=== PATIENT | female | born 1950 | race Caucasian/White ===

== ENCOUNTER 2017-10-15 03:38 | Inpatient (IN) | payer OTHER ==
[2017-10-15] VITALS (10 sets, daily range): BP systolic 135–216; BP diastolic 65–90
[~2017-10-15] VITALS: Ht 167.6 cm; Wt 91.6 kg
[~2017-10-15 03:38] MED LIST: ACETAMINOPHEN-1 EAC1 PO; ALLOPURINOL 30300 M1 PO; AMARYL2 M1 PO; AMILORIDE HCL-1 EACH; AMILORIDE HCL-1 EACH PO; AMLODIPINE BESY10 MG PO; AMOXICILLIN 50500 M1 PO; ASPIRIN EC81 M1 PO; AUGMENTIN 500-1 EACH PO; B12INJ PO; CARVEDILOL25 MG PO; CATAPRES0.2 MG PO; CIPRO250 MG PO; CIPROFLOXACIN500 M1 PO; CLONIDINE0.1 PO; COD LIVER OIL1 EAC5 PO; COZAAR 50 MG TA50 M2 PO; CRANBERRY200 MG PO; FISH OIL 1,2001 EAC3 PO; FLOMAX PO; GLUCOPHAGE1000 MG PO; HYDRALAZINE 2525 MG PO; LISINOPRIL20 MG PO; LOVASTATIN 20 M20 MG PO; MAXZIDE-25 MG1 EACH PO; MEVACOR 20 MG T20 MG PO; MULTIVITAMINS PO; NORVASC5 MG PO; ODORLESS GARLI500 MG PO; OXYCODON-ACETA1 EAC1 PO; PRESERVISION L1 EACH PO; SYNTHROID50 MCG PO; UROCIT PO; VITAMIN B-12500 MCG PO; VITAMIN E400 UNIT PO; VITAMIN K100 MCG PO; VITAMINC500 PO; XANAX 0.25 MG0.25 MG PO; ZOFRAN ODT4 MG PO
[2017-10-15] MEDS ORDERED: CELEXA 20 MG TA20 MG PO (03:48)
[2017-10-15 04:25] LABS: ABSOLUTE BASOPHILS 0.1 thou/uL (0.0-0.2); ABSOLUTE EOSINOPHILS 0.2 thou/uL (0.0-0.7); ABSOLUTE LYMPHOCYTES 0.8 thou/uL (0.8-5.3); ABSOLUTE MONOCYTES 0.5 thou/uL (0.0-1.2); ABSOLUTE NEUTROPHILS 4.4 thou/uL (1.6-8.1); BASOPHILS 1.4 %; EOSINOPHILS 2.8 %; HEMATOCRIT 28.3 % (37.0-47.0); HEMOGLOBIN 9.4 gm/dL (12.0-15.0); LYMPHOCYTES 13.4 %; MCH 27.6 pg (26.0-34.0); MCHC 33.2 g/dL (28.0-37.0); MCV 83.2 fL (80.0-100.0); MONOCYTES 8.4 %; MPV 9.7 fl. (7.2-11.1); NUCLEATED RBCS 0 /100WBC; RDW-CV 14.5 % (10.5-14.5)
[2017-10-15 04:34] LABS: ANION GAP 8 mmol/L (7-16); BUN 20 mg/dL (7-18); CALCIUM 8.7 mg/dL (8.5-10.1); CHLORIDE 104 mmol/L (98-107); CO2 28 mmol/L (21-32); CREATININE 0.9 mg/dL (0.6-1.3); GLUCOSE 125 mg/dL (70-99); POTASSIUM 3.4 mmol/L (3.5-5.1); SODIUM 140 mmol/L (136-145)
[2017-10-15 04:36] LABS: INR 1.1; PROTIME 10.3 Seconds (9.20-11.50)
[2017-10-15 04:45] LABS: ALBUMIN 2.8 g/dL (3.4-5.0); ALKALINE PHOSPHATASE 88 U/L (46-116); LIPASE 591 U/L (73-393); NT-PRO BRAIN NAT PEPTIDE 1082 pg/mL (<300); SGOT 11 U/L (15-37); SGPT 18 U/L (30-65); TOTAL BILIRUBIN 0.8 mg/dL (<0.1-1.0); TOTAL PROTEIN 5.6 g/dL (6.4-8.2); TROPONIN-I LEVEL <0.06 ng/mL (<0.06)
[2017-10-15 04:54] LABS: PLATELET COUNT* 22 thou/uL (150-400)
--- NOTE | 2017-10-15 15:26 | EKG ---
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
--- NOTE | 2017-10-15 16:33 | 2DMMODE ---
[place] [address] 2 D/M-MODE ECHOCARDIOGRAM Name: JOSE MARTIN HOLLINS Room: [address] IN [facility]#: [id number] Admission: 10/15/17 Attend Phys: Bismark Montgomery, Discharge: Date of : 46 Date of Service: 10/15/17 1633 Report #: [id number] THIS REPORT FOR: //name// APPROVED REPORT Study performed: 10/15/2017 13:22:16 EXAM: Comprehensive 2D, Doppler, and color-flow Echocardiogram Patient Location: In-Patient Room #: 208 Status: routine BSA: 2.00 HR: 74 bpm BP: 216/80 mmHg Rhythm: NSR Other Information Study Quality: Good Indications Chest Pain 2D Dimensions LVEF(%): 53.17 (>50%) IVSd: 15.91 (7-11mm) LVOT Diam: 19.67 (18-24mm) LVDd: 43.27 mm PWd: 12.00 (7-11mm) Ascending Ao: 32.88 (22-36mm) LVDs: 31.52 (25-40mm) Aortic Root: 31.97 mm Troncoso's LVEF: 53.17 % Volumes Left Atrial Volume (Systole) LA ESV Index: 30.00 mL/m2 Aortic Valve AoV Peak Braulio.: 2.13 m/s AO Peak Gr.: 18.09 mmHg LVOT Max P.97 mmHg AO Mean Gr.: 9.65 mmHg LVOT Mean P.71 mmHg LVOT Max V: 1.50 m/s AO V2 VTI: 51.24 cm LVOT Mean V: 1.00 m/s UMAIR (VTI): 2.43 cm2 LVOT V1 VTI: 40.93 cm AI [place]: 1.82 m/s2 AI PHT: 594.49 [place] [address] 2 D/M-MODE ECHOCARDIOGRAM Name: JOSE MARTIN HOLLINS Room: [address] IN .R.#: [id number] Admission: 10/15/17 Attend Phys: Bismark Montgomery, Discharge: Date of : 46 Date of Service: 10/15/17 1633 Report #: [id number] Mitral Valve E/A Ratio: 0.84 MV Decel. Time: 240.35 ms MV E Max Braulio.: 0.99 m/s MV PHT: 69.70 ms MVA (PHT): 3.16 cm2 TDI E/Lateral E': 9.90 E/Medial E': 12.38 Medial E' Braulio.: 0.08 m/s Lateral E' Braulio.: 0.10 m/s Pulmonary Valve PV Peak Braulio.: 1.36 m/s PV Peak Gr.: 7.36 mmHg Left Ventricle The left ventricle is normal size. There is normal LV segmental wall motion. There is normal left ventricular wall thickness. Left ventricular systolic function is normal. The left ventricular ejection fraction is within the normal range. LVEF is 60-65%. Grade I - abnormal relaxation pattern. Right Ventricle The right ventricle is normal size. The right ventricular systolic function is normal. Atria The left atrium size is normal. The right atrium size is normal. Aortic Valve Mild aortic valve sclerosis. Trace aortic regurgitation. There is no aortic valvular stenosis. Mitral Valve The mitral valve is normal in structure. There is no mitral valve regurgitation noted. No evidence of mitral valve stenosis. Tricuspid Valve The tricuspid valve is normal in structure. Unable to assess PA pressure. Trace tricuspid regurgitation. Pulmonic Valve The pulmonary valve is normal in structure. There is no pulmonic [place] [address] 2 D/M-MODE ECHOCARDIOGRAM Name: JOSE MARTIN HOLLINS Room: [address] IN .R.#: [id number] Admission: 10/15/17 Attend Phys: Bismark Montgomery, Discharge: Date of : 46 Date of Service: 10/15/17 1633 Report #: [id number] Great Vessels The aortic root is normal in size. IVC is normal in size and collapses with >50% inspiration Pericardium There is no pericardial effusion. <Conclusion> LVEF is 60-65%. There is normal LV segmental wall motion. Trace aortic regurgitation. Mild aortic valve sclerosis. There is no aortic valvular stenosis. Grade I - abnormal relaxation pattern. <ELECTRONICALLY SIGNED> By: Bk Vega MD, FACC 10/15/17 1633 1633 1633 Bk Vega MD, FACC /INF
[2017-10-16] VITALS (9 sets, daily range): BP systolic 114–210; BP diastolic 56–76
[2017-10-16 12:06] LABS: ABSOLUTE LYMPHOCYTES 0.8 thou/uL (0.8-5.3); ABSOLUTE MONOCYTES 0.6 thou/uL (0.0-1.2); ABSOLUTE NEUTROPHILS 5.9 thou/uL (1.6-8.1); BASOPHILS 0.7 %; EOSINOPHILS 0.2 %; HEMATOCRIT 28.1 % (37.0-47.0); HEMOGLOBIN 9.3 gm/dL (12.0-15.0); LYMPHOCYTES 11.2 %; MCH 27.9 pg (26.0-34.0); MCHC 33.2 g/dL (28.0-37.0); MONOCYTES 7.7 %; MPV 10.2 fl. (7.2-11.1); NUCLEATED RBCS 0 /100WBC; POLYS 80.2 %; RBC 3.35 mil/uL (4.20-5.00); RDW-CV 14.8 % (10.5-14.5); WBC 7.4 thou/uL (4.0-11.0)
[2017-10-16 12:11] LABS: PLATELET COUNT* 39 thou/uL (150-400)
[2017-10-17] VITALS: BP 123/62
[2017-10-17 04:00] VITALS: BP 168/67
[2017-10-17 07:30] VITALS: BP 160/65
[2017-10-17 10:51] LABS: HEMATOCRIT 27.5 % (37.0-47.0); MCH 27.5 pg (26.0-34.0); MCHC 32.8 g/dL (28.0-37.0); MCV 83.6 fL (80.0-100.0); MPV 8.6 fl. (7.2-11.1); RBC 3.29 mil/uL (4.20-5.00); RDW-CV 14.6 % (10.5-14.5); WBC 6.8 thou/uL (4.0-11.0)
[2017-10-17 12:47] VITALS: BP 171/63
[2017-10-17 16:00] VITALS: BP 159/67
[2017-10-17 20:00] VITALS: BP 184/78
[2017-10-18] VITALS: BP 159/57
[2017-10-18 04:00] VITALS: BP 187/71
[2017-10-18 05:00] LABS: HEMATOCRIT 29.3 % (37.0-47.0); HEMOGLOBIN 9.9 gm/dL (12.0-15.0); MCH 27.5 pg (26.0-34.0); MCHC 33.7 g/dL (28.0-37.0); MCV 81.5 fL (80.0-100.0); MPV 9.3 fl. (7.2-11.1); NUCLEATED RBCS 0 /100WBC; PLATELET COUNT* 55 thou/uL (150-400); RBC 3.59 mil/uL (4.20-5.00); RDW-CV 14.7 % (10.5-14.5); WBC 6.8 thou/uL (4.0-11.0)
[2017-10-18 05:27] LABS: CALCIUM 8.8 mg/dL (8.5-10.1); MAGNESIUM 2.1 mg/dL (1.8-2.4); POTASSIUM 4.2 mmol/L (3.5-5.1)
[2017-10-18 06:04] LABS: ABSOLUTE LYMPHOCYTES 0.4 thou/uL (0.8-5.3); ABSOLUTE NEUTROPHILS 6.4 thou/uL (1.6-8.1); ANISOCYTOSIS 1+; PLATELET ESTIMATE DECREASED; POIKILOCYTOSIS 1+
[2017-10-18 08:00] VITALS: BP 174/64
[2017-10-18] MEDS ORDERED: DEXAMETHASONE 44 M1 PO (10:29)
[2017-10-18] MEDS ORDERED: CLONIDINE HCL0.3 M3 PO (10:59)
[2017-10-18 11:05] VITALS: BP 174/64
[2017-10-18 11:35] VITALS: BP 155/62
--- NOTE | 2017-10-26 17:38 | CON ---
[address] [address] CONSULTATION Name: JOSE MARTIN HOLLINS Room: [address] IN M.R.#: [id number] Admission: 10/15/17 Attend Phys: Bismark Montgomery MD Discharge: 10/18/17 Date of : 46 Report #: [id number] THIS REPORT FOR: //name// CC: Bismark Gardiner DATE OF SERVICE: 10/17/2017 PHYSICIAN REQUESTING CONSULT: Dr. Montgomery REASON FOR CONSULTATION: ITP/thrombocytopenia. HISTORY OF PRESENT ILLNESS: The patient is a 66-year-old female who was recently diagnosed in September with thrombocytopenia, most consistent with ITP. The patient had presented to [facility] back on 09/20 and her platelets were 45,000. She had normal B12, iron and folic acid levels. She underwent a bone marrow biopsy on 09/22/2017. This was described as normal cellular to mildly hypercellular bone marrow with trilineage hematopoiesis with mild erythroid hyperplasia, mild dyspoiesis and no evidence of lymphoma or acute leukemia. They thought that the dyspoiesis was mild and did not meet the morphologic criteria for myelodysplasia. They did make the note that no stainable iron was identified. The patient at that time was treated with 4 doses of dexamethasone and had great improvement in her platelet count. After that, in the office, her platelet count was up to 231,000 on about 09/30/2017. The patient has had several days of chest discomfort and was seen in the Emergency Room on 10/15, and her platelet count was 22,000. She denied any bleeding, any fevers or chills, any new arm or leg swelling. PAST MEDICAL HISTORY: Notable for history of the ITP with fairly unremarkable bone marrow. Do note that the iron was low when she did check with Dr. Romero, this has been replaced. Also, history of coronary artery disease, diabetes mellitus, hypertension, hypothyroidism, hyperlipidemia, history of kidney stones. SOCIAL HISTORY: She raises 5 children. Her is present. MEDICATIONS: When she was seen in the office had included allopurinol 300 mg, Xanax 0.25, amlodipine 5 mg, Augmentin, vitamin C, aspirin 81, Tessalon Perles, clonidine 0.1, furosemide 20, glimepiride 2, hydralazine, levothyroxine, losartan, lovastatin. Medications here in the hospital currently include Tylenol p.r.n., hydralazine 100 mg t.i.d., clonidine 0.3 b.i.d., citalopram 20 at bedtime, atorvastatin calcium 40 at bedtime, cefdinir 300 mg b.i.d., B12 1000 mcg daily by mouth, losartan 50 b.i.d. Levothyroxine, I believe, she is on 0.05 [place] [address] CONSULTATION Name: JOSE MARTIN HOLLINS Room: [address]#: [id number] Admission: 10/15/17 Attend Phys: Bismark Montgomery MD Discharge: 10/18/17 Date of : 46 Report #: [id number] believe she may also be on triamterene, but that may have been canceled. Also, glimepiride 2 mg b.i.d., allopurinol 300 mg daily, multivitamins daily. Fish oil, I believe, was held. Carvedilol 25 b.i.d. PHYSICAL EXAMINATION: GENERAL: The patient is lying in bed comfortably. VITAL SIGNS: Her height is 5 feet 6 inches, which is 167.6 cm; weight is 205 pounds 4 ounces, which is 93 kg. Blood pressure is 160/65, pulse is 65, temperature 98. HEENT: Oropharynx without injection, masses. Note that the uvula is without any ecchymosis or hemorrhage or petechiae. MOOD: She is alert and pleasant. NEUROLOGIC: Her face is symmetrical. She is moving all extremities. LYMPHATICS: No enlarged lymph nodes in the supraclavicular, cervical or axillary region. ABDOMEN: Slightly obese, no tenderness. No organomegaly. SKIN: No obvious ecchymosis or definite petechiae, though she does have some slightly mary ellen patches on her lower extremities. ASSESSMENT AND PLAN: 1. ITP with fairly sudden drop in platelet counts 2-3 weeks after completion of steroids. Note that the patient did have a dose of 30 mg that brought her platelets from 22 to 39 to now 53. We will continue 40 mg for today and a total of 4 doses including the 30 mg on Wednesday. Would also consider IVIG as an outpatient. We will notify my partner that the patient will call her tomorrow. If her platelets are lower tomorrow, could initiate IVIG here. I did talk to the patient and her about the fact that ITP is usually chronic in nature and is relapsing in nature and that she may require other interventions in the future including possibility of splenectomy or rituximab or chemotherapy. Hopefully, IVIG will help to settle down. 2. Hypertension. Defer meds to others. 3. Diabetes mellitus. Continue monitoring and meds per others. 4. History of kidney stones, allopurinol and dietary management. 5. Hypothyroid, continue thyroid replacement. 6. Lipids, continue statin agent. <ELECTRONICALLY SIGNED> By: Moises Mcnamara MD 10/26/17 1738 1109 [id number] Mcnamara MD /nt
== END 2017-10-18 12:22 | disposition home or self-care (01) | DRG 303 ==
LOC: M.ERS 03:38 → M.TBA-ER 05:16 → M.2W 05:16
PROVIDERS: Emergency Medicine; Family Medicine; Internal Medicine Hematology & Oncology; ADMIT Internal Medicine
DX: I25.110 Atherosclerotic heart disease of native coronary artery with unstable angina pectoris (principal); I50.32 Chronic diastolic (congestive) heart failure; I16.1 Hypertensive emergency; D69.3 Immune thrombocytopenic purpura; E44.1 Mild protein-calorie malnutrition; I13.0 Hypertensive heart and chronic kidney disease with heart failure and stage 1 through stage 4 chronic kidney disease, or unspecified chronic kidney disease; N39.0 Urinary tract infection, site not specified; N18.2 Chronic kidney disease, stage 2 (mild); E11.22 Type 2 diabetes mellitus with diabetic chronic kidney disease; F41.9 Anxiety disorder, unspecified; I16.0 Hypertensive urgency; E87.6 Hypokalemia; D64.9 Anemia, unspecified; D69.6 Thrombocytopenia, unspecified; Z90.49 Acquired absence of other specified parts of digestive tract; Z95.5 Presence of coronary angioplasty implant and graft; Z90.710 Acquired absence of both cervix and uterus; Z88.5 Allergy status to narcotic agent; Z79.82 Long term (current) use of aspirin; Z79.84 Long term (current) use of oral hypoglycemic drugs; Z79.899 Other long term (current) drug therapy; Z87.442 Personal history of urinary calculi; Z68.32 Body mass index [BMI] 32.0-32.9, adult

== ENCOUNTER → 2017-11-09 | Outpatient (CLI) | payer OTHER ==
[~2017-11-09] MED LIST changes: +ALDACTONE25 MG PO; +AMARYL2 MG PO; +AMOXICILLIN 50500 MG PO; +BENTYL 20 MG TA20 M1 PO; +BUMETANIDE 1 MG1 M1 PO; +CELEXA 20 MG TA20 MG PO; +CHLORTHALIDONE25 MG PO; +CLONIDINE HCL0.3 M3 PO; +DEXAMETHASONE 44 M1 PO; +FLOMAX0.4 MG PO; +KLOR-CON 1010 MEQ PO
[2017-11-09 09:22] VITALS: BP 137/69
--- NOTE | 2017-11-09 09:29 | NUR ---
PT ARRIVED VIA AMBULATORY, STEADY GAIT, SETTLED SELF INTO RECLINER, AT SIDE. HX/ASSESSMENT COMPLETED. SALINE LOCK STARTED. IVIG CURRENTLY INFUSING WITHOUT DIFFICULTY. EDUCATED PT AND SPOUSE AN SYMPTOMS OF ADVERSE REACTION, PT INSTRUCTED TO CALL FOR ANY SYMPTOMS.
[2017-11-09 11:30] VITALS: BP 137/65
--- NOTE | 2017-11-09 11:43 | NUR ---
INFUSION OF IVIG CONTINUES AND IS TOLERATED WELL. LUNCH ORDERED. NADEGE MATA FOR COMPLAINT OF BEING COLD. DENEIS CURRENT NEEDS.
[2017-11-09 15:40] VITALS: BP 170/71
--- NOTE | 2017-11-09 16:04 | NUR ---
INFUSION COMPLETED AND TOLERATED WELL. DENIES NEEDS OR QUESTIONS AT DISCHARGE.
== END ==
LOC: M.INFUS 04:46
DX: D69.3 Immune thrombocytopenic purpura (principal)

== ENCOUNTER → 2017-11-12 | Outpatient (CLI) | payer OTHER ==
[2017-11-12 08:05] VITALS: BP 149/66
[2017-11-12 10:00] VITALS: BP 152/74
--- NOTE | 2017-11-12 11:33 | NUR ---
ARRIVED AMBULATORY. MADE SELF COMFORTABLE IN RECLINER. STATED HAD GI UPSET AFTER GOING HOME AFTER INFUSION ON 11/09/17. STATED THINKS IT WAS UNRELATED TO INFUSION AND SOMETHING SHE ATE. NO SYMPTOMS FOR [address] ESPINOSA WAS MADE AWARE OF DELAY IN CARE. INFUSION STARTED AND RUNNING WELL. DENIES CURRENT NEEDS LUNCH ORDERED.
[2017-11-12 14:50] VITALS: BP 142/60
--- NOTE | 2017-11-12 14:54 | NUR ---
INFUSION COMPLETED AND TOLERATED WELL. DENIES ADVERSE REACTION. DINIES NEEDS OR QUESTIONS AT DISCHARGE.
== END ==
LOC: M.INFUS 07:57
DX: D69.3 Immune thrombocytopenic purpura (principal)

== ENCOUNTER → 2017-12-10 | Outpatient (CLI) | payer OTHER ==
[2017-12-10 15:47] LABS: CALCIUM 8.8 mg/dL (8.5-10.1); POTASSIUM 3.4 mmol/L (3.5-5.1)
== END ==
LOC: M.LAB 14:42
PROVIDERS: Internal Medicine Cardiovascular Disease
DX: R60.9 Edema, unspecified (principal)

== ENCOUNTER 2017-12-22 16:25 | Inpatient (IN) | payer OTHER ==
[~2017-12-22] VITALS: Ht 167.6 cm; Wt 91.2 kg
[~2017-12-22 16:25] MED LIST changes: -ALDACTONE25 MG PO; -AMARYL2 MG PO; -AMOXICILLIN 50500 MG PO; -BENTYL 20 MG TA20 M1 PO; -BUMETANIDE 1 MG1 M1 PO; -CHLORTHALIDONE25 MG PO; -FLOMAX0.4 MG PO; -KLOR-CON 1010 MEQ PO
[2017-12-22 16:28] VITALS: BP 220/87
[2017-12-22] MEDS ORDERED: FLOMAX0.4 MG PO (16:36)
[2017-12-22] MEDS ORDERED: CHLORTHALIDONE25 MG PO (16:36)
[2017-12-22 16:41] LABS: ABSOLUTE BASOPHILS 0.1 thou/uL (0.0-0.2); ABSOLUTE EOSINOPHILS 0.1 thou/uL (0.0-0.7); ABSOLUTE LYMPHOCYTES 1.1 thou/uL (0.8-5.3); ABSOLUTE MONOCYTES 0.3 thou/uL (0.0-1.2); ABSOLUTE NEUTROPHILS 3.6 thou/uL (1.6-8.1); BASOPHILS 1.1 %; EOSINOPHILS 2.3 %; HEMATOCRIT 30.2 % (37.0-47.0); HEMOGLOBIN 10.1 gm/dL (12.0-15.0); MCH 27.7 pg (26.0-34.0); MCHC 33.5 g/dL (28.0-37.0); MCV 82.6 fL (80.0-100.0); MPV 8.9 fl. (7.2-11.1); NUCLEATED RBCS 0 /100WBC; POLYS 69.6 %; RBC 3.66 mil/uL (4.20-5.00); RDW-CV 15.7 % (10.5-14.5); WBC 5.2 thou/uL (4.0-11.0)
[2017-12-22 16:45] LABS: PLATELET COUNT* 22 thou/uL (150-400)
[2017-12-22 16:50] LABS: ANION GAP 6 mmol/L (7-16); BUN 15 mg/dL (7-18); CALCIUM 8.4 mg/dL (8.5-10.1); CHLORIDE 101 mmol/L (98-107); CO2 31 mmol/L (21-32); GLUCOSE 127 mg/dL (70-99); POTASSIUM 3.2 mmol/L (3.5-5.1); SODIUM 138 mmol/L (136-145)
[2017-12-22 16:52] LABS: APTT 27.5 Seconds (25.0-31.3); INR 1.1; PROTIME 10.3 Seconds (9.20-11.50)
[2017-12-22 17:08] LABS: ALBUMIN 3.3 g/dL (3.4-5.0); ALKALINE PHOSPHATASE 75 U/L (46-116); CK-MB MASS 1.1 ng/mL (<0.5-3.6); LIPASE 218 U/L (73-393); MAGNESIUM 1.7 mg/dL (1.8-2.4); NT-PRO BRAIN NAT PEPTIDE 2145 pg/mL (<300); SGOT 16 U/L (15-37); SGPT 18 U/L (30-65); TOTAL BILIRUBIN 0.7 mg/dL (<0.1-1.0); TOTAL PROTEIN 6.4 g/dL (6.4-8.2); TROPONIN-I LEVEL <0.06 ng/mL (<0.06)
[2017-12-22 18:07] VITALS: BP 214/86
--- NOTE | 2017-12-22 18:37 | NUR ---
PT ADMITED TO TELEMETRY FLOOR UNDER THE CARE OF DR GRIFFITHS. PT ORIENTED TO UNIT AND SERVICES, FOOD AND DRINK OFFERED. [employer] APPLIED AND STRIP PRINTED AND PLACED IN CHART, PT IN NSR WITH RATE IN THE 80'S. PT INSTRUCTED TO CALLL FOR ASSISTANCE WHEN SHE NEEDS TO MOVE FROM PLACE TO PLACE, INCLUDING TO THE BEDSIDE COMMODE. PT DENIES ANY C/O PAIN OR DISTRESS AT THIS TIME. NURSING WILL CONTINUE TO MONITOR.
[2017-12-22 20:00] VITALS: BP 209/72
[2017-12-23] VITALS: BP 196/83
[2017-12-23 02:19] LABS: HEMATOCRIT 28.9 % (37.0-47.0); HEMOGLOBIN 9.7 gm/dL (12.0-15.0); MCH 27.9 pg (26.0-34.0); MCHC 33.7 g/dL (28.0-37.0); MPV 10.4 fl. (7.2-11.1); RBC 3.49 mil/uL (4.20-5.00); RDW-CV 15.2 % (10.5-14.5); WBC 6.7 thou/uL (4.0-11.0)
[2017-12-23 02:33] LABS: CALCIUM 8.5 mg/dL (8.5-10.1); MAGNESIUM 2.5 mg/dL (1.8-2.4); PHOSPHORUS* 3.4 mg/dL (2.5-4.9); POTASSIUM 3.2 mmol/L (3.5-5.1)
--- NOTE | 2017-12-23 02:46 | NUR ---
PATIENT RESTING WITHOUT COMPLAINTS. CONT. TO BE IN NSR ON MONITOR. CONT. TO MONITOR. BPS. HYPERTENSIVE MEDICATION GIVEN. ON 2 L O2 NC. DENIES ANY SOA. BED IN LOW POSITION, CALL LIGHT IN REACH, BED ALARM ON. NO SIGN OF DISTRESS. CONT WITH CURRENT PLAN OF CARE AT THIS TIME.
[2017-12-23 04:00] VITALS: BP 190/85
--- NOTE | 2017-12-23 06:42 | NUR ---
GAVE PRN IV HYERTENSIVE FOR SBP OF 190. CONT. TO MONITOR BPS,
--- NOTE | 2017-12-23 07:20 | NUR ---
CHANGE OF SHIFT, BEDSIDE REPORT GIVEN ASSUMED PATIENT CARE PATIENT SEEN AT BEDSIDE, LAYING IN BED NO REQUESTS
[2017-12-23 08:00] VITALS: BP 191/79
[2017-12-23 11:45] VITALS: BP 172/70
--- NOTE | 2017-12-23 14:35 | NUR ---
CM ASSESSMENT: Pt is A&o. Resides at home with her . Independent with ADLs. No DME. No hx of HH or SNF. Supportive family that is invovled in POC. Goal is to return home once medically stable. Following for dc needs.
--- NOTE | 2017-12-23 15:14 | EKG ---
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
[2017-12-23 16:11] VITALS: BP 177/68
--- NOTE | 2017-12-23 19:37 | NUR ---
PATIENT LAYING IN BED AND VISITNG WITH FRIEND AT BEDSIDE NO C/O PAIN CALL LIGHT AT REACH AND INSTRUCTION GIVEN AND FOLLOWED REF SCDS
[2017-12-23 20:00] VITALS: BP 171/71
--- NOTE | 2017-12-23 20:00 | NUR ---
RECEIVED REPORT AND ASSUMED CARE OF PT, ASSESSMENT COMPLETED. PT RESTING IN BED WATCHING TV WITHOUT COMPLAINTS. TELEMETRY ON SHOWING SR WITH 1ST AVB. WILL CONT TO MONITOR AND ASSIST NEEDED.
[2017-12-24] VITALS: BP 121/54
[2017-12-24 04:24] VITALS: BP 174/77
--- NOTE | 2017-12-24 05:19 | NUR ---
SLEPT WELL TONIGHT. GAIT STEADY TO AND FROM BR. URINE STRAINED WITHOUT STONE. DENIES DISCOMFORT. TELEMETRY SHOWING SR WITH 1ST AVB. NO CHANGES IN ASSESSMENT. HOURLY ROUNDING OBSERVED. HS GOALS REST AND SAFETY OBTAINED.
[2017-12-24 05:41] LABS: ABSOLUTE BASOPHILS 0.1 thou/uL (0.0-0.2); ABSOLUTE EOSINOPHILS 0.1 thou/uL (0.0-0.7); ABSOLUTE LYMPHOCYTES 1.6 thou/uL (0.8-5.3); ABSOLUTE MONOCYTES 0.4 thou/uL (0.0-1.2); ABSOLUTE NEUTROPHILS 3.3 thou/uL (1.6-8.1); BASOPHILS 1.2 %; HEMATOCRIT 24.4 % (37.0-47.0); HEMOGLOBIN 8.3 gm/dL (12.0-15.0); LYMPHOCYTES 29.3 %; MCH 27.6 pg (26.0-34.0); MCHC 33.8 g/dL (28.0-37.0); MCV 81.8 fL (80.0-100.0); MONOCYTES 7.9 %; MPV 9.6 fl. (7.2-11.1); NUCLEATED RBCS 0 /100WBC; POLYS 59.6 %; RBC 2.99 mil/uL (4.20-5.00); RDW-CV 15.3 % (10.5-14.5); WBC 5.6 thou/uL (4.0-11.0)
[2017-12-24 05:51] LABS: PLATELET COUNT* 39 thou/uL (150-400)
[2017-12-24 06:18] LABS: ALBUMIN 2.8 g/dL (3.4-5.0); CALCIUM 8.3 mg/dL (8.5-10.1); CREATININE 1.2 mg/dL (0.6-1.3); POTASSIUM 3.5 mmol/L (3.5-5.1); TOTAL BILIRUBIN 0.6 mg/dL (<0.1-1.0)
--- NOTE | 2017-12-24 07:15 | NUR ---
CHANGE OF SHIFT BEDSIDE REPORT GIVEN PATIENT SEEN AT BEDSIDE PATIENT SITTING UP IN BED, NO REQUESTS
[2017-12-24 08:00] VITALS: BP 172/68
--- NOTE | 2017-12-24 09:26 | NUR ---
OT SCREEN: PT IS UP AT JANICE IN ROOM, NO ASSISTANCE REQUIRED. PT DEMONSTRATES FULL ROM TO BUE, STRENGTH WFL. PT IS ABLE TO COMPLETE ALL ADLS AT INDEPENDENT LEVEL. REPORTS NO NEED FOR SKILLED OT AND DEMONSTRATES THE SAME.
[2017-12-24] MEDS ORDERED: ALDACTONE25 MG PO (11:03)
[2017-12-24] MEDS ORDERED: CARVEDILOL25 MG PO (11:03)
[2017-12-24] MEDS ORDERED: CLONIDINE HCL0.3 M3 PO (11:03)
[2017-12-24 11:24] VITALS: BP 165/69
[2017-12-24 12:44] VITALS: BP 165/69
--- NOTE | 2017-12-24 13:30 | NUR ---
PATIENT DCD TO HOME ALL DC INSTRUCTIONS GIVEN AND ACKNOWLEDGED AND SIGNED COPIES GIVEN PATIENT ASSISTED OUT VIA WC GOOD CONDITION TO HOME
[2017-12-24 14:42] VITALS: BP 165/69
--- NOTE | 2017-12-24 15:12 | NUR ---
PT SCREENED THIS AM BY PT SERVICES. PT DEMONSTRATED STABLE GAIT AND TRANSFERS W/O DME SUPPORT. PT VOICES NO CONCERNS W/ DISCHARGE TO HOME. PT INDICATES SHE HAS DME AVAILABLE IF NEEDED AT HOME. NO FURTHER ACUTE PT SERVICES WERE INDICATED.
== END 2017-12-24 13:30 | disposition home or self-care (01) | DRG 305 ==
LOC: M.ERS 16:25 → M.2W 17:30 → M.TBA-ER 17:30 → M.2W 18:33
PROVIDERS: Family Medicine; Internal Medicine Hematology & Oncology; ADMIT Internal Medicine
DX: I16.0 Hypertensive urgency (principal); D69.3 Immune thrombocytopenic purpura; I50.32 Chronic diastolic (congestive) heart failure; E44.0 Moderate protein-calorie malnutrition; I13.0 Hypertensive heart and chronic kidney disease with heart failure and stage 1 through stage 4 chronic kidney disease, or unspecified chronic kidney disease; I87.8 Other specified disorders of veins; E11.9 Type 2 diabetes mellitus without complications; I10 Essential (primary) hypertension; N20.0 Calculus of kidney; Z90.49 Acquired absence of other specified parts of digestive tract; Z90.710 Acquired absence of both cervix and uterus; Z87.442 Personal history of urinary calculi; Z95.5 Presence of coronary angioplasty implant and graft; Z79.82 Long term (current) use of aspirin; Z79.84 Long term (current) use of oral hypoglycemic drugs; Z79.899 Other long term (current) drug therapy; Z88.5 Allergy status to narcotic agent; Z88.8 Allergy status to other drugs, medicaments and biological substances; Z28.21 Immunization not carried out because of patient refusal; N18.2 Chronic kidney disease, stage 2 (mild)

== ENCOUNTER → 2018-01-04 | Outpatient (CLI) | payer OTHER ==
[~2018-01-04] MED LIST changes: +ALDACTONE25 MG PO; +AMARYL2 MG PO; +AMOXICILLIN 50500 MG PO; +BENTYL 20 MG TA20 M1 PO; +BUMETANIDE 1 MG1 M1 PO; +CHLORTHALIDONE25 MG PO; +FLOMAX0.4 MG PO; +KLOR-CON 1010 MEQ PO
== END ==
LOC: M.ULTRA 12:49
DX: N20.0 Calculus of kidney (principal)

== ENCOUNTER 2018-06-12 20:27 | Emergency (ER) | payer OTHER ==
[~2018-06-12] VITALS: Ht 167.6 cm; Wt 86.2 kg
[~2018-06-12 20:27] MED LIST changes: -AMARYL2 MG PO; -AMOXICILLIN 50500 MG PO; -BENTYL 20 MG TA20 M1 PO; -BUMETANIDE 1 MG1 M1 PO; -KLOR-CON 1010 MEQ PO
[2018-06-12] MEDS ORDERED: NORVASC5 MG PO (20:42)
[2018-06-12] MEDS ORDERED: AMOXICILLIN 50500 MG PO (20:43)
[2018-06-12] MEDS ORDERED: AMARYL2 MG PO (20:44)
[2018-06-12] MEDS ORDERED: KLOR-CON 1010 MEQ PO (20:45)
[2018-06-12 20:54] LABS: URINE BILIRUBIN NEGATIVE (Negative); URINE BLOOD TRACE (Negative); URINE CLARITY CLEAR; URINE COLOR YELLOW; URINE GLUCOSE-RANDOM NEGATIVE (Negative); URINE KETONES NEGATIVE (Negative); URINE LEUKOCYTES-REFLEX NEGATIVE (Negative); URINE NITRITE-REFLEX NEGATIVE (Negative); URINE PROTEIN 3+ (Negative); URINE UROBILINOGEN 0.2 E.U./dl (0.2-1.0)
[2018-06-12 20:59] LABS: SQUAMOUS 0-3 Few /LPF (0-3); URINE WBC-REFLEX 0-5 Rare /HPF (0-5)
[2018-06-12 21:00] LABS: BACTERIA-REFLEX None Seen /HPF (None Seen); CASTS None Seen /LPF (None Seen); CRYSTALS None Seen /LPF (None Seen); URINE RBC 3-10 Few /HPF (0-2)
[2018-06-12 21:04] LABS: ABSOLUTE BASOPHILS 0.1 thou/uL (0.0-0.2); ABSOLUTE EOSINOPHILS 0.4 thou/uL (0.0-0.7); ABSOLUTE LYMPHOCYTES 1.2 thou/uL (0.8-5.3); ABSOLUTE MONOCYTES 0.4 thou/uL (0.0-1.2); ABSOLUTE NEUTROPHILS 3.6 thou/uL (1.6-8.1); BASOPHILS 1.7 %; HEMATOCRIT 26.9 % (37.0-47.0); HEMOGLOBIN 9.2 gm/dL (12.0-15.0); LYMPHOCYTES 21.6 %; MCH 29.7 pg (26.0-34.0); MCHC 34.2 g/dL (28.0-37.0); MCV 86.8 fL (80.0-100.0); MONOCYTES 6.8 %; MPV 7.9 fl. (7.2-11.1); NUCLEATED RBCS 0 /100WBC; POLYS 62.9 %; RDW-CV 14.1 % (10.5-14.5); WBC 5.7 thou/uL (4.0-11.0)
[2018-06-12 21:07] LABS: PLATELET COUNT* 41 thou/uL (150-400)
[2018-06-12 21:13] LABS: CALCIUM 8.3 mg/dL (8.5-10.1); CREATININE 1.2 mg/dL (0.6-1.3); POTASSIUM 3.6 mmol/L (3.5-5.1)
[2018-06-12 21:17] LABS: ALBUMIN 2.9 g/dL (3.4-5.0); TOTAL BILIRUBIN 0.5 mg/dL (<0.1-1.0); TOTAL PROTEIN 5.5 g/dL (6.4-8.2)
[2018-06-12] MEDS ORDERED: BENTYL 20 MG TA20 M1 PO (22:21)
[2018-06-12 22:28] VITALS: BP 166/71
== END 2018-06-12 22:29 | disposition home or self-care (01) ==
LOC: M.ERS 20:27
PROVIDERS: Nurse Practitioner Family
DX: K59.00 Constipation, unspecified (principal); E78.00 Pure hypercholesterolemia, unspecified; I11.0 Hypertensive heart disease with heart failure; I50.9 Heart failure, unspecified; E11.9 Type 2 diabetes mellitus without complications; E03.9 Hypothyroidism, unspecified; M10.9 Gout, unspecified; Z88.5 Allergy status to narcotic agent; Z95.5 Presence of coronary angioplasty implant and graft; Z90.49 Acquired absence of other specified parts of digestive tract; Z90.710 Acquired absence of both cervix and uterus; Z87.442 Personal history of urinary calculi; Z98.890 Other specified postprocedural states

== ENCOUNTER 2018-07-03 17:25 | Inpatient (IN) | payer OTHER ==
[~2018-07-03] VITALS: Ht 167.6 cm; Wt 93.9 kg
[~2018-07-03 17:25] MED LIST changes: +AMARYL2 MG PO; +AMOXICILLIN 50500 MG PO; +BENTYL 20 MG TA20 M1 PO; +KLOR-CON 1010 MEQ PO
[2018-07-03 17:29] VITALS: BP 217/89
[2018-07-03] MEDS ORDERED: BUMETANIDE 1 MG1 M1 PO (17:37)
[2018-07-03 17:43] LABS: ABSOLUTE BASOPHILS 0.2 thou/uL (0.0-0.2); ABSOLUTE EOSINOPHILS 0.3 thou/uL (0.0-0.7); ABSOLUTE LYMPHOCYTES 1.1 thou/uL (0.8-5.3); ABSOLUTE MONOCYTES 0.5 thou/uL (0.0-1.2); ABSOLUTE NEUTROPHILS 5.1 thou/uL (1.6-8.1); BASOPHILS 2.2 %; EOSINOPHILS 4.5 %; HEMATOCRIT 30.9 % (37.0-47.0); HEMOGLOBIN 10.5 gm/dL (12.0-15.0); LYMPHOCYTES 14.9 %; MCH 29.3 pg (26.0-34.0); MCHC 33.8 g/dL (28.0-37.0); MCV 86.7 fL (80.0-100.0); MONOCYTES 6.7 %; MPV 7.5 fl. (7.2-11.1); NUCLEATED RBCS 0 /100WBC; PLATELET COUNT* 54 thou/uL (150-400); POLYS 71.7 %; RBC 3.57 mil/uL (4.20-5.00); RDW-CV 14.5 % (10.5-14.5); WBC 7.2 thou/uL (4.0-11.0)
[2018-07-03 17:55] LABS: ANION GAP 7 mmol/L (7-16); BUN 27 mg/dL (7-18); CALCIUM 8.3 mg/dL (8.5-10.1); CHLORIDE 110 mmol/L (98-107); CO2 27 mmol/L (21-32); CREATININE 1.4 mg/dL (0.6-1.3); GLUCOSE 104 mg/dL (70-99); POTASSIUM 3.3 mmol/L (3.5-5.1); SODIUM 144 mmol/L (136-145)
[2018-07-03 17:57] LABS: APTT 26.7 Seconds (25.0-31.3); PROTIME 9.8 Seconds (9.20-11.50)
[2018-07-03 18:14] LABS: ALKALINE PHOSPHATASE 86 U/L (46-116); CK-MB MASS 1.7 ng/mL (<0.5-3.6); LIPASE 205 U/L (73-393); NT-PRO BRAIN NAT PEPTIDE 4267 pg/mL (<300); SGOT 15 U/L (15-37); SGPT 15 U/L (30-65); TOTAL BILIRUBIN 0.9 mg/dL (<0.1-1.0); TOTAL PROTEIN 6.1 g/dL (6.4-8.2); TROPONIN-I LEVEL <0.06 ng/mL (<0.06)
[2018-07-03 20:16] VITALS: BP 184/71
[2018-07-03 20:30] VITALS: BP 182/69
[2018-07-03 21:00] VITALS: BP 182/69
[2018-07-03 22:07] LABS: CALCIUM 8.7 mg/dL (8.5-10.1); CREATININE 1.3 mg/dL (0.6-1.3); POTASSIUM 3.3 mmol/L (3.5-5.1)
[2018-07-03 22:30] VITALS: BP 174/77
[2018-07-04] VITALS (9 sets, daily range): BP systolic 173–211; BP diastolic 74–84
[2018-07-04 05:19] LABS: ABSOLUTE BASOPHILS 0.1 thou/uL (0.0-0.2); ABSOLUTE EOSINOPHILS 0.3 thou/uL (0.0-0.7); ABSOLUTE LYMPHOCYTES 1.1 thou/uL (0.8-5.3); ABSOLUTE MONOCYTES 0.4 thou/uL (0.0-1.2); ABSOLUTE NEUTROPHILS 3.8 thou/uL (1.6-8.1); BASOPHILS 1.7 %; EOSINOPHILS 4.5 %; HEMATOCRIT 26.3 % (37.0-47.0); HEMOGLOBIN 8.8 gm/dL (12.0-15.0); LYMPHOCYTES 19.3 %; MCH 28.9 pg (26.0-34.0); MCHC 33.4 g/dL (28.0-37.0); MCV 86.4 fL (80.0-100.0); MONOCYTES 7.9 %; MPV 8.4 fl. (7.2-11.1); NUCLEATED RBCS 0 /100WBC; POLYS 66.6 %; RBC 3.04 mil/uL (4.20-5.00); RDW-CV 14.2 % (10.5-14.5); WBC 5.6 thou/uL (4.0-11.0)
[2018-07-04 05:37] LABS: PLATELET COUNT* 49 thou/uL (150-400)
[2018-07-04 05:52] LABS: CALCIUM 7.9 mg/dL (8.5-10.1); CREATININE 1.2 mg/dL (0.6-1.3); POTASSIUM 3.8 mmol/L (3.5-5.1)
--- NOTE | 2018-07-04 06:58 | NUR ---
RECEIVED REPORT FROM [employer] REPRESENTATIVE SUSSY AT 1932. PT ARRIVED TO UNIT AT 2019. PT'S INITIAL BP WAS 182/69. HOME MEDS ADMINSTERED, SEE EMAR. BP CONTINUED TO BE ELEVATED, PRN HYDRALAZINE ADMINISTERED WITHOUT BP DECREASE. DR. PATTEN PAGED AT 0451. CRITICAL PLATELETS WITH AM LABS, DR. KELLY PAGED AND NOTIFIED AT 0540. AM BP MEDS ADMNISTERED PER DR. KELLY AND HEMATOLOGY CONSULTED. NEW ORDER RECEIVED FOR BP FROM DR. GARZA AT 0630. PT CONTINUES ON PAVING BLOCK CUTTER, TRACING SR. DENIES CHEST PAIN, HEADACHE, DIZZINESS THIS SHIFT. HOURLY ROUNDING COMPLETED. CALL LIGHT WITHIN REACH. NEGATIVE FOR SEPSIS SCREENING.
--- NOTE | 2018-07-04 09:33 | NUR ---
ASSUMED PT. CARE AND RECEIVED REPORT AT 0730. PT A/OX4, BP REMAINS HIGH AT 204/76- PT. GIVEN NORVASC BY YOUNG RN APPROX. 45 MINUTES PRIOR. ON 2L NC. DENIES CURRENT PAIN. AMBULATES TO BATHROOM, STEADY ON FEET. FULL ASSESSMENT COMPLETED, REFER TO CHARTING. PT. NPO FOR CV CONSULT. PT SPOUSE AT BEDSIDE. WILL CONTINUE WITH PLAN OF CARE.
--- NOTE | 2018-07-04 10:50 | EKG ---
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1950 Requested By: Alex Gutiérrez Order Number: [id number] MD: Alfredito Hidalgo Measurements Intervals [place] Rate: 81 P: 34 NM: 194 QRS: 1 QRSD: 107 T: 24 QT: 390 QTc: 453 Interpretive Statements Sinus rhythm nonspecific st changes Probable left atrial enlargement Compared to ECG 12/22/2017 16:29:57 No significant changes Electronically Signed On 07-04-2018 10:49:54 CDT by Alfredito Hidalgo [email or web address] <ELECTRONICALLY SIGNED> By: Alfredito Hidalgo MD, [facility] 07/04/18 1049 1731 1731 Alfredito Hidalgo MD, [facility] /EPI
--- NOTE | 2018-07-04 16:46 | NUR ---
SW met with pt to complete initial assessment, introduce self, and SW role. Pt bedside. Pt alert, oriented. Pt lives at home with and is independent with ADLs and mobility. Pt does not have any DME or hx of HH or SNF. SW discussed doctor's recommendation for an appt with an I&C Tech and SW to provide listing and assist with scheduling appt if needed; pt and pt will review the list. SW to continue to follow up to assist with safe dc planning.
--- NOTE | 2018-07-04 18:30 | NUR ---
PT. PRESSURE IMPROVED THIS SHIFT, BUT STILL REMAINS ELEVATED IN 170'S/70. PT. HAS REMAINED SYMPTOMATIC THIS SHIFT. HOURLY ROUNDING COMPLETED THROUGH OUT THE DAY FOR PT. SAFETY.
--- NOTE | 2018-07-04 23:43 | NUR ---
ASSUMED PT CARE AT 1915 REPORT RECEIVED FROM NURSE. PT IS ALERT AWAKE ORIENTED X 4 SINUS RYTHM ON THE CARDICA MONITOR. PT IS PLEASANT LYING IN BED. AMBULATES ON HER OWN TO THE RESTROOM. SHE IS ON 2 L NC O2 SATURATION IS ABOVE 95 %IV LIE IS PATENT. BP MEDICINE GIVEN ORDERED TO MAINTAIN A CONTROLLED BP. PT HAS NO COMPLAINT AT THIS TIME. WILL CONTINUE TO MONITOR.
[2018-07-05] VITALS (7 sets, daily range): BP systolic 164–202; BP diastolic 65–82
[2018-07-05 05:45] LABS: ABSOLUTE BASOPHILS 0.1 thou/uL (0.0-0.2); ABSOLUTE EOSINOPHILS 0.3 thou/uL (0.0-0.7); ABSOLUTE LYMPHOCYTES 1.2 thou/uL (0.8-5.3); ABSOLUTE MONOCYTES 0.4 thou/uL (0.0-1.2); ABSOLUTE NEUTROPHILS 2.9 thou/uL (1.6-8.1); BASOPHILS 1.9 %; HEMATOCRIT 24.3 % (37.0-47.0); LYMPHOCYTES 24.5 %; MCH 28.9 pg (26.0-34.0); MCHC 33.1 g/dL (28.0-37.0); MCV 87.4 fL (80.0-100.0); MONOCYTES 8.4 %; MPV 8.2 fl. (7.2-11.1); NUCLEATED RBCS 0 /100WBC; POLYS 59.2 %; RBC 2.78 mil/uL (4.20-5.00); RDW-CV 14.6 % (10.5-14.5); WBC 4.8 thou/uL (4.0-11.0)
[2018-07-05 05:54] LABS: CALCIUM 7.9 mg/dL (8.5-10.1); CREATININE 1.4 mg/dL (0.6-1.3); POTASSIUM 4.9 mmol/L (3.5-5.1)
[2018-07-05 06:04] LABS: PLATELET COUNT* 40 thou/uL (150-400)
[2018-07-05 06:10] LABS: % SATURATION 21 % (20-39); IRON 35 ug/dL (50-175)
--- NOTE | 2018-07-05 12:09 | NUR ---
F/U VISIT WITH PT AND SPOUSE. PT PLANS TO DISCUSS ENDOCRINE F/U WITH HER PCP. DENIES ANY DC NEEDS. HOPES TO GO HOME LATER
--- NOTE | 2018-07-06 05:31 | NUR ---
ASSUMED PT CARE. PT IS AERT AWAKE ORIENTRD X4 . BP 102/82 , BP MEDS GIVEN. PT GETS UP PN HER OWN TO GO USE THE BEDSIDE COMMODFFEBED. CALL LIGHT AT REACH. PT ON 2 L NC SATURTION MAINTAINED ABOVE 95%. WILL CONTINUE TO MONITOR
[2018-07-06 08:00] VITALS: BP 207/82
--- NOTE | 2018-07-06 10:11 | CON ---
[facility] [address] [place] [address] CONSULTATION Name: JOSE MARTIN HOLLINS Room: [address] IN M.R.#: [id number] Admission: 07/03/18 Attend Phys: Bismark Montgomery MD Discharge: Date of : 46 Report #: [id number] THIS REPORT FOR: //name// CC: Bismark Gardiner DO DATE OF SERVICE: 07/04/2018 PRIMARY CARE PHYSICIAN: Dyllan Gardiner M.D. HISTORY OF PRESENT ILLNESS: The patient is a 67-year-old white female who I was asked to see in the hospital today after she complained of swelling of her feet. The patient has an extensive past medical history. She apparently presented in 2005 with chest pain. She was seen by Dr. Vasquez. She underwent a heart catheterization here at [facility] and was found to have normal left ventricular function. The LAD had minimal plaquing. There was a 99% stenosis of the right coronary artery. She was transferred to [facility] and had a coronary artery stent placed. She has apparently done fairly well since that time. Recently, she has been followed by my partner, Dr. Vega, in the Cardiology Clinic here in [place]. She last saw Dr. Vega in May when she was taking Lasix for occasional edema. Her last hospitalization here at [facility] is in December when she is treated for hypertension and her ITP. She does have chronic anemia. She does go for walks on a regular basis. Her last cardiac workup included an echocardiogram in October of this year that showed ejection fraction 60% with aortic sclerosis. She had a nuclear stress test a year ago in April 2017 that showed ejection fraction 60% with a small lateral defect. There are no reversible defects and the test was felt to be negative for ischemia. The patient states that recently she has been more short of breath and had swelling of her feet. Yesterday, her hands were swollen. She took her blood pressure and was elevated. She called her doctor and was told to come to the Emergency Room. She does note occasional flutter in her chest, but no syncope. PAST MEDICAL HISTORY: Significant for previous cholecystectomy, hysterectomy, tonsillectomy, hypertension, diabetes, hyperlipidemia, ITP, chronic anemia. MEDICATIONS: Consist of allopurinol, amlodipine, Augmentin to prevent urinary tract infections, carvedilol, clonidine, glimepiride, hydralazine, Synthroid, losartan, lovastatin, metformin, potassium supplements. ALLERGIES: SHE HAS INTOLERANCE TO MULTIPLE MEDICATIONS INCLUDING CIPRO, LISINOPRIL, SULFA DRUGS, CODEINE. FAMILY HISTORY: [place] [address] CONSULTATION Name: GURVINDERJOSE MARTIN J Room: [facility] IN .R.#: [id number] Admission: 07/03/18 Attend Phys: Bismark Montgomery MD Discharge: Date of : 46 Report #: [id number] SOCIAL HISTORY: She is . She and her live in [place], [place]. Quit smoking years ago. No alcohol use. REVIEW OF SYSTEMS: She has had no history of stroke, asthma, peptic ulcer disease, liver disease. She has had kidney stones in the past. She has a skin cancer removed. PHYSICAL EXAMINATION: GENERAL: An elderly female, appeared in no distress. VITAL SIGNS: She had a blood pressure of 190/80, pulse is 80, she is afebrile. HEENT: She is anicteric, conjunctivae pink. Mucous members moist. NECK: Veins do not appear distended. No carotid bruits. Neck is supple. CHEST: Clear to auscultation. CARDIOVASCULAR: Regular rate and rhythm, grade 2 systolic ejection murmur. S4 gallop noted. ABDOMEN: Soft, nontender. No bruits are noted. EXTREMITIES: Had 1+ edema. Dorsalis pedis pulse 1+ bilaterally. SKIN: Warm, dry. NEUROLOGIC: Nonfocal. LABORATORY DATA: Her ECG on admission showed a sinus rhythm with nonspecific ST-segment changes. Her workup so far, sodium 145, BUN 27, creatinine 1.2. Liver function studies were normal. Troponin 0.06. TSH in September was 2.7. Previous workup including aldosterone level in September that was 6.9, previous renin activity in September was 0.291, which was normal limits. Her white blood cell count 5.6, hemoglobin 8.9, platelet count 49,000. IMPRESSION AND RECOMMENDATIONS: 1. Hypertension. I would recommend continuing current medications. I find no evidence of secondary causes at this time. Previous renal ultrasound show no renal artery stenosis. 2. Coronary artery disease. No recent angina. Would continue an aspirin a day. 3. Diabetes. 4. Hyperlipidemia. The patient is on a statin drug. 5. Idiopathic thrombocytopenic purpura. 6. Chronic anemia. 7. Edema. Suspect venous insufficiency. Recommend Lasix. <ELECTRONICALLY SIGNED> By: Alfredito Hidalgo MD, [facility] 07/06/18 1011 1014 [id number] Hidalgo MD, FACC /nt
[2018-07-06 12:00] VITALS: BP 171/68
[2018-07-06 12:14] LABS: CALCIUM 8.3 mg/dL (8.5-10.1); CREATININE 1.4 mg/dL (0.6-1.3); POTASSIUM 4.2 mmol/L (3.5-5.1)
--- NOTE | 2018-07-06 12:54 | NUR ---
ASSUMED LISA OF PATIENT THIS AM AT 0730. PATIENT IS ALERT AND ORIENTED X 4. SHE C/O A HEADACHE THIS AM. HER BP WAS ELEVATED THIS AM WITH A READING >[address] IN AND NOTIFIED. WILL CONTINUE TO MONITOR BP. NOON READING SYSTOLIC DOWN TO 170S. PATIENT MEDICATED FOR BP AND C/O HEADACHE. SHE STATED THAT DOMÍNGUEZ PAIN HAS RESOLVED. WILL CONTINUE TO MONITOR BP AND COMFORT. PATIENT HAS BEEN UO IN THE ROOM INDEPENDENTLY. NO FALLS OR INJURY.
[2018-07-06 16:00] VITALS: BP 181/68
[2018-07-06 20:00] VITALS: BP 177/79
[2018-07-06 23:54] VITALS: BP 141/65
[2018-07-07] VITALS (9 sets, daily range): BP systolic 160–208; BP diastolic 60–84
--- NOTE | 2018-07-07 05:42 | NUR ---
ASSUMED PT CARE REPORT RECEIVED FROM NURSE. PT IS ALERT AWAKE ORIENTED X4 MEDSURG STATUS. VITAL SINGS TAKEN. BP PILLS ADMINISTERED ORDERED. BP CAME DOWN TO A SYSTOLIC OF 141 AT MIDNIGHT. PT HAD A GOOD NIGHT OF SLEEP. BP MEASURED AGAIN IN THE MORNING AT 05:30. BP IS 163/66. PT RECEIVED HER MEDS. MIGHT BE DISCHARGED TODAY.
--- NOTE | 2018-07-07 15:21 | NUR ---
ASSUMED CARE OF PT AT 0735. PT RTEMAINS A&O X4 CALM AND COOPERATIVE. PT BP HAS BEEN ELEVEATED AND PROVIDER WAS ON THE FLOOR THIS MORNING ADN MADE AWARE. PT HAS HAD C/O A HEADACHE AND WAS GIVEN PO TYLENOL THAT EFFECTIVELY REDUCED HER PAIN TO A TOLERABLE LEVEL. PT HAS NO OTHER C/O PAIN OR DISTRESS. PT UP SBA IN HER ROOM AND HAS BEEN AMBULATING TO THE TOILET TO VOID. PT HAS A GOOD APPETITE AND HAS ATE GREATER THAN 75% OF MEALS THUS FAR TODAY. PT TO TRANSFER TO ORTHO/SURG UNIT TODAY CARDIOLOGY SIGNED OFF. REPORT GIVEN TO KEELY AGRCIA AT 2578.
--- NOTE | 2018-07-07 19:41 | NUR ---
PATIENT ARRIVED TO THE UNIT AT APPROX 1600. ALERT AND ORIENTED X4. AGREE WITH PREVIOUS NURSES ASSESSMENTS. VSS ON ROOM AIR. NO COMPLAINTS OF PAIN, NAUSE, OR SOA. IV DRESSING SOILED, CLEANED AND PROVIDED DRESSING CHANGE. PATIENT RESTED COMFORTABLY IN BED WITH AT BEDSIDE. HOURLY ROUNDS MAINTAINED WHILE PATIENT HAS BEEN ON THE UNIT, CALL LIGHT WITHIN REACH, NURSING WILL CONTINUE TO MONITOR.
[2018-07-08 00:56] VITALS: BP 163/74
[2018-07-08 04:03] LABS: ABSOLUTE BASOPHILS 0.1 thou/uL (0.0-0.2); ABSOLUTE EOSINOPHILS 0.3 thou/uL (0.0-0.7); ABSOLUTE LYMPHOCYTES 1.3 thou/uL (0.8-5.3); ABSOLUTE MONOCYTES 0.4 thou/uL (0.0-1.2); ABSOLUTE NEUTROPHILS 3.2 thou/uL (1.6-8.1); BASOPHILS 1.9 %; EOSINOPHILS 5.5 %; HEMATOCRIT 25.3 % (37.0-47.0); HEMOGLOBIN 8.5 gm/dL (12.0-15.0); LYMPHOCYTES 24.5 %; MCH 29.2 pg (26.0-34.0); MCHC 33.5 g/dL (28.0-37.0); MCV 87.2 fL (80.0-100.0); MONOCYTES 8.2 %; MPV 8.8 fl. (7.2-11.1); NUCLEATED RBCS 0 /100WBC; PLATELET COUNT* 50 thou/uL (150-400); POLYS 59.9 %; RDW-CV 14.3 % (10.5-14.5); WBC 5.3 thou/uL (4.0-11.0)
[2018-07-08 04:42] LABS: CALCIUM 8.4 mg/dL (8.5-10.1); CREATININE 1.4 mg/dL (0.6-1.3); POTASSIUM 4.2 mmol/L (3.5-5.1)
--- NOTE | 2018-07-08 05:52 | NUR ---
PATIENT HAS SLEPT WELL THROUGHOUT MOST OF THE NIGHT. TYLENOL GIVEN IN THE AM FOR C/O HEADACHE. VSS ON RA, ALTHOUGH BP ELEVATED. MEDICATIONS GIVEN ORDERED AND CHARTED. IV IN RIGHT AC-SL. PATIENT URINATING ADEQUATELY. PATIENT INSTRUCTED TO USE CALL LIGHT WHEN NEEDING ASSISTANCE. HOURLY ROUNDS MADE. WILL CONTINUE WITH PLAN OF CARE AND NURSING TO MONITOR.
[2018-07-08 08:50] VITALS: BP 203/79
[2018-07-08 11:36] VITALS: BP 179/73
--- NOTE | 2018-07-08 12:05 | NUR ---
ASSUMED CARE OF PT AT THIS TIME. AGREE WITH CURRENT DOCUMENTATION AND ASSESSMENT. WILL CONTINUE TO MONITOR.
[2018-07-08] MEDS ORDERED: CLONIDINE0.1 PO (14:25)
[2018-07-08 14:40] VITALS: BP 178/79
--- NOTE | 2018-07-08 16:20 | NUR ---
DISCHARGE NOTE - REVIEWED DISCHARGE INSTRUCTIONS WITH PT AND . NO QUESTIONS. IV REMOVED. 3 PRESCRIPTIONS CALLED OUT TO NINA SINGH. ALL BELONGINGS SENT WITH PT.
[2018-07-08 18:09] LABS: URINE BILIRUBIN NEGATIVE (Negative); URINE BLOOD 1+ (Negative); URINE CLARITY CLEAR; URINE COLOR YELLOW; URINE GLUCOSE-RANDOM NEGATIVE (Negative); URINE KETONES NEGATIVE (Negative); URINE LEUKOCYTES 1+ (Negative); URINE NITRITE NEGATIVE (Negative); URINE PROTEIN 3+ (Negative); URINE UROBILINOGEN 0.2 E.U./dl (0.2-1.0)
[2018-07-08 18:44] LABS: BACTERIA >30 Many /HPF (None Seen); CASTS None Seen /LPF (None Seen); CRYSTALS None Seen /LPF (None Seen); SQUAMOUS 0-3 Few /LPF (0-3); URINE RBC 3-10 Few /HPF (0-2); URINE WBC >25 Many /HPF (0-5)
== END 2018-07-08 16:20 | disposition home or self-care (01) | DRG 291 ==
LOC: M.ERS 17:25 → M.2W 18:20 → M.TBA-ER 18:20 → M.2W 20:27 → M.ORTHSURG 07-07 15:53
PROVIDERS: Family Medicine; Internal Medicine Cardiovascular Disease; Internal Medicine Hematology & Oncology; Urology; ADMIT Internal Medicine
DX: I13.0 Hypertensive heart and chronic kidney disease with heart failure and stage 1 through stage 4 chronic kidney disease, or unspecified chronic kidney disease (principal); I50.33 Acute on chronic diastolic (congestive) heart failure; N17.9 Acute kidney failure, unspecified; D69.3 Immune thrombocytopenic purpura; M10.9 Gout, unspecified; E11.22 Type 2 diabetes mellitus with diabetic chronic kidney disease; E03.9 Hypothyroidism, unspecified; E78.00 Pure hypercholesterolemia, unspecified; D50.9 Iron deficiency anemia, unspecified; N18.3 Chronic kidney disease, stage 3 (moderate); I16.0 Hypertensive urgency; E78.5 Hyperlipidemia, unspecified; Z82.49 Family history of ischemic heart disease and other diseases of the circulatory system; Z95.5 Presence of coronary angioplasty implant and graft; Z90.49 Acquired absence of other specified parts of digestive tract; Z90.710 Acquired absence of both cervix and uterus; Z87.442 Personal history of urinary calculi; Z98.49 Cataract extraction status, unspecified eye; Z88.6 Allergy status to analgesic agent; Z88.1 Allergy status to other antibiotic agents; Z88.2 Allergy status to sulfonamides; Z87.891 Personal history of nicotine dependence; Z79.899 Other long term (current) drug therapy

== ENCOUNTER → 2018-08-10 | Outpatient (CLI) | payer OTHER ==
[~2018-08-10] MED LIST changes: +BUMETANIDE 1 MG1 M1 PO
--- NOTE | 2018-08-10 17:53 | 2DMMODE ---
[place] [address] 2 D/M-MODE ECHOCARDIOGRAM Name: JOSE MARTIN HOLLINS Room: [facility]#: [id number] Admission: 08/10/18 Attend Phys: Bk Vega, Discharge: Date of : 46 Date of Service: 08/10/18 1753 Report #: [id number] THIS REPORT FOR: //name// APPROVED REPORT Study performed: 08/10/2018 12:50:21 EXAM: Comprehensive 2D, Doppler, and color-flow Echocardiogram Patient Location: Out-Patient Status: routine BSA: 1.96 HR: 72 bpm BP: 170/80 mmHg Other Information Study Quality: Good Indications Congestive Heart Failure 2D Dimensions IVSd: 11.86 (7-11mm) LVOT Diam: 20.47 (18-24mm) LVDd: 54.35 mm PWd: 11.84 (7-11mm) Ascending Ao: 37.03 (22-36mm) LVDs: 35.34 (25-40mm) Aortic Root: 29.25 mm Volumes Left Atrial Volume (Systole) LA ESV Index: 34.00 mL/m2 Aortic Valve AoV Peak Braulio.: 1.97 m/s AO Peak Gr.: 15.49 mmHg LVOT Max P.94 mmHg AO Mean Gr.: 8.68 mmHg LVOT Mean P.12 mmHg LVOT Max V: 1.22 m/s AO V2 VTI: 47.28 cm LVOT Mean V: 0.82 m/s UMAIR (VTI): 2.18 cm2 LVOT V1 VTI: 31.35 cm AI [place]: 3.45 m/s2 AI PHT: 320.26 ms Mitral Valve E/A Ratio: 0.98 MV Decel. Time: 186.47 [place] [address] 2 D/M-MODE ECHOCARDIOGRAM Name: JOSE MARTIN HOLLINS Room: [facility]#: [id number] Admission: 08/10/18 Attend Phys: Bk Vega, Discharge: Date of : 46 Date of Service: 08/10/18 1753 Report #: [id number] MV E Max Braulio.: 1.07 m/s MV PHT: 54.08 ms MVA (PHT): 4.07 cm2 TDI E/Lateral E': 13.38 E/Medial E': 17.83 Medial E' Braulio.: 0.06 m/s Lateral E' Braulio.: 0.08 m/s Pulmonary Valve PV Peak Braulio.: 1.10 m/s PV Peak Gr.: 4.84 mmHg Tricuspid Valve RAP Estimate: 5.00 mmHg TR Peak Gr.: 30.94 mmHg RVSP: 35.94 mmHg PA Pressure: 35.94 mmHg Left Ventricle The left ventricle is normal size. There is normal LV segmental wall motion. There is normal left ventricular wall thickness. Left ventricular systolic function is normal. LVEF is 55-60%. Grade I - abnormal relaxation pattern. Right Ventricle The right ventricle is normal size. The right ventricular systolic function is normal. Atria The left atrium size is normal. The right atrium size is normal. Aortic Valve Aortic valve is mildly calcified. Moderate aortic regurgitation. There is no aortic valvular stenosis. Mitral Valve The mitral valve is normal in structure. Mild mitral regurgitation. No evidence of mitral valve stenosis. Tricuspid Valve The tricuspid valve is normal in structure. Mild tricuspid regurgitation. Pulmonic Valve The pulmonary valve is normal in structure. [place] [address] 2 D/M-MODE ECHOCARDIOGRAM Name: JOSE MARTIN HOLLINS Room: [facility]#: [id number] Admission: 08/10/18 Attend Phys: Bk Vega, Discharge: Date of : 46 Date of Service: 08/10/18 1753 Report #: [id number] Great Vessels The aortic root is normal in size. IVC is normal in size and collapses >50% with inspiration. Pericardium There is no pericardial effusion. <Conclusion> The left ventricle is normal size. There is normal left ventricular wall thickness. Left ventricular systolic function is normal. LVEF is 55-60%. Grade I - abnormal relaxation pattern. Moderate aortic regurgitation. Mild mitral regurgitation. Mild tricuspid regurgitation. IVC is normal in size and collapses >50% with inspiration. <ELECTRONICALLY SIGNED> By: Morro Oconnell MD, FACC 08/10/181752 52 52 Morro Oconnell MD, FACC /INF
== END ==
LOC: M.RAD 08:56 → M.CRD 13:00
DX: Z12.31 Encounter for screening mammogram for malignant neoplasm of breast (principal); I50.9 Heart failure, unspecified; I08.3 Combined rheumatic disorders of mitral, aortic and tricuspid valves

== ENCOUNTER → 2018-10-26 | Outpatient (CLI) | payer OTHER ==
[2018-10-26 10:09] LABS: ALBUMIN 2.6 g/dL (3.4-5.0); CALCIUM 8.4 mg/dL (8.5-10.1); CREATININE 1.4 mg/dL (0.6-1.3); POTASSIUM 3.8 mmol/L (3.5-5.1); TOTAL BILIRUBIN 0.4 mg/dL (<0.1-1.0); TOTAL PROTEIN 5.4 g/dL (6.4-8.2)
[2018-10-26 11:49] LABS: % SATURATION 21 % (20-39); IRON 39 ug/dL (50-175)
[2018-10-26 19:08] LABS: URINE CREATININE 36.3 mg/dL (Not Estab.); URINE CREATININE (GM/24H) 871 mg/24 hr (800-1800)
[2018-10-26 19:08] LABS: COMPLEMENT-C4 19 mg/dL (14-44)
[2018-10-26 23:07] LABS: HEPATITIS B SURFACE AG Negative (Negative)
[2018-10-28 09:08] LABS: GLOMERULR BASEM MEMBRN AB 3 units (0-20)
[2018-10-28 13:08] LABS: URINE PROTEIN 5971 mg/24 hr (30-150); URINE PROTEIN (MG/DL) 248.8 mg/dL (Not Estab.)
[2018-10-28 14:10] LABS: ANA INTERPRETATION Negative (Negative)
[2018-10-28 16:08] LABS: GLOBULIN TOTAL 2.1 g/dL (2.2-3.9); M-SPIKE Not Observed g/dL (Not Observed)
[2018-10-28 18:11] LABS: CREATININE CLEARANCE 45 mL/min (88-128)
== END ==
LOC: M.LAB 09:33
PROVIDERS: Internal Medicine Nephrology
DX: I13.0 Hypertensive heart and chronic kidney disease with heart failure and stage 1 through stage 4 chronic kidney disease, or unspecified chronic kidney disease (principal); E11.22 Type 2 diabetes mellitus with diabetic chronic kidney disease; N18.3 Chronic kidney disease, stage 3 (moderate); D50.9 Iron deficiency anemia, unspecified; E78.00 Pure hypercholesterolemia, unspecified; E03.9 Hypothyroidism, unspecified; M10.9 Gout, unspecified; Z90.49 Acquired absence of other specified parts of digestive tract; Z90.710 Acquired absence of both cervix and uterus

== ENCOUNTER 2019-01-08 05:46 | Inpatient (IN) | payer OTHER ==
[2019-01-07 20:00] VITALS: BP 157/75
[2019-01-08] VITALS (18 sets, daily range): BP systolic 126–208; BP diastolic 62–101
[~2019-01-08] VITALS: Ht 152.4 cm; Wt 87.1 kg
[~2019-01-08 05:46] MED LIST changes: +COZAAR 50 MG TA50 M1 PO
[2019-01-08] MEDS ORDERED: LASIX 40 MG TAB40 M2 (06:03)
[2019-01-08 06:08] LABS: ABSOLUTE BASOPHILS 0.1 thou/uL (0.0-0.2); ABSOLUTE EOSINOPHILS 0.2 thou/uL (0.0-0.7); ABSOLUTE LYMPHOCYTES 1.3 thou/uL (0.8-5.3); ABSOLUTE MONOCYTES 0.4 thou/uL (0.0-1.2); BASOPHILS 1.3 %; EOSINOPHILS 2.9 %; HEMATOCRIT 28.1 % (37.0-47.0); HEMOGLOBIN 9.3 gm/dL (12.0-15.0); LYMPHOCYTES 18.4 %; MCH 27.8 pg (26.0-34.0); MCHC 33.2 g/dL (28.0-37.0); MCV 83.5 fL (80.0-100.0); MONOCYTES 6.2 %; MPV 8.5 fl. (7.2-11.1); NUCLEATED RBCS 0 /100WBC; PLATELET COUNT* 72 thou/uL (150-400); POLYS 71.2 %; RBC 3.37 mil/uL (4.20-5.00); RDW-CV 15.5 % (10.5-14.5)
[2019-01-08] MEDS ORDERED: CRANBERRY400 M1 (06:09)
[2019-01-08 06:35] LABS: PROTIME 10.4 Seconds (9.20-11.50)
[2019-01-08 06:40] LABS: CALCIUM 8.9 mg/dL (8.5-10.1); CREATININE 1.6 mg/dL (0.6-1.3); POTASSIUM 3.5 mmol/L (3.5-5.1); TROPONIN-I LEVEL 0.16 ng/mL (<0.06)
[2019-01-08 06:42] LABS: ALBUMIN 2.8 g/dL (3.4-5.0); TOTAL BILIRUBIN 0.7 mg/dL (<0.1-1.0); TOTAL PROTEIN 5.8 g/dL (6.4-8.2)
--- NOTE | 2019-01-08 06:55 | NUR ---
THIS NURSE RECEIVED REPORT FROM JOSE OWUSU. THIS NURSE TO ASSUME PT CARE AT THIS TIME.
--- NOTE | 2019-01-08 07:20 | NUR ---
NURSE IN PT ROOM TO ADMINISTER HEPARIN BOLUS. PT INFORMED NURSE THAT SHE WAS RECENTLY TAKEN OFF ALL HER BLOOD THINNERS PER PCP BECAUSE PLATELETS HAVE BEEN LOW. DR. SALAS NOTIFIED. DR. SALAS ALSO AWARE THAT PTT HAD NOT BEEN ORDERED ON PT. DR. SALAS TO ORDER PTT, BUT STATED HE STILL WANTED PT TO HAVE HEPARIN BOLUS AND HEPARIN DRIP. PT BACK IN PT ROOM AND DISCUSSED CONVERSATION THIS NURSE HAD WITH DR. SALAS. PT STATED UNDERSTANDING AND AGREEABLE TO ADMINISTRATION OF HEPARIN.
--- NOTE | 2019-01-08 07:42 | NUR ---
NURSE IN ROOM TO START HEPARIN DRIP. UNABLE TO ADMINISTER DUE TO PTT NOT BEING BACK. DR. SALAS MADE AWARE. SERVICE STATION CONSOLE OPERATOR CALLED AT THIS TIME BY THIS NURSE. SERVICE STATION CONSOLE OPERATOR, LORE, STATED THE RESULTS JUST COMPLETED AND PTT WAS 28.1.
--- NOTE | 2019-01-08 08:05 | NUR ---
THIS NURSE GAVE SHIFT REPORT TO JOSE OLEARY WHO IS TO BE THE PT INPATIENT NURSE. PT BELONINGS PACKED. HEPARIN DRIP TO BE STARTED INPATIENT DUE TO COMPLICATIONS WITH ADMINISTRATION OF MED IN ER. JOSE OLEARY AWARE. WHEN NURSE WENT INTO PT ROOM TO NOTIFY PT OF ADMISSION, PT REPORTED PAIN UNDER LEFT BREAST. RATING PAIN 5/10. NURSE NOTIFIED JOSE OLEARY. PT TO BE BROUGHT UP TO ROOM 201 VIA STRETCHER BY THIS NURSE.
--- NOTE | 2019-01-08 10:17 | NUR ---
PT ADMITTED ON TELE FLOOR AT 0850 AM REPORT RECEIVED FROM NURSE. 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 ON 2 L NC AND O2 SATURATION IS 97%. PT COMPLAINS OF PAIN LEVEL 5 IN CHEST, NITRO WAS GIVEN IN THE ER WELL MORPHINE. PT MADE COMFORTABLE IN BED. HEPARIN DRIP STARTED AFTER DR MAGDALENO GAVE OK TO START IT PT PLATELET LEVEL WAS LOW. HEPARIN INFUSING AT 980 UNITS PER HOUR. BLOOD SUGAR TAKEN 136. PT IS NPO FOR CARDIAC CATH SCHEDULED THIS MORNING. CONSENT SIGNED. POTASSIUM REPLACEMENT GIVEN. VS TAKEN. BP 196/87. BP MEDICINE GIVEN SEE EMAR. PT IN ROOM WITH AT THIS TIME. ADMISSION HX AND ASSESSEMENT PERFORMED. PT ABLE TO GET UP WITH STAND BY TO THE RESTROOM. IV NORMAL SALINE STARTED AT 125 PER HOUR ORDERED. WILL CONTINUE TO MONITOR PT
--- NOTE | 2019-01-08 10:57 | NUR ---
PT LEFT THE TELE FLOOR TO CARDIAC CATH AT 1040 ACCOMPANIED BY CARDIAC NURSES.
[2019-01-08 11:38] LABS: BE -3.4 mmol/L (-2 to +3); PCO2 45.8 mmHg (35.0-45.0); pH 7.314 (7.340-7.450)
[2019-01-08 11:41] LABS: PO2 263.1 mmHg (75.0-100.0)
--- NOTE | 2019-01-08 14:01 | NUR ---
PT BACK FROM CARDIAC CATHETERIZATION. ON BIPAP 100% FIO2 SATURATION IS 1000%. PT DENIES PAIN BUT IS TIRED. VS MONITORED PER POST CATH PROTOCOLRIGH RADIAL PULSE PRESENT. R HAND IS INTACT. RADSTAT MONITORED 2 CC OUT Q 15 MINUTES. EKG PERFORMED AT BEDSIDE. SBP 160S. BP PILLS GIVEN ORDERED. SNACK OFFERED. PT TOLORATES FOOD OFF BIPAP WITH O2 3 L NC. SR ON EKG.WILL CONTINUE TO MONITOR PT.
--- NOTE | 2019-01-08 15:15 | EKG ---
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 Taker: AP : 1950 Requested By: Priya Lantigua Order Number: [id number] MD: Alfredito Hidalgo Measurements Intervals [place] Rate: 74 P: 43 VA: 187 QRS: 21 QRSD: 107 T: 72 QT: 448 QTc: 497 Interpretive Statements Sinus rhythm Probable LVH with secondary repol abnrm Borderline prolonged QT interval Electronically Signed On 01-08-2019 15:15:24 CDT by Alfredito Hidalgo [email or web address] <ELECTRONICALLY SIGNED> By: Alfredito Hidalgo MD, [facility] 01/08/19 1515 0651 0651 Alfredito Hidalgo MD, FACC /EPI
--- NOTE | 2019-01-08 15:15 | EKG ---
[place] [address] ELECTROCARDIOGRAM REPORT Name: JOSE MARTIN HOLLINS Room: [address] ADM IN M.R.#: [id number] Admission: 01/08/19 Attend Phys: Marky Yoon MD Discharge: Date of : 46 Report #: [id number] THIS REPORT FOR: //name// [facility] ED Test Date: 2019-01-08 Test Time: 05:52:07 Pat Name: JOSE MARTIN HOLLINS Department: Room: [facility] Gender: F Closed Circuit Screen Watcher: AP : 1950 Requested By: Priya Lantigua Order Number: [id number] MD: Alfredito Hidalgo Measurements Intervals [place] Rate: 88 P: 91 IN: 169 QRS: 34 QRSD: 96 T: 103 QT: 343 QTc: 415 Interpretive Statements Sinus rhythm Probable LVH with secondary repol abnrm Compared to ECG 07/03/2018 17:31:54 LVH no longer present Electronically Signed On 01-08-2019 15:14:51 CDT by Alfredito Hidalgo [email or web address] <ELECTRONICALLY SIGNED> By: Alfredito Hidalgo MD, [facility] 01/08/19 1514 0552 0552 Alfredito Hidalgo MD, [facility] /EPI
--- NOTE | 2019-01-08 18:51 | NUR ---
radstat removed at 1800. r hand is intact. normal skin color. moves freely. no pain. pt denies n/v, pain at this time. will continnue monitoring
[2019-01-09] VITALS (7 sets, daily range): BP systolic 123–149; BP diastolic 58–72
[2019-01-09 05:56] LABS: ANION GAP 9 mmol/L (7-16); BUN 30 mg/dL (7-18); CALCIUM 8.2 mg/dL (8.5-10.1); CHLORIDE 107 mmol/L (98-107); CHOLESTEROL 95 mg/dL (<200); CO2 25 mmol/L (21-32); CREATININE 1.7 mg/dL (0.6-1.3); GLUCOSE 93 mg/dL (70-99); HDL CHOLESTEROL 49 mg/dL (>40); LDL CHOLESTEROL 27 mg/dL (<100); POTASSIUM 4.1 mmol/L (3.5-5.1); SERUM ASSESSMENT Clear; SODIUM 141 mmol/L (136-145); TC:HDL 1.9 Ratio (Not establshd); TRIGLYCERIDE 98 mg/dL (<150); VLDL 20 mg/dL (<40)
[2019-01-09 05:58] LABS: TROPONIN-I LEVEL 3.69 ng/mL (<0.06)
--- NOTE | 2019-01-09 06:45 | NUR ---
ASSUMED PT CARE AT 1930. NURSING ASSESSMENT COMPLETED AT START OF SHIFT. PT VOICED NO CONCERNS THIS SHIFT. DENIES CHEST PAIN. SINUS RHYTHM WITH OCCASIONAL PACS ON COLLABORATIVE PHYSICIAN. Q2H REPOSITIONING COMPLETED, HOURLY ROUNDING COMPLETED. CALL LIGHT WITHIN REACH.
--- NOTE | 2019-01-09 11:40 | NUR ---
ASSUMED PT CARE REPORT RECEIVED FROM NURSE PT IS AOX4 SR 1ST AV BLOCK ON CORRECTIONS COUNSELOR. PT DENIES ANY PAIN, N/V. ON O2 2 L NC. SATURATION IS 96%. PT ATE BREAKFAST INDEPENDENTLY. WANTS TO KEEEP PT FOR ONE MORE DAY FOR HEM/OC CONSULT. PLT 42 THIS AM. NO BLEEDING NOTICED. CARDICA CATH SITE IN INTACT, NO SWELLIING, BLEEDING NOTICED. CALL LIGHT AT REACH. WILL CONTINUE TO MONITOR PT
--- NOTE | 2019-01-09 14:46 | CARD ---
[address] [address] CARDIAC CATH REPORT Name: JOSE MARTIN HOLLINS Room: [address] IN ..#: [id number] Admission: 01/08/19 Attend Phys: Marky Yoon MD Discharge: Date of : 46 Report #: [id number] THIS REPORT FOR: //name// APPROVED REPORT Study performed: 01/08/2019 10:19:43 Patient Details Patient Status: In-Patient Room #: The patient is a 68 year-old female Event Personnel Alfredito Hidalgo Metallurgical Specialist, Dinah Cabrera RN RN, Andrea Ortega Schmalzbach, Brittany RN Monitor Procedures Performed HILARY Place w/wo Plasty Single LAD [id number] Indication Unstable angina Risk Factors Hypertension, Diabetes Previous Procedures/Diagnoses Previous PCI Admission/Lab Medications/Medications given during procedure Glycoprotein IllbIlla Inhibitors, Heparin Unfract. Procedure Narrative The patient was brought urgently to the Cardiac Catheterization Laboratory and was prepped and draped in a sterile manner. The right wrist was infiltrated with 1% Lidocaine subcutaneous anesthesia. A Slender Glidesheath sheath was inserted into the right radial artery. Coronary angiography was performed using coronary diagnostic catheters. The right coronary system was accessed and visualized with a JR4 6fr catheter. The left coronary system was accessed and visualized with a JL 4 6fr catheter. Left ventricular/Aortic Valve gradient assessed via catheter pullback. Closure device was deployed with a Fr vascband. There was no hematoma. Patient complained of SOB on arrival to environmental laboratory technician. Symptoms improved with oxygen applied with BiPaP. [address] [address] CARDIAC CATH REPORT Name: JOSE MARTIN HOLLINS Room: [address] IN [facility]#: [id number] Admission: 01/08/19 Attend Phys: Marky Yoon MD Discharge: Date of : 46 Report #: [id number] Fluoro Time: 6.0 minutes Dose: DAP 80848 cGycm2 1680 mGy Contrast Type and Amount: Visipaque 190 ml Coronary Angiography The patient's coronary anatomy is right dominant. Diagnostic Cath Left Main 30% distal stenosis LAD 90% stenosis just after 1st diagonal, and 80% stenosis noted after second diagonal Diagonal 1 40% proximal stenosis noted Circumflex 0% stenosis Right Coronary proximal stent with 0% stenosis. 30% mid stenosis noted Left Ventriculography Left Ventriculography was not performed. Hemodynamics The aortic pressure is 164/83 mmHg with a mean of 119 mmHg. The left ventricular pressure is 169/20 mmHg with a mean of mmHg. The left ventricular end diastolic pressure is 30 mmHg. There was no gradient across the aortic valve upon pullback. Pullback from the left ventricle to the aorta revealed no gradient across the aortic valve. PCI Technique Lesion Anticoagulation was achieved with Heparin. bolus of IV aggrastat given Percutaneous coronary intervention was performed on the proximal left anterior descending artery segment. The lesion stenosis prior to intervention was 90% with SHAYNA 3 flow. A 6F XB LAD 3.5 Guide Catheter was used to engage the lm ostium. A IG: BMW 190cm Interventional Guidewire was used to cross the lesion. BALLOON DILATION A Balloon catheter Trek RX 2.5 X 12 was inserted and inflated up to 20.00atm for 12seconds. Repeat angiography revealed the following post-dilatation results: 50% stenosis. STENT DEPLOYMENT A drug-eluting stent Ori RX Stent 3.5X15mm was inserted and inflated up to 14.00atm for 11seconds. Repeat angiography revealed the following post-stent deployment results: 0% stenosis. Additional Inflation: 13.00atm for 12seconds. Additional Inflation: 16.00atm [place] [address] CARDIAC CATH REPORT Name: JOSE MARTIN HOLLINS Room: [address]#: [id number] Admission: 01/08/19 Attend Phys: Marky Yoon MD Discharge: Date of : 46 Report #: [id number] 15seconds. Final angiography reveals 0 % stenosis with SHAYNA 3 flow. PCI Technique Lesion 2 Percutaneous Coronary Intervention was performed on the mid left anterior descending artery segment. Percutaneous coronary intervention was performed on the mid left anterior descending artery segment. The lesion stenosis prior to intervention was 80% with SHAYNA 3 flow. A 6F XB LAD 3.5 Guide Catheter was used to engage the lm ostium. A IG: BMW 190cm Interventional Guidewire was used to cross the lesion. Balloon Dilation A Balloon catheter Trek RX 2.5 X 12 was inserted and inflated up to 12.00atm for 8seconds. Repeat angiography revealed the following post-dilatation results: 50% stenosis. Stent Deployment A drug-eluting stent [place] RX Stent 2.77O81st was inserted and inflated up to 8.00atm for 13seconds. Repeat angiography revealed the following post-stent deployment results: 0% stenosis. Final angiography reveals 0 % stenosis with SHAYNA 3 flow. Conclusion 1. no restenosis of stent in proximal rca 2. 90% proximal and 80% mid stenosis noted in lad 3. successful placement of drug eluting stents in the proximal and mid lad Recommendations Cardiac Rehabilitation Referral Aggressive Medical Therapy Medications Administered Clopidogrel <ELECTRONICALLY SIGNED> By: Alfredito Hidalgo MD, [facility] 01/09/19 1446 1446 1446Davipreethi Hidalgo MD, FAC /INF
--- NOTE | 2019-01-09 14:59 | NUR ---
Pt is A&O. Resides at home with her . Independent. No DME. No hx of HH or SNF. Goal is home at wa. Following.
[2019-01-09 23:40] LABS: % SATURATION 13 % (20-39); IRON 22 ug/dL (50-175)
[2019-01-10] VITALS: BP 141/68
[2019-01-10 04:00] VITALS: BP 144/66
[2019-01-10 05:32] LABS: ABSOLUTE BASOPHILS 0.1 thou/uL (0.0-0.2); ABSOLUTE EOSINOPHILS 0.3 thou/uL (0.0-0.7); ABSOLUTE LYMPHOCYTES 1.1 thou/uL (0.8-5.3); ABSOLUTE MONOCYTES 0.5 thou/uL (0.0-1.2); ABSOLUTE NEUTROPHILS 4.8 thou/uL (1.6-8.1); EOSINOPHILS 4.6 %; HEMATOCRIT 24.2 % (37.0-47.0); HEMOGLOBIN 8.1 gm/dL (12.0-15.0); LYMPHOCYTES 16.7 %; MCH 27.8 pg (26.0-34.0); MCHC 33.6 g/dL (28.0-37.0); MCV 82.7 fL (80.0-100.0); MONOCYTES 7.8 %; MPV 9.3 fl. (7.2-11.1); NUCLEATED RBCS 0 /100WBC; PLATELET COUNT* 50 thou/uL (150-400); POLYS 69.9 %; RBC 2.93 mil/uL (4.20-5.00); RDW-CV 15.8 % (10.5-14.5); WBC 6.9 thou/uL (4.0-11.0)
[2019-01-10 05:37] LABS: CALCIUM 8.4 mg/dL (8.5-10.1); CREATININE 2.5 mg/dL (0.6-1.3); POTASSIUM 4.6 mmol/L (3.5-5.1)
--- NOTE | 2019-01-10 06:12 | NUR ---
ASSUMED PT CARE AT 1930. NURSING ASSESSMENT COMPLETED. PT SR WITH OCCASIONAL PACS ON QUALITY ASSURANCE LAB TECHNICIAN. HOURLY ROUNDING COMPLETED. PT REPOSITIONED SELF THROUGHOUT SHIFT. UP STAND BY ASSIST. HOURLY ROUNDING COMLETED. PT DENIES PAIN THIS SHIFT. C/O ITCHING ON UPPER AND LOWER BACK, NO REDNESS/NO HIVES OBSERVED. APPLIED LOTION TO BACK, PT STATED NO RELIEF FROM ITCHING. REQUESTED MEDICATION FOR ITCHING. DR. ARCOS NOTIFIED, AWAITING CALL BACK AT THIS TIME.
[2019-01-10 07:30] VITALS: BP 140/59
--- NOTE | 2019-01-10 10:00 | EKG ---
[place] [address] ELECTROCARDIOGRAM REPORT Name: JOSE MARTIN HOLLINS Room: [address] ADM IN M.R.#: [id number] Admission: 01/08/19 Attend Phys: Marky Yoon MD Discharge: Date of : 46 Report #: [id number] THIS REPORT FOR: //name// [facility] Test Date: 2019-01-08 Test Time: 13:05:24 Pat Name: JOSE MARTIN HOLLINS Department: Room: [address] Gender: F [employer] House Cook: RINKU : 1950 Requested By: Alfredito Hidalgo Order Number: [id number] Reading MD: Bk Vega Measurements Intervals [place] Rate: 77 P: 125 AR: 186 QRS: 165 QRSD: 102 T: 124 QT: 425 QTc: 482 Interpretive Statements Sinus rhythm Probable left atrial enlargement Probable lateral infarct, age indeterminate Abnrm T, consider ischemia, anterolateral lds Compared to ECG 01/08/2019 06:51:10 Myocardial infarct finding now present Possible ischemia now present Electronically Signed On 01-10-2019 10:00:18 CDT by Bk Vega [email or web address] <ELECTRONICALLY SIGNED> By: Bk Vega MD, FACC 01/10/19 1000 1305 1305 Bk Vega MD, FAC /EPI
--- NOTE | 2019-01-10 10:03 | EKG ---
[place] [address] ELECTROCARDIOGRAM REPORT Name: JOSE MARTIN HOLLINS Room: [address] ADM IN M.R.#: [id number] Admission: 01/08/19 Attend Phys: Marky Yoon MD Discharge: Date of : 46 Report #: [id number] THIS REPORT FOR: //name// [facility] Test Date: 2019-01-09 Test Time: 08:15:07 Pat Name: JOSE MARTIN HOLLINS Department: Room: [address] Gender: F [employer]: [facility] : 1950 Requested By: Alfredito Hidalgo Order Number: [id number] Reading MD: Bk Vega Measurements Intervals [place] Rate: 76 P: 38 [place]: 143 QRS: 12 QRSD: 104 T: 139 QT: 447 QTc: 503 Interpretive Statements Sinus rhythm Nonspecific T abnrm, anterolateral leads Prolonged QT interval Compared to ECG 01/08/2019 06:51:10 No significant changes Electronically Signed On 01-10-2019 10:03:20 CDT by Bk Vega [email or web address] <ELECTRONICALLY SIGNED> By: Bk Vega MD, [facility] 01/10/19 1003 4 4 Bk Vega MD, [facility] /EPI
[2019-01-10 11:45] VITALS: BP 131/60
--- NOTE | 2019-01-10 16:17 | CON ---
[address] [address] CONSULTATION Name: JOSE MARTIN HOLLINS Room: [address] IN M.R.#: [id number] Admission: 01/08/19 Attend Phys: Marky Yoon MD Discharge: Date of : 46 Report #: [id number] THIS REPORT FOR: //name// CC: Marky Gardiner DO DATE OF SERVICE: 01/08/2019 TYPE OF REPORT: Cardiology consultation. HISTORY OF PRESENT ILLNESS: The patient is a 68-year-old white female who I was asked to see in the hospital today after she complained of chest pain. The patient has an extensive past medical history. She initially presented back in 2005 for chest pain. She is found to have evidence of coronary artery disease and had a bare metal stent placed in her right coronary artery by Dr. Mcgarry at [facility]. Last year, she has been followed by my partner, Dr. Vega. She has a history of chronic anemia and has been seen by Dr. Romero in the Hematology Clinic in the past. She apparently had an EGD and colonoscopy showed no bleeding. She is felt to have iron-deficiency anemia and has received IV infusions with iron in the past. Her last hospitalization was last July when she was admitted with shortness of breath and found to have diastolic heart failure. Her last cardiac workup here at [facility], she actually had a nuclear stress test in April of 2017 here at [facility] [place], read by Dr. Lerner using Lexiscan that showed no reversible defects, felt to be low probability for ischemia with an ejection fraction of 60%. She actually had an echocardiogram done here at the [facility] last July that showed an ejection fraction of 60% with moderate aortic insufficiency and mild mitral regurgitation. She is not very active at this time. She states last night she did not feel very well and had a hard time falling asleep. At 4:00 in the morning, she felt a pressure in her chest, went into her left arm and she felt short of breath. Her finally brought her to the Emergency Room. Her blood pressure noted to be elevated. She is admitted for further evaluation and treatment. She notes exertional dyspnea and occasional palpitation. There is no recent syncope, fever or bleeding. PAST MEDICAL HISTORY: She has had previous cholecystectomy, appendectomy, hysterectomy, knee surgery, hypertension, diabetes and hyperlipidemia. She has a history of gout. She has chronic edema. MEDICATIONS: Include carvedilol, amlodipine, losartan, lovastatin, allopurinol, glimepiride, metformin, Synthroid, clonidine, hydralazine, Lasix and potassium. ALLERGIES: She has intolerance to CODEINE. FAMILY HISTORY: [place] [address] CONSULTATION Name: KARLEY HOLLINSLawrence Castillo Room: [address] IN ..#: [id number] Admission: 01/08/19 Attend Phys: Marky Yoon MD Discharge: Date of : 46 Report #: [id number] SOCIAL HISTORY: She is and lives in [place] with her . REVIEW OF SYSTEMS: She has had no history of stroke, asthma, peptic ulcer disease. She has had kidney stone. She wears glasses. She has had skin cancer removed in the past. No history of psychiatric illness. No chronic skin condition. PHYSICAL EXAMINATION: GENERAL: Revealed an elderly female, lying in bed. She appeared in no acute distress. VITAL SIGNS: She had a blood pressure of 190/90, pulse 70 and she is afebrile. HEENT: She is anicteric. Conjunctivae pink. Mucous membranes moist. NECK: Veins do not appear distended. No carotid bruits. Neck supple. CHEST: Clear to auscultation. CARDIAC: Regular rate and rhythm without murmur. ABDOMEN: Soft. EXTREMITIES: Had no edema. Dorsalis pedis pulse 2+ in the right, cannot be palpable left. SKIN: Cool and dry. NEUROLOGICAL: Nonfocal. RADIOLOGICAL DATA: Her ECG showed a sinus rhythm. There is a ST-segment depression in V4, V5 and V6. There appeared to be ST-segment elevation in V1 and V2 that appeared minimally changed from June. Her workup so far sodium 144, potassium 3.4, BUN 27, creatinine 1.6 and it had been 1.4 in 2007 and glucose 155. Liver function studies were normal. Albumin is only 2.8. Troponin 0.16. BNP 24,126. LDL in 2014 is 52. In October of this year, her percent saturation of iron was 21% with a ferritin level of 89. Her white blood cell count 7.0; hemoglobin 9.3, it was noted to be 9.3 in October; MCV 83 and platelet count 72,000. It was noted to be 27,000 in 2017. RADIOLOGICAL DATA: Her chest x-ray last night showed cardiomegaly, tortuous aorta and mild vascular congestion. IMPRESSION AND RECOMMENDATIONS: 1. Unstable angina. Previous stent. Recommend repeat cardiac catheterization. 2. Hypertension. The patient has been on beta ely, calcium ely, angiotensin receptor ely and diuretics. 3. Hyperlipidemia. The patient is on a statin drug. 4. Diabetes. The patient is on oral medications. 5. Chronic idiopathic thrombocytopenia. No history of bleeding. [facility] [address] [place] [address] CONSULTATION Name: JOSE MARTIN HOLLINS Room: [address] IN .R.#: [id number] Admission: 01/08/19 Attend Phys: Marky Yoon MD Discharge: Date of : 46 Report #: [id number] 6. Iron-deficiency anemia. The patient followed by Hematology. 7. Previous removal of her skin cancer. <ELECTRONICALLY SIGNED> By: Alfredito Hidalgo MD, FACC 01/10/19 1617 [id number] [id number] Hidalgo MD, FACC /nt
[2019-01-10 17:27] VITALS: BP 93/57
--- NOTE | 2019-01-10 18:45 | NUR ---
patinet resting in bed. iron infusion competed. renal consult called and orders for additional testing completed. vital signs stable although blood pressure was slightly lower after clinidine. aox4. up ad long. hourly rounding completed for patiet safety.
[2019-01-10 19:12] LABS: URINE BILIRUBIN NEGATIVE (Negative); URINE BLOOD NEGATIVE (Negative); URINE CLARITY CLEAR; URINE COLOR YELLOW; URINE GLUCOSE-RANDOM 1+ (Negative); URINE KETONES NEGATIVE (Negative); URINE LEUKOCYTES-REFLEX NEGATIVE (Negative); URINE NITRITE-REFLEX NEGATIVE (Negative); URINE PROTEIN 2+ (Negative); URINE UROBILINOGEN 0.2 E.U./dl (0.2-1.0)
[2019-01-10 19:23] LABS: CRYSTALS None Seen /LPF (None Seen); MUCUS None Seen strn/LPF (None Seen); SQUAMOUS 4-10 Moderate /LPF (0-3)
[2019-01-10 19:24] LABS: BACTERIA-REFLEX 1-9 Few /HPF (None Seen); HYALINE CASTS 0-3 Few /LPF (None Seen); URINE WBC-REFLEX 0-5 Rare /HPF (0-5)
[2019-01-10 19:25] LABS: URINE RBC None Seen /HPF (0-2)
[2019-01-10 20:00] VITALS: BP 164/76
--- NOTE | 2019-01-10 22:46 | NUR ---
ASSUMED PT CARE @ 1930. NO PAIN OR DISCOMFORT NOTED OR OBSERVED. PT DENIES ANY SOA. AMBULATED STEADY TO BATHROOM WITH STANDBY ASSIST. POST RESIDUAL VOID 0ML. CHECKED BY 2 RNS. PT DENIED FEELING ANY URINARY RETENTION. PT C/O DRY SKIN/ITCHING ON BACK. APPLIED LOTION. PT REPORTED RELIEF. PT CURRENTLY RESTING IN BED. CALL LIGHT IN REACH. HOURLY ROUNDING FOR SAFETY,
[2019-01-11] VITALS: BP 142/66
[2019-01-11 04:00] VITALS: BP 159/73
[2019-01-11 05:29] LABS: HEMOGLOBIN 8.2 gm/dL (12.0-15.0)
[2019-01-11 05:56] LABS: ALBUMIN 2.4 g/dL (3.4-5.0); CALCIUM 8.5 mg/dL (8.5-10.1); CREATININE 2.9 mg/dL (0.6-1.3); MAGNESIUM 2.1 mg/dL (1.8-2.4); PHOSPHORUS* 4.9 mg/dL (2.5-4.9); POTASSIUM 5.4 mmol/L (3.5-5.1)
[2019-01-11 08:00] VITALS: BP 147/66
[2019-01-11 11:32] VITALS: BP 143/75
--- NOTE | 2019-01-11 13:28 | 2DMMODE ---
[place] [address] 2 D/M-MODE ECHOCARDIOGRAM Name: JOSE MARTIN HOLLINS Room: [facility]Note 3[facility] IN [facility]#: [id number] Admission: 01/08/19 Attend Phys: Marky Yoon, Discharge: Date of : 46 Date of Service: 01/11/19 1327 Report #: [id number] THIS REPORT FOR: //name// APPROVED REPORT Study performed: 01/11/2019 09:36:00 EXAM: Comprehensive 2D, Doppler, and color-flow Echocardiogram Patient Location: In-Patient Room #: 201 Status: routine BSA: 1.93 HR: 79 bpm BP: 147/66 mmHg Rhythm: NSR Other Information Study Quality: Good Indications Dyspnea CAD Chest Pain 2D Dimensions IVSd: 13.20 (7-11mm) LVOT Diam: 19.34 (18-24mm) LVDd: 55.44 mm PWd: 10.83 (7-11mm) Ascending Ao: 30.11 (22-36mm) LVDs: 37.76 (25-40mm) Aortic Root: 30.89 mm Volumes Left Atrial Volume (Systole) LA ESV Index: 49.40 mL/m2 Aortic Valve AoV Peak Braulio.: 2.03 m/s AO Peak Gr.: 16.53 mmHg LVOT Max P.87 mmHg AO Mean Gr.: 9.22 mmHg LVOT Mean P.96 mmHg LVOT Max V: 1.31 m/s AO V2 VTI: 43.55 cm LVOT Mean V: 0.77 m/s UMAIR (VTI): 2.05 cm2 LVOT V1 VTI: 30.[address] [facility]: 3.10 m/s2 AI PHT: 340.70 [place] [address] 2 D/M-MODE ECHOCARDIOGRAM Name: JOSE MARTIN HOLLINS Room: [address] IN .R.#: [id number] Admission: 01/08/19 Attend Phys: Marky Yoon, Discharge: Date of : 46 Date of Service: 01/11/19 1327 Report #: [id number] Mitral Valve E/A Ratio: 0.79 MV Decel. Time: 198.91 ms MV E Max Braulio.: 0.94 m/s MV PHT: 57.68 ms MVA (PHT): 3.81 cm2 TDI E/Lateral E': 11.75 E/Medial E': 15.67 Medial E' Braulio.: 0.06 m/s Lateral E' Braulio.: 0.08 m/s Pulmonary Valve PV Peak Braulio.: 1.38 m/s PV Peak Gr.: 7.63 mmHg Tricuspid Valve RAP Estimate: 5.00 mmHg TR Peak Gr.: 26.65 mmHg RVSP: 31.00 mmHg PA Pressure: 31.00 mmHg Left Ventricle The left ventricle is normal size. Regional wall motion abnormalities are noted with distal septal and anteroapical hypokinesis. Mild concentric left ventricular hypertrophy. Left ventricular systolic function is mild to moderately decreased. LVEF is 40-45%. Grade I - abnormal relaxation pattern. Right Ventricle The right ventricle is normal size. The right ventricular systolic function is normal. Atria Left atrium is mildly dilated. The right atrium size is normal. Aortic Valve Mild aortic valve sclerosis. Mild aortic regurgitation. Mild aortic stenosis. Mitral Valve The mitral valve is normal in structure. Mild mitral regurgitation. No evidence of mitral valve stenosis. Tricuspid Valve The tricuspid valve is normal in structure. Trace tricuspid regurgitation. [place] [address] 2 D/M-MODE ECHOCARDIOGRAM Name: JOSE MARTIN HOLLINS Room: [address] IN [facility]#: [id number] Admission: 01/08/19 Attend Phys: Marky Yoon, Discharge: Date of : 46 Date of Service: 01/11/19 1327 Report #: [id number] Pulmonic Valve The pulmonary valve is normal in structure. There is no pulmonic valvular regurgitation. Great Vessels The aortic root is normal in size. IVC is normal in size and collapses >50% with inspiration. Pericardium There is no pericardial effusion. <Conclusion> The left ventricle is normal size. Mild concentric left ventricular hypertrophy. Left ventricular systolic function is mild to moderately decreased. LVEF is 40-45%. Grade I - abnormal relaxation pattern. The right ventricle is normal size. Left atrium is mildly dilated. Mild aortic valve sclerosis. Mild aortic regurgitation. Mild aortic stenosis. The mitral valve is normal in structure. Mild mitral regurgitation. The tricuspid valve is normal in structure. IVC is normal in size and collapses >50% with inspiration. There is no pericardial effusion. Regional wall motion abnormalities are noted with distal septal and anteroapical hypokinesis. <ELECTRONICALLY SIGNED> By: Hadley Patiño MD, FACC 01/11/19 132 26 26 Hadley Patiño MD, FACC /INF
--- NOTE | 2019-01-11 15:19 | NUR ---
ASSUMED PT CARE 0730, LYING IN BED, AOX4, SBA. O2 SAT AT 90'S RA. TRACING SR, PAC ON CLERICAL SECRETARY. PT IS FOR ACCU CHECK, CARB CONTROL DIET. PT FOR I&O, URINE RESIDUAL MONITOR. LAST BM 01/07/19, PT HAS BILATERAL PEDAL EDEMA. IV ACCES L FOREARM INTACT. PLATELETS MONITOR, RESULT COMMUNICATED TO DOCTOR JD PT FOR ECHO. VSS, AM ASSESSMENT CHARTED. MEDS GIVEN PER MAR. CALL LIGHT WITHIN REACH. HOURLY ROUNDING OBSERVED. WILL CONTINUE TO MONITOR.
[2019-01-11 15:29] VITALS: BP 132/61
--- NOTE | 2019-01-11 18:11 | NUR ---
PT AOX4, SBA, PT DENIES ANY PAIN. TRACING SR, PAC ON TELE. POST RESIDUAL VOID DONE. PT HAD ECHO. PT IV FLUID STOP, SITE HAD INFILTRATION. LAST BM 01/07/19, LAXATIVE GIVEN PER DEC. EDEMA ON LOWER EXTREMITY NOTED. VS, I&O MONITORED, FOR ACCU CHECK, ON SLIDING SCALE. REPOSITION SELF, HOURLY ROUNDING OBSERVED, CALL LIGHT WITHIN REACH, WILL CONTINUE TO MONITOR.
--- NOTE | 2019-01-11 18:59 | NUR ---
I HAVE REVIEWED AND AGREE WITH THE ASSESMENT AND NOTES OF ARMANDO GARCIA ON 01/11/19
[2019-01-11 19:30] VITALS: BP 141/75
[2019-01-12] VITALS: BP 141/64
--- NOTE | 2019-01-12 02:13 | NUR ---
RECIEVED REPORT AND ASSUMED CARE AT 1900. 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 VITAL SIGNS STABLE. PT IS UP WITH STANDBY. PT DENIES ANY PAIN AT THIS TIME. ASSESSMENT COMPLETED, DISCUSSED PLAN OF CARE AND PT UNDERSTANDS. BED LOCKED, ALARM ON AND CALL LIGHT WITHIN REACH. FALL PRECAUTIONS IN PLACE. HOURLY ROUNDING DONE AND ALL NEEDS MET. NURSING WILL CONTINUE TO MONITOR.
[2019-01-12 04:00] VITALS: BP 147/71
[2019-01-12 05:11] LABS: HEMATOCRIT 24.3 % (37.0-47.0); HEMOGLOBIN 8.1 gm/dL (12.0-15.0); MCH 27.5 pg (26.0-34.0); MCHC 33.1 g/dL (28.0-37.0); MCV 83.1 fL (80.0-100.0); MPV 8.6 fl. (7.2-11.1); NUCLEATED RBCS 0 /100WBC; PLATELET COUNT* 87 thou/uL (150-400); RBC 2.93 mil/uL (4.20-5.00); WBC 11.5 thou/uL (4.0-11.0)
[2019-01-12 05:21] LABS: CALCIUM 8.4 mg/dL (8.5-10.1); POTASSIUM 5.9 mmol/L (3.5-5.1)
[2019-01-12 06:33] LABS: ABSOLUTE LYMPHOCYTES 0.5 thou/uL (0.8-5.3); ABSOLUTE MONOCYTES 0.2 thou/uL (0.0-1.2); ABSOLUTE NEUTROPHILS 10.8 thou/uL (1.6-8.1)
[2019-01-12 06:34] LABS: HYPOCHROMASIA 1+
[2019-01-12 06:36] LABS: MICROCYTES 2+; PLATELET ESTIMATE DECREASED
[2019-01-12 08:00] VITALS: BP 141/71
--- NOTE | 2019-01-12 10:14 | CON ---
[address] [address] CONSULTATION Name: JOSE MARTIN HOLLINS Room: [address] IN M.R.#: [id number] Admission: 01/08/19 Attend Phys: Marky Yoon MD Discharge: Date of : 46 Report #: [id number] THIS REPORT FOR: //name// CC: Marky Gardiner DATE OF SERVICE: 01/10/2019 CONSULTING PHYSICIAN: Who requested consult is Dr. Yoon. HISTORY OF PRESENT ILLNESS: A 68-year-old female with history of stage 3 chronic kidney disease, seen by Dr. Paulino recently as an outpatient, who has underlying history of coronary artery disease and was admitted with unstable angina, underwent cardiac catheterization and stenting by Dr. Hidalgo. Serum creatinine on admission was 1.6. As an outpatient, it was 1.4. It is up to 2.5 today. She has no complaints. She is otherwise feeling well and appears to be comfortable. REVIEW OF SYSTEMS: Constitutional, psych, heme, eyes, ENT, respiratory, cardiac, GI, , endocrine, all negative except as documented above. PAST MEDICAL HISTORY: Chronic kidney disease stage 3, hypertension, diabetes, cholecystectomy, appendectomy, hysterectomy, history of kidney stones. Follows with Urology as an outpatient, history of gout, hypothyroidism. History of ITP, followed by Dr. Romero. FAMILY HISTORY: Not pertinent in this 68-year-old female. MEDICATIONS: Reviewed. SOCIAL HISTORY: No tobacco. PHYSICAL EXAMINATION: VITAL SIGNS: Blood pressure is 140/59, pulse 89, temperature 36.7, respirations 16. GENERAL: No acute distress. EYES: Open. EARS: Externally normal. CARDIOVASCULAR: Regular rate. LUNGS: No crackles. ABDOMEN: Soft. MUSCULOSKELETAL: Nontender. EXTREMITIES: She has pedal edema bilaterally. PSYCHIATRIC: Awake, alert. DERMATOLOGIC: No livedo reticularis in the lower extremities. No discoloration [place] [address] CONSULTATION Name: JOSE MARTIN HOLLINS Room: [address] IN [facility].#: [id number] Admission: 01/08/19 Attend Phys: Marky Yoon MD Discharge: Date of : 46 Report #: [id number] LABORATORY DATA: White cell count 6.9, hemoglobin 8.1, platelets 50. Sodium 142, potassium 4.6, chloride 107, bicarbonate 27, BUN 39, creatinine 2.5, glucose 97, calcium 8.4, magnesium 1.9. Iron saturation 13. ASSESSMENT AND PLAN: 1. Acute kidney injury with an admission creatinine of 1.6, creatinine of 1.4 on 10/26/2018, but a creatinine, which has risen to 2.5 on 01/10/2019 in the setting of cardiac catheterization with stenting. 2. Chronic kidney disease stage 3 secondary to diabetes, hypertension, followed by Dr. Paulino as an outpatient. 3. Hypertension. 4. History of kidney stones. 5. Diabetes type 2. 6. Coronary artery disease. 7. Non-ST elevation myocardial infarction, status post stenting. 8. Anemia, followed by Dr. Romero, with iron saturation of 13. 9. History of ITP, followed by Dr. Romero. PLAN: 1. Discontinue losartan. 2. Discontinue potassium chloride with rising creatinine and normal potassium. 3. We will order IV iron. 4. Check UA with micro. 5. Check kidney ultrasound. 6. Check bladder scan. 7. Strict I's and O's. 8. Case discussed with Dr. Montgomery. We will follow closely. Thank you for requesting my opinion in the care and management of this patient. <ELECTRONICALLY SIGNED> By: Pascual Castro MD 01/12/19 1014 1147 [id number] Castro MD /nt
[2019-01-12 12:09] VITALS: BP 150/65
--- NOTE | 2019-01-12 12:28 | NUR ---
ASSUMED PT CARE 0730, SBA, AOX4, O2 AT 90'S RA. TRACING SR ON DIRECTOR MEDICAL ECONOMICS. PT DENIES ANY PAIN. PT LAST BM 01/07/19, ROUND AND SOFT, CONSTIPATED, LAXATIVE, SUPPOSITORY GIVEN ORDERED. PT BILATERAL PEDAL EDEMA NOTED. PT I&O MONITORED. POST RESIDUAL VOID DONE. FOR UA. DISCONTINUE FLUID, IV ACCES INTACT SALINE LOCK. VSS AM ASSESSMENT CHARTED. MEDS GIVEN PER MAR. CALL LIGHT WITHIN REACH. HOURLY ROUNDING OBSERVED. WILL COTINUE TO MONITOR.
[2019-01-12 16:00] LABS: URINE BILIRUBIN NEGATIVE (Negative); URINE BLOOD NEGATIVE (Negative); URINE CLARITY CLEAR; URINE COLOR YELLOW; URINE GLUCOSE-RANDOM 1+ (Negative); URINE KETONES NEGATIVE (Negative); URINE LEUKOCYTES-REFLEX NEGATIVE (Negative); URINE NITRITE-REFLEX NEGATIVE (Negative); URINE PROTEIN 3+ (Negative); URINE SPECIFIC GRAVITY 1.025 (1.005-1.030); URINE UROBILINOGEN 0.2 E.U./dl (0.2-1.0)
[2019-01-12 16:21] LABS: HYALINE CASTS 4-10 Moderate /LPF (None Seen); MUCUS None Seen strn/LPF (None Seen); SQUAMOUS 0-3 Few /LPF (0-3)
[2019-01-12 16:22] LABS: BACTERIA-REFLEX 1-9 Few /HPF (None Seen); CRYSTALS None Seen /LPF (None Seen); URINE RBC None Seen /HPF (0-2); URINE WBC-REFLEX 0-5 Rare /HPF (0-5)
[2019-01-12 17:11] LABS: POTASSIUM 5.7 mmol/L (3.5-5.1)
[2019-01-12 17:12] LABS: TROPONIN-I LEVEL 0.82 ng/mL (<0.06)
[2019-01-12 17:19] VITALS: BP 162/80
--- NOTE | 2019-01-12 18:18 | NUR ---
PT AOX4, SBA, O2 AT 90'S RA. SR ON TELE, PT IS I&O MONITOR. PT LAST BM 01/07/31, CONSTIPATED. LAXATIVES GIVEN PER MAR. LOWER EXTREMITY HAS BILATERAL EDEMA. UA COLLECTED. IV ACCESS L ANTECUBITAL INTACT. FOR ACCU CHECK, VS STABLE, ASSESMENT CHARTED. FALL PRECAUTION. HOURLY ROUNDING, CALL LIGHT AND BELONGINGS WITHIN REACH. WILL CONTINUE TO MONITOR.
[2019-01-12 20:00] VITALS: BP 163/79
--- NOTE | 2019-01-12 20:00 | NUR ---
RECEIVED REPORT AND ASSUMED CARE OF PT, ASSESSMENT COMPLETED. PT HAS 2+ GENERALIZED EDEMA. TELEMETRY ON SHOWING SR. NO COMPLAINTS VOICED. WILL CONT TO MONITOR AND ASSIST NEEDED.
--- NOTE | 2019-01-12 20:13 | NUR ---
I HAVE REVIEWED AND AGREE WITH THE ASSESMENT, CHARTING AND NOTES OF ARMANDO GARCIA ON 01/12/19
[2019-01-13] VITALS: BP 147/60
[2019-01-13 04:00] VITALS: BP 161/75
[2019-01-13 05:11] LABS: HEMATOCRIT 23.7 % (37.0-47.0); MCHC 33.8 g/dL (28.0-37.0); MCV 82.7 fL (80.0-100.0); MPV 9.4 fl. (7.2-11.1); RBC 2.86 mil/uL (4.20-5.00); RDW-CV 15.9 % (10.5-14.5); WBC 10.1 thou/uL (4.0-11.0)
[2019-01-13 05:44] LABS: ALBUMIN 2.6 g/dL (3.4-5.0); CALCIUM 8.4 mg/dL (8.5-10.1); CREATININE 3.1 mg/dL (0.6-1.3); MAGNESIUM 2.1 mg/dL (1.8-2.4); PHOSPHORUS* 5.7 mg/dL (2.5-4.9); POTASSIUM 5.5 mmol/L (3.5-5.1)
--- NOTE | 2019-01-13 06:21 | NUR ---
SLEPT WELL TONIGHT. GAIT STEADY TO AND FROM BR. NO CHANGE IN ASSESSMENT. TELEMETRY CONT TO SHOW SR. HS GOALS OF REST AND SAFETY ACHIEVED. HOURLY ROUNDING OBSERVED.
[2019-01-13 08:08] VITALS: BP 147/64
--- NOTE | 2019-01-13 09:30 | NUR ---
REC'D REPORT FROM NOC RN, ASSUMED CARE OF PATIENT APPROX 0730. OX4, ABLE TO COMMUNICATE NEED TO STAFF. MOOD IS FLAT. ASSESSMENT COMPLETE, VS OBTAINED. PAIN LEVEL 0/10 PER PATIENT REPORT. WALL STEAMER IN PLACE, SR. O2 SATS >92% ON RA. UP WITH STANDBY ASSIST TO BATHROOM FOR MEASURED URINE OUTPUT. CALL LIGHT WITHIN REACH. HOURLY ROUNDING FOR SAFETY AND PT NEEDS.
[2019-01-13 12:06] VITALS: BP 164/73
[2019-01-13 15:50] VITALS: BP 157/78
--- NOTE | 2019-01-13 16:00 | NUR ---
REC'D ORDER FROM DR. ZARATE FOR ENEMA. RENAL PREFERS TAP WATER ENEMA D/T RENAL STATUS. TAP WATER ENEMA GIVEN TO PATIENT. PATIENT PASSING FLATULENCE AFTER ENEMA. MEDIUM, BROWN UNFORMED BM VIA BSC.
[2019-01-13 20:00] VITALS: BP 165/75
[2019-01-14] VITALS (7 sets, daily range): BP systolic 145–187; BP diastolic 60–89
--- NOTE | 2019-01-14 04:36 | NUR ---
ASSUMED CARE OF PT AFTER REPORT AT 1930. PT A&OX4. VSS. PHYSICAL ASSESSMENT COMPLETED AND CHARTED. PT ON RA WITH 96% O2 SAT. PT TRACING SR ON TELE. PT UPSTANDBY TO RESTROOM. PT DENIES ANY PAIN OR DISCOMFORT. PT RESTED WELL ON BED. CALL LIGHT WITHIN REACH.
[2019-01-14 04:46] LABS: HEMATOCRIT 24.5 % (37.0-47.0); HEMOGLOBIN 8.1 gm/dL (12.0-15.0); MCH 27.5 pg (26.0-34.0); MCHC 33.1 g/dL (28.0-37.0); MCV 83.1 fL (80.0-100.0); MPV 8.3 fl. (7.2-11.1); RBC 2.95 mil/uL (4.20-5.00); RDW-CV 15.5 % (10.5-14.5); WBC 11.7 thou/uL (4.0-11.0)
[2019-01-14 04:56] LABS: CALCIUM 7.7 mg/dL (8.5-10.1); CREATININE 2.8 mg/dL (0.6-1.3)
[2019-01-14 05:04] LABS: POTASSIUM 3.2 mmol/L (3.5-5.1)
--- NOTE | 2019-01-14 18:34 | NUR ---
I ASSUMED CARE OF THE PATIENT AT 0700. SHE IS ALERT AND ORIENTED X4 AND IS UP WITH STAND BY ASSIST. BED IS IN THE LOW LOCKED POSITION AND CALL LIGHT IS IN REACH. HOURLY ROUNDING WAS COMPLETED AND PATIENT NEEDS WERE MET. PAIN IS DENIED. THERE IS FAMILY AT THE BEDSIDE. ACHS WAS CHARTED ON EMAR. WILL CONTINUE TO MONITOR. SHE IS PROGRESSING TOWARD GOALS.
[2019-01-15 03:49] VITALS: BP 161/72
[2019-01-15 04:59] LABS: HEMATOCRIT 27.3 % (37.0-47.0); HEMOGLOBIN 9.1 gm/dL (12.0-15.0); MCH 27.5 pg (26.0-34.0); MCHC 33.4 g/dL (28.0-37.0); MCV 82.4 fL (80.0-100.0); MPV 8.1 fl. (7.2-11.1); RBC 3.31 mil/uL (4.20-5.00); RDW-CV 15.7 % (10.5-14.5); WBC 9.6 thou/uL (4.0-11.0)
[2019-01-15 05:34] LABS: CREATININE 2.1 mg/dL (0.6-1.3)
[2019-01-15 05:36] LABS: POTASSIUM 2.7 mmol/L (3.5-5.1)
--- NOTE | 2019-01-15 05:48 | NUR ---
ASSUMED CARE OF PT AFTER REPORT AT 1930. PT A&OX4.VSS. PHYSICAL ASSESSMENT COMPLETED AND CHARTED. PT ON RA WITH 95% O2 SAT. PT TRACING SR ON TELE. PT UP STANDBY TO RESTROOM. PT DENIES ANY PAIN OR DISCOMFORT. PT HAS A CRITICAL POTASSIUM 2.7- DR ZARATE INFORMED WITH NEW ORDER. PT RESTED WELL ON BED. CALL LIGHT WITHIN REACH.
[2019-01-15 07:50] VITALS: BP 147/66
[2019-01-15 12:00] VITALS: BP 126/68
--- NOTE | 2019-01-15 14:42 | NUR ---
PT A/O. TELE TRACKING NSR AND ALL VSS ON ROOM AIR. DENIES CP, SOA. POTASSIUM CRITICALLY LOW TODAY- REPLACED PER DR. ORELLANA. EDUCATED ON SAFETY AND PLAN OF CARE.PLEASE SEE ASSESSMENT FOR ADDITIONAL INFORMATION. WILL CONTINUE TO MONITOR
[2019-01-15 16:00] VITALS: BP 151/71
[2019-01-15 20:00] VITALS: BP 183/78
[2019-01-16] VITALS: BP 146/60
--- NOTE | 2019-01-16 03:27 | NUR ---
PT ALERT ORIENTED. UP WITH STD BY ASSIST. TELEMETRY SHOWS SR. GENERALIZED EDEMA. ON RA. DENIES PAIN. PROBABLE DC TODAY.
[2019-01-16 07:06] LABS: HEMATOCRIT 25.4 % (37.0-47.0); HEMOGLOBIN 8.5 gm/dL (12.0-15.0); MCH 27.9 pg (26.0-34.0); MCHC 33.4 g/dL (28.0-37.0); MCV 83.5 fL (80.0-100.0); MPV 7.5 fl. (7.2-11.1); RBC 3.04 mil/uL (4.20-5.00); RDW-CV 15.8 % (10.5-14.5); WBC 9.1 thou/uL (4.0-11.0)
[2019-01-16 07:28] LABS: ALBUMIN 2.1 g/dL (3.4-5.0); CALCIUM 7.6 mg/dL (8.5-10.1); CREATININE 1.8 mg/dL (0.6-1.3); MAGNESIUM 1.8 mg/dL (1.8-2.4); POTASSIUM 3.2 mmol/L (3.5-5.1)
[2019-01-16 07:29] LABS: CALCIUM 7.7 mg/dL (8.5-10.1); CREATININE 1.8 mg/dL (0.6-1.3); POTASSIUM 3.2 mmol/L (3.5-5.1)
[2019-01-16 07:54] VITALS: BP 158/67
[2019-01-16] MEDS ORDERED: ASPIR 8181 MG PO (11:55)
[2019-01-16] MEDS ORDERED: PLAVIX 75 MG TA75 M1 PO (11:55)
[2019-01-16 11:57] VITALS: BP 147/68
[2019-01-16 12:10] VITALS: BP 146/64
--- NOTE | 2019-01-16 12:28 | NUR ---
PT A/O. TELE TRACKING NSR AND ALL VSS ON ROOM AIR. DENIES CP, SOA. POTASSIUM SLIGHTLY LOW THIS AM, RENAL PT AND MD AWARE. ADEQUATE URINE PUTPUT. EDUCATED ON SAFETY AND PLAN OF CARE. PT AND VERBALIZE UNDERSTANDING OF ALL DC INSTRUCTIONS. DC HOME WITH AND ALL BELONGINGS IN STABLE CONDITION AT APPROX 1230.
== END 2019-01-16 12:30 | disposition home or self-care (01) | DRG 246 ==
LOC: M.ERS 05:46 → M.2W 06:27 → M.TBA-ER 06:27 → M.2W 08:16
PROVIDERS: Emergency Medicine; Family Medicine; Internal Medicine; Internal Medicine Cardiovascular Disease; Internal Medicine Hematology & Oncology; Internal Medicine Nephrology
PROC: B2151ZZ Fluoroscopy of Left Heart using Low Osmolar Contrast (ICD-10-PCS; principal; 2019-01-08)
PROC: 4A023N7 Measurement of Cardiac Sampling and Pressure, Left Heart, Percutaneous Approach (ICD-10-PCS; principal; 2019-01-08)
PROC: B2111ZZ Fluoroscopy of Multiple Coronary Arteries using Low Osmolar Contrast (ICD-10-PCS; principal; 2019-01-08)
PROC: 027035Z Dilation of Coronary Artery, One Artery with Two Drug-eluting Intraluminal Devices, Percutaneous Approach (ICD-10-PCS; principal; 2019-01-08)
DX: I21.4 Non-ST elevation (NSTEMI) myocardial infarction (principal); N17.0 Acute kidney failure with tubular necrosis; I50.33 Acute on chronic diastolic (congestive) heart failure; E43 Unspecified severe protein-calorie malnutrition; I16.1 Hypertensive emergency; D69.3 Immune thrombocytopenic purpura; I13.0 Hypertensive heart and chronic kidney disease with heart failure and stage 1 through stage 4 chronic kidney disease, or unspecified chronic kidney disease; K59.00 Constipation, unspecified; E87.5 Hyperkalemia; E66.01 Morbid (severe) obesity due to excess calories; R80.9 Proteinuria, unspecified; E87.6 Hypokalemia; I25.110 Atherosclerotic heart disease of native coronary artery with unstable angina pectoris; E11.22 Type 2 diabetes mellitus with diabetic chronic kidney disease; E11.65 Type 2 diabetes mellitus with hyperglycemia; N18.3 Chronic kidney disease, stage 3 (moderate); M10.9 Gout, unspecified; E78.5 Hyperlipidemia, unspecified; D50.9 Iron deficiency anemia, unspecified; E03.9 Hypothyroidism, unspecified; E78.00 Pure hypercholesterolemia, unspecified; Z79.82 Long term (current) use of aspirin; Z90.49 Acquired absence of other specified parts of digestive tract; Z90.710 Acquired absence of both cervix and uterus; Z98.41 Cataract extraction status, right eye; Z98.42 Cataract extraction status, left eye; Z87.442 Personal history of urinary calculi; Z88.5 Allergy status to narcotic agent; Z88.8 Allergy status to other drugs, medicaments and biological substances; Z82.49 Family history of ischemic heart disease and other diseases of the circulatory system; Z85.828 Personal history of other malignant neoplasm of skin; Z68.37 Body mass index [BMI] 37.0-37.9, adult

== ENCOUNTER → 2019-01-30 | Outpatient (CLI) | payer OTHER ==
[~2019-01-30] MED LIST changes: +ASPIR 8181 MG PO; +AUGMENTIN 500-1 EACH; +CRANBERRY400 M1; +IMDUR 30 MG TAB30 M1; +LASIX 40 MG TAB40 M2; +PLAVIX 75 MG TA75 M1 PO
[2019-01-30 09:24] VITALS: BP 183/83; BP 191/79; BP 198/81
--- NOTE | 2019-01-30 12:04 | NUR ---
ARRIVED AMBULATORY. MADE SELF COMFORTABLE IN RECLINER. REVIEWED RISK AND BENEFITS OF TRANSFUION. TRANSFUION COMPLETED AND TOLERATED WELL. DENIES QUESTIONS OR NEEDS AT DISCHARGE.
== END ==
LOC: M.INFUS 07:48
DX: D69.3 Immune thrombocytopenic purpura (principal); D50.9 Iron deficiency anemia, unspecified; N18.9 Chronic kidney disease, unspecified

== ENCOUNTER → 2019-02-06 | Outpatient (CLI) | payer OTHER ==
[2019-02-06] VITALS (21 sets, daily range): BP systolic 147–192; BP diastolic 58–87
[~2019-02-06] VITALS: Ht 167.6 cm; Wt 88.5 kg
[2019-02-06 08:31] LABS: HEMATOCRIT 27.8 % (37.0-47.0); HEMOGLOBIN 9.1 gm/dL (12.0-15.0); MCH 27.9 pg (26.0-34.0); MCHC 32.9 g/dL (28.0-37.0); MCV 84.8 fL (80.0-100.0); MPV 7.9 fl. (7.2-11.1); NUCLEATED RBCS 0 /100WBC; PLATELET COUNT* 60 thou/uL (150-400); RBC 3.28 mil/uL (4.20-5.00); RDW-CV 15.7 % (10.5-14.5)
[2019-02-06 08:42] LABS: APTT 25.5 Seconds (25.0-31.3); PROTIME 10.5 Seconds (9.20-11.50)
[2019-02-06 08:44] LABS: ALBUMIN 2.6 g/dL (3.4-5.0); CALCIUM 8.5 mg/dL (8.5-10.1); CREATININE 1.6 mg/dL (0.6-1.3); POTASSIUM 4.1 mmol/L (3.5-5.1); TOTAL BILIRUBIN 0.6 mg/dL (<0.1-1.0); TOTAL PROTEIN 5.4 g/dL (6.4-8.2)
[2019-02-06 08:57] LABS: ABSOLUTE EOSINOPHILS 0.3 thou/uL (0.0-0.7); ABSOLUTE MONOCYTES 0.2 thou/uL (0.0-1.2); ABSOLUTE NEUTROPHILS 2.6 thou/uL (1.6-8.1); ATYPICAL LYMPHS 3 %; PLATELET ESTIMATE DECREASED
--- NOTE | 2019-02-09 15:06 | PATH ---
[address] [address] PATHOLOGY RPT PROCEDURE Name: GURVINDERJOSE MARTIN Jonathan Room: [facility].Gene.#: [id number] Admission: 02/06/19 Date of : 46 Discharge: Report #: [id number] Path Case #: [id number] L[facility] Accession Number: [id number] . 01 Material submitted: . PART A: bone - BONE MARROW BIOPSY PART B: bone - BONE MARROW CLOT PART C: bone - BONE MARROW ASPIRATE SLIDES PART D: bone - PERIPHERAL BLOOD SMEARS PART E: bone - BONE MARROW FLOW . 01 Clinical history: . Anemia, thrombocytopenia 68-year-old woman with anemia and thrombocytopenia. . 02 Diagnosis: Bone marrow aspirate, biopsy, cell clot and peripheral blood: - Peripheral blood with moderate normocytic anemia and moderate thrombocytopenia. - Normocellular to mildly hypercellular bone marrow with trilineage hematopoiesis, mild erythroid hyperplasia, mild dyspoiesis and no evidence of lymphoma or acute leukemia. (See comment) (DELILAH:wilber; 02/09/2019) . Please see included [facility] report [id number]. AZJ/02/09/2019 . 02 Comment: Overall, the bone marrow is normocellular to mildly hypercellular for the patient's age with trilineage hematopoiesis, mild erythroid hyperplasia (M:E ratio of 1.5), mild dyspoiesis and no evidence of lymphoma or acute leukemia. While the dyspoiesis could possibly represent a low-grade myelodysplastic syndrome, it does not meet the morphologic criteria for myelodysplasia. There is 2/4+ iron positivity on iron staining. A mild eosinophilia is noted. Correlation with clinical history, additional laboratory data and cytogenetics is recommended. (SHELLIW:wilber; 02/09/2019) . 02 Electronically signed: . Silvia Solorio MD, Pathologist NPI- [id number] . 01 Gross description: . A. The specimen is received in formalin, labeled "kimberley Gibson". Received is a single needle core of light bradford bone measuring 0.8 cm in length by 0.3 cm in diameter. The specimen is submitted entirely in cassette A1, following [place] [address] PATHOLOGY RPT PROCEDURE Name: JOSE MARTIN HOLLINS Room: [facility].#: [id number] Admission: 02/06/19 Date of : 46 Discharge: Report #: [id number] Path Case #: [id number] B. The specimen is received in formalin, labeled "taco Gibson". Received is blood coagulum measuring 3.2 x 2.2 x 2.2 cm in aggregate dimensions. The specimen is filtered and entirely submitted in cassette B1 through B6. (CAA; 02/06/2019) QAC/QAC . 02 Microscopic: . CBC Data (02/06/19): WBC 4000 /uL, RBC 3.28, hemoglobin 9.1 g/dL, hematocrit 27.8%, MCV 84.8 fL, MCH 27.9 pg, MCHC 32.9 g/dL, RDW 15.7%, and platelet count 60,000 /uL. White blood cell differential: Segs 64%, lymphs 21%, monos 4%, eos 8%. . Peripheral Blood Smear: Cytomorphological examination of the Garcia's stained peripheral blood smear confirms the provided data. Red blood cells show moderate normocytic anemia with no significant anisopoikilocytosis. White blood cells are predominantly segmented neutrophils and are without significant dyspoiesis or significant left shift. Lymphocytes are predominantly small, round, and mature appearing with condensed chromatin and scant cytoplasm with admixed large granular lymphocytes. On scanning, no markedly atypical lymphoid cells are seen. Monocytes are mature. Platelets are moderately decreased in number and mainly normal in morphology with rare larger platelets noted. . Aspirate Smears: Cytomorphological examination of the Garcia's stained aspirate smears show rare spicules present. The overall cellularity is approximately 40%. The myeloid to erythroid ratio is 1.5:1. Full myeloid maturation is identified and is without significant dyspoiesis. There is a mild left shift in maturation. Erythroid maturation is mildly dyserythropoietic with irregular nuclear contours, left shift in maturation and basophilic stippling. In a 500 cell differential, there are 1% blasts (no Susan rods are seen), 54% more differentiated myeloids, 35% erythroid precursors, 9% lymphocytes and 1% plasma cells. Megakaryocytes are proportional in number and both normal and abnormal in morphology with variable sizes and nuclear abnormalities. No lymphoid aggregates or markedly atypical lymphoid cells are seen. Plasma cells are without atypia. Iron stain of the aspirate smear shows 0/4+ iron positivity. It is predominantly blood and peripheral blood elements with no intact spicules present. No ringed sideroblasts are identified. . Core Biopsy and Cell Clot: The decalcified bone marrow core biopsy is adequate. The bone marrow is normocellular to mildly hypercellular with an overall cellularity of approximately 40%. The myeloid to erythroid ratio is 1-2:1. Myeloid maturation is without significant dyspoiesis. A mild eosinophilia is noted. Erythroid maturation is mildly dyserythropoietic. Megakaryocytes are normal in number and both normal [place] [address] PATHOLOGY RPT PROCEDURE Name: JOSE MARTIN HOLLINS Room: [facility].#: [id number] Admission: 02/06/19 Date of : 46 Discharge: Report #: [id number] Path Case #: [id number] lymphoid aggregates or markedly atypical lymphoid cells are seen. Bony trabeculae and blood vessels are unremarkable. The cell clot has spicules present that are similar in cellularity and differential morphology as previously described. . Properly controlled special stains are performed. . Block A1 Reticulin - No significant reticulin fibrosis. Iron - 2/4+ iron positivity. . Iron (block B1, B2, B3, B4, B5, B6) - 2/4+ iron positivity with spicules present. . Flow Cytometry: Flow cytometric immunophenotypic analysis was performed at [facility]. The diagnosis is "no evidence for an increased blast population, analysis reveals a myeloid left shift, no evidence for a B-cell or T-cell lymphoproliferative disorder." There are 1.3% myeloblasts. There are 6% lymphocytes which include 0.4% polyclonal B-cells. T-cells have a CD4/CD8 ratio of 1.5 and no aberrant T-cell antigen expression. Please see separate flow cytometry report from [facility] ([id number]). . Cytogenetics Analysis: Cytogenetic chromosomal analysis is pending at [facility] ([id number]). (CLW:wilber; 02/09/2019) . . Special studies report received from [facility], [address] [place] [address], [address], [place], [address], on case [id number], labeled with their number [id number], dated 02/07/2019. . Flow Cytometry: Hematologic Neoplasia Assessment . Clinical History Anemia and thrombocytopenia . Indication for Study Evaluation for hematolymphoid neoplasia . Specimen Bone Marrow Aspirate . Viability 91% (7AAD exclusion) [place] [address] PATHOLOGY RPT PROCEDURE Name: JOSE MARTIN HOLLINS Room: [facility]#: [id number] Admission: 02/06/19 Date of : 46 Discharge: Report #: [id number] Path Case #: [id number] Bone Marrow Aspirate: - No evidence for an increased blast population. - Analysis reveals a myeloid left shift. - No evidence for a B-cell or T-cell lymphoproliferative disorder. . Comments Myeloproliferative and myelodysplastic disorders cannot be categorically excluded by flow cytometric analysis. Correlation with results of morphologic studies and cytogenetic analysis is recommended for a complete evaluation. . Populations Analyzed Myeloid Blasts: 1.3% No significant immunophenotypic abnormalities Lymphocytes: 6% B-cells: 0.4%, polytypic/polyclonal sIg light chain pattern T-cells: no significant abnormalities of the markers tested CD4+ T-cells: 3.2% (including 0.1% CD57+ cells) CD8+ T-cells: 2.1% (including 0.3% CD57+ cells) CD4:CD8: 1.5 NK cells: 0.1% Neutrophilic Cells: 80% Analysis reveals a myeloid left shift, as shown by downregulation of CD10, CD11c, and CD16. Monocytic Cells: 5% No significant abnormalities of the markers tested Eosinophils: 4% No relative increase Basophils: 0.3% No relative increase Plasma Cells: 0.2% Few detected; no overt abnormalities of the surface markers tested (plasma cells are typically underrepresented by flow cytometry; cytoplasmic light chains were not assessed) Hematogones: 0.1% Normal B-cell precursors CD45 Negative 3% No significant reactivity with the markers Events/Debris: tested (may represent unlysed red blood cells, erythroid precursors, platelets, debris, etc.) (erythroid precursors may be underrepresented due to sample lysis/processing) . Morphologic Evaluation A slide was reviewed for quality technician purposes only. . Specimen Description Total Cell Yield: 22.11 X 10 and 6 . Reagent(s) Used CD2, CD3, CD4, CD5, CD7, CD8, CD10, CD11b, CD13, CD14, CD16, CD19, CD20, CD33, CD34, CD38, CD45, CD56, CD57, CD64, CD117, HLA-DR, kappa, [place] [address] PATHOLOGY RPT PROCEDURE Name: JOSE MARTIN HOLLINS Room: [facility] ES Burns#: [id number] Admission: 02/06/19 Date of : 46 Discharge: Report #: [id number] Path Case #: [id number] at [facility], [employer]. Ludwig Irwin MD Hematopathologist . Intended Use Flow cytometry is optimally used to immunophenotypically characterize abnormal populations when they are detected. Negative flow cytometry results do not exclude lymphoma or neoplasia. Possible false negative flow cytometry results may occur in, but are not limited to, the following: neoplastic cells in Hodgkin lymphoma are not typically adequately represented by routine clinical flow cytometry; neoplastic cells may be lost or inadequately represented due to degeneration, sample processing, sampling artifact, or patchy involvement; plasma cells are typically underrepresented by flow cytometry; immature cells/blasts may be underrepresented due to hemodilution; myeloproliferative disorders and low grade myelodysplasia may not have immunophenotypic abnormalities or increased blasts. Correlation with all available clinical, laboratory, and morphologic data is always necessary to assess for the possibility of false negative flow cytometry results and to establish a diagnosis. Each marker in this analysis was used to assess for potential antigenic abnormalities or to evaluate detected abnormalities. . Disclaimer(s) This test was performed at [employer]. at [address] [place] [address], [id number] - Street Sweeper Operator: Reji Bustillos MD. [employer] is a business unit of [employer] a wholly-owned subsidiary of [employer]. . Any image or images that accompany this report are personal financial representative images only and should not be used to render a diagnosis. . This test was developed and its performance characteristics determined by [employer]. It has not been cleared or approved by the Food and Drug Administration (FDA). The FDA has determined that such clearance or approval is not necessary. . For inquiries, the physician may contact Lab: [phone] . A complete copy of the report is on file. . Professional services performed by [facility]. at [address], [place] [address]. Technical services performed by [employer]. at [address], [place] [address]. . (AMJ 02/07/2019) [place] [address] PATHOLOGY RPT PROCEDURE Name: JOSE MARTIN HOLLINS Room: [facility].#: [id number] Admission: 02/06/19 Date of : 46 Discharge: Report #: [id number] Path Case #: [id number] . . 02 Pathologist provided ICD-10: D64.9, D69.6, D70.4, D75.89 . 02 CPT . 944702, 134012, 666319, 490797, 073240, 069017, 279785, 086506, 597055, 926435, 251994, 093631, 813902, 288498 Specimen Comment: A courtesy copy of this report has been sent to Specimen Comment: [phone], , . Specimen Comment: Report sent to ,DR SIM / DR ESPINOSA Performed at: 01 [facility] [address] [id number] MD Killian Alba MD Phone: [phone] Performed at: 02 [facility] [id number] [id number] MD Dawit Shaver MD Phone: [phone]
== END | disposition home or self-care (01) ==
LOC: M.INT 07:58
PROVIDERS: Radiology Diagnostic Radiology
DX: D69.6 Thrombocytopenia, unspecified (principal); D64.9 Anemia, unspecified; D70.4 Cyclic neutropenia; D75.89 Other specified diseases of blood and blood-forming organs; I11.0 Hypertensive heart disease with heart failure; I50.9 Heart failure, unspecified; E11.9 Type 2 diabetes mellitus without complications; M10.9 Gout, unspecified; E03.9 Hypothyroidism, unspecified; E78.00 Pure hypercholesterolemia, unspecified; Z90.49 Acquired absence of other specified parts of digestive tract; Z90.710 Acquired absence of both cervix and uterus; Z87.442 Personal history of urinary calculi; Z82.49 Family history of ischemic heart disease and other diseases of the circulatory system; Z98.890 Other specified postprocedural states; Z83.3 Family history of diabetes mellitus; Z88.8 Allergy status to other drugs, medicaments and biological substances; Z79.82 Long term (current) use of aspirin; Z79.899 Other long term (current) drug therapy

== ENCOUNTER 2019-02-24 15:37 | Inpatient (IN) | payer OTHER ==
[~2019-02-24] VITALS: Ht 167.6 cm; Wt 89.9 kg
[2019-02-24 15:38] VITALS: BP 205/85
[2019-02-24 15:57] LABS: HEMATOCRIT 30.6 % (37.0-47.0); HEMOGLOBIN 10.1 gm/dL (12.0-15.0); MCH 27.5 pg (26.0-34.0); MCHC 33.1 g/dL (28.0-37.0); MPV 8.3 fl. (7.2-11.1); RBC 3.69 mil/uL (4.20-5.00); RDW-CV 15.1 % (10.5-14.5); WBC 5.9 thou/uL (4.0-11.0)
[2019-02-24 16:06] LABS: ANION GAP 10 mmol/L (7-16); BUN 34 mg/dL (7-18); CHLORIDE 109 mmol/L (98-107); CO2 26 mmol/L (21-32); CREATININE 1.6 mg/dL (0.6-1.3); GLUCOSE 160 mg/dL (70-99); POTASSIUM 3.6 mmol/L (3.5-5.1); SODIUM 145 mmol/L (136-145)
[2019-02-24 16:17] LABS: ALBUMIN 3.1 g/dL (3.4-5.0); ALKALINE PHOSPHATASE 133 U/L (46-116); NT-PRO BRAIN NAT PEPTIDE 26940 pg/mL (<300); SGOT 18 U/L (15-37); SGPT 38 U/L (30-65); TOTAL BILIRUBIN 0.8 mg/dL (<0.1-1.0); TOTAL PROTEIN 6.3 g/dL (6.4-8.2); TROPONIN-I LEVEL <0.06 ng/mL (<0.06)
[2019-02-24 19:48] VITALS: BP 196/80
[2019-02-24 21:15] VITALS: BP 208/91
[2019-02-24 22:10] VITALS: BP 157/59
[2019-02-25] VITALS: BP 170/69
[2019-02-25 04:00] VITALS: BP 177/69
--- NOTE | 2019-02-25 06:30 | NUR ---
RECEIVED REPORT FROM QUITLINE COUNSELOR ZOIE AT 1932. PT ARRIVED TO UNIT AT 1999. CARIDAC MONITOR IN PLACE, TRACING SINUS RHYTHM WITH OCCASIONAL PACS. PT DENIES PAIN THIS SHIFT. HOURLY ROUNDING COMPLETED. CALL LIGHT WITHIN REACH.
[2019-02-25 08:00] VITALS: BP 157/66
--- NOTE | 2019-02-25 10:31 | EKG ---
[place] [address] ELECTROCARDIOGRAM REPORT Name: JOSE MARTIN HOLLINS Room: [address] ADM IN M.R.#: [id number] Admission: 02/24/19 Attend Phys: Patricia Suarez Discharge: Date of : 46 Report #: [id number] THIS REPORT FOR: //name// [facility] ED Test Date: 2019-02-24 Test Time: 16:10:47 Pat Name: JOSE MARTIN HOLLINS Department: Room: [facility] Gender: F Dental Practice Manager: Jonathan KAUR : 1950 Requested By: Cj Thompson Order Number: [id number] MD: Hadley Patiño Measurements Intervals [place] Rate: 64 P: 38 SD: 200 QRS: 7 QRSD: 108 T: 130 QT: 444 QTc: 458 Interpretive Statements Sinus rhythm Abnrm T, consider ischemia, anterolateral lds Baseline wander in lead(s) V2 Compared to ECG 01/09/2019 08:15:07 Possible ischemia persists Prolonged QT interval no longer present Electronically Signed On 02-25-2019 10:31:29 CDT by Hadley Patiño [email or web address] <ELECTRONICALLY SIGNED> By: Hadley Patiño MD, [facility] 02/25/19 1031 1610 1610 Hadley Patiño MD, [facility] /EPI
[2019-02-25 12:02] VITALS: BP 162/68
--- NOTE | 2019-02-25 13:21 | NUR ---
PT ALERT AND ORIENTED. TELE TRACKING SR AND ALL VSS ON ROOM AIR. DENIES CP, SOA. 2+ LE EDEMA-PT STATES IS IMPROVING FROM YESTERDAY. EDUCATED ON SAFETY AND PLAN OF CARE. PLEASE SEE ASSESSMENT FOR ADDITIONAL INFORMATION. WILL CONT TO MONITOR
[2019-02-25 16:22] VITALS: BP 175/68
[2019-02-26] VITALS: BP 167/64
[2019-02-26 04:00] VITALS: BP 165/77
[2019-02-26 05:23] LABS: CALCIUM 8.4 mg/dL (8.5-10.1); CREATININE 1.6 mg/dL (0.6-1.3); MAGNESIUM 2.1 mg/dL (1.8-2.4); POTASSIUM 3.3 mmol/L (3.5-5.1)
--- NOTE | 2019-02-26 07:27 | NUR ---
ASSUMED PT CARE AT 1930. NURSING ASSESSMENT COMPLETED AT START OF SHIFT. SR ON MANAGER BABY. VOICED NO CONCERNS THIS SHFIT. HOURLY ROUNDING COMPLETED. NEGATIVE FOR SEPSIS SCREENING. CALL LIGHT WITHIN REACH.
[2019-02-26 08:00] VITALS: BP 155/63
[2019-02-26 12:33] VITALS: BP 171/69
[2019-02-26 15:41] VITALS: BP 154/63
--- NOTE | 2019-02-26 17:09 | NUR ---
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 VS TAKEN. BP MEDCATION GIVEN. ACCUCHECH . INSULIN GIVEN ORDERED. PT FAMILY IN ROOM PT IS UP AD JANICE. CALL LIGHT AT REACH. WILL CONTINUE TO MONITOR
[2019-02-26 19:50] VITALS: BP 176/77
[2019-02-27] VITALS: BP 147/64
[2019-02-27 04:00] VITALS: BP 179/81
--- NOTE | 2019-02-27 04:14 | NUR ---
RECIEVED REPORT AND ASSUMED CARE AT 1900. BLOOD TESTER FOWL IN PLACE. SYSTOLIC BP ELEVATED, OTHER THAN THAT VITAL SIGNS STABLE. PT IS UP ADLIB. PT DENIES ANY PAIN AT THIS TIME. ASSESSMENT COMPLETED DISCUSSED PLAN OF CARE, PT UNDERSTANDS. BED LOCKED AND CALL LIGHT WITHIN REACH. FALL PRECAUTIONS IN PLACE. HOURLY ROUNDING DONE AND ALL NEEDS MET. NURSING WILL CONTINUE TO MONITOR.
[2019-02-27 05:35] LABS: CALCIUM 8.5 mg/dL (8.5-10.1); CREATININE 1.7 mg/dL (0.6-1.3); MAGNESIUM 2.2 mg/dL (1.8-2.4); POTASSIUM 3.9 mmol/L (3.5-5.1)
[2019-02-27 08:00] VITALS: BP 172/68
[2019-02-27 11:30] VITALS: BP 163/67
--- NOTE | 2019-02-27 11:57 | NUR ---
Pt is A&O. Resides at home with her . Independent "when I can be," completes most IADLs. No DME. No hx of HH or SNF. Supportive kids. Goal is home at ar. No needs.
[2019-02-27 15:37] VITALS: BP 150/69
[2019-02-27 20:00] VITALS: BP 179/75
[2019-02-28] VITALS (7 sets, daily range): BP systolic 141–181; BP diastolic 52–78
--- NOTE | 2019-02-28 05:47 | NUR ---
PATIENT PARTIALLY PROGRESSING TOWARDS GOALS: BLOOD PRESSURE IMPROVED WITH HS MEDICATIONS, HOWEVER, IT IS ELEVATED AGAIN THIS AM. MORNING MEDICATIONS ADMINISTERED PER DEC. BLOOD PRESSURE TO BE RECHECKED TO CHECK FOR IMPROVEMENT. PATIENT C/O SLIGHT HEADACHE AND SUSPECT IT IS FROM ELEVATED BP, DENIES NEED FOR ANY PAIN MEDICATION. VSS ON ROOM AIR. UP INDEPENDENTLY WITH NO COMPLICATIONS. COLLECTED HAT PLACED IN TOILET FOR ACCURATE OUTPUT. PATIENT AWARE AND COMPLIANT OF LEAVING URINE IN HAT. CALL LIGHT WITHIN REACH
--- NOTE | 2019-02-28 07:30 | NUR ---
ASSUMED CARE OF PT ASSESSED AND DOCUMENTED. PT IS ON CARDIAC MONITER TRACING SR HR 65. PT IS A&O WITH NO C/O PAIN. VSS WNL. PT IS AFEBRILE. SHE IS ON ROOM AIR. BED IS IN LOW POSTION CALL LIGHT IS IN REACH. WM.
--- NOTE | 2019-02-28 14:53 | NUR ---
RE: heart failure medication education I provided patient with a heart failure medication education handout and disscussed possible side effects. All patients questions were answered. Pharmacy available for any future questions. Thank you.
--- NOTE | 2019-02-28 17:25 | NUR ---
PT HAS RESTED IN HER ROOM THIS SHIFT WATCHING TV AND SLEEPING. PT HAS HAD NO C/O PAIN OR DISCOMFORT. EDUCATION GIVEN ON DEMAND. HOURLY ROUNDING CONT.
[2019-03-01] VITALS: BP 140/63
[2019-03-01 04:00] VITALS: BP 159/81
[2019-03-01 05:52] LABS: CALCIUM 8.4 mg/dL (8.5-10.1); CREATININE 1.7 mg/dL (0.6-1.3); POTASSIUM 3.8 mmol/L (3.5-5.1)
--- NOTE | 2019-03-01 07:35 | NUR ---
PATIENT PROGRESSING TOWARDS GOALS AND DISCHARGE: BLOOD PRESSURE SLIGHTLY IMPROVED WITH MEDICATIONS PER MAR. DENIES PAIN AND DISCOMFORT. PATIENT HAS GOOD URINE OUTPUT AND IS COMPLIANT WITH STRICT I&O. CALL LIGHT WITHIN REACH. ANTICIPATING DISCHARGE HOME TODAY
[2019-03-01 08:00] VITALS: BP 152/65
--- NOTE | 2019-03-01 10:27 | NUR ---
PT ALERT AND ORIENTED. TELE TRACKING SR WITH FREQUENT PAC'S AND ALL VSS ON ROOM AIR. DENIES CP, SOA. PT STATES SHE IS LOOKING FORWARD TO DC TODAY. EDUCATED ON SAFETY AND PLAN OF CARE. PLEASE SEE ASSESSMENT FOR ADDITIONAL INFORMATION. ALIYAH CONT TO MONITOR
[2019-03-01 11:48] VITALS: BP 149/67
[2019-03-01 11:54] LABS: ABSOLUTE BASOPHILS 0.1 thou/uL (0.0-0.2); ABSOLUTE EOSINOPHILS 0.2 thou/uL (0.0-0.7); ABSOLUTE LYMPHOCYTES 1.1 thou/uL (0.8-5.3); ABSOLUTE MONOCYTES 0.4 thou/uL (0.0-1.2); ABSOLUTE NEUTROPHILS 2.6 thou/uL (1.6-8.1); BASOPHILS 2.6 %; EOSINOPHILS 4.5 %; HEMATOCRIT 25.1 % (37.0-47.0); HEMOGLOBIN 8.4 gm/dL (12.0-15.0); LYMPHOCYTES 25.6 %; MCH 27.3 pg (26.0-34.0); MCHC 33.3 g/dL (28.0-37.0); MONOCYTES 8.9 %; MPV 9.3 fl. (7.2-11.1); NUCLEATED RBCS 0 /100WBC; PLATELET COUNT* 61 thou/uL (150-400); POLYS 58.4 %; RBC 3.06 mil/uL (4.20-5.00); RDW-CV 15.1 % (10.5-14.5); WBC 4.5 thou/uL (4.0-11.0)
[2019-03-01] MEDS ORDERED: SPIRONOLACTONE25 MG PO (12:40)
[2019-03-01] MEDS ORDERED: BUMETANIDE 1 MG1 M1 PO (12:40)
[2019-03-01] MEDS ORDERED: IMDUR 60 MG TAB60 M1 PO (12:40)
[2019-03-01] MEDS ORDERED: CARDURA4 MG PO (12:40)
== END 2019-03-01 13:40 | disposition home or self-care (01) | DRG 291 ==
LOC: M.ERS 15:37 → M.2W 17:28 → M.TBA-ER 17:28 → M.2W 20:05
PROVIDERS: Emergency Medicine Emergency Medical Services; Internal Medicine; Registered Nurse; ADMIT Internal Medicine
DX: I13.0 Hypertensive heart and chronic kidney disease with heart failure and stage 1 through stage 4 chronic kidney disease, or unspecified chronic kidney disease (principal); I50.43 Acute on chronic combined systolic (congestive) and diastolic (congestive) heart failure; I16.1 Hypertensive emergency; N17.9 Acute kidney failure, unspecified; N18.3 Chronic kidney disease, stage 3 (moderate); M10.9 Gout, unspecified; E03.9 Hypothyroidism, unspecified; E11.22 Type 2 diabetes mellitus with diabetic chronic kidney disease; E78.00 Pure hypercholesterolemia, unspecified; I16.0 Hypertensive urgency; E78.5 Hyperlipidemia, unspecified; I25.10 Atherosclerotic heart disease of native coronary artery without angina pectoris; Z79.899 Other long term (current) drug therapy; Z95.5 Presence of coronary angioplasty implant and graft; Z88.8 Allergy status to other drugs, medicaments and biological substances; Z90.89 Acquired absence of other organs; Z90.49 Acquired absence of other specified parts of digestive tract; Z90.710 Acquired absence of both cervix and uterus; Z87.442 Personal history of urinary calculi; Z98.49 Cataract extraction status, unspecified eye

== ENCOUNTER 2019-07-11 04:53 | Inpatient (IN) | payer OTHER ==
[~2019-07-11] VITALS: Ht 167.6 cm; Wt 86.2 kg
[2019-07-11] VITALS (7 sets, daily range): BP systolic 123–175; BP diastolic 52–68
--- NOTE | ~2019-07-11 | PROC ---
[address] [address] PROCEDURE REPORT Name: JOSE MARTIN HOLLINS Room: [address] IN M.R.#: [id number] Admission: 07/11/19 Attend Phys: Celia Silver Discharge: 07/15/19 Date of : 46 Report #: [id number] THIS REPORT FOR: //name// For GI report, please see the Provation report in [employer] 7 content. By: 1545Medical Records Staff HOLLY /ZAK
--- NOTE | ~2019-07-11 | PROC ---
[address] [address] PROCEDURE REPORT Name: JOSE MARTIN HOLLINS Room: [address] IN M.R.#: [id number] Admission: 07/11/19 Attend Phys: Celia Silver Discharge: 07/15/19 Date of : 46 Report #: [id number] THIS REPORT FOR: //name// For GI report, please see the Provation report in [employer] content. By: 1545Medical Records Staff HOLLY /ZAK
[~2019-07-11 04:53] MED LIST changes: +CARDURA4 MG PO; -CRANBERRY400 M1; +CRANBERRY400 M1 PO; +IMDUR 60 MG TAB60 M1 PO; +ODORLESS GARL1250 MG PO; -ODORLESS GARLI500 MG PO; +SPIRONOLACTONE25 MG PO
[2019-07-11] MEDS ORDERED: LOVASTATIN 20 M20 MG PO (05:05)
[2019-07-11] MEDS ORDERED: HYDRALAZINE 2525 MG PO (05:06)
[2019-07-11 05:25] LABS: ABSOLUTE BASOPHILS 0.1 thou/uL (0.0-0.2); ABSOLUTE EOSINOPHILS 0.2 thou/uL (0.0-0.7); ABSOLUTE LYMPHOCYTES 0.8 thou/uL (0.8-5.3); ABSOLUTE MONOCYTES 0.5 thou/uL (0.0-1.2); ABSOLUTE NEUTROPHILS 3.5 thou/uL (1.6-8.1); EOSINOPHILS 4.1 %; HEMOGLOBIN 9.2 gm/dL (12.0-15.0); LYMPHOCYTES 15.9 %; MCH 27.4 pg (26.0-34.0); MCV 82.9 fL (80.0-100.0); MONOCYTES 8.9 %; MPV 7.4 fl. (7.2-11.1); NUCLEATED RBCS 0 /100WBC; PLATELET COUNT* 97 thou/uL (150-400); POLYS 70.1 %; RBC 3.37 mil/uL (4.20-5.00); RDW-CV 15.5 % (10.5-14.5)
[2019-07-11 05:33] LABS: CALCIUM 8.5 mg/dL (8.5-10.1); CREATININE 2.3 mg/dL (0.6-1.3); POTASSIUM 4.4 mmol/L (3.5-5.1)
[2019-07-11 05:37] LABS: ALBUMIN 3.2 g/dL (3.4-5.0); TOTAL BILIRUBIN 0.6 mg/dL (<0.1-1.0); TOTAL PROTEIN 6.4 g/dL (6.4-8.2)
[2019-07-11 05:42] LABS: URINE BILIRUBIN NEGATIVE (Negative); URINE BLOOD NEGATIVE (Negative); URINE CLARITY CLEAR; URINE COLOR YELLOW; URINE GLUCOSE-RANDOM NEGATIVE (Negative); URINE KETONES NEGATIVE (Negative); URINE LEUKOCYTES-REFLEX NEGATIVE (Negative); URINE NITRITE-REFLEX NEGATIVE (Negative); URINE PROTEIN 2+ (Negative); URINE UROBILINOGEN 0.2 E.U./dl (0.2-1.0)
[2019-07-11 05:50] LABS: SQUAMOUS 0-3 Few /LPF (0-3); URINE WBC-REFLEX 0-5 Rare /HPF (0-5)
[2019-07-11 05:51] LABS: BACTERIA-REFLEX 1-9 Few /HPF (None Seen); CASTS None Seen /LPF (None Seen); CRYSTALS None Seen /LPF (None Seen); MUCUS 0-3 Light strn/LPF (None Seen); URINE RBC 0-2 Rare /HPF (0-2)
[2019-07-12] VITALS (7 sets, daily range): BP systolic 140–182; BP diastolic 52–65
[2019-07-12 05:15] LABS: HEMOGLOBIN 8.2 gm/dL (12.0-15.0); MCH 27.2 pg (26.0-34.0); MCHC 32.6 g/dL (28.0-37.0); MCV 83.5 fL (80.0-100.0); MPV 7.8 fl. (7.2-11.1); RBC 2.99 mil/uL (4.20-5.00); RDW-CV 15.1 % (10.5-14.5); WBC 3.5 thou/uL (4.0-11.0)
[2019-07-12 05:49] LABS: ALBUMIN 2.6 g/dL (3.4-5.0); CALCIUM 8.3 mg/dL (8.5-10.1); CREATININE 2.3 mg/dL (0.6-1.3); MAGNESIUM 2.3 mg/dL (1.8-2.4); POTASSIUM 4.9 mmol/L (3.5-5.1); TOTAL BILIRUBIN 0.4 mg/dL (<0.1-1.0); TOTAL PROTEIN 5.2 g/dL (6.4-8.2)
[2019-07-13 03:39] VITALS: BP 158/64
[2019-07-13 04:29] LABS: HEMATOCRIT 25.6 % (37.0-47.0); HEMOGLOBIN 8.3 gm/dL (12.0-15.0)
[2019-07-13 04:51] LABS: ALBUMIN 2.8 g/dL (3.4-5.0); CALCIUM 8.2 mg/dL (8.5-10.1); CREATININE 2.5 mg/dL (0.6-1.3); PHOSPHORUS* 4.8 mg/dL (2.5-4.9); POTASSIUM 5.5 mmol/L (3.5-5.1)
[2019-07-13 08:10] VITALS: BP 142/55
[2019-07-13 14:22] VITALS: BP 163/59
[2019-07-13 17:23] VITALS: BP 177/65
[2019-07-13 20:00] VITALS: BP 183/59
[2019-07-13 23:50] VITALS: BP 172/60
[2019-07-14 04:09] VITALS: BP 160/49
[2019-07-14 05:21] LABS: HEMATOCRIT 26.9 % (37.0-47.0); HEMOGLOBIN 8.9 gm/dL (12.0-15.0); MCH 27.4 pg (26.0-34.0); MCHC 32.9 g/dL (28.0-37.0); MCV 83.3 fL (80.0-100.0); MPV 8.3 fl. (7.2-11.1); RBC 3.23 mil/uL (4.20-5.00); RDW-CV 14.9 % (10.5-14.5); WBC 4.8 thou/uL (4.0-11.0)
[2019-07-14 05:36] LABS: CALCIUM 8.5 mg/dL (8.5-10.1); CREATININE 2.6 mg/dL (0.6-1.3); MAGNESIUM 2.4 mg/dL (1.8-2.4); POTASSIUM 5.1 mmol/L (3.5-5.1)
[2019-07-14 07:40] VITALS: BP 163/59
[2019-07-14 10:56] VITALS: BP 163/59
[2019-07-14 12:55] VITALS: BP 155/51
--- NOTE | 2019-07-14 14:19 | EKG ---
[place] [address] ELECTROCARDIOGRAM REPORT Name: JOSE MARTIN HOLLINS Room: [address] ADM IN M.R.#: [id number] Admission: 07/11/19 Attend Phys: Celia Silver Discharge: Date of : 46 Report #: [id number] THIS REPORT FOR: //name// [facility] Test Date: 2019-07-14 Test Time: 11:32:02 Pat Name: JOSE MARTIN HOLLINS Department: Room: [address] Gender: F Bander Hand: RT : 1950 Requested By: Isidoro Gutiérrez Order Number: [id number] Grant MD: Alfredito Hidalgo Measurements Intervals [place] Rate: 65 P: 24 [place]: 198 QRS: 1 QRSD: 105 T: 73 QT: 428 QTc: 445 Interpretive Statements Sinus rhythm Atrial premature complex Minimal ST elevation, anterior leads Compared to ECG 02/24/2019 16:10:47 Atrial premature complex(es) now present ST (T wave) deviation no longer present Possible ischemia no longer present Electronically Signed On 07-14-2019 14:18:50 CDT by Alfredito Hidalgo [email or web address] <ELECTRONICALLY SIGNED> By: Alfredito Hidalgo MD, FACC 07/14/19 1418 1132 1132 Alfredito Hidalgo MD, [facility] /EPI
[2019-07-14 15:30] VITALS: BP 140/64
[2019-07-14 20:04] VITALS: BP 174/54
[2019-07-15] VITALS (7 sets, daily range): BP systolic 163–169; BP diastolic 59–63
[2019-07-15 05:07] LABS: CALCIUM 8.2 mg/dL (8.5-10.1); CREATININE 2.3 mg/dL (0.6-1.3); POTASSIUM 4.4 mmol/L (3.5-5.1)
[2019-07-15] MEDS ORDERED: COREG25 M1 PO (11:48)
[2019-07-15] MEDS ORDERED: IMDUR 30 MG TAB30 M1 PO (14:30)
[2019-07-15] MEDS ORDERED: CARDURA4 MG PO (14:30)
[2019-07-15] MEDS ORDERED: ARTHRITIS PAIN57 GM TOP (14:34)
--- NOTE | 2019-07-17 10:19 | CON ---
[address] [address] CONSULTATION Name: JOSE MARTIN HOLLINS Room: [address] IN M.R.#: [id number] Admission: 07/11/19 Attend Phys: Celia Silver Discharge: 07/15/19 Date of : 46 Report #: [id number] THIS REPORT FOR: //name// CC: Dyllan Rouse DATE OF SERVICE: 07/12/2019 NEPHROLOGY CONSULTATION CONSULTING PHYSICIAN: Dr. Rouse. REASON FOR CONSULTATION: Chronic kidney disease. HISTORY OF PRESENT ILLNESS: A 68-year-old female who was admitted with abdominal pain. She had diarrhea as an outpatient, but tells me for the past 24-48 hours, she has had no diarrhea. She last saw Dr. Paulino in early June and has stable chronic kidney disease. She also sees Dr. Romero as an outpatient for iron injections for her iron deficient anemia. She presently does not have any complaints. Overall, is doing well and appears to be comfortable. REVIEW OF SYSTEMS: Constitutional, psych, heme, eyes, ENT, respiratory, cardiac, GI, , endocrine, all negative except as documented above. PAST MEDICAL HISTORY: Chronic kidney disease stage 4, diabetes, coronary artery disease with history of stent, history of hypertension, cholecystectomy, appendectomy, history of kidney stones, history of hypothyroidism, dyslipidemia, history of thrombocytopenia and iron deficient anemia followed by Dr. Romero. SOCIAL HISTORY: No tobacco. FAMILY HISTORY: Not pertinent in this 68-year-old female. CURRENT MEDICATIONS: Reviewed. PHYSICAL EXAMINATION: VITAL SIGNS: Blood pressure 140/55, pulse 62, respirations 15, temperature 36.8. GENERAL: No acute distress. EYES: Open. EARS: Externally normal. NECK: Supple. CARDIOVASCULAR: Regular rate. LUNGS: No crackles. ABDOMEN: Soft, [place] [address] CONSULTATION Name: JOSE MARTIN HOLLINS Jonathan Room: [address]#: [id number] Admission: 07/11/19 Attend Phys: Celia Silver Discharge: 07/15/19 Date of : 46 Report #: [id number] MUSCULOSKELETAL: Nontender. PSYCHIATRIC: Awake, alert. LABORATORY DATA: White cell count 3.5, hemoglobin 8.2, platelets 73. Sodium 142, potassium 4.9, chloride 111, bicarbonate 24, BUN 39, creatinine 2.3, glucose 64, most recent one is 105, calcium 8.3, albumin 2.6. Ferritin was 44. Iron saturation was 11. ASSESSMENT: 1. Chronic kidney disease stage 4, secondary to diabetes, followed by Dr. Paulino as an outpatient. Baseline creatinine appears to be around 2.2, it was 2.2 on 06/26/2019 office visit. Kidney ultrasound did not show any acute findings. UA is noted. 2. Proteinuria with an outpatient urine protein and creatinine ratio of 3100. 3. Hypertension. 4. Diabetes type 2. 5. Iron deficient anemia and thrombocytopenia, followed by Dr. Romero as an outpatient. 6. Bilateral nonobstructing renal calculi suggested on kidney ultrasound. 7. History of grade 1 diastolic dysfunction with mild aortic stenosis and an ejection fraction of 40-45% on 02/2019 echo. PLAN: Renal function overall stable. She did receive some IV hydration; given her recent diarrhea, this is reasonable. She appears to be euvolemic at present time. Diuretics are currently on hold. Creatinine is essentially at baseline. We will order intravenous iron to help manage the iron deficient anemia and follow labs in the a.m. Thank you for requesting my opinion in the care and management of this patient. <ELECTRONICALLY SIGNED> By: Pascual Castro MD 07/17/19 1019 1451 1616Abicelia Castro MD /nt
--- NOTE | 2019-07-18 18:06 | PATH ---
[address] [address] PATHOLOGY RPT PROCEDURE Name: JOSE MARTIN ORTIZ Room: [address] IN M.R.#: [id number] Admission: 07/11/19 Date of : 46 Discharge: 07/15/19 Report #: [id number] Path Case #: [id number] [facility] Accession Number: [id number] . 01 Material submitted: . PART A: duodenum - DUODENAL BIOPSY - CELIAC PART B: stomach - GASTRIC BIOPSY . 01 Clinical history: . None provided . 02 Diagnosis: A. Duodenal biopsy: - Minimal nonspecific active duodenitis with black pigment laden macrophages noted in lamina propria, negative for granulomas, significant intraepithelial lymphocytosis/villous atrophy and dysplasia/adenomatous change. See comment. . B. Gastric biopsy: - Severe chronic active gastritis, negative for Helicobacter pylori organisms, granulomas and dysplasia. See comment. . (HUMBERTO:wilber; 07/18/2019) MBR 07/18/2019 1336 Local . 02 Comment: The black pigment laden macrophages seen in the duodenal biopsy (A) is histologically identical to that seen with gastrointestinal procedure tattooing. There is no significant intraepithelial lymphocytosis or villous flattenting and therefor celiac disease is unlikely. The inflammatory pattern seen in the gastric biopsy (B) is typical of that seen with H. pylori infection, however, a properly controlled H. pylori immunohistochemical stain is negative and it raises the possibility of partially treated H. pylori infection. (HUMBERTO:wilber; 07/18/2019) . Special stain on B: H. pylori immuno . 02 Electronically signed: . Eldon Tamez MD, Pathologist NPI- [id number] . 01 Gross description: . A. The specimen is received in formalin, labeled "Jose Martin Ortiz, duodenal biopsy celiac" and consists of 3 fragments of soft bradford tissue measuring between 0.2 x 0.2 cm and 0.4 x 0.2 cm which are entirely submitted in A1. . B. The specimen is received in formalin, labeled "Jose Martin Ortiz, [place] [address] PATHOLOGY RPT PROCEDURE Name: JOSE MARTIN ORTIZ Room: [address] IN M.R.#: [id number] Admission: 07/11/19 Date of : 46 Discharge: 07/15/19 Report #: [id number] Path Case #: [id number] biopsy H. pylori" and consists of 3 fragments of pink-bradford tissue measuring between 0.3 x 0.2 cm and 0.5 x 0.3 cm which are entirely submitted in B1. (SDY; 07/17/2019) SYU/SYU 07/17/2019 1204 Local . 02 Pathologist provided ICD-10: K29.80, K29.50 . 02 CPT . 774457, 243130, L77450 Specimen Comment: A courtesy copy of this report has been sent to Specimen Comment: [phone], , . Specimen Comment: Report sent to ,DR CLIFFORD / DR SIM Performed at: 01 [facility] [address] [place] [address] [address], [place] [id number] MD Killian Alba MD Phone: [phone] Performed at: [address] [facility] [address] [place], [place] [id number] MD Eldon Tamez MD Phone: [phone]
--- NOTE | 2019-07-28 14:47 | CON ---
[address] [address] CONSULTATION Name: JOSE MARTIN HOLLINS Room: [address] IN M.R.#: [id number] Admission: 07/11/19 Attend Phys: Celia Silver Discharge: 07/15/19 Date of : 46 Report #: [id number] THIS REPORT FOR: //name// CC: Dyllan Gardiner DO Júnior Rouse DICTATED BY: Mishel Shields [facility] DATE OF SERVICE: 07/13/2019 Please note at the time of this dictation, the patient was seen and physically examined by myself. REASON FOR CONSULTATION: Right upper quadrant pain, persistent and diarrhea. HISTORY OF PRESENT ILLNESS: This is a 68-year-old female who presented to the Emergency Room with having ongoing right upper quadrant pain that has persisted along with multiple loose stools but she denies any bright red blood or any black tarry stools. She states prior to this, her bowels were more formed. She denies any nausea or vomiting. She does have some right upper quadrant pain; however, the patient has had previous cholecystectomy, appendectomy and a hysterectomy at that time. She denies any acid reflux issues. However, she states she thought she had a colon here a couple of years ago. There is nothing here in the computer in regards to that. ALLERGIES: CODEINE AND HYDROCODONE. MEDICATIONS: From home, Imdur, Cardura, spironolactone, and Coreg. PAST MEDICAL HISTORY: Hypertension, congestive heart failure, diabetes, history of cardiac stent. History of kidney stones, gout, hypothyroidism, hypercholesterolemia. PAST SURGICAL HISTORY: Cholecystectomy, appendectomy, hysterectomy, tonsillectomy. She has had knee surgery, vein surgery in both legs, cataract removal. FAMILY HISTORY: Mother had a partial colectomy secondary to high-grade dysplasia polyp and what the patient has told me, otherwise negative. SOCIAL HISTORY: She is . Denies any alcohol, tobacco or illegal drug use. REVIEW OF SYSTEMS: Twelve-point review of systems is essentially negative except what [place] [address] CONSULTATION Name: JOSE MARTIN HOLLINS Jonathan Room: [address] IN [facility]#: [id number] Admission: 07/11/19 Attend Phys: Celia Silver Discharge: 07/15/19 Date of : 46 Report #: [id number] PHYSICAL EXAMINATION: VITAL SIGNS: Temperature 37.9, pulse 65, respirations 16, blood pressure 142/55. HEART: Regular rate and rhythm. LUNGS: Clear. ABDOMEN: Soft, positive bowel sounds in all 4 quadrants with some right upper quadrant tenderness noted to palpation. LABORATORY DATA: Hemoglobin on admission was 9.2, it is now 8.3, white count 3.5, platelets on admission were 97, she is 73. GFR is 19. LFTs are completely normal. BUN is 40 and creatinine is 2.3. CT showed a trace amount of free fluid in the right pelvis, small amount of low density fluid seen in the same location similar to previous, mild splenomegaly, otherwise no significant or acute abnormalities are noted. IMPRESSION: 1. Right upper quadrant pain. 2. Diarrhea. 3. Anemia. 4. Thrombocytopenia. 5. Chronic kidney disease. 6. Family history, mother colon resection, likely related to a high-grade dysplasia polyp. PLAN: 1. EGD tomorrow. 2. The patient will likely need a colonoscopy if we are unable to determine where she had it done previously. 3. Further recommendations to be made once the procedure has been performed. Thank you for allowing us to participate in this patient's care. Please do not hesitate to call with any questions in regard to this consult. <ELECTRONICALLY SIGNED> By: Mik Montez MD 07/28/19 1447 1236 [id number] Montez MD /nt
== END 2019-07-15 15:30 | disposition home or self-care (01) | DRG 391 ==
LOC: M.ERS 04:53 → M.TBA-ER 07:06 → M.3W 07:06 → M.TBA-ER 07:18 → M.3W 08:02
PROVIDERS: Emergency Medicine; Internal Medicine; Internal Medicine Nephrology; ADMIT Internal Medicine
PROC: 0DB68ZX Excision of Stomach, Via Natural or Artificial Opening Endoscopic, Diagnostic (ICD-10-PCS; principal; 2019-07-14)
PROC: 0DB98ZX Excision of Duodenum, Via Natural or Artificial Opening Endoscopic, Diagnostic (ICD-10-PCS; principal; 2019-07-14)
PROC: 0DJD8ZZ Inspection of Lower Intestinal Tract, Via Natural or Artificial Opening Endoscopic (ICD-10-PCS; 2019-07-15)
DX: A08.4 Viral intestinal infection, unspecified (principal); N17.0 Acute kidney failure with tubular necrosis; I13.0 Hypertensive heart and chronic kidney disease with heart failure and stage 1 through stage 4 chronic kidney disease, or unspecified chronic kidney disease; I50.40 Unspecified combined systolic (congestive) and diastolic (congestive) heart failure; N18.4 Chronic kidney disease, stage 4 (severe); D61.818 Other pancytopenia; E11.649 Type 2 diabetes mellitus with hypoglycemia without coma; K59.00 Constipation, unspecified; K75.9 Inflammatory liver disease, unspecified; E11.22 Type 2 diabetes mellitus with diabetic chronic kidney disease; I25.10 Atherosclerotic heart disease of native coronary artery without angina pectoris; D50.9 Iron deficiency anemia, unspecified; I35.0 Nonrheumatic aortic (valve) stenosis; E87.5 Hyperkalemia; R16.1 Splenomegaly, not elsewhere classified; M10.9 Gout, unspecified; E03.9 Hypothyroidism, unspecified; E78.00 Pure hypercholesterolemia, unspecified; Z87.442 Personal history of urinary calculi; Z95.5 Presence of coronary angioplasty implant and graft; Z90.49 Acquired absence of other specified parts of digestive tract; Z90.710 Acquired absence of both cervix and uterus; Z79.899 Other long term (current) drug therapy; Z88.5 Allergy status to narcotic agent; Z88.8 Allergy status to other drugs, medicaments and biological substances; Z83.71 Family history of colonic polyps

== ENCOUNTER 2019-07-17 11:04 | Emergency (ER) | payer OTHER ==
[~2019-07-17] VITALS: Ht 167.6 cm; Wt 92.5 kg
[~2019-07-17 11:04] MED LIST changes: +ARTHRITIS PAIN57 GM TOP; +COREG25 M1 PO; +IMDUR 30 MG TAB30 M1 PO
[2019-07-17 12:45] LABS: ABSOLUTE BASOPHILS 0.1 thou/uL (0.0-0.2); ABSOLUTE EOSINOPHILS 0.1 thou/uL (0.0-0.7); ABSOLUTE LYMPHOCYTES 0.6 thou/uL (0.8-5.3); ABSOLUTE MONOCYTES 0.3 thou/uL (0.0-1.2); BASOPHILS 1.2 %; EOSINOPHILS 3.5 %; HEMATOCRIT 26.5 % (37.0-47.0); HEMOGLOBIN 9.1 gm/dL (12.0-15.0); MCH 28.1 pg (26.0-34.0); MCHC 34.2 g/dL (28.0-37.0); MONOCYTES 6.9 %; MPV 8.3 fl. (7.2-11.1); NUCLEATED RBCS 0 /100WBC; PLATELET COUNT* 87 thou/uL (150-400); POLYS 73.4 %; RBC 3.23 mil/uL (4.20-5.00); RDW-CV 14.5 % (10.5-14.5); WBC 4.2 thou/uL (4.0-11.0)
[2019-07-17 12:49] LABS: ANION GAP 7 mmol/L (7-16); BUN 40 mg/dL (7-18); CALCIUM 8.3 mg/dL (8.5-10.1); CHLORIDE 110 mmol/L (98-107); CO2 24 mmol/L (21-32); CREATININE 2.1 mg/dL (0.6-1.3); GLUCOSE 140 mg/dL (70-99); POTASSIUM 4.2 mmol/L (3.5-5.1); SODIUM 141 mmol/L (136-145)
[2019-07-17 12:55] LABS: URINE BILIRUBIN NEGATIVE (Negative); URINE BLOOD NEGATIVE (Negative); URINE CLARITY CLEAR; URINE COLOR YELLOW; URINE GLUCOSE-RANDOM NEGATIVE (Negative); URINE KETONES NEGATIVE (Negative); URINE LEUKOCYTES-REFLEX NEGATIVE (Negative); URINE NITRITE-REFLEX NEGATIVE (Negative); URINE PROTEIN 2+ (Negative); URINE UROBILINOGEN 0.2 E.U./dl (0.2-1.0)
[2019-07-17 12:58] LABS: MAGNESIUM 2.5 mg/dL (1.8-2.4)
[2019-07-17 13:05] LABS: SQUAMOUS 0-3 Few /LPF (0-3)
[2019-07-17 13:05] LABS: ALBUMIN 2.9 g/dL (3.4-5.0); ALKALINE PHOSPHATASE 92 U/L (46-116); NT-PRO BRAIN NAT PEPTIDE 5126 pg/mL (<300); SGOT 10 U/L (15-37); SGPT 18 U/L (30-65); TOTAL BILIRUBIN 0.5 mg/dL (<0.1-1.0); TOTAL PROTEIN 5.9 g/dL (6.4-8.2); TROPONIN-I LEVEL <0.06 ng/mL (<0.06)
[2019-07-17 13:06] LABS: BACTERIA-REFLEX 1-9 Few /HPF (None Seen); CRYSTALS None Seen /LPF (None Seen); HYALINE CASTS 0-3 Few /LPF (None Seen); MUCUS 0-3 Light strn/LPF (None Seen); URINE RBC 3-10 Few /HPF (0-2); URINE WBC-REFLEX 0-5 Rare /HPF (0-5)
[2019-07-17] MEDS ORDERED: NEURONTIN 300M300 M2 PO ×2 (15:09→15:17)
[2019-07-17] MEDS ORDERED: FAMCYCLOVIR 50500 M1 PO (15:09)
[2019-07-17] MEDS ORDERED: NEURONTIN 300300 M1 PO ×2 (15:20→15:21)
[2019-07-17 15:30] VITALS: BP 171/71
--- NOTE | 2019-07-17 16:28 | EKG ---
[place] [address] ELECTROCARDIOGRAM REPORT Name: JOSE MARTIN HOLLINS Room: [facility]#: [id number] Admission: 07/17/19 Attend Phys: Discharge: 07/17/19 Date of : 46 Report #: [id number] THIS REPORT FOR: //name// [facility] ED Test Date: 2019-07-17 Test Time: 12:54:04 Pat Name: JOSE MARTIN HOLLINS Department: Room: Gender: F Enterprise Application Architect: LIDIA : 1950 Requested By: Kayleigh Cadet Order Number: [id number] MD: Hadley Patiño Measurements Intervals [place] Rate: 64 P: 37 [place]: 189 QRS: 0 QRSD: 101 T: 66 QT: 442 QTc: 456 Interpretive Statements Sinus rhythm Minimal ST depression, lateral leads Compared to ECG 07/14/2019 11:32:02 Atrial premature complex(es) no longer present ST (T wave) deviation still present Electronically Signed On 07-17-2019 16:27:53 CDT by Hadley Patiño [email or web address] <ELECTRONICALLY SIGNED> By: Hadley Patiño MD, [facility] 07/17/19 1627 1254 1254 aHdley Patiño MD, [facility] /EPI
== END 2019-07-17 15:31 | disposition home or self-care (01) ==
LOC: M.ERS 11:04
PROVIDERS: Personal Emergency Response Attendant
DX: R07.81 Pleurodynia (principal); R10.11 Right upper quadrant pain; I11.0 Hypertensive heart disease with heart failure; I50.9 Heart failure, unspecified; E11.9 Type 2 diabetes mellitus without complications; E03.9 Hypothyroidism, unspecified; E78.00 Pure hypercholesterolemia, unspecified; Z90.49 Acquired absence of other specified parts of digestive tract; Z90.710 Acquired absence of both cervix and uterus; Z87.442 Personal history of urinary calculi; Z88.5 Allergy status to narcotic agent; Z98.890 Other specified postprocedural states

== ENCOUNTER → 2019-08-17 | Outpatient (CLI) | payer OTHER ==
[~2019-08-17] MED LIST changes: +FAMCYCLOVIR 50500 M1 PO; +NEURONTIN 300300 M1 PO; +NEURONTIN 300M300 M2 PO
== END ==
LOC: M.RAD 09:20
DX: Z12.31 Encounter for screening mammogram for malignant neoplasm of breast (principal)

== ENCOUNTER 2019-11-03 19:57 | Inpatient (IN) | payer OTHER ==
[~2019-11-03] VITALS: Ht 167.6 cm; Wt 90.7 kg
--- NOTE | ~2019-11-03 | CON ---
[address] [address] CONSULTATION Name: JOSE MARTIN HOLLINS Room: [address] IN .R.#: [id number] Admission: 11/03/19 Attend Phys: Celia Silver Discharge: Date of : 46 Report #: [id number] THIS REPORT FOR: //name// CC: Dyllan Rouse DATE OF SERVICE: 11/07/2019 NEPHROLOGY CONSULTATION CONSULTING PHYSICIAN: Dr. Rouse. REASON FOR NEPHROLOGY CONSULTATION: Acute kidney injury on chronic kidney disease stage 4. REASON FOR ADMISSION: Shortness of breath with hypoxia. HISTORY OF PRESENT ILLNESS: This is a 68-year-old female with past medical history of chronic kidney disease stage 4, baseline creatinine 2.1-2.3, follows with Dr. Paulino, she has diabetic nephropathy, history of coronary artery disease, status post coronary artery stent placement, most recent one in 12/2018, congestive heart failure diastolic, hypertension and multiple hospitalizations because of acute kidney injury and has had kidney stones in the past as well, came in because she was having weakness in her legs. She was recently started on gabapentin for neuropathic pain because she recently had an episode of shingles. She was feeling weak at home. Denies having any syncope. She also reported some shortness of breath. Initial chest x-ray showed some pulmonary vascular congestion. She was diuresed with IV bumetanide. She was also given Lasix IV. At home, she takes losartan, spironolactone, hydrochlorothiazide, potassium, bumetanide and these were all continued, except for spironolactone. Her creatinine was 2.5 on admission and has mostly stayed around 2.5 to 2.6 during her hospital course here. She is reporting no problems urinating. She is not having any trouble breathing right now. Her blood pressure tends to run high, but this morning has been better controlled. Her gabapentin dose has been decreased. ALLERGIES: CODEINE AND HYDROCODONE. REVIEW OF SYSTEMS: As mentioned in history of present illness, otherwise a 10-point review of systems are negative. The patient also reports having off and on diarrhea at home. HOME MEDICATIONS: Include isosorbide mononitrate. She is on levothyroxine, hydralazine, amlodipine, glimepiride, clopidogrel, Augmentin, lovastatin, losartan, spironolactone and hydrochlorothiazide, bumetanide, doxazosin, potassium chloride, [place] [address] CONSULTATION Name: JOSE MARTIN HOLLINS Room: [address] IN [facility]#: [id number] Admission: 11/03/19 Attend Phys: Celia Silver Discharge: Date of : 46 Report #: [id number] PAST MEDICAL AND SURGICAL HISTORY: Includes hypertension, diabetes type 2, diabetic kidney disease, chronic kidney disease stage 4, baseline creatinine 2.1-2.3; coronary artery disease, status post 2 stents in 2005 and December 2018; cholecystectomy; appendectomy; tonsillectomy; hysterectomy; left knee surgery; kidney stone; vein surgery of bilateral legs; cataract removal; gout; hypothyroidism; high cholesterol; thrombocytopenia; shingles. FAMILY HISTORY: No history of any kidney disease in the family except for her grandmother having kidney disease that she does not know the etiology of. SOCIAL HISTORY: She does not smoke currently. No recreational drugs and no alcohol use. Lives at home. PHYSICAL EXAMINATION: VITAL SIGNS: Blood pressure is 153/83, temperature is afebrile, pulse rate is 88, respiratory rate is around 16, pulse ox on no oxygen is 95%. GENERAL: She is awake and alert and oriented x 3. HEAD AND EYES: Atraumatic, normocephalic. EARS, NOSE, AND THROAT: Normal ears and nose. Mucous membranes are moist. NECK: No JVD. CHEST: Bilaterally diminished breath sounds, but no crackles heard posteriorly. No wheezing heard. CARDIOVASCULAR: S1, S2 normal, no murmurs noted. ABDOMEN: Soft, nondistended, nontender except for right upper quadrant where there is mild tenderness. No guarding. LOWER EXTREMITIES: There is no lower extremity edema. NEUROLOGICAL FUNCTION: Gross neurological function is intact. PSYCHIATRIC: Mood and affect seems to be normal. LABORATORY DATA: WBC 2.5, hemoglobin is 8.6. Sodium is 145, BUN is 50, CO2 of 30, creatinine 2.5, potassium 3.7. Other labs were reviewed. IMAGING: Extremity arterial study and chest x-ray were reviewed. ASSESSMENT: 1. Acute kidney injury on chronic kidney disease stage 4 in the setting of mild intravascular volume depletion. She is on multiple medications, which can be associated with acute kidney injury. She is on losartan, hydrochlorothiazide as well as bumetanide and she was also diuresed with additional Lasix and bumetanide here. To me she does not look volume overloaded today. She is actually looking a little bit dry. Urine reviewed; 3+ protein, trace blood, 11-20 rbc's by high power field, she has history of proteinuria, which is because of diabetes and in 10/2018, 24-hour urine protein was 6 grams so this is not something which is new for her and she is being followed as outpatient by Dr. Paulino for this and she is on losartan. [address] [address] CONSULTATION Name: GURVINDERJOSE MARTIN J Room: [address] ADM IN M.R.#: [id number] Admission: 11/03/19 Attend Phys: Celia Silver Discharge: Date of : 46 Report #: [id number] Renal ultrasound has been ordered, not done yet. 2. She has history of chronic congestive heart failure, ejection fraction is not bad at 60-65% with grade 1 diastolic dysfunction. She is currently actually looking dry. 3. Hypertension. Blood pressure has been fluctuating. 4. Lower extremity weakness recently started on high dose gabapentin, it seems like. 5. Pneumonia, possible gram negative. She is being treated by primary team for that. She received some IV fluid initially. 6. Diabetes type 2, primary team has been managing that. PLAN: 1. To me, she is actually looking a little dry, I have stopped her hydrochlorothiazide and I have decreased the bumetanide to once a day. In addition, I have decreased her gabapentin also to 600 mg once a day, going to her renal function. 2. Okay to continue losartan and bumetanide once a day for now, Losartan should be held if blood pressure goes systolically less than 110 or if she has nausea, vomiting or diarrhea and dehydrated. 3. She should be following up closely with Dr. Paulino as outpatient. 4. Creatinine seems to be worse from baseline, but stable. Check labs in the morning. 5. Check a bladder scan to rule out urinary retention. Thank you for this consultation. We will continue to follow with you. Discussed with the patient and the patient's nurse. By: 1020 [id number] Carreno MD /nt
[2019-11-03 19:58] VITALS: BP 191/65
[2019-11-03 20:55] LABS: ABSOLUTE BASOPHILS 0.1 thou/uL (0.0-0.2); ABSOLUTE EOSINOPHILS 0.1 thou/uL (0.0-0.7); ABSOLUTE LYMPHOCYTES 0.4 thou/uL (0.8-5.3); ABSOLUTE MONOCYTES 0.4 thou/uL (0.0-1.2); ABSOLUTE NEUTROPHILS 4.1 thou/uL (1.6-8.1); BASOPHILS 1.3 %; EOSINOPHILS 1.2 %; HEMATOCRIT 25.5 % (37.0-47.0); HEMOGLOBIN 8.4 gm/dL (12.0-15.0); LYMPHOCYTES 8.3 %; MCH 26.9 pg (26.0-34.0); MCHC 32.9 g/dL (28.0-37.0); MCV 81.9 fL (80.0-100.0); MONOCYTES 7.8 %; MPV 8.4 fl. (7.2-11.1); NUCLEATED RBCS 0 /100WBC; PLATELET COUNT* 66 thou/uL (150-400); POLYS 81.4 %; RBC 3.11 mil/uL (4.20-5.00); RDW-CV 16.2 % (10.5-14.5); WBC 5.1 thou/uL (4.0-11.0)
[2019-11-03 21:04] LABS: CALCIUM 7.8 mg/dL (8.5-10.1); CREATININE 2.5 mg/dL (0.6-1.3); POTASSIUM 4.1 mmol/L (3.5-5.1)
[2019-11-03 21:09] LABS: TOTAL BILIRUBIN 0.7 mg/dL (<0.1-1.0); TOTAL PROTEIN 5.8 g/dL (6.4-8.2)
[2019-11-03 22:20] VITALS: BP 164/68
[2019-11-03] MEDS ORDERED: LOVASTAT40 PO (23:59)
[2019-11-04] MEDS ORDERED: AUGMENTIN 500-1 EACH PO (00:02)
[2019-11-04] MEDS ORDERED: COZAAR 50 MG TA50 M1 PO (00:05)
[2019-11-04] MEDS ORDERED: SPIRONOLACT/HCT1 TA1 PO (00:07)
[2019-11-04] MEDS ORDERED: BUMETANIDE 1 MG1 M1 PO (00:10)
[2019-11-04] MEDS ORDERED: DOXAZOSIN MESYLA4 MG PO (00:13)
[2019-11-04] MEDS ORDERED: KLOR-CON 10 ER10 MEQ PO (00:16)
[2019-11-04 02:41] LABS: URINE BILIRUBIN NEGATIVE (Negative); URINE BLOOD TRACE (Negative); URINE CLARITY CLEAR; URINE COLOR YELLOW; URINE GLUCOSE-RANDOM TRACE (Negative); URINE KETONES NEGATIVE (Negative); URINE LEUKOCYTES NEGATIVE (Negative); URINE NITRITE NEGATIVE (Negative); URINE PROTEIN 3+ (Negative); URINE SPECIFIC GRAVITY 1.025 (1.005-1.030); URINE UROBILINOGEN 0.2 E.U./dl (0.2-1.0)
[2019-11-04 03:05] LABS: INFLUENZA A ANTIGEN Negative (Negative); INFLUENZA B ANTIGEN Negative (Negative)
[2019-11-04 03:08] LABS: CASTS None Seen /LPF (None Seen); CRYSTALS None Seen /LPF (None Seen); MUCUS 4-6 Moderate strn/LPF (None Seen); SQUAMOUS 0-3 Few /LPF (0-3); URINE WBC 6-15 Few /HPF (0-5)
[2019-11-04 04:00] VITALS: BP 168/62
[2019-11-04 08:00] VITALS: BP 196/72
[2019-11-04 12:21] VITALS: BP 177/69
[2019-11-04 16:34] VITALS: BP 167/65
[2019-11-04 19:40] VITALS: BP 192/54
[2019-11-04 23:53] VITALS: BP 173/67
[2019-11-05 04:10] VITALS: BP 178/69
[2019-11-05 05:23] LABS: ABSOLUTE LYMPHOCYTES 0.6 thou/uL (0.8-5.3); ABSOLUTE MONOCYTES 0.7 thou/uL (0.0-1.2); ABSOLUTE NEUTROPHILS 2.6 thou/uL (1.6-8.1); BASOPHILS 1.1 %; EOSINOPHILS 0.5 %; HEMATOCRIT 24.4 % (37.0-47.0); MCH 26.7 pg (26.0-34.0); MCHC 32.9 g/dL (28.0-37.0); MCV 81.2 fL (80.0-100.0); MONOCYTES 17.5 %; MPV 8.4 fl. (7.2-11.1); NUCLEATED RBCS 0 /100WBC; PLATELET COUNT* 87 thou/uL (150-400); POLYS 65.9 %; RDW-CV 16.5 % (10.5-14.5); WBC 3.9 thou/uL (4.0-11.0)
[2019-11-05 05:55] LABS: ALBUMIN 2.7 g/dL (3.4-5.0); CALCIUM 7.7 mg/dL (8.5-10.1); CREATININE 2.4 mg/dL (0.6-1.3); POTASSIUM 3.7 mmol/L (3.5-5.1); TOTAL BILIRUBIN 0.5 mg/dL (<0.1-1.0); TOTAL PROTEIN 5.3 g/dL (6.4-8.2)
[2019-11-05 08:00] VITALS: BP 178/67
[2019-11-05 11:06] VITALS: BP 173/67
[2019-11-05 16:35] VITALS: BP 107/65
--- NOTE | 2019-11-05 16:40 | EKG ---
[place] [address] ELECTROCARDIOGRAM REPORT Name: JOSE MARTIN HOLLINS Room: [address] ADM IN .R.#: [id number] Admission: 11/03/19 Attend Phys: Celia Silver Discharge: Date of : 46 Report #: [id number] THIS REPORT FOR: //name// [facility] ED Test Date: 2019-11-03 Test Time: 20:06:48 Pat Name: JOSE MARTIN HOLLINS Department: Room: [facility] Gender: F Quarry Supervisor Dimension Stone: : 1950 Requested By: J Luis Smith Order Number: [id number] MD: Morro Oconnell Measurements Intervals [place] Rate: 79 P: 9 OR: 229 QRS: -3 QRSD: 101 T: 83 QT: 389 QTc: 447 Interpretive Statements Sinus rhythm Borderline prolonged OR interval Minimal ST depression, lateral leads Compared to ECG 07/17/2019 12:54:04 Atrial abnormality now present ST (T wave) deviation still present Electronically Signed On 11-05-2019 16:40:02 HVAC INSTALLER by Morro Oconnell [email or web address] <ELECTRONICALLY SIGNED> By: Morro Oconnell MD, FACC 11/05/19 1640 05 05 Morro Oconnell MD, FACC /EPI
[2019-11-05 19:40] VITALS: BP 191/72
[2019-11-06] VITALS: BP 159/58
[2019-11-06 04:00] VITALS: BP 179/66
[2019-11-06 06:06] LABS: HEMATOCRIT 25.4 % (37.0-47.0); HEMOGLOBIN 8.4 gm/dL (12.0-15.0); MCH 26.8 pg (26.0-34.0); MCHC 33.1 g/dL (28.0-37.0); MCV 80.9 fL (80.0-100.0); MPV 7.5 fl. (7.2-11.1); RBC 3.14 mil/uL (4.20-5.00); RDW-CV 16.3 % (10.5-14.5); WBC 2.4 thou/uL (4.0-11.0)
[2019-11-06 06:35] LABS: CALCIUM 7.7 mg/dL (8.5-10.1); CREATININE 2.6 mg/dL (0.6-1.3); POTASSIUM 3.6 mmol/L (3.5-5.1)
[2019-11-06 09:25] VITALS: BP 168/68
[2019-11-06 12:00] VITALS: BP 153/62
--- NOTE | 2019-11-06 16:39 | 2DMMODE ---
[place] [address] 2 D/M-MODE ECHOCARDIOGRAM Name: JOSE MARTIN HOLLINS Room: [address] IN .R.#: [id number] Admission: 11/03/19 Attend Phys: Júnior Rouse Discharge: Date of : 46 Date of Service: 11/06/19 1638 Report #: [id number] THIS REPORT FOR: //name// ADDENDUM APPROVED REPORT Study performed: 11/06/2019 12:45:39 EXAM: Comprehensive 2D, Doppler, and color-flow Echocardiogram BSA: 2.00 HR: 71 bpm BP: 168/68 mmHg Other Information Study Quality: Good Indications Congestive Heart Failure Dyspnea 2D Dimensions IVSd: 18.89 (7-11mm) LVOT Diam: 20.14 (18-24mm) LVDd: 46.34 mm PWd: 13.26 (7-11mm) Ascending Ao: 30.87 (22-36mm) LVDs: 35.31 (25-40mm) Aortic Root: 26.12 mm Volumes Left Atrial Volume (Systole) LA ESV Index: 45.10 mL/m2 Aortic Valve AoV Peak Braulio.: 2.10 m/s AO Peak Gr.: 17.57 mmHg LVOT Max P.66 mmHg AO Mean Gr.: 9.60 mmHg LVOT Mean P.98 mmHg LVOT Max V: 1.38 m/s AO V2 VTI: 47.13 cm LVOT Mean V: 0.92 m/s UMAIR (VTI): 2.24 cm2 LVOT V1 VTI: 33.19 cm AI [place]: 1.73 m/s2 AI PHT: 650.44 ms Mitral Valve E/A Ratio: 1.07 MV Decel. Time: 244.49 ms MV E Max Braulio.: 0.97 m/[place] [address] 2 D/M-MODE ECHOCARDIOGRAM Name: JOSE MARTIN HOLLINS Room: [address] IN .R.#: [id number] Admission: 11/03/19 Attend Phys: Júnior Rouse Discharge: Date of : 46 Date of Service: 11/06/19 1638 Report #: [id number] MV PHT: 70.90 ms MVA (PHT): 3.10 cm2 TDI E/Lateral E': 12.13 E/Medial E': 5.11 Medial E' Braulio.: 0.19 m/s Lateral E' Braulio.: 0.08 m/s Pulmonary Valve PV Peak Braulio.: 1.33 m/s PV Peak Gr.: 7.03 mmHg Tricuspid Valve RAP Estimate: 5.00 mmHg TR Peak Gr.: 23.66 mmHg RVSP: 28.66 mmHg PA Pressure: 28.66 mmHg Left Ventricle The left ventricle is normal size. There is normal LV segmental wall motion. Mild concentric left ventricular hypertrophy. Left ventricular systolic function is normal. LVEF is 60-65%. Grade I - abnormal relaxation pattern. Right Ventricle Right ventricle is dilated. The right ventricular systolic function is normal. Atria Left atrium is moderately dilated. Lipomatous hypertrophy of the interatrial septum is noted. The right atrium size is normal. Aortic Valve The Aortic valve is sclerotic. Trace aortic regurgitation. There is no aortic valvular stenosis. Mitral Valve The mitral valve is normal in structure. Mild mitral regurgitation. No evidence of mitral valve stenosis. Tricuspid Valve The tricuspid valve is normal in structure. Trace tricuspid regurgitation. Pulmonic Valve The pulmonary valve is normal in structure. Trace [place] [address] 2 D/M-MODE ECHOCARDIOGRAM Name: JOSE MARTIN HOLLINS Room: [address]#: [id number] Admission: 11/03/19 Attend Phys: Júnior Rouse Discharge: Date of : 46 Date of Service: 11/06/19 1638 Report #: [id number] Great Vessels The aortic root is normal in size. IVC is dilated and collapses >50% with inspiration. Pericardium Trace pericardial effusion. No echo indications of pericardial tamponade. <Conclusion> The left ventricle is normal size. Mild concentric left ventricular hypertrophy. Left ventricular systolic function is normal. LVEF is 60-65%. Grade I - abnormal relaxation pattern. Right ventricle is dilated. The Aortic valve is sclerotic. Trace aortic regurgitation. There is no aortic valvular stenosis. Mild mitral regurgitation. Trace tricuspid regurgitation. Trace pulmonic regurgitation. IVC is dilated and collapses >50% with inspiration. Trace pericardial effusion. No echo indications of pericardial tamponade. <ELECTRONICALLY SIGNED> By: Morro Oconnell MD, FACC 11/06/19 1638 1638 163 Morro Oconnell MD, FACC /INF
[2019-11-06 19:30] VITALS: BP 209/78
[2019-11-07] VITALS (8 sets, daily range): BP systolic 113–188; BP diastolic 59–83
[2019-11-07 05:30] LABS: HEMATOCRIT 25.9 % (37.0-47.0); HEMOGLOBIN 8.6 gm/dL (12.0-15.0); MCH 26.6 pg (26.0-34.0); MCHC 33.2 g/dL (28.0-37.0); MCV 80.3 fL (80.0-100.0); MPV 7.9 fl. (7.2-11.1); RBC 3.22 mil/uL (4.20-5.00); RDW-CV 16.1 % (10.5-14.5); WBC 2.5 thou/uL (4.0-11.0)
[2019-11-07 06:01] LABS: ALBUMIN 2.5 g/dL (3.4-5.0); CALCIUM 7.2 mg/dL (8.5-10.1); CREATININE 2.5 mg/dL (0.6-1.3); MAGNESIUM 1.8 mg/dL (1.8-2.4); POTASSIUM 3.7 mmol/L (3.5-5.1); TOTAL BILIRUBIN 0.5 mg/dL (<0.1-1.0); TOTAL PROTEIN 5.4 g/dL (6.4-8.2)
[2019-11-08 04:12] VITALS: BP 152/55
[2019-11-08 06:39] LABS: HEMATOCRIT 25.3 % (37.0-47.0); HEMOGLOBIN 8.5 gm/dL (12.0-15.0); MCH 26.9 pg (26.0-34.0); MCHC 33.5 g/dL (28.0-37.0); MCV 80.3 fL (80.0-100.0); MPV 8.1 fl. (7.2-11.1); RBC 3.15 mil/uL (4.20-5.00); RDW-CV 16.1 % (10.5-14.5); WBC 2.5 thou/uL (4.0-11.0)
[2019-11-08 06:48] LABS: CALCIUM 7.1 mg/dL (8.5-10.1); CREATININE 2.5 mg/dL (0.6-1.3); POTASSIUM 3.4 mmol/L (3.5-5.1)
[2019-11-08 07:35] LABS: ALBUMIN 2.6 g/dL (3.4-5.0); CALCIUM 7.4 mg/dL (8.5-10.1); CREATININE 2.4 mg/dL (0.6-1.3); PHOSPHORUS* 4.1 mg/dL (2.5-4.9); POTASSIUM 3.4 mmol/L (3.5-5.1)
[2019-11-08 08:00] VITALS: BP 154/60
[2019-11-08 12:00] VITALS: BP 163/66
[2019-11-08] MEDS ORDERED: AMOX TR-K CLV1 EAC3 PO (12:54)
[2019-11-08] MEDS ORDERED: NEURONTIN600 MG PO (12:54)
[2019-11-09 14:10] LABS: URINE PROTEIN (MG/DL) 194.6 mg/dL (Not Estab.)
--- NOTE | 2019-11-09 15:10 | CON ---
[facility] [address] [place] [address] CONSULTATION Name: JOSE MARTIN HOLLINS Room: [address] IN M.R.#: [id number] Admission: 11/03/19 Attend Phys: Celia Silver Discharge: 11/08/19 Date of : 46 Report #: [id number] THIS REPORT FOR: //name// CC: Dyllan Rouse INDICATION: Congestive heart failure. HISTORY OF PRESENT ILLNESS: The patient is a very pleasant 68-year-old white female, who is well known to myself. She was admitted to the hospital after falling at home secondary to weakness. At that time, she was quite wheezy. She states that it only has been going on for about a day. She does have a history of percutaneous coronary intervention in 2005 and in 2018. Ejection fraction by noninvasive studies has traditionally been 40%-45%. She takes a low-dose diuretic, which has been keeping her fairly well compensated. Presently, she denies any chest pain. She did rule out for myocardial infarction with serial enzymes. Her NT-proBNP is moderately elevated. Creatinine is mildly elevated consistent with acute on chronic renal insufficiency. The patient apparently was being assisted to the bathroom by her when she had profound weakness of her lower extremities and fell. She presented to the emergency room for further evaluation and admitted to the hospital for further treatment. Chest x-ray suggests pulmonary vascular congestion. PAST MEDICAL HISTORY: 1. Coronary artery disease with percutaneous coronary intervention in 2006 and in 2019. 2. Chronic combined heart failure. 3. Hyperlipidemia. 4. Hypertension. 5. Type 2 diabetes mellitus. 6. Aortic insufficiency. 7. Recent shingles. 8. Chronic idiopathic thrombocytopenic purpura. 9. Chronic anemia. 10. Chronic renal insufficiency. ALLERGIES: CODEINE AND HYDROCODONE. HOME MEDICATIONS: Synthroid 100 mcg daily, hydralazine 100 mg t.i.d., amlodipine 5 mg b.i.d., glimepiride 2 mg b.i.d. with meals, Plavix 75 mg daily, lovastatin 40 mg in the evening, Augmentin 500/125 one tablet daily, losartan 50 mg b.i.d., spironolactone and hydrochlorothiazide 25/25 one tablet daily, Bumex 1 mg b.i.d., Cardura 4 mg in the evening, potassium chloride 20 mEq b.i.d., carvedilol 25 mg b.i.d. FAMILY HISTORY: [place] [address] CONSULTATION Name: JOSE MARTIN HOLLINS Room: [address]#: [id number] Admission: 11/03/19 Attend Phys: Celia Silver Discharge: 11/08/19 Date of : 46 Report #: [id number] SOCIAL HISTORY: She is a former smoker. She quit many years ago. She does not drink alcohol. PHYSICAL EXAMINATION: VITAL SIGNS: Blood pressure 173/67, pulse 79 and regular. GENERAL: This is a pleasant lady, in no distress. Mood and affect are appropriate. HEENT: Extraocular muscles are intact. Mucous membranes are moist. NECK: Shows jugular venous distention. There are no carotid bruits. CHEST: Reveals diminished breath sounds in the bases. CARDIOVASCULAR: Reveals a regular rhythm with grade 1-2/6 systolic ejection murmur. ABDOMEN: Reveals normal bowel sounds. EXTREMITIES: Shows no significant edema. SKIN: Dry. IMPRESSION AND RECOMMENDATIONS: 1. Acute on chronic combined heart failure. We will give bolus intravenous Bumex at this time, continue home diuretic dose, and follow up labs in the morning. We will order echocardiogram. 2. Coronary artery disease, presently stable. She has ruled out for myocardial infarction. Continue Plavix. 3. Chronic renal insufficiency with slight acute exacerbation. Follow up labs in the morning. 4. Dyslipidemia. Cholesterol is well controlled on lovastatin. 5. Type 2 diabetes mellitus per hospitalist. <ELECTRONICALLY SIGNED> By: Morro Oconnell MD, FACC 11/09/19 1510 1520 0028Morro Oconnell MD, FACC /nt
[2019-11-09 15:12] LABS: URINE PROTEIN (MG/DL) 211.8 mg/dL (Not Estab.)
== END 2019-11-08 15:40 | disposition home or self-care (01) | DRG 177 ==
LOC: M.ERS 19:57 → M.TBA-ER 21:18 → M.2W 21:18
PROVIDERS: Family Medicine; Internal Medicine; Internal Medicine Cardiovascular Disease; Physician Assistant; ADMIT Internal Medicine
DX: J15.6 Pneumonia due to other Gram-negative bacteria (principal); I50.43 Acute on chronic combined systolic (congestive) and diastolic (congestive) heart failure; I13.0 Hypertensive heart and chronic kidney disease with heart failure and stage 1 through stage 4 chronic kidney disease, or unspecified chronic kidney disease; N18.4 Chronic kidney disease, stage 4 (severe); D61.818 Other pancytopenia; D69.3 Immune thrombocytopenic purpura; N17.9 Acute kidney failure, unspecified; E11.22 Type 2 diabetes mellitus with diabetic chronic kidney disease; M10.9 Gout, unspecified; E78.5 Hyperlipidemia, unspecified; E03.9 Hypothyroidism, unspecified; B34.9 Viral infection, unspecified; I16.0 Hypertensive urgency; E78.00 Pure hypercholesterolemia, unspecified; I25.10 Atherosclerotic heart disease of native coronary artery without angina pectoris; Z95.5 Presence of coronary angioplasty implant and graft; I25.2 Old myocardial infarction; Z90.49 Acquired absence of other specified parts of digestive tract; Z90.710 Acquired absence of both cervix and uterus; Z98.42 Cataract extraction status, left eye; Z98.41 Cataract extraction status, right eye; Z88.5 Allergy status to narcotic agent; Z79.84 Long term (current) use of oral hypoglycemic drugs; Z79.899 Other long term (current) drug therapy; Z87.891 Personal history of nicotine dependence; Z82.49 Family history of ischemic heart disease and other diseases of the circulatory system; Z83.3 Family history of diabetes mellitus; Z80.9 Family history of malignant neoplasm, unspecified; Z87.442 Personal history of urinary calculi

== ENCOUNTER 2019-11-27 19:00 | Emergency (ER) | payer OTHER ==
[~2019-11-27] VITALS: Ht 167.6 cm; Wt 93.0 kg
[~2019-11-27 19:00] MED LIST changes: +AMOX TR-K CLV1 EAC3 PO; +DOXAZOSIN MESYLA4 MG PO; +KLOR-CON 10 ER10 MEQ PO; +LOVASTAT40 PO; +NEURONTIN600 MG PO; +SPIRONOLACT/HCT1 TA1 PO
[2019-11-27] MEDS ORDERED: CLONIDINE HCL0.2 M2 PO (19:15)
[2019-11-27 19:40] LABS: ABSOLUTE EOSINOPHILS 0.1 thou/uL (0.0-0.7); ABSOLUTE LYMPHOCYTES 0.7 thou/uL (0.8-5.3); ABSOLUTE MONOCYTES 0.4 thou/uL (0.0-1.2); ABSOLUTE NEUTROPHILS 2.6 thou/uL (1.6-8.1); BASOPHILS 1.1 %; EOSINOPHILS 2.2 %; HEMATOCRIT 25.3 % (37.0-47.0); HEMOGLOBIN 8.3 gm/dL (12.0-15.0); LYMPHOCYTES 17.9 %; MCH 26.4 pg (26.0-34.0); MCV 80.2 fL (80.0-100.0); MONOCYTES 9.4 %; MPV 7.8 fl. (7.2-11.1); NUCLEATED RBCS 0 /100WBC; PLATELET COUNT* 63 thou/uL (150-400); POLYS 69.4 %; RBC 3.15 mil/uL (4.20-5.00); RDW-CV 16.7 % (10.5-14.5); WBC 3.8 thou/uL (4.0-11.0)
[2019-11-27 19:49] LABS: PROTIME 10.7 Seconds (9.20-11.50)
[2019-11-27 19:51] LABS: CALCIUM 7.7 mg/dL (8.5-10.1); CREATININE 2.4 mg/dL (0.6-1.3); POTASSIUM 4.3 mmol/L (3.5-5.1)
[2019-11-27 19:57] LABS: ALBUMIN 2.9 g/dL (3.4-5.0); TOTAL BILIRUBIN 0.7 mg/dL (<0.1-1.0); TOTAL PROTEIN 5.9 g/dL (6.4-8.2)
[2019-11-27 21:06] LABS: ESR (SEDRATE) 17 mm/hr (0-30)
[2019-11-27 22:29] LABS: URINE BILIRUBIN NEGATIVE (Negative); URINE BLOOD NEGATIVE (Negative); URINE CLARITY CLEAR; URINE COLOR YELLOW; URINE GLUCOSE-RANDOM NEGATIVE (Negative); URINE KETONES NEGATIVE (Negative); URINE LEUKOCYTES-REFLEX NEGATIVE (Negative); URINE NITRITE-REFLEX NEGATIVE (Negative); URINE PROTEIN 2+ (Negative); URINE UROBILINOGEN 0.2 E.U./dl (0.2-1.0)
[2019-11-27 22:49] LABS: HYALINE CASTS 0-3 Few /LPF (None Seen)
[2019-11-27] MEDS ORDERED: PERCOCET 5-3251 EACH PO (22:49)
[2019-11-27 22:50] LABS: URINE RBC 3-10 Few /HPF (0-2); URINE WBC-REFLEX 0-5 Rare /HPF (0-5)
[2019-11-27 22:51] LABS: CRYSTALS None Seen /LPF (None Seen); MUCUS None Seen strn/LPF (None Seen); SQUAMOUS 4-10 Moderate /LPF (0-3)
[2019-11-27 22:52] LABS: BACTERIA-REFLEX None Seen /HPF (None Seen)
[2019-11-27] MEDS ORDERED: ZOFRAN ODT4 MG PO (22:52)
[2019-11-27 23:10] VITALS: BP 170/63
--- NOTE | 2019-11-28 11:39 | EKG ---
[place] [address] ELECTROCARDIOGRAM REPORT Name: JOSE MARTIN HOLLINS Room: [facility]#: [id number] Admission: 11/27/19 Attend Phys: Discharge: 11/27/19 Date of : 46 Date of Service: 11/27/191907 Report #: [id number] THIS REPORT FOR: //name// [facility] ED Test Date: 2019-11-27 Test Time: 19:08:57 Pat Name: JOSE MARTIN HOLLINS Department: Room: Gender: Psychological Operations Officer: : 1950 Requested By: Priya Lantigua Order Number: [id number] MD: Hadley Patiño Measurements Intervals [place] Rate: 65 P: 35 SD: 193 QRS: -10 QRSD: 106 T: 71 QT: 444 QTc: 462 Interpretive Statements Sinus rhythm LVH with secondary repolarization abnormality Compared to ECG 11/03/2019 20:06:48 Left ventricular hypertrophy now present Early repolarization now present ST (T wave) deviation no longer present Electronically Signed On 11-28-2019 11:38:31 METAL BENCH PATTERNMAKER by Hadley Patiño [email or web address] <ELECTRONICALLY SIGNED> By: Hadley Patiño MD, [facility] 11/28/19 1138 1908 1908 Hadley Patiño MD, [facility] /EPI
== END 2019-11-27 23:10 | disposition home or self-care (01) ==
LOC: M.ERS 19:00
PROVIDERS: Emergency Medicine
DX: R07.89 Other chest pain (principal); I11.0 Hypertensive heart disease with heart failure; I50.9 Heart failure, unspecified; E11.9 Type 2 diabetes mellitus without complications; M10.9 Gout, unspecified; E03.9 Hypothyroidism, unspecified; E78.00 Pure hypercholesterolemia, unspecified; Z90.49 Acquired absence of other specified parts of digestive tract; Z90.710 Acquired absence of both cervix and uterus; Z87.442 Personal history of urinary calculi; Z88.5 Allergy status to narcotic agent

== ENCOUNTER 2019-12-11 00:48 | Inpatient (IN) | payer OTHER ==
[~2019-12-11] VITALS: Ht 167.6 cm; Wt 90.9 kg
[2019-12-11] VITALS (8 sets, daily range): BP systolic 154–189; BP diastolic 47–75
[~2019-12-11 00:48] MED LIST changes: +CLONIDINE HCL0.2 M2 PO; +PERCOCET 5-3251 EACH PO
[2019-12-11] MEDS ORDERED: TORSEMIDE20 MG PO (01:15)
[2019-12-11 01:32] LABS: ABSOLUTE EOSINOPHILS 0.1 thou/uL (0.0-0.7); ABSOLUTE LYMPHOCYTES 0.7 thou/uL (0.8-5.3); ABSOLUTE MONOCYTES 0.3 thou/uL (0.0-1.2); ABSOLUTE NEUTROPHILS 2.2 thou/uL (1.6-8.1); BASOPHILS 1.5 %; EOSINOPHILS 1.9 %; HEMATOCRIT 24.8 % (37.0-47.0); HEMOGLOBIN 8.2 gm/dL (12.0-15.0); LYMPHOCYTES 21.6 %; MCH 26.5 pg (26.0-34.0); MCHC 33.2 g/dL (28.0-37.0); MCV 79.8 fL (80.0-100.0); MONOCYTES 9.5 %; MPV 7.7 fl. (7.2-11.1); NUCLEATED RBCS 0 /100WBC; PLATELET COUNT* 64 thou/uL (150-400); POLYS 65.5 %; RDW-CV 16.4 % (10.5-14.5); WBC 3.4 thou/uL (4.0-11.0)
[2019-12-11 01:35] LABS: CALCIUM 8.2 mg/dL (8.5-10.1); CREATININE 1.9 mg/dL (0.6-1.3); POTASSIUM 3.8 mmol/L (3.5-5.1)
[2019-12-11 01:50] LABS: TOTAL PROTEIN 5.9 g/dL (6.4-8.2)
[2019-12-11 02:28] LABS: APTT 26.8 Seconds (25.0-31.3); INR 1.1; PROTIME 10.9 Seconds (9.20-11.50)
[2019-12-11] MEDS ORDERED: GABAPENTIN600 M1 PO (04:10)
[2019-12-11 04:46] LABS: URINE BILIRUBIN NEGATIVE (Negative); URINE BLOOD TRACE (Negative); URINE CLARITY CLEAR; URINE COLOR YELLOW; URINE GLUCOSE-RANDOM NEGATIVE (Negative); URINE KETONES NEGATIVE (Negative); URINE LEUKOCYTES-REFLEX NEGATIVE (Negative); URINE NITRITE-REFLEX NEGATIVE (Negative); URINE PROTEIN 3+ (Negative); URINE UROBILINOGEN 0.2 E.U./dl (0.2-1.0)
--- NOTE | 2019-12-11 10:33 | EKG ---
[place] [address] ELECTROCARDIOGRAM REPORT Name: JOSE MARTIN HOLLINS Room: [address] ADM IN .R.#: [id number] Admission: 12/11/19 Attend Phys: Bismark Montgomery, Discharge: Date of : 46 Date of Service: 12/11/19 0051 Report #: [id number] THIS REPORT FOR: //name// [facility] ED Test Date: 2019-12-11 Test Time: 00:51:47 Pat Name: JOSE MARTIN HOLLINS Department: Room: [facility] Gender: F Food Concession Manager: : 1950 Requested By: Kayleigh Cadet Order Number: [id number] MD: Alfredito Hidalgo Measurements Intervals [place] Rate: 72 P: 71 [place]: 190 QRS: 13 QRSD: 106 T: 69 QT: 413 QTc: 453 Interpretive Statements Sinus rhythm Compared to ECG 11/27/2019 19:08:57 Left ventricular hypertrophy no longer present st changes less prominent Electronically Signed On 12-11-2019 10:32:12 MAINTENANCE SERVICES DISPATCHER by Alfredito Hidalgo [email or web address] <ELECTRONICALLY SIGNED> By: Alfredito Hidalgo MD, FAC 12/11/19 1032 0051 0051 Alfredito Hidalgo MD, [facility] /EPI
[2019-12-12 00:11] VITALS: BP 160/65
[2019-12-12 04:00] VITALS: BP 165/67
[2019-12-12 04:02] LABS: HEMATOCRIT 23.1 % (37.0-47.0); HEMOGLOBIN 7.5 gm/dL (12.0-15.0); MCH 26.2 pg (26.0-34.0); MCHC 32.5 g/dL (28.0-37.0); MCV 80.5 fL (80.0-100.0); MPV 7.6 fl. (7.2-11.1); RBC 2.87 mil/uL (4.20-5.00); RDW-CV 16.6 % (10.5-14.5)
[2019-12-12 04:35] LABS: CALCIUM 7.9 mg/dL (8.5-10.1); CREATININE 2.1 mg/dL (0.6-1.3); POTASSIUM 4.1 mmol/L (3.5-5.1)
[2019-12-12 08:24] VITALS: BP 173/68
--- NOTE | 2019-12-12 09:39 | CON ---
[address] [address] CONSULTATION Name: JOSE MARTIN HOLLINS Room: [address] IN M.R.#: [id number] Admission: 12/11/19 Attend Phys: Bismark Montgomery MD Discharge: Date of : 46 Report #: [id number] THIS REPORT FOR: //name// cc: Dyllan Gardiner Steve T. DO THIS REPORT FOR: //name// CC: Bismark Gardiner DO DATE OF SERVICE: 12/11/2019 CARDIOLOGY CONSULTATION HISTORY OF PRESENT ILLNESS: The patient is a 69-year-old white female who I was asked to see in the hospital after she had an episode of chest pain. The patient has a long history of heart disease. She apparently had a previous stent placed in her right coronary artery at [facility] in 2005. I actually performed repeat cardiac catheterization a year ago in 12/2018. She was found to have a 90% narrowing of the mid LAD. There was no restenosis stent in the right coronary artery. I then placed a drug-eluting stent in the proximal and mid LAD. She has done well since that time. However, she is not very active because of chronic back pain. She uses a cane. She was actually admitted to [facility] in October feeling weak. She was noted to have edema and was given Bumex. She was doing well until recently when she has had more back pain. Last night, she is lying in bed. She felt a pain in her back, radiating to her left anterior chest below her left breast. She denied any trauma or rash. She denied any shortness of breath, diaphoresis or nausea. Her brought her to the hospital and she was admitted. She does get short of breath on exertion. She notes occasional lightheadedness, but no syncope. PAST MEDICAL AND SURGICAL HISTORY: Otherwise, she has had previous cholecystectomy, hysterectomy, knee surgery. She has a history of hypertension, hyperlipidemia, and glucose intolerance. She has a history of ITP and is followed by Hematology. MEDICATIONS: Consists of amlodipine, Bumex, carvedilol, Plavix, Cardura, Amaryl, Imdur, Synthroid, losartan, Mevacor, potassium. ALLERGIES: SHE HAS AN ALLERGY TO SULFA DRUGS, LISINOPRIL, AND CODEINE. FAMILY HISTORY: Positive for heart disease. SOCIAL HISTORY: She is . She and her live in [place], [place]. She has smoked for years[place] [address] CONSULTATION Name: JOSE MARTIN HOLLINS Room: [address] IN M.R.#: [id number] Admission: 12/11/19 Attend Phys: Bismark Montgomery MD Discharge: Date of : 48 Report #: [id number] REVIEW OF SYSTEMS: She has had no history of stroke or asthma. She has a history of mild aortic stenosis. No liver disease. She has chronic kidney disease, followed by Nephrology. She has had a skin cancer removed in the past. No psychiatric illness, no chronic skin conditions. PHYSICAL EXAMINATION: GENERAL: Revealed an elderly frail appearing female, lying in bed. She appeared in no distress. VITAL SIGNS: She had a blood pressure 170/60, pulse 60. She is afebrile. HEENT: She was anicteric. Conjunctivae are pink. Mucous membranes are moist. NECK: Neck veins do not appear distended. No carotid bruits. CHEST: Clear to auscultation. CARDIOVASCULAR: Regular rate and rhythm, grade 2 systolic ejection murmur. ABDOMEN: Obese. EXTREMITIES: Had no edema. Dorsalis pedis pulse 2+. SKIN: Cool and dry. NEUROLOGIC: Nonfocal. RADIOLOGICAL DATA: Her ECG showed a sinus rhythm. There was no significant ST or T-wave change noted. LABORATORY WORK: Sodium 145, BUN 30, creatinine 1.9, it has been as high as 2.6 in October. Her glucose was 100. Liver function studies were normal. Albumin 3.0. Troponins all 0.06. BNP 10,053. Her TSH in October was 1.1. Her white blood cell count was 3.4, hemoglobin 8.2, it was 9.1 a year ago. Her platelet count is only 64,000. It was 61,000 a year ago. Her chest x-ray in the Emergency Room last night showed cardiomegaly, some atelectasis, clear lung vasquez. Her workup when she was here in October included echocardiogram, which showed ejection fraction 60%, left atrial enlargement, aortic sclerosis, mild mitral regurgitation. Previous carotid Doppler showed no significant stenosis. IMPRESSION AND RECOMMENDATIONS: 1. Chest pain. Atypical for angina. Suspect musculoskeletal. Recommend no further cardiac evaluation. 2. Previous stent. Continue Plavix. No recent myocardial infarction. 3. Hypertension. The patient has been on calcium ely, beta ely, alpha ely, hydralazine and ARB. Recommend sodium restriction. 4. Venous insufficiency. The patient on Bumex. 5. Hyperlipidemia. The patient is on a statin drug. 6. Chronic kidney disease. 7. Idiopathic thrombocytopenic purpura. No recent bleeding. [address] [place] [address] CONSULTATION Name: KARLEY HOLLINSLawrence Castillo Room: [address] IN .R.#: [id number] Admission: 12/11/19 Attend Phys: Bismark Montgomery MD Discharge: Date of : 48 Report #: [id number] 8. Anemia. Appears stable. 9. Chronic back pain. <ELECTRONICALLY SIGNED> By: Alfredito Hidalgo MD, FACC 12/12/19 0939 0840 [id number] Hidalgo MD, FACC /nt
[2019-12-12 16:00] VITALS: BP 157/60
[2019-12-12 20:00] VITALS: BP 184/74
[2019-12-12 21:30] VITALS: BP 168/69
[2019-12-13] VITALS: BP 169/68
[2019-12-13 04:00] VITALS: BP 169/67
[2019-12-13 04:15] LABS: HEMATOCRIT 23.6 % (37.0-47.0); HEMOGLOBIN 7.8 gm/dL (12.0-15.0); MCH 26.5 pg (26.0-34.0); MCHC 32.9 g/dL (28.0-37.0); MCV 80.6 fL (80.0-100.0); MPV 7.1 fl. (7.2-11.1); RBC 2.93 mil/uL (4.20-5.00); RDW-CV 16.4 % (10.5-14.5)
[2019-12-13 04:54] LABS: CREATININE 2.3 mg/dL (0.6-1.3); POTASSIUM 4.3 mmol/L (3.5-5.1)
[2019-12-13 07:30] VITALS: BP 172/58
[2019-12-13 08:15] VITALS: BP 172/58
[2019-12-13 12:00] VITALS: BP 171/63
== END 2019-12-13 14:24 | disposition home or self-care (01) | DRG 291 ==
LOC: M.ERS 00:48 → M.2W 02:47 → M.TBA-ER 02:47 → M.ERS 02:52 → M.2W 03:06
PROVIDERS: Internal Medicine; Personal Emergency Response Attendant; ADMIT Internal Medicine
DX: I13.0 Hypertensive heart and chronic kidney disease with heart failure and stage 1 through stage 4 chronic kidney disease, or unspecified chronic kidney disease (principal); I50.33 Acute on chronic diastolic (congestive) heart failure; N18.4 Chronic kidney disease, stage 4 (severe); E44.0 Moderate protein-calorie malnutrition; D69.3 Immune thrombocytopenic purpura; R65.10 Systemic inflammatory response syndrome (SIRS) of non-infectious origin without acute organ dysfunction; J98.11 Atelectasis; G89.29 Other chronic pain; M54.9 Dorsalgia, unspecified; E11.22 Type 2 diabetes mellitus with diabetic chronic kidney disease; I25.10 Atherosclerotic heart disease of native coronary artery without angina pectoris; M10.9 Gout, unspecified; E78.5 Hyperlipidemia, unspecified; D64.9 Anemia, unspecified; E03.9 Hypothyroidism, unspecified; I25.5 Ischemic cardiomyopathy; E78.00 Pure hypercholesterolemia, unspecified; Z95.5 Presence of coronary angioplasty implant and graft; I25.2 Old myocardial infarction; Z90.49 Acquired absence of other specified parts of digestive tract; Z90.710 Acquired absence of both cervix and uterus; Z87.442 Personal history of urinary calculi; Z98.49 Cataract extraction status, unspecified eye; Z79.899 Other long term (current) drug therapy; Z79.84 Long term (current) use of oral hypoglycemic drugs; Z88.6 Allergy status to analgesic agent; Z88.5 Allergy status to narcotic agent; Z88.8 Allergy status to other drugs, medicaments and biological substances; Z82.49 Family history of ischemic heart disease and other diseases of the circulatory system; Z79.82 Long term (current) use of aspirin; Z87.01 Personal history of pneumonia (recurrent); Z83.3 Family history of diabetes mellitus; Z68.32 Body mass index [BMI] 32.0-32.9, adult

== ENCOUNTER 2019-12-19 16:41 | Inpatient (IN) | payer OTHER ==
[~2019-12-19] VITALS: Ht 167.6 cm; Wt 93.8 kg
[~2019-12-19 16:41] MED LIST changes: +GABAPENTIN600 M1 PO; +TORSEMIDE20 MG PO
[2019-12-19 18:44] LABS: ABSOLUTE BASOPHILS 0.1 thou/uL (0.0-0.2); ABSOLUTE LYMPHOCYTES 0.6 thou/uL (0.8-5.3); ABSOLUTE MONOCYTES 0.3 thou/uL (0.0-1.2); ABSOLUTE NEUTROPHILS 2.1 thou/uL (1.6-8.1); BASOPHILS 2.1 %; EOSINOPHILS 1.5 %; HEMATOCRIT 24.6 % (37.0-47.0); HEMOGLOBIN 8.1 gm/dL (12.0-15.0); MCH 26.2 pg (26.0-34.0); MCHC 32.8 g/dL (28.0-37.0); MCV 79.8 fL (80.0-100.0); MONOCYTES 8.9 %; MPV 7.4 fl. (7.2-11.1); NUCLEATED RBCS 0 /100WBC; PLATELET COUNT* 78 thou/uL (150-400); POLYS 68.5 %; RBC 3.09 mil/uL (4.20-5.00); RDW-CV 16.1 % (10.5-14.5); WBC 3.1 thou/uL (4.0-11.0)
[2019-12-19 19:00] LABS: CALCIUM 8.3 mg/dL (8.5-10.1); POTASSIUM 4.1 mmol/L (3.5-5.1)
[2019-12-19 19:04] LABS: ALBUMIN 3.1 g/dL (3.4-5.0); TOTAL PROTEIN 6.3 g/dL (6.4-8.2)
[2019-12-19 20:00] LABS: URINE BILIRUBIN NEGATIVE (Negative); URINE BLOOD 1+ (Negative); URINE CLARITY CLEAR; URINE COLOR YELLOW; URINE GLUCOSE-RANDOM NEGATIVE (Negative); URINE KETONES NEGATIVE (Negative); URINE LEUKOCYTES-REFLEX NEGATIVE (Negative); URINE NITRITE-REFLEX NEGATIVE (Negative); URINE PROTEIN 3+ (Negative); URINE UROBILINOGEN 0.2 E.U./dl (0.2-1.0)
[2019-12-19 20:07] LABS: BACTERIA-REFLEX 1-9 Few /HPF (None Seen); HYALINE CASTS 0-3 Few /LPF (None Seen); SQUAMOUS 0-3 Few /LPF (0-3); URINE RBC 0-2 Rare /HPF (0-2); URINE WBC-REFLEX 0-5 Rare /HPF (0-5)
[2019-12-19 20:08] LABS: CALCIUM OXALATE 0-3 Few /LPF (None Seen)
[2019-12-19 21:50] VITALS: BP 186/74
[2019-12-20 00:33] VITALS: BP 164/71
--- NOTE | 2019-12-20 03:25 | NUR ---
RECEIVED PT FROM ED PER CART AT APPROX 2150. PT IS AWAKE AND ORIENTED X4. SHOE REPAIRER IS PLACED-TRACING SR. ADMISSION ASSESSMENT CHARTED. PT C/O PAIN ON LEFT POSTEROLATERAL SIDE OF THE THORAX THAT RADIATES TO LEFT LEG-RELIEVED BY PAIN MEDS GIVEN PER MAR. PT IS ABLE TO SLEEP MOST OF THE NIGHT. CALL LIGHT WITHIN REACH. HOURLY ROUNDING DONE FOR PT SAFETY.HIGH FALL PRECAUTIONS IN PLACE.
[2019-12-20 04:10] VITALS: BP 109/61
[2019-12-20 08:00] VITALS: BP 177/65
--- NOTE | 2019-12-20 10:45 | NUR ---
ASSUMED PT CARE REPORT RECEIVED FROM NURSE PT IS AOX4 ON 2 L NC. O2 SATURATION 92%. VSS. ACCUCHECK. NO BLOOD SUGAR PILL GIVEN DUE TO NORAML BLOOD SUGAR LEVEL. UP WITH ASSIST X1 TO THE RESTROOM. SHINGLE RASH SEEN ON LEFT UPPER BACK AREA. FENTANYL GIVEN FOR PAIN. CALL LIGHT AT REACH. FALL PRECAUTION IN PLACE. WILL CONTINUE TO MONITOR
--- NOTE | 2019-12-20 11:42 | NUR ---
Pt is A&O. Pt recently dc from the hospital on 12/12, Pt has a hx of refusing HH and SNF. Pt resides at home with her . Uses cane for mobility. Goal is home at dc. Following.
[2019-12-20 12:00] VITALS: BP 160/64
--- NOTE | 2019-12-20 15:22 | NUR ---
PT COMPLAINS OF PAIN. FENTANYL GIVEN. LIDOCAIN PATCH APPLIED ON BILATERAL UPPER TIGH AREA. TYLENOL EXTRA STRENGHT GIVEN TO PT. ALIYAH CONTINUE TO MONITOR
[2019-12-20 15:42] LABS: APTT 26.4 Seconds (25.0-31.3); INR 1.1; PROTIME 11.1 Seconds (9.20-11.50)
[2019-12-20 16:00] VITALS: BP 159/66
--- NOTE | 2019-12-20 16:28 | EKG ---
[place] [address] ELECTROCARDIOGRAM REPORT Name: JOSE MARTIN HOLLINS Room: [address] ADM IN M.R.#: [id number] Admission: 12/19/19 Attend Phys: Prince Johnson Discharge: Date of : 46 Date of Service: 12/19/19 184 Report #: [id number] THIS REPORT FOR: //name// [facility] ED Test Date: 2019-12-19 Test Time: 18:41:59 Pat Name: JOSE MARTIN HOLLINS Department: Room: [facility] Gender: F Colloid Mill Operator: : [id number] Requested By: Vandana Soriano Order Number: [id number] MD: Hadley Patiño Measurements Intervals [place] Rate: 71 P: 43 [place]: 169 QRS: 15 QRSD: 102 T: 71 QT: 418 QTc: 455 Interpretive Statements Sinus rhythm Compared to ECG 12/11/2019 00:51:47 No significant changes Electronically Signed On 12-20-2019 16:27:32 CDT by Hadley Patiño [email or web address] <ELECTRONICALLY SIGNED> By: Hadley Patiño MD, FAC 12/20/19 1627 1841 1841 Hadley Patiño MD, [facility] /EPI
[2019-12-20 16:33] LABS: ESR (SEDRATE) 22 mm/hr (0-30)
--- NOTE | 2019-12-20 19:27 | NUR ---
CT OF ABDOMEN RESULT COMMUNICATED TO THIS NURSE BY TELEPHONE. METAL BENCH PATTERNMAKER MENTIONED THAT THE CT SYSTEM IS NOT WORKING. BELOW IS THE RESULT COMMUNICATED TO ME. CARDIOMEGALY WITH SAMLL PERICARDIAL EFFUSION WITH CORONARY ARTERY CALCIFICATION BILATERAL PLEURAL EFFUSION JESSICA. ATELECTASIS INCREASED SUBCUTANEOUS EDEMA NO MASSES , NO RIB FRACTURES.
[2019-12-20 20:19] VITALS: BP 173/70
[2019-12-21] VITALS: BP 101/38
[2019-12-21 02:07] LABS: HEMOGLOBIN 7.4 g/dL (11.1-15.9)
[2019-12-21 04:00] VITALS: BP 164/70
[2019-12-21 05:44] LABS: ABSOLUTE BASOPHILS 0.1 thou/uL (0.0-0.2); ABSOLUTE EOSINOPHILS 0.1 thou/uL (0.0-0.7); ABSOLUTE LYMPHOCYTES 0.7 thou/uL (0.8-5.3); ABSOLUTE MONOCYTES 0.3 thou/uL (0.0-1.2); ABSOLUTE NEUTROPHILS 1.5 thou/uL (1.6-8.1); BASOPHILS 2.3 %; EOSINOPHILS 3.9 %; HEMATOCRIT 21.4 % (37.0-47.0); HEMOGLOBIN 7.1 gm/dL (12.0-15.0); LYMPHOCYTES 27.6 %; MCH 26.2 pg (26.0-34.0); MCV 79.5 fL (80.0-100.0); MONOCYTES 12.3 %; MPV 8.4 fl. (7.2-11.1); NUCLEATED RBCS 0 /100WBC; PLATELET COUNT* 75 thou/uL (150-400); POLYS 53.9 %; RDW-CV 16.3 % (10.5-14.5); WBC 2.7 thou/uL (4.0-11.0)
[2019-12-21 05:57] LABS: ALBUMIN 2.7 g/dL (3.4-5.0); CREATININE 1.9 mg/dL (0.6-1.3); POTASSIUM 3.5 mmol/L (3.5-5.1); TOTAL BILIRUBIN 0.7 mg/dL (<0.1-1.0); TOTAL PROTEIN 5.4 g/dL (6.4-8.2)
--- NOTE | 2019-12-21 07:55 | NUR ---
PT IS ABLE TO COMMUNICATE HER NEEDS TO STAFF EFFECTIVELY. CURRENT PAIN MEDICATION REGIMEN HAS BEEN ADEQUATE FOR CONTROLLING HER PAIN UP TO THIS TIME. PAGED CONCERNING PAIN MEDICATION DURING MANAGER QUALITY SYSTEMS; ORDERS RECEIVED AND IMPLEMENTED. CONTACT ISOLATION FOR SHINGLES MAINTAINED; PT RECEIVING MEDEICATION TO TREAT SHINGLES.
[2019-12-21 08:00] VITALS: BP 172/62
[2019-12-21 12:16] VITALS: BP 160/69
[2019-12-21 15:53] VITALS: BP 148/67
[2019-12-21] MEDS ORDERED: AUGMENTIN400 MG/53 PO (16:55)
[2019-12-21] MEDS ORDERED: SPIRONOLACTONE25 MG PO (16:56)
[2019-12-21] MEDS ORDERED: BUMETANIDE 1 MG1 M1 PO (16:56)
--- NOTE | 2019-12-21 17:59 | NUR ---
PT IS A/O X4,VSS,OPERATING COST CLERK IN PLACE.PAIN MANAGED WELL WITH PO MEDICATIONS.CONTACT ISOLATION MAINTAINED FOR SHINGLES.CXR COMPLETED.HOURLY ROUNDING COMPLETED FOR PT SAFETY.CALL LIGHT AND FALL PRECAUTIONS IN PLACE.WILL CONTINUE TO MONITOR FOR DURAITON OF SHIFT.
[2019-12-21 20:21] VITALS: BP 181/76
[2019-12-22] VITALS: BP 156/49
[2019-12-22 03:55] VITALS: BP 152/66
--- NOTE | 2019-12-22 05:16 | NUR ---
PT IS ABLE TO COMMUNICATE HER NEEDS TO STAFF EFFECTIVELY. CURRENT PAIN MEDICATION REGIMEN HAS BEEN ADEQUATE FOR CONTROLLING HER PAIN UP TO THIS TIME; PT HAS REPORTED LESS PAIN, OVERALL, THAN THE PREVIOUS NIGHT. CONTACT ISOLATION FOR SHINGLES MAINTAINED.
[2019-12-22 08:15] VITALS: BP 142/64
[2019-12-22 12:00] VITALS: BP 176/70
[2019-12-22 15:45] VITALS: BP 163/69
--- NOTE | 2019-12-22 18:03 | NUR ---
PT ASSESSMENT CHARTED. VSS THROUGHOUT SHIFT. BLOOD GLUCOSE LEVELS LOW SO DIABETIC MEDS NOT GIVEN. UP WITH ASSIST IN ROOM. PAIN CONTROLLED WITH PRN/SCHEDULED PAIN MEDICATION. NO OTHER COMPLAINTS.
[2019-12-22 20:10] VITALS: BP 184/74
[2019-12-23] VITALS: BP 182/57
[2019-12-23 04:00] VITALS: BP 167/65
[2019-12-23 04:35] LABS: HEMATOCRIT 22.3 % (37.0-47.0); HEMOGLOBIN 7.3 gm/dL (12.0-15.0); MCH 26.1 pg (26.0-34.0); MCHC 32.9 g/dL (28.0-37.0); MCV 79.2 fL (80.0-100.0); MPV 7.7 fl. (7.2-11.1); RBC 2.82 mil/uL (4.20-5.00); RDW-CV 16.1 % (10.5-14.5); WBC 2.7 thou/uL (4.0-11.0)
[2019-12-23 04:50] LABS: CALCIUM 7.8 mg/dL (8.5-10.1); MAGNESIUM 1.9 mg/dL (1.8-2.4); POTASSIUM 4.3 mmol/L (3.5-5.1)
--- NOTE | 2019-12-23 07:10 | NUR ---
CHANGE OF SHIFT, BEDSIDE REPORT GIVEN PATIENT SEEN AT BEDSIDE, IN BED ASLEEP ASSUMED PATIENT CARE
--- NOTE | 2019-12-23 07:42 | NUR ---
PT CARE ASSUMED AT 1930. ALERT AND ORIENTED X4. C/O PAIN, MEDICATION GIVEN PER EMAR. CALL LIGHT WITHIN REACH AND BED IN LOW POSITION. HOURLY ROUNDING DONE FOR PT SAFETY.
[2019-12-23 08:00] VITALS: BP 192/71
[2019-12-23 11:58] VITALS: BP 168/73
[2019-12-23 16:37] VITALS: BP 192/76
[2019-12-23 20:10] VITALS: BP 197/77
[2019-12-24] VITALS (7 sets, daily range): BP systolic 158–192; BP diastolic 63–72
--- NOTE | 2019-12-24 05:19 | NUR ---
PT CARE ASSUMED AT 1930. SAT MAINTAINED IN RA. ALERT AND ORIENTED X4. CALL LIGHT WITHIN REACH AND BED IN LOW POSITION. PT IS VERY WEAK. C/O PAIN, MEDICATION GIVEN PER EMAR. HOURLY ROUNDING DONE FOR PT SAFETY.
--- NOTE | 2019-12-24 07:20 | NUR ---
CHANGE OF SHIFT, BEDSIDE REPORT GIVEN PATIENT SEEN AT BEDSIDE, IN BED RESTING ASSUMED PATIENT CARE
[2019-12-25] VITALS (17 sets, daily range): BP systolic 156–198; BP diastolic 57–77
[2019-12-25 03:54] LABS: ALBUMIN 2.6 g/dL (3.4-5.0); CALCIUM 7.7 mg/dL (8.5-10.1); CREATININE 1.9 mg/dL (0.6-1.3); MAGNESIUM 1.9 mg/dL (1.8-2.4); POTASSIUM 4.6 mmol/L (3.5-5.1); TOTAL BILIRUBIN 0.5 mg/dL (<0.1-1.0); TOTAL PROTEIN 5.5 g/dL (6.4-8.2)
[2019-12-25 04:43] LABS: APTT 28.2 Seconds (25.0-31.3); INR 1.1; PROTIME 11.3 Seconds (9.20-11.50)
[2019-12-25 06:41] LABS: HEMATOCRIT 22.2 % (37.0-47.0); HEMOGLOBIN 7.4 gm/dL (12.0-15.0); MCH 26.3 pg (26.0-34.0); MCHC 33.1 g/dL (28.0-37.0); MCV 79.6 fL (80.0-100.0); MPV 9.3 fl. (7.2-11.1); RBC 2.79 mil/uL (4.20-5.00); RDW-CV 15.8 % (10.5-14.5)
--- NOTE | 2019-12-25 08:57 | NUR ---
PT CARE ASSUMED AT 1930. SAT MAINTAINED ON RA. ALERT AND ORIENTED X4. PT HAD A FALL, PHYSICIAN NOTIFIED. CT HEAD AND X-RAY FA DONE. NOTED TO BE NEGATIVE. SKIN TEAR ON RT FA, DRESSED WITH VASELINE GAUZE AND BORDER FAOM. THIS NURSE NOTICED LFT FACIAL DROOPING, WHILE PT WAS GETTING HER X-RAY DONE. ACTIVATED CODE STROKE, PROTOCOL FOLLWED. YARN WEIGHT AND STRENGTH TESTER PHYSICIAN NOTIFIED, NEUROLOGIST CONSULTED. NIH DONE AND CHARTED. ORDERS RECIEVED FOR MRI/MRA HEAD AND DONE. PASSED BEDSIDE SWALLOW SCREEN. ATTEMPTED TO NOTIFY FAMILY, NO ANSWERS RECIEVED. CALL LIGHT WITHIN REACH AND BED IN LOW POSITION.
--- NOTE | 2019-12-25 11:50 | EKG ---
[place] [address] ELECTROCARDIOGRAM REPORT Name: JOSE MARTIN HOLLINS Room: [address] ADM IN M.R.#: [id number] Admission: 12/19/19 Attend Phys: Prince Johnson Discharge: Date of : 46 Date of Service: 12/25/19 0442 Report #: [id number] THIS REPORT FOR: //name// [facility] Test Date: 2019-12-25 Test Time: 04:42:12 Pat Name: JOSE MARTIN HOLLINS Department: Room: [address] Gender: F Aircraft Designer: [id number] : 1950 Requested By: Cassi Kasper Order Number: [id number] MD: Alfredito Hidalgo Measurements Intervals [place] Rate: 64 P: 53 [place]: 198 QRS: 2 QRSD: 97 T: 62 QT: 446 QTc: 461 Interpretive Statements Sinus rhythm Compared to ECG 12/19/2019 18:41:59 No significant changes Electronically Signed On 12-25-2019 11:49:31 CDT by Alfredito Hidalgo [email or web address] <ELECTRONICALLY SIGNED> By: Alfredito Hidalgo MD, [facility] 12/25/19 1149 0442 0442 Alfredito Hidalgo MD, [facility] /EPI
--- NOTE | 2019-12-25 14:03 | CON ---
[address] [address] CONSULTATION Name: GURVINDERJOSE MARTIN J Room: [address] IN .R.#: [id number] Admission: 12/19/19 Attend Phys: Prince Duffy, Discharge: Date of : 48 Report #: [id number] THIS REPORT FOR: //name// cc: Dyllan Gardiner Steve T. DO THIS REPORT FOR: //name// CC: Dyllan Starkey DATE OF SERVICE: 12/25/2019 CARDIOLOGY CONSULTATION HISTORY OF PRESENT ILLNESS: The patient is a 69-year-old white female who I was asked to see in the hospital today after she complained of chest pain. The patient had her previous stent placed in her right coronary to [facility] in 2005. I performed a repeat cardiac catheterization in 12/2018 and there was no significant restenosis of the stent. However, she had a 90% narrowing in the mid LAD and I placed a new drug-eluting stent a year ago. She has actually done well since that time. She is not very active because of chronic back pain and uses a cane. She does have chronic edema and takes Bumex. Because of chronic pain, she was told in the past that she had shingles. 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 She was recently discharged for back pain, but was readmitted a week ago, complaining of pain on the left side of her chest. It is a constant pain. However, she had no blisters. She also complained of being weak and was admitted a week ago. Since that time, she is noted to be hypoxic and had elevated blood pressure. She was given Lasix. Because of the chest pain, Cardiology consultation was requested. She denied any exertional dyspnea, tightness of her chest, palpitations or syncope. PAST MEDICAL HISTORY: She has had cholecystectomy, hysterectomy, knee surgery, hypertension, hyperlipidemia, ITP and is followed by Hematology. She has a history of chronic anemia, although previous EGD and colonoscopy showed no bleeding. She does receive iron infusion. MEDICATIONS: On admission consisted of carvedilol, lovastatin, losartan, torsemide, Neurontin, Synthroid, hydralazine, amlodipine, glimepiride, Plavix, Cardura, potassium. ALLERGIES: SHE HAS AN ALLERGY TO CODEINE AND HYDROCODONE. FAMILY HISTORY: [place] [address] CONSULTATION Name: JOSE MARTIN HOLLINS Room: [address]#: [id number] Admission: 12/19/19 Attend Phys: Prince Duffy, Discharge: Date of : 48 Report #: [id number] SOCIAL HISTORY: She is . She and her live in [place]. No smoking or alcohol abuse. REVIEW OF SYSTEMS: She has had no history of stroke or asthma. No liver disease. She has had kidney stones, skin cancer removed in the past. No psychiatric illness or chronic skin condition. PHYSICAL EXAMINATION: GENERAL: Revealed an elderly frail appearing female, lying in bed. She appeared in no distress. VITAL SIGNS: She had a blood pressure of 180/70, pulse 70, and she was afebrile. HEENT: She was anicteric. Conjunctivae pink. Mucous membranes moist. NECK: Veins are not distended. CHEST: Clear to auscultation. CARDIOVASCULAR: Regular rate and rhythm, grade 2 systolic ejection murmur at left sternal border. ABDOMEN: Soft. EXTREMITIES: Had no edema. Dorsalis pedis pulse 2+ bilaterally. SKIN: Cool and dry. NEUROLOGIC: Nonfocal. RADIOLOGICAL DATA: Her ECG showed a sinus rhythm, nonspecific T-wave changes. She had an echocardiogram done in October that showed ejection fraction 60%, left ventricular hypertrophy, aortic sclerosis. The peak gradient across the aortic valve was 17 mmHg consistent with only mild aortic stenosis. Her chest x-ray on admission, she had cardiomegaly, interstitial markings were increased. CT scan of the head showed no acute abnormality. MRA of the carotid arteries showed mild plaque formation. Chest x-ray was repeated today which shows cardiomegaly, clear lung vsaquez, atelectasis. LABORATORY WORK: Sodium 140, potassium 4.6, BUN 34, creatinine 1.9, it has been as high as 2.6 in the past. Her liver function studies were normal. Troponins all 0.06. BNP 6518. TSH 1.1 in October. Her white blood cell count is 3.0, hemoglobin 7.4, platelet count 46,000. IMPRESSION AND RECOMMENDATIONS: 1. Previous coronary stent. I would continue Plavix. No symptoms of angina. 2. Hypertension. The patient is on a calcium ely, beta ely, alpha ely, hydralazine and ARB. 3. Venous insufficiency. The patient on diuretics. 4. Hyperlipidemia. The patient is on a statin drug. 5. Chronic kidney disease. 6. Idiopathic thrombocytopenic purpura. Low platelet count. 7. Chronic anemia. No history of bleeding. [place] [address] CONSULTATION Name: JOSE MARTIN HOLLINS Room: [address] IN [facility]#: [id number] Admission: 12/19/19 Attend Phys: Prince Duffy, Discharge: Date of : 48 Report #: [id number] infusions. 8. Chronic back pain. <ELECTRONICALLY SIGNED> By: Alfredito Hidalgo MD, FACC 12/25/19 1403 1010 1113Dwale Hidalgo MD, FACC /nt
[2019-12-26] VITALS (9 sets, daily range): BP systolic 107–190; BP diastolic 59–73
[2019-12-26 03:56] LABS: HEMATOCRIT 24.1 % (37.0-47.0); MCH 26.7 pg (26.0-34.0); MCHC 33.3 g/dL (28.0-37.0); MCV 80.1 fL (80.0-100.0); RBC 3.01 mil/uL (4.20-5.00); RDW-CV 16.3 % (10.5-14.5); WBC 3.3 thou/uL (4.0-11.0)
[2019-12-26 04:24] LABS: ANION GAP 7 mmol/L (7-16); BUN 36 mg/dL (7-18); CALCIUM 7.4 mg/dL (8.5-10.1); CHLORIDE 106 mmol/L (98-107); CHOLESTEROL 76 mg/dL (<200); CO2 30 mmol/L (21-32); GLUCOSE 72 mg/dL (70-99); HDL CHOLESTEROL 36 mg/dL (>40); LDL CHOLESTEROL 25 mg/dL (<100); SODIUM 143 mmol/L (136-145); TC:HDL 2.1 Ratio (Not establshd); TRIGLYCERIDE 77 mg/dL (<150); VLDL 15 mg/dL (<40)
[2019-12-26 04:37] LABS: SERUM ASSESSMENT Clear
--- NOTE | 2019-12-26 08:11 | NUR ---
PT CARE ASSUMED AT 1930. ALERT AND ORIENTED X4. SAT DROPPED TO 89% IN RA, CONNECTED TO 2L NC. C/O PAIN, MEDICATION GIVEN PER EMAR. CALL LIGHT WITHIN REACH AND BED IN LOW POSITION. HOURLY ROUNDING DONE FOR PT SAFETY.
[2019-12-26 08:28] LABS: URINE BILIRUBIN NEGATIVE (Negative); URINE BLOOD TRACE (Negative); URINE CLARITY CLEAR; URINE COLOR YELLOW; URINE GLUCOSE-RANDOM NEGATIVE (Negative); URINE KETONES NEGATIVE (Negative); URINE LEUKOCYTES NEGATIVE (Negative); URINE NITRITE NEGATIVE (Negative); URINE PROTEIN 3+ (Negative); URINE UROBILINOGEN 0.2 E.U./dl (0.2-1.0)
[2019-12-26 08:34] LABS: SQUAMOUS 0-3 Few /LPF (0-3); URINE WBC None Seen /HPF (0-5)
[2019-12-26 08:35] LABS: URINE RBC 3-10 Few /HPF (0-2)
[2019-12-26 08:36] LABS: BACTERIA 1-9 Few /HPF (None Seen); CASTS None Seen /LPF (None Seen); CRYSTALS None Seen /LPF (None Seen); MUCUS None Seen strn/LPF (None Seen)
--- NOTE | 2019-12-26 12:48 | NUR ---
acute rehab consult placed
[2019-12-27 04:00] VITALS: BP 182/68
[2019-12-27 04:11] LABS: HEMATOCRIT 24.2 % (37.0-47.0); MCH 26.7 pg (26.0-34.0); MCHC 33.2 g/dL (28.0-37.0); MCV 80.4 fL (80.0-100.0); MPV 7.8 fl. (7.2-11.1); RDW-CV 16.8 % (10.5-14.5); WBC 2.5 thou/uL (4.0-11.0)
[2019-12-27 04:48] LABS: CALCIUM 7.8 mg/dL (8.5-10.1); POTASSIUM 3.7 mmol/L (3.5-5.1)
--- NOTE | 2019-12-27 07:10 | NUR ---
CHANGE OF SHIFT, BEDSIDE REPORT GIVEN PATIENT SEEN AT BEDSIDE, IN BED RESTING BED ALARM SET ASSUMED PATIENT CARE
[2019-12-27 08:00] VITALS: BP 197/72
--- NOTE | 2019-12-27 08:02 | NUR ---
ASSUMED CARE OF PT AFTER REPORT AT 1930. PT A&OX4. FORGETFUL AT TIMES. VSS. PHYSICAL ASSESSMENT COMPLETED AND CHARTED. PT ON O2 AT 2L NC. PT TRACING SR/1ST DEG ON TELE. PT UP WITH 1 ASSIST TO RESTROOM. PT COMPLAINED OF ABDOMINAL PAIN-MED GIVEN PER MAR. FALL PRECAUTIONS IN PLACE. CALL LIGHT WITHIN REACH.
[2019-12-27 12:00] VITALS: BP 173/66
--- NOTE | 2019-12-27 12:21 | NUR ---
Pt medically stable to dc to acute rehab, updated clinical rehab specialist, pending insurance auth
--- NOTE | 2019-12-27 13:16 | NUR ---
Nutrition: Pt is pending ins auth for acute rehab. Admitted with CHF. Seen for LOS. Pt is eating well, CHO controlled diet. Labs: alb 2.6, prealb 20.7, BG 56-146. Wt: 208#. Nutritionally stable at this time. Low risk. Will follow on rehab.
[2019-12-27 14:00] VITALS: BP 173/64
[2019-12-27 20:00] VITALS: BP 187/75
[2019-12-28 00:26] VITALS: BP 151/57
[2019-12-28 04:25] VITALS: BP 169/71
--- NOTE | 2019-12-28 04:37 | NUR ---
ASSUMED CARE OF PT AFTER REPORT AT 1930. PT A&OX4. VSS. PHYSICAL ASSESSMENT COMPLETED AND CHARTED. PT ON O2 AT 2L NC. PT TRACING SR/1ST DEG ON TELE. PT UP WITH 1 ASSIST TO BSC. PT COMPLAINED LEFT RIB & LEG PAIN-MEDS GIVEN PER MAR. FALL PRECAUTIONS IN PLACE. CALL LIGHT WITHIN REACH.
[2019-12-28 04:42] LABS: HEMATOCRIT 23.6 % (37.0-47.0); HEMOGLOBIN 7.8 gm/dL (12.0-15.0); MCH 26.9 pg (26.0-34.0); MCHC 33.1 g/dL (28.0-37.0); MCV 81.1 fL (80.0-100.0); MPV 8.3 fl. (7.2-11.1); RBC 2.91 mil/uL (4.20-5.00); RDW-CV 16.7 % (10.5-14.5); WBC 2.5 thou/uL (4.0-11.0)
[2019-12-28 04:54] LABS: CALCIUM 7.6 mg/dL (8.5-10.1); CREATININE 1.9 mg/dL (0.6-1.3); POTASSIUM 3.8 mmol/L (3.5-5.1)
--- NOTE | 2019-12-28 07:15 | NUR ---
CHANGE OF SHIFT, BEDSIDE REPORT GIVEN PATIENT SEEN AT BEDSIDE, IN BED ASLEEP ASSUMED PATIENT CARE
[2019-12-28 07:45] VITALS: BP 182/71
[2019-12-28 18:04] VITALS: BP 114/72
[2019-12-28 20:00] VITALS: BP 164/67
[2019-12-29] VITALS: BP 146/56
[2019-12-29 04:00] VITALS: BP 171/65
[2019-12-29 04:31] LABS: HEMATOCRIT 23.3 % (37.0-47.0); HEMOGLOBIN 7.6 gm/dL (12.0-15.0); MCH 26.5 pg (26.0-34.0); MCHC 32.5 g/dL (28.0-37.0); MCV 81.3 fL (80.0-100.0); RBC 2.87 mil/uL (4.20-5.00); RDW-CV 16.9 % (10.5-14.5); WBC 2.6 thou/uL (4.0-11.0)
[2019-12-29 04:47] LABS: ALBUMIN 2.6 g/dL (3.4-5.0); CALCIUM 7.7 mg/dL (8.5-10.1); CREATININE 2.2 mg/dL (0.6-1.3); PHOSPHORUS* 4.7 mg/dL (2.5-4.9)
--- NOTE | 2019-12-29 06:23 | NUR ---
ASSUMED CARE OF PT AFTER REPORT AT 1930. PT A&OX4. VSS. PHYSICAL ASSESSMENT COMPLETED AND CHARTED. PT ON O2 AT 2L NC. PT TRACING SR/1ST DEG ON TELE. PT UPSTANDBY TO BSC. PT COMPLAINED OF LEFT SIDE & LEG PAIN-MEDS GIVEN PER MAR. PT ABLE TO SLEEP WELL ON BED. FALL PRECAUTIONS IN PLACE. CALL LIGHT WITHIN REACH.
[2019-12-29 08:00] VITALS: BP 182/68
[2019-12-29 12:12] VITALS: BP 144/90
--- NOTE | 2019-12-29 16:05 | NUR ---
ASSUMED PT CARE AT 0800, AOX4, UP WITH ASSIST. O2 SAT 9O'S 2L NC. TITRATE TO ROOM AIR. PT COMPLAINS OF BACK AND LEG PAIN. MEDS GIVEN PER MAR. PT ACCU CHECK. PT WAITIG FOR INSURANCE AUTHORIZATION, TO GO REHAB. VSS, AM ASSESSMENT CHARTED. HOURLY ROUNDING CALL LIGHT WITHIN REACH, FALL PRECAUTION, WILL CONTINUE TO MONITOR.
[2019-12-29 16:15] VITALS: BP 178/71
[2019-12-29 20:00] VITALS: BP 184/73
[2019-12-30] VITALS: BP 161/60
[2019-12-30 04:00] VITALS: BP 166/61
--- NOTE | 2019-12-30 05:19 | NUR ---
PT CARE ASSUMED AT 1930. SAT MAINTAINED IN RA. ALERT AND ORIENTED X4. DENIES SOB. CALL LIGT WITHIN REACH AND BED IN LOW POSITION. HOURLY ROUNDING DONE FOR PT SAFETY.
[2019-12-30 05:44] LABS: HEMATOCRIT 24.2 % (37.0-47.0); MCH 26.9 pg (26.0-34.0); MCHC 33.1 g/dL (28.0-37.0); MCV 81.2 fL (80.0-100.0); MPV 8.4 fl. (7.2-11.1); RBC 2.98 mil/uL (4.20-5.00); RDW-CV 17.2 % (10.5-14.5); WBC 2.7 thou/uL (4.0-11.0)
[2019-12-30 06:04] LABS: ALBUMIN 2.8 g/dL (3.4-5.0); CALCIUM 7.9 mg/dL (8.5-10.1); CREATININE 2.2 mg/dL (0.6-1.3); MAGNESIUM 2.1 mg/dL (1.8-2.4); PHOSPHORUS* 4.3 mg/dL (2.5-4.9); POTASSIUM 4.1 mmol/L (3.5-5.1)
[2019-12-30 08:00] VITALS: BP 125/77
[2019-12-30 12:29] VITALS: BP 183/62
--- NOTE | 2019-12-30 14:42 | NUR ---
ASSUMED PT CARE AT 0800, AOX4, UP WITH NIEVES, O2 SAT 90'S RA. TRACING SR ON TELE. DENIES PAIN. ACCU CHECK, VSS, AM ASSESSMENT CHARTED, MEDS GIVEN PER MAR, CALL LIGHT WITHIN REACH, WILL CONTINUE TO MONITOR.
[2019-12-30 16:00] VITALS: BP 186/73
[2019-12-30 20:00] VITALS: BP 177/58
[2019-12-31] VITALS: BP 162/62
[2019-12-31 04:00] VITALS: BP 155/52
--- NOTE | 2019-12-31 05:00 | NUR ---
PT CARE ASSUMED AT 1930. SAT MAINTAINED IN RA. ALERT AND ORIENTED X4, BUT FORGETFUL. DENIES SOB. CALL LIGHT WITHIN REACH AND BED IN LOW POSITION. HOURLY ROUNDING DONE FOR PT SAFETY.
[2019-12-31 08:00] VITALS: BP 171/58
[2019-12-31 12:31] VITALS: BP 145/73
[2019-12-31 16:24] VITALS: BP 177/65
[2019-12-31 20:10] VITALS: BP 176/72
--- NOTE | 2019-12-31 20:49 | NUR ---
PT HAS RESTED T/O SHIFT COMFORTABLY.DID COMPLAIN OF DIARRHEA X1. THOUGH I NOTED IT TO BE MORE LOOSE VS LIQUID. BP STILL REMAIN ELEVATED. BLADDER SCAN SHOWED 450 ML AND WHEN PT TOLD THAT I WOULD HAVE TO STARIGHT CATH SHE INSISTED ON GOING TO BATHROOM. POST VOID SHOWED 157. PT GIVEN IV BOLUS. STILL AWAITNG INSURANCE REHAB APPROVAL. CLWR
[2020-01-01] VITALS: BP 162/63
[2020-01-01 04:17] LABS: ALBUMIN 2.4 g/dL (3.4-5.0); CALCIUM 7.6 mg/dL (8.5-10.1); CREATININE 2.2 mg/dL (0.6-1.3); MAGNESIUM 2.2 mg/dL (1.8-2.4); PHOSPHORUS* 4.4 mg/dL (2.5-4.9); POTASSIUM 3.9 mmol/L (3.5-5.1)
--- NOTE | 2020-01-01 05:59 | NUR ---
PT CARE ASSUMED AT 1930. SAT MAINTAINED IN RA. ALERT AND ORIENTED X4. C/O PAIN, MEDICATION GIVEN PER EMAR. CALL LIGHT WITHIN REACH AND BED IN LOW POSITION. HOURLY ROUNDING DONE FOR PT SAFETY.
[2020-01-01 07:40] VITALS: BP 149/55
--- NOTE | 2020-01-01 10:31 | NUR ---
CM updated Dr that acute rehab will not have any beds available until Wednesday. Continue to follow for dc plan
[2020-01-01 13:15] VITALS: BP 171/55
[2020-01-01 18:38] VITALS: BP 172/58
--- NOTE | 2020-01-01 18:44 | NUR ---
I ASSUMED CARE OF THE PATIENT AT 0700. SHE IS ALERT AND ORIENTED X3 AND IS UP WITH ASSIST OF 1, CESAR/MARGOT. SHE IS AWAITING AUTHORIZATION TO GO TO REHAB. HOURLY ROUNDING IS COMPLETED AND PATIENT NEEDS ARE MET. PAIN IS MANAGED WITH PRN MEDS. BED IS IN THE LOW LOCKED POSITION AND CALL LIGHT IS IN REACH. BLADDER SCAN EVERY 6 HOURS POST VOID. BLOOD SUGAR IS MANAGED. TRAMADOL WAS HELD BECAUSE THE PREVIOUS NURSE SAID DR DALEY DIDN'T WANT US GIVING IT. WILL CONTINUE TO [facility].
[2020-01-01 20:00] VITALS: BP 178/72
[2020-01-02] VITALS: BP 169/64
[2020-01-02 00:27] VITALS: BP 169/64
--- NOTE | 2020-01-02 02:48 | NUR ---
PT ALERT ORIENTED FORGETFUL. UP TO BSC ASSIST OF ONE WALKER AND GAIT BELT. NIHSS 0. TELEMETRY SHOWS SR. OXI GIVEN TWICE FOR LEG PAIN. WCTM
[2020-01-02 04:48] VITALS: BP 154/63
[2020-01-02 08:00] VITALS: BP 171/62
--- NOTE | 2020-01-02 10:17 | NUR ---
PT ALERT AND ORIENTED. TELE TRACKING SR AND ALL VSS ON ROOM AIR. DENIES CP, SOA. C/O GENERALIZED PAIN-MEEDICATED PER EMAR. PT LOOKING FORWARD TO DC. PLEASE SEE ASSESSMENT FOR ADDITIONAL INFO
[2020-01-02 11:58] VITALS: BP 167/58
[2020-01-02] MEDS ORDERED: BUMETANIDE 1 MG1 M1 PO (12:35)
[2020-01-02 13:35] VITALS: BP 167/58
--- NOTE | 2020-01-02 13:58 | NUR ---
FAXED REFERRAL TO [facility]. CONFIRMED WITH SRIDEVI/INTAKE THAT THEY RECEIVED AND WILL REVIEW. IF APPROVED, THEY WILL SCHEDULE TO SEE PATIENT TOMORROW, 01/03/20. [facility] [phone]; [phone]
== END 2020-01-02 14:35 | disposition home health service (06) | DRG 177 ==
LOC: M.ERS 16:41 → M.2W 20:29 → M.TBA-ER 20:29 → M.2W 21:58
PROVIDERS: Family Medicine; Internal Medicine; Nurse Practitioner Family; ADMIT Family Medicine
PROC: 30233N1 Transfusion of Nonautologous Red Blood Cells into Peripheral Vein, Percutaneous Approach (ICD-10-PCS; principal; 2019-12-25)
DX: J15.6 Pneumonia due to other Gram-negative bacteria (principal); J96.91 Respiratory failure, unspecified with hypoxia; I50.33 Acute on chronic diastolic (congestive) heart failure; I13.0 Hypertensive heart and chronic kidney disease with heart failure and stage 1 through stage 4 chronic kidney disease, or unspecified chronic kidney disease; B02.29 Other postherpetic nervous system involvement; E44.0 Moderate protein-calorie malnutrition; D69.3 Immune thrombocytopenic purpura; J12.9 Viral pneumonia, unspecified; R53.81 Other malaise; I16.0 Hypertensive urgency; I25.10 Atherosclerotic heart disease of native coronary artery without angina pectoris; M10.9 Gout, unspecified; E03.9 Hypothyroidism, unspecified; E78.00 Pure hypercholesterolemia, unspecified; N18.9 Chronic kidney disease, unspecified; E11.22 Type 2 diabetes mellitus with diabetic chronic kidney disease; B02.9 Zoster without complications; E78.5 Hyperlipidemia, unspecified; E11.40 Type 2 diabetes mellitus with diabetic neuropathy, unspecified; M54.9 Dorsalgia, unspecified; M79.18 Myalgia, other site; G89.29 Other chronic pain; D50.9 Iron deficiency anemia, unspecified; I87.2 Venous insufficiency (chronic) (peripheral); I25.2 Old myocardial infarction; Z68.33 Body mass index [BMI] 33.0-33.9, adult; Z95.5 Presence of coronary angioplasty implant and graft; Z90.49 Acquired absence of other specified parts of digestive tract; Z90.710 Acquired absence of both cervix and uterus; Z98.42 Cataract extraction status, left eye; Z98.41 Cataract extraction status, right eye; Z79.84 Long term (current) use of oral hypoglycemic drugs; Z79.899 Other long term (current) drug therapy; Z88.5 Allergy status to narcotic agent; Z80.9 Family history of malignant neoplasm, unspecified; Z83.3 Family history of diabetes mellitus; Z82.49 Family history of ischemic heart disease and other diseases of the circulatory system

== ENCOUNTER → 2020-02-09 | Outpatient (CLI) | payer OTHER ==
[~2020-02-09] MED LIST changes: +AUGMENTIN400 MG/53 PO
[2020-02-09 10:54] VITALS: BP 144/63; BP 144/69; BP 145/75; BP 146/65
--- NOTE | 2020-02-09 13:57 | NUR ---
ARRIVED PER WHEELCHAIR. TRANSFERED SELF WITH HELP OF TO RECLINER. IV STARTED WITH ULTRASOUND WITH OUT DIFFICULTY. TRANSFUSION COMPLETED AND TOLERATED WELL. DENEIS QUESTIONS OR NEEDS AT DISCHARGE.
== END ==
LOC: M.LAB 02-08 15:07 → M.INFUS 08:00
DX: R53.82 Chronic fatigue, unspecified (principal); N18.9 Chronic kidney disease, unspecified; Z86.2 Personal history of diseases of the blood and blood-forming organs and certain disorders involving the immune mechanism

== ENCOUNTER 2020-03-10 18:05 | Inpatient (IN) | payer OTHER ==
[2020-03-10] VITALS (12 sets, daily range): BP systolic 127–146; BP diastolic 47–59
[~2020-03-10] VITALS: Ht 152.4 cm; Wt 102.1 kg
[2020-03-10 18:20] LABS: ABSOLUTE LYMPHOCYTES 0.5 thou/uL (0.8-5.3); ABSOLUTE MONOCYTES 0.1 thou/uL (0.0-1.2); ABSOLUTE NEUTROPHILS 2.4 thou/uL (1.6-8.1); BASOPHILS 1.1 %; EOSINOPHILS 1.3 %; HEMATOCRIT 28.5 % (37.0-47.0); HEMOGLOBIN 9.1 gm/dL (12.0-15.0); LYMPHOCYTES 15.4 %; MCH 25.4 pg (26.0-34.0); MCHC 31.9 g/dL (28.0-37.0); MCV 79.8 fL (80.0-100.0); MONOCYTES 4.6 %; NUCLEATED RBCS 0 /100WBC; PLATELET COUNT* 92 thou/uL (150-400); POLYS 77.6 %; RBC 3.57 mil/uL (4.20-5.00); RDW-CV 17.8 % (10.5-14.5); WBC 3.1 thou/uL (4.0-11.0)
[2020-03-10] MEDS ORDERED: ULTRAM 50MG TAB50 MG PO (18:36)
[2020-03-10 18:42] LABS: ALBUMIN 2.5 g/dL (3.4-5.0); CALCIUM 7.6 mg/dL (8.5-10.1); CREATININE 6.5 mg/dL (0.6-1.3); TOTAL BILIRUBIN 0.5 mg/dL (<0.1-1.0); TOTAL PROTEIN 6.7 g/dL (6.4-8.2)
[2020-03-10 18:47] LABS: POTASSIUM 9.2 mmol/L (3.5-5.1)
[2020-03-10 19:21] LABS: URINE BLOOD 3+ (Negative); URINE CLARITY SL CLOUDY; URINE COLOR YELLOW; URINE GLUCOSE-RANDOM NEGATIVE (Negative); URINE KETONES NEGATIVE (Negative); URINE LEUKOCYTES-REFLEX 1+ (Negative); URINE NITRITE-REFLEX NEGATIVE (Negative); URINE PROTEIN 3+ (Negative); URINE UROBILINOGEN 0.2 E.U./dl (0.2-1.0)
[2020-03-10 19:24] LABS: ICTOTEST (BILI CONFIRMATORY) Negative (Negative); URINE BILIRUBIN 1+ (Negative)
[2020-03-10 19:27] LABS: SQUAMOUS 0-3 Few /LPF (0-3)
[2020-03-10 19:28] LABS: BACTERIA-REFLEX >30 Many /HPF (None Seen); URINE RBC >20 Many /HPF (0-2)
[2020-03-10 19:29] LABS: CRYSTALS None Seen /LPF (None Seen); HYALINE CASTS 0-3 Few /LPF (None Seen); MUCUS None Seen strn/LPF (None Seen); YEAST-REFLEX Present (None Seen)
--- NOTE | 2020-03-10 22:08 | NUR ---
PATIENT TO UNIT FROM ER AT 2036. DR. MCKEON AT BEDSIDE TO PLACE DIALYSIS CATHETER EMERGENTLY. CATHETER PLACED WITHOUT DIFFICULTY. PATIENT TO UNDERGO DIALYSIS TONIGHT ON AN EMERGENT BASIS
[2020-03-11] VITALS (79 sets, daily range): BP systolic 120–181; BP diastolic 32–153
[2020-03-11 03:23] LABS: HEMOGLOBIN 8.8 gm/dL (12.0-15.0); MCH 25.6 pg (26.0-34.0); MCHC 32.6 g/dL (28.0-37.0); MCV 78.7 fL (80.0-100.0); MPV 7.1 fl. (7.2-11.1); RBC 3.43 mil/uL (4.20-5.00); RDW-CV 17.6 % (10.5-14.5); WBC 4.2 thou/uL (4.0-11.0)
[2020-03-11 03:34] LABS: CALCIUM 7.6 mg/dL (8.5-10.1); MAGNESIUM 1.7 mg/dL (1.8-2.4)
[2020-03-11 03:43] LABS: CREATININE 3.4 mg/dL (0.6-1.3); POTASSIUM 4.7 mmol/L (3.5-5.1)
--- NOTE | 2020-03-11 05:51 | NUR ---
PATIENT COMPLETED DIALYSIS AT 0119. NO FLUID REMOVED FROM PATIENT. PER DR. ORELLANA, HOLD FLUIDS IF PATIENT IS REQUIRING OXYGEN OR SHOWING SIGNS OF FLUID RETENTION. PATIENT STILL REQUIRING 2L NC AND STILL HAS PITTING EDEMA ON BOTH LOWER EXTREMITIES.
--- NOTE | 2020-03-11 07:25 | NUR ---
ASSESSMENTS CHARTED. PATIENT SCREENED POSITIVE FOR SEPSIS AT THE END OF SHIFT. SPOKE WITH DR. GIRFFITHS WHO PLACED ORDERS ON THE PATIENT. PATIENT HAS BEEN CONSISTENTLY LETHARGIC BUT STILL ABLE TO RESPOND WHEN PROMPTED. PATIENT UNDERWENT DIALYSIS WITHOUT COMPLICATIONS.
[2020-03-11 08:45] LABS: CALCIUM 7.4 mg/dL (8.5-10.1); CREATININE 3.6 mg/dL (0.6-1.3); POTASSIUM 5.4 mmol/L (3.5-5.1)
--- NOTE | 2020-03-11 08:57 | EKG ---
[place] [address] ELECTROCARDIOGRAM REPORT Name: JOSE MARTIN HOLLINS Room: [address] ADM IN M.R.#: [id number] Admission: 03/10/20 Attend Phys: Cassi Kasper, Discharge: Date of : 46 Date of Service: 03/10/20 1816 Report #: [id number] THIS REPORT FOR: //name// [facility] ED Test Date: 2020-03-10 Test Time: 18:16:06 Pat Name: JOSE MARTIN HOLLINS Department: Room: [facility] Gender: F Telecasting Engineer: : [id number] Requested By: J Luis Smith Order Number: [id number] MD: Alfredito Hidalgo Measurements Intervals [place] Rate: 61 P: -41 [place]: 233 QRS: -49 QRSD: 196 T: 95 QT: 510 QTc: 514 Interpretive Statements Sinus rhythm Prolonged CO interval LBBB Baseline wander in lead(s) I,II,aVR Compared to ECG 12/25/2019 04:42:12 First degree AV block now present LBBB now present Electronically Signed On 03-11-2020 8:55:31 CDT by Alfredito Hidalgo [email or web address] <ELECTRONICALLY SIGNED> By: Alfredito Hidalgo MD, FACC 03/11/20 0855 1816 1816 Alfredito Hidalgo MD, [facility] /EPI
[2020-03-11 09:13] LABS: APTT 28.1 Seconds (25.0-31.3); INR 1.1; PROTIME 10.9 Seconds (9.20-11.50)
[2020-03-11 15:06] LABS: URINE BILIRUBIN NEGATIVE (Negative); URINE BLOOD 3+ (Negative); URINE CLARITY SL CLOUDY; URINE COLOR YELLOW; URINE GLUCOSE-RANDOM NEGATIVE (Negative); URINE KETONES TRACE (Negative); URINE LEUKOCYTES-REFLEX TRACE (Negative); URINE NITRITE-REFLEX NEGATIVE (Negative); URINE PROTEIN 3+ (Negative); URINE SPECIFIC GRAVITY 1.015 (1.005-1.030); URINE UROBILINOGEN 0.2 E.U./dl (0.2-1.0)
[2020-03-11 15:20] LABS: BACTERIA-REFLEX None Seen /HPF (None Seen); CASTS None Seen /LPF (None Seen); CRYSTALS None Seen /LPF (None Seen); MUCUS None Seen strn/LPF (None Seen); SQUAMOUS NONE SEEN /LPF (0-3); URINE RBC >20 Many /HPF (0-2); URINE WBC-REFLEX 0-5 Rare /HPF (0-5)
--- NOTE | 2020-03-11 15:29 | NUR ---
ICU rounds: Pt alert but lethargic. Pt had dialysis yesterday, Pt may need outpt dialysis arranged. K coming down. IVABX. Sepsis. CM left for Pt's . Pt known to this CM from previous hospital stays. Pt resides at home with . Pt has a hx of declining HH and SNF. Pt is current with [facility]. Pt completes IADLs and assist with ADLs as needed.Pt uses a cane for mobility. Await call back from .
--- NOTE | 2020-03-11 19:23 | NUR ---
PT A&O x4 BUT LETHARGIC. NS AT 75 MLS/HR. HYPERKALEMIA CORRECTED PER NEPHROLOGY, PLAN DIALYSIS [place]. ATE 30-40% OF HER MEALS. VSS, O2 SUPP WITH NC 2L/MIN. PARTIAL BED BATH GIVEN. FECAL MGMT SYSTEM OUT. PRESSRE ULCER AT THE BUTTOCKS CLEANSED AND DRESSED. Q2 TURNS DONE.
[2020-03-11] MEDS ORDERED: AUGMENTIN 500-1 EACH PO (20:55)
[2020-03-12] VITALS (16 sets, daily range): BP systolic 134–162; BP diastolic 46–62
[2020-03-12 04:20] LABS: HEMATOCRIT 25.1 % (37.0-47.0); HEMOGLOBIN 8.2 gm/dL (12.0-15.0); MCH 25.5 pg (26.0-34.0); MCHC 32.5 g/dL (28.0-37.0); MCV 78.3 fL (80.0-100.0); MPV 7.7 fl. (7.2-11.1); RBC 3.21 mil/uL (4.20-5.00); RDW-CV 17.4 % (10.5-14.5); WBC 4.1 thou/uL (4.0-11.0)
[2020-03-12 04:52] LABS: POTASSIUM 4.8 mmol/L (3.5-5.1)
[2020-03-12 05:00] LABS: % SATURATION 13 % (20-39); IRON 17 ug/dL (50-175)
[2020-03-12 06:12] LABS: ALBUMIN 2.2 g/dL (3.4-5.0); ALKALINE PHOSPHATASE 81.6 U/L (46-116); CALCIUM 6.6 mg/dL (8.5-10.1); CREATININE 4.6 mg/dL (0.6-1.3); GLUCOSE 87.6 mg/dL (70-99); MAGNESIUM 1.8 mg/dL (1.8-2.4); TOTAL BILIRUBIN 0.6 mg/dL (<0.1-1.0); TOTAL PROTEIN 4.2 g/dL (6.4-8.2)
--- NOTE | 2020-03-12 08:06 | CON ---
[address] [address] CONSULTATION Name: JOSE MARTIN HOLLINS Room: [address] ADM IN M.R.#: [id number] Admission: 03/10/20 Attend Phys: Cassi Kasper MD Discharge: Date of : 46 Report #: [id number] THIS REPORT FOR: //name// cc: Dyllan Gardiner Steve T. DO ~ THIS REPORT FOR: //name// CC: Cassi Gardiner DATE OF SERVICE: 03/11/2020 INFECTIOUS DISEASE CONSULTATION ATTENDING PHYSICIAN: Andrea Martins MD REASON FOR EVALUATION: Severe sepsis with apparent complicated urinary tract infection, likely pyelonephritis as well as multiple organ dysfunction. HISTORY OF PRESENT ILLNESS: Chart reviewed, patient examined. This is a 69-year-old woman has got an extended medical history, has been hospitalized 4 times this year, has known diabetes mellitus, has been complicated by vasculopathy, cardiomyopathy as well, who was admitted through the Emergency Room with progressive weakness. There has been fairly profound associated lethargy and encephalopathy, disoriented even to time and place. On evaluation was found to have worsening renal failure with creatinine of 6.5. Chest x-ray was fairly unremarkable, although apparently was hypoxemic and is now on supplemental oxygen per nasal cannula at 2 liters. Urinalysis did show marked pyuria, bacteriuria, evidence of yeast. She is unable to give too many details of her history at this point. She is noted to be febrile in the 100-101 range, primarily overnight. She has not required any hemodynamic/pressure support. She is empirically placed on therapy with cefepime, fluconazole. ALLERGIES: CODEINE, HYDROCODONE. CURRENT MEDICINES: Include atorvastatin, isosorbide mononitrate, cefepime 500 mg daily, gabapentin, carvedilol, clopidogrel, amlodipine, tramadol, levothyroxine, pantoprazole, p.r.n. analgesics, antiemetics and fluconazole. PAST MEDICAL HISTORY: As noted above, diabetes mellitus that has been complicated by vasculopathy, has known atherosclerotic coronary artery disease, has cardiomyopathy, history of congestive heart failure, previous acute myocardial infarctions, has hypertension, renal lithiasis, history of gout, hypothyroidism, high cholesterol, does have a myelodysplastic syndrome apparently as well, [place] [address] CONSULTATION Name: JOSE MARTIN HOLLINS Jonathan Room: [address]#: [id number] Admission: 03/10/20 Attend Phys: Cassi Kasper MD Discharge: Date of : 46 Report #: [id number] PAST SURGICAL HISTORY: Previous appendectomy, tonsillectomy, hysterectomy, cholecystectomy, left knee surgery. SOCIAL HISTORY: Nonsmoker, no ethanol, no illicit drug use. FAMILY HISTORY: Noncontributory. REVIEW OF SYSTEMS: Not reliably obtained. PHYSICAL EXAMINATION: GENERAL: She appears ill. She is quite lethargic. She is difficult to interact with. She is not engaged, appears chronically ill and undernourished. VITAL SIGNS: Temperature 100.6, pulse 85, respirations 15, blood pressure 162/61. SKIN: Warm, dry. I do not appreciate any rashes. HEENT: Normocephalic. Extraocular muscles appear to be intact. NECK: Supple. Does have nasal cannula oxygen per 2 liters. LUNGS: Scattered coarse breath sounds. HEART: Regular. Does have a systolic murmur. ABDOMEN: Mildly distended, soft, no apparent peritoneal signs. No tenderness. GENITOURINARY AND RECTAL: Deferred. EXTREMITIES: Does have a stageable ulcer involving the coccyx-sacral area. LABORATORY DATA: Initial CBC showed white count 3.1, H and H 9.1 and 28.5, platelets of 92 with a lymphocytopenia of 500. Troponin less than 0.06. Electrolytes: Sodium 137, potassium 9.2, chloride 111, bicarbonate is 19, anion gap of 7, BUN and creatinine 93 and 6.5, glucose 127, lipase of 448. LFTs unremarkable. Albumin of 2.5, total protein of 6.7. Chest x-ray, no acute process, cardiomegaly was evident. Urinalysis; 16-25 white cells, greater than 30 bacteria. Positive microscopic evaluation noted yeast. Prealbumin of 25.5. Repeat electrolytes after dialysis. Sodium 138, potassium 5.4, chloride 104, bicarbonate is 29, BUN and creatinine 41 and 3.6, anion gap of 5. Lactic acid 0.7. ASSESSMENT AND PLAN: Severe sepsis. The patient is critically ill at this point, multiorgan dysfunction, most likely focus of pyogenic infection, would not be a complicated urinary tract infection, probably pyelonephritis. We will continue empiric therapy. Cefepime gives us good Gram-negative coverage. We will dose with vancomycin as well. We will get an echo, does have a murmur, it is difficult to ascertain whether this is something new or not, maybe she has got occult process as well given that she has some degree of immunocompromise [address] [address] CONSULTATION Name: JOSE MARTIN HOLLINS Room: 003-P [facility] IN ..#: [id number] Admission: 03/10/20 Attend Phys: Cassi Kasper MD Discharge: Date of : 46 Report #: [id number] given her myelodysplastic syndrome. At this point, she remains critically ill. We will monitor expectantly, support as required. <ELECTRONICALLY SIGNED> By: Cole Landeros MD 03/12/20 0806 [id number] Landeros MD /nt
--- NOTE | 2020-03-12 10:20 | NUR ---
WOUND NURSE: PATIENT SEEN TO ADDRESS SKIN LESIONS ON SACRUM. PATIENT REPORTS SHE HAS HAD THEM FOR SOME TIME AND PRIOR TO HOSPITALIZATION. STATES THEY OCCURRED FROM LAYING ON HER BACK TOO LONG. PRESENTS STAGE 3 PRESSURE INJURIES WITH FULL THICKNESS TISSUE LOSS. LEFT SACRUM MEASURES 0.5 X 1.0 X 0.2 CM AND RIGHT SACRUM MEASURES 1.0 X 0.5 X 0.2 CM AND CONTAINS A SKIN BRIDGE BETWEEN TWO OPENINGS. THERE IS RED, NONGRANULATING TISSUE IN THE WOUND BEDS AND MINIMAL YELLOW EXUDATE PRESENT. THERE IS NO PERIWOUND REDNESS, WARMTH, OR INDURATION. CLEANSED WITH SOAP AND WATER, RINSED WITH WATER, THEN PATTED DRY. APPLIED SKIN PREP TO PERIWOUND TISSUE. APPLIED AQUACEL AG TO EACH WOUND OPENIN, COVERED AREA WITH EXUDERM LP, AND SECURED IN PLACE USING SURESITE TRANSPARENT DRESSING. PATIENT WAS INSTRUCTED ON IMPORTANCE OF Q2HR TURNING FROM SIDE TO SIDE AND AVOID LAYING ON BACK. ALSO INSTUCTED ON IMPORTANCE OF PROTEIN IN THE DIET. PATIENT STATES SHE UNDERSTANDS. ALSO PATIENT WAS ABLE TO ASSIST WITH REPOSITIONING.
--- NOTE | 2020-03-12 14:11 | NUR ---
ICU rounds: Tele status. Pt less lethargic today. Weak but more alert. No dialysis today, renal following. Cath in. MRSA positive of nares. Eating and feeding self.
--- NOTE | 2020-03-12 19:25 | NUR ---
PT A&O x4. VSS, O2 SUPPORT NC 2L/MIN. SACRAL WOUNDS DRESSED BY WOUND NURSE. ASSISTED WITH Q2 TURNS. ATE 3O-40% OF HER MEALS. BLADDER IRRIGATED PER ORDER. TRANSFERRED TO [facility] AT 1630, REPORT GIVEN TO JOSE MONAHAN. NOTIFIED.
[2020-03-13] VITALS: BP 135/56
[2020-03-13 04:00] VITALS: BP 145/49
[2020-03-13 06:27] LABS: CALCIUM 7.1 mg/dL (8.5-10.1); CREATININE 4.9 mg/dL (0.6-1.3); MAGNESIUM 1.7 mg/dL (1.8-2.4); POTASSIUM 4.4 mmol/L (3.5-5.1)
[2020-03-13 06:30] LABS: CALCIUM 6.8 mg/dL (8.5-10.1); CREATININE 4.9 mg/dL (0.6-1.3); POTASSIUM 4.4 mmol/L (3.5-5.1)
--- NOTE | 2020-03-13 06:44 | NUR ---
RECEIVED REPORT AND ASSUMED CARE OF PT AT 1900. NO ACUTE CHANGES THROUGHOUT SHIFT. ALL ROUNDINGS COMPLETED, ALL NEEDS MET, FULL ASSESSMENT COMPLETED CHARTED. CALL LIGHT AND PERSONAL ITEMS IN REACH.
[2020-03-13 12:27] VITALS: BP 133/50
[2020-03-13 14:09] LABS: HEPATITIS B SURFACE AG Negative (Negative)
--- NOTE | 2020-03-13 14:43 | NUR ---
CM spoke with Pt's via phone, thinks that Pt will need rehab at dc and wants to try and get Pt to acute rehab. CM discussed possible need for dialysis post dc to, informed that renal is following. voiced concerns about Pt not being offered the right kinds of foods, CM updated nurse. Following.
[2020-03-13 16:52] VITALS: BP 138/49
[2020-03-13 19:08] LABS: COMPLEMENT-C4 10 mg/dL (14-44); IgA 83 mg/dL (64-422); IgG 797 mg/dL (586-1602)
[2020-03-13 20:00] VITALS: BP 144/54
[2020-03-13 21:07] LABS: IgM 1102 mg/dL (26-217)
[2020-03-14] VITALS: BP 135/48
--- NOTE | 2020-03-14 03:58 | NUR ---
ASSUMED PT CARE AT APPROX 1930. PT IS AWAKE AND ORIENTED X4. SECURED ENTRANCE MONITOR IS TRACING SR. ASSESSMENT DONE AND CHARTED. PT DENIES PAIN/DISCOMFORT. NO DESATURATIONS NOTED ON 2L OF O2/NC. POSITION CHANGES DONE Q2H. NO ACUTE CHANGES OVERNIGHT. CALL LIGHT WITHIN REACH. HOURLY ROUNDING DONE FOR PT SAFETY. HIGH FALL PRECAUTIONS IN PLACE. WILL CONTINUE TO MONITOR PT.
[2020-03-14 04:00] VITALS: BP 145/50
[2020-03-14 04:33] LABS: CALCIUM 6.8 mg/dL (8.5-10.1); CREATININE 5.3 mg/dL (0.6-1.3); POTASSIUM 4.7 mmol/L (3.5-5.1)
[2020-03-14 08:29] VITALS: BP 129/52
[2020-03-14 09:09] LABS: HEPATITIS B SURFACE AG Negative (Negative)
--- NOTE | 2020-03-14 09:35 | NUR ---
ASSUMED CARE OF PT THIS AM AROUND 0715- TUBE WINDER IN PLACE ORDERED, TRACING SR- UPON ASSESSMENT PT NOTED TO BE RESTING IN BED- PT A&O X3-4, DROWSY- REDMOND IN PLACE D/D BLOOD TINGED URINE- BED REST IN PLACE WITH Q2 HOUR TURNS-LCTA, RESP EVEN AND UN-LABORED- LOW GRADE TEMP NOTED AT 99.7 THIS AM- ABD SOFT/ROUND/NON-TENDER, BS X4 QUADS-GOOD PO INTAKE NOTED THIS AM WITH BREAKFAST, BS MONITORED ORDERED- UNKNOWN LAST BM- IV NOTED TO RIGHT WRIST AND RIGHT FA INTACT AND SL; IVF NOTED TO BE D/C'D THIS SHIFT PER NEPHROLOGY- RIGHT JUGULAR TEMP DIALYSIS ACCESS NOTED WITH DRESSING C/D/I-DRESSINGS TO JESSICA BUTTOCKS IN PLACE WITH NO NEED TO CHANGE THIS SHIFT- DIALYSIS ORDERED THIS SHIFT AND PT CURRENTLY OFF UNIT FOR DIALYSIS AT THIS TIME-CALL NEEDS MET AT THIS TIME-ANIVAL
[2020-03-14 12:08] LABS: KAPPA FREE LIGHT CHAINS 262.5 mg/L (3.3-19.4); LAMBDA FREE LIGHT CHAINS 292.3 mg/L (5.7-26.3)
[2020-03-14 13:05] VITALS: BP 166/56
--- NOTE | 2020-03-14 14:57 | NUR ---
Rehab consult to be placed. Pt to have dialysis today
[2020-03-14 17:18] VITALS: BP 158/56
[2020-03-14 17:32] LABS: HEMATOCRIT 23.7 % (37.0-47.0); HEMOGLOBIN 7.8 gm/dL (12.0-15.0); MCH 25.2 pg (26.0-34.0); MCHC 32.7 g/dL (28.0-37.0); MPV 7.4 fl. (7.2-11.1); NUCLEATED RBCS 0 /100WBC; PLATELET COUNT* 86 thou/uL (150-400); RBC 3.08 mil/uL (4.20-5.00); WBC 4.8 thou/uL (4.0-11.0)
[2020-03-14 17:43] LABS: URINE BLOOD 3+ (Negative); URINE CLARITY CLOUDY; URINE COLOR RED; URINE GLUCOSE-RANDOM TRACE (Negative); URINE KETONES NEGATIVE (Negative); URINE LEUKOCYTES NEGATIVE (Negative); URINE NITRITE POSITIVE (Negative); URINE PROTEIN 3+ (Negative); URINE SPECIFIC GRAVITY 1.015 (1.005-1.030)
[2020-03-14 17:45] LABS: ALBUMIN 1.9 g/dL (3.4-5.0); CALCIUM 6.9 mg/dL (8.5-10.1); CREATININE 3.1 mg/dL (0.6-1.3); POTASSIUM 4.4 mmol/L (3.5-5.1); TOTAL BILIRUBIN 0.7 mg/dL (<0.1-1.0); TOTAL PROTEIN 5.9 g/dL (6.4-8.2)
[2020-03-14 17:48] LABS: URINE BILIRUBIN 2+ (Negative)
[2020-03-14 17:49] LABS: ICTOTEST (BILI CONFIRMATORY) Negative (Negative); URINE RBC >20 Many /HPF (0-2)
[2020-03-14 17:50] LABS: SQUAMOUS 0-3 Few /LPF (0-3)
[2020-03-14 17:54] LABS: CASTS None Seen /LPF (None Seen); CRYSTALS None Seen /LPF (None Seen); YEAST Present (None Seen)
[2020-03-14 17:55] LABS: BACTERIA 1-9 Few /HPF (None Seen); MUCUS None Seen strn/LPF (None Seen); URINE WBC 0-5 Rare /HPF (0-5)
[2020-03-14 19:03] LABS: ABSOLUTE LYMPHOCYTES 0.4 thou/uL (0.8-5.3); ABSOLUTE MONOCYTES 0.1 thou/uL (0.0-1.2); ABSOLUTE NEUTROPHILS 4.3 thou/uL (1.6-8.1)
[2020-03-14 19:04] LABS: ANISOCYTOSIS 1+; PLATELET ESTIMATE DECREASED
[2020-03-14 21:09] VITALS: BP 150/52
[2020-03-15] VITALS (7 sets, daily range): BP systolic 129–163; BP diastolic 50–61
[2020-03-15 04:38] LABS: WBC 3.6 thou/uL (4.0-11.0)
[2020-03-15 04:41] LABS: ABSOLUTE LYMPHOCYTES 0.4 thou/uL (0.8-5.3); ABSOLUTE MONOCYTES 0.2 thou/uL (0.0-1.2); ABSOLUTE NEUTROPHILS 2.9 thou/uL (1.6-8.1); HEMOGLOBIN 7.1 gm/dL (12.0-15.0)
[2020-03-15 04:44] LABS: BASOPHILS 1.1 %; EOSINOPHILS 1.2 %; HEMATOCRIT 21.5 % (37.0-47.0); LYMPHOCYTES 11.6 %; MCH 25.4 pg (26.0-34.0); MCHC 32.9 g/dL (28.0-37.0); MCV 77.1 fL (80.0-100.0); MONOCYTES 4.5 %; MPV 7.5 fl. (7.2-11.1); NUCLEATED RBCS 0 /100WBC; PLATELET COUNT* 79 thou/uL (150-400); POLYS 81.6 %; RBC 2.78 mil/uL (4.20-5.00); RDW-CV 17.1 % (10.5-14.5)
[2020-03-15 04:54] LABS: ALBUMIN 1.6 g/dL (3.4-5.0); CALCIUM 7.1 mg/dL (8.5-10.1); CREATININE 3.7 mg/dL (0.6-1.3); MAGNESIUM 1.6 mg/dL (1.8-2.4); POTASSIUM 4.2 mmol/L (3.5-5.1); TOTAL BILIRUBIN 0.5 mg/dL (<0.1-1.0); TOTAL PROTEIN 5.1 g/dL (6.4-8.2)
--- NOTE | 2020-03-15 08:02 | NUR ---
PT IS ABLE TO COMMUNICATE HER NEEDS TO STAFF WITH MINOR DIFFICULTY; PT HAS BEEN SOMEWHAT DROWSY/LETHARGIC; SHE IS ARROUSABLE BUT REQUIRES SOME ADDITIONAL TIME TO ANSWER QUESTIONS. SHE HAS DENIED THE NEED FOR PAIN MEDICATION UP TO THIS TIME. REDMOND IS PATENT, UP TO THIS TIME. SHE IS CURRENTLY ON THE 3RD FLOOR FOR DIALYSIS.
[2020-03-15 12:08] LABS: GLOMERULR BASEM MEMBRN AB 6 units (0-20)
[2020-03-15 13:09] LABS: ANA INTERPRETATION Positive (Negative)
--- NOTE | 2020-03-15 16:24 | NUR ---
Per , renal following for dialysis needs. ID following. Pt febrile overnight. Repeat cultures pending. Rehab consult placed yesterday.
[2020-03-16] VITALS (7 sets, daily range): BP systolic 135–162; BP diastolic 50–73
[2020-03-16 05:44] LABS: CALCIUM 7.3 mg/dL (8.5-10.1); MAGNESIUM 1.6 mg/dL (1.8-2.4); POTASSIUM 4.2 mmol/L (3.5-5.1)
[2020-03-16 05:48] LABS: CREATININE 2.7 mg/dL (0.6-1.3)
--- NOTE | 2020-03-16 11:09 | NUR ---
ASSUMED PT CARE AT 0730, PT RESTING IN BED, SATTING 97% ON 2L, TRACING SR ON THE IRON MINER BLASTING AND HAS NO C/O PAIN OR SHORTNESS OF BREATH. PT HAS 2 PRESSURE WOUNDS ON EITHER SIDE OF HER SACRUM, DRESSINGS CHANGED BY WOUND CARE T-1. PT HAS A REDMOND IN PLACE FOR I&O W/ BLOOD TINGED/TEA COLORED URINE DRAINING. PT WENT TO DIALYSIS THIS MORNING AND HAS BEEN OFF UNIT SINCE THEN. PT GOAL IS TO WORK W/ PT/OT TO INCREASE ACTIVITY AND TURN Q2H TO PREVENT FURTHER SKIN BREAKDOWN. AM ASSESSMENT CHARTED, MEDS PER MAR, BED IN LOW POSITION, BED ALARM ON, CALL LIGHT W/IN REACH, HOURLY ROUNDING OBSERVED, WILL CONTINUE POC.
--- NOTE | 2020-03-16 18:36 | NUR ---
NO ACUTE CHANGES THROUGHOUT SHIFT, PT GOT UP W/ PT/OT TO CHAIR FOR LUNCH AND DINNER AND MOVED BACK TO BED THEREAFTER, TURNED Q2H, STILL HAS REDMOND IN PLACE W/ BLOOD TINGED/TEA COLORED URINE DRAINING. PT COMPLETED DIALYSIS AND HAD SOME C/O LOWER ABD PAIN, TREATED W/ PRN TYLENOL W/ RELIEF. MEDS PER DEC, HOURLY ROUNDING OBSERVED, FALL PRECAUTIONS IN PLACE, WILL CONTINUE POC.
[2020-03-17] VITALS: BP 139/52
[2020-03-17 07:40] VITALS: BP 137/48
--- NOTE | 2020-03-17 07:48 | CON ---
[address] [address] CONSULTATION Name: JOSE MARTIN HOLLINS Room: [address] IN .R.#: [id number] Admission: 03/10/20 Attend Phys: Cassi Kasper MD Discharge: Date of : 46 Report #: [id number] THIS REPORT FOR: //name// cc: Dyllan Gardiner Steve T. DO ~ THIS REPORT FOR: //name// CC: Cassi Gardiner DATE OF SERVICE: 03/11/2020 NEPHROLOGY CONSULTATION CONSULTING PHYSICIAN: Cassi Kasper MD REASON FOR NEPHROLOGY CONSULTATION: Acute kidney injury on chronic kidney disease, stage 4 and severe hyperkalemia. REASON FOR ADMISSION: Lethargy. HISTORY OF PRESENT ILLNESS: This is a 69-year-old female who has past medical history of chronic kidney disease, stage 4 because of diabetic nephropathy, baseline creatinine is 1.9-2.2 and she follows with Dr. Paulino as outpatient. She also has a history of idiopathic thrombocytopenic purpura, myelodysplastic syndrome and hypertension, was brought to the ER by the patient's because of weakness and fatigue and it has been going on for many, many days now. She was found to have a potassium of 9.2, creatinine of 6.5, BUN of 93. She was very lethargic. She was not having difficulty breathing. An EKG showed peaked T-waves and she was urgently dialyzed. She dialyzed for 4 hours. She has been anuric, but made about 50 mL of urine overnight. Potassium this morning is 5.4. She is still quite lethargic. She is able to tell me where she is, but not able to answer other questions. No recent medication changes that we know of, but she does take potassium, losartan, Aldactone and Bumex at home. Her blood pressure was running a little bit towards the higher side, so blood pressure medications have been adjusted by primary this morning. ALLERGIES: CODEINE AND HYDROCODONE. REVIEW OF SYSTEMS: As mentioned in history of present illness, otherwise unable to obtain from the patient because of her mental status. HOME MEDICATIONS: Include isosorbide mononitrate, bumetanide 1 mg daily, tramadol, levothyroxine, hydralazine 100 mg t.i.d., amlodipine 5 mg b.i.d., clopidogrel, carvedilol, lovastatin, losartan 50 mg b.i.d., doxazosin, potassium chloride 20 mEq b.i.d., gabapentin, spironolactone 25 [place] [address] CONSULTATION Name: JOSE MARTIN HOLLINS Room: [address] IN M.R.#: [id number] Admission: 03/10/20 Attend Phys: Cassi Kasper MD Discharge: Date of : 46 Report #: [id number] PAST MEDICAL AND SURGICAL HISTORY: Includes chronic diastolic congestive heart failure; coronary artery disease x 2; chronic kidney disease, stage 4, baseline creatinine 1.9-2.2 because of diabetes and hypertension; mitral regurgitation; pulmonary regurgitation; ITP/MDS; cholecystectomy; appendectomy; tonsillectomy; hysterectomy; left knee surgery; kidney stones; vein surgery in bilateral legs; removal of cataracts; gout; hypothyroidism; high cholesterol; gastritis; iron deficiency; shingles; gout; chronic pain; neuropathy; hypothyroidism. FAMILY HISTORY: Not able to obtain from the patient. SOCIAL HISTORY: She lives at home with her . According to the patient's chart, she does not smoke or drink alcohol or use illicit drugs. PHYSICAL EXAMINATION: VITAL SIGNS: Blood pressure is 166/64, temperature 38.3, respiratory rate is 16, pulse rate is 86, and oxygen saturation 98% on 2 liters of oxygen by nasal cannula. GENERAL: She is lethargic. She is able to tell me where she is, but otherwise not able to answer other questions. HEAD AND EYES: Atraumatic, normocephalic and normal conjunctivae. EARS, NOSE, AND THROAT: Normal ears and nose. Mucous membranes are dry. NECK: JVD was difficult to assess. CHEST: Bilaterally clear to auscultation anteriorly. No crackles heard anteriorly. CARDIOVASCULAR: S1, S2 normal. No murmurs. ABDOMEN: Soft. It was nondistended, nontender. LOWER EXTREMITIES: There is just 1+ ankle edema, but otherwise no edema. SKIN: Turgor seems to be decreased and skin is dry. NEUROLOGICAL FUNCTION: She is oriented x 1 and quite lethargic to answer other questions. PSYCHIATRIC: Not able to assess right now. LABORATORY DATA: WBC is 4.2, hemoglobin is 8.8, and platelet count is 73. Sodium is 138, potassium was 5.4 this morning. Her BUN was 41. Her creatinine was reviewed, was a post-dialysis creatinine. Her CO2 was 29 and other labs are reviewed. IMAGING: Chest x-ray and head CT were reviewed. ASSESSMENT: 1. Acute kidney injury on chronic kidney disease, stage 4 in the setting of possible infection but refusing spiking fevers and on multiple diuretics, Aldactone, bumetanide and losartan. Her baseline creatinine is around 1.9-2.2 and she presents with a creatinine of 6.5. UA reviewed. It did have 3+ protein, greater than 20 rbc's in it and 23 wbc's in it. Renal imaging is [facility] [address] [place] [address] CONSULTATION Name: JOSE MARTIN HOLLINS Room: [address] ADM IN M.R.#: [id number] Admission: 03/10/20 Attend Phys: Cassi Kasper MD Discharge: Date of : 46 Report #: [id number]. 2. Severe sepsis, possibly because of her urinary tract infection, bacterial, possibly fungal and primary team is treating that. 3. History of myelodysplastic syndrome/idiopathic thrombocytopenic purpura. Platelet count is dropping. 4. History of hypertension. Blood pressure was running slightly towards high side this morning. 5. The patient presented with severe hyperkalemia. She is on potassium supplementation, losartan, spironolactone, and presented with acute kidney injury. She has not been making much urine. 6. Anemia. She has a history of iron-deficiency anemia in the past. We will be checking iron parameters and history of myelodysplastic syndrome as well. 7. History of diabetes type 2. Primary team is managing that. 8. History of coronary artery disease. 9. History of chronic diastolic congestive heart failure. Currently, she looks intravascularly volume depleted. 10. History of hypothyroidism. PLAN: 1. She was dialyzed last night because of severe hyperkalemia and there is no acute need for dialysis this morning. To me, she looks a little bit dry, was initiated on normal saline 75 mL an hour. 2. If she is given a diet, it should be a low-potassium diet. 3. Her platelet count has been dropping, to consider stopping heparin subcutaneously. 4. We will check iron parameters. 5. We will check renal ultrasound. 6. She does have microscopic hematuria, but has evidence of possible urinary tract infection, so UA will be repeated as an outpatient and we would hold off on sending serological workup for hematuria as yet. 7. We will assess her daily for dialysis needs and as mentioned above, there is no acute need for dialysis today. Thank you for this consultation. We will continue to follow with you and I spent 35 minutes in critical care. This time was spent in chart review, placing orders and care coordination. We will continue to follow with you. <ELECTRONICALLY SIGNED> By: Camila Carreno MD 03/17/20 0748 0903 [id number] Carreno MD /nt
--- NOTE | 2020-03-17 10:05 | NUR ---
ASSUMED CARE OF PT AT 0730. PT RESTING IN BED WAITING FOR BREAKFAST. A&0X4, DENIES ANY PAIN OR SHORTNESS OF BREATH AT THIS TIME. PT MED SURG STATUS. ON 2L NC SAT 95%. PT UP WITH MAX ASSIST AND GAIT BELT. REDMOND TO DEPENDENT DRAINAGE WITH TEA COLORED/BLOOD TINGED URINE. NEPHROLOGY HERE TO SEE PT THIS AM AND ORDERS RECEIVED FOR CARDIOLOGY CONSULT REGARDING STOPPING PLAVIX FOR KIDNEY BIOPSY AND IR CONSULT IN AM FOR TUNNELED DIALYSIS CATHETER PLACEMENT. PT NPO AFTER MIDNIGHT. PT IN CONTACT ISOLATION FOR MRSA NARES. PT GOAL FOR TODAY IS TITRATE OXYGEN, INCREASE ACTIVITY AND UP TO CHAIR FOR MEALS. AM ASSESSMENT CHARTED. MEDICATIONS PER DEC. PT REPOSITIONED EVERY 2 HOURS FOR COMFORT. HOURLY ROUNDING OBSRERVED. BED IN LOW POSITION. BED ALARM IN PLACE. FALL PRECAUTIONS IN PLACE. CALL LIGHT WITHIN REACH. WILL CONTINUE PLAN OF CARE.
[2020-03-17 11:30] VITALS: BP 143/52
[2020-03-17 16:00] VITALS: BP 143/52
--- NOTE | 2020-03-17 18:01 | NUR ---
NO ACUTE CHANGES THROUGHOUT SHIFT. REFER TO CHARTING. PT INCONT OF BM THIS AFTERNOON. PT NPO AFTER MIDNIGHT FOR TUNNELED DIALYSIS CATHETER PLACEMENT. WOUND CARE GIVEN TO BUTTOCKS AND PICTURE TAKEN. PT FAMILY CALLED AND UPDATED ON CURRENT PLAN OF CARE. MEDS PER DEC. PT REPOSITIONED EVERY 2 HOURS FOR COMFORT. HOURLY ROUNDING OBSERVED. BED IN LOW POSITION. BED ALARM IN PLACE. FALL PRECAUTIONS IN PLACE. CALL LIGHT WITHIN REACH. WILL CONTINUE PLAN OF CARE.
[2020-03-17 19:57] VITALS: BP 153/58
[2020-03-18 00:43] VITALS: BP 143/56
[2020-03-18 04:31] LABS: CALCIUM 7.1 mg/dL (8.5-10.1); POTASSIUM 3.8 mmol/L (3.5-5.1)
[2020-03-18 04:32] LABS: CALCIUM 7.3 mg/dL (8.5-10.1); MAGNESIUM 1.8 mg/dL (1.8-2.4); POTASSIUM 3.8 mmol/L (3.5-5.1)
[2020-03-18 04:45] LABS: CREATININE 3.7 mg/dL (0.6-1.3)
[2020-03-18 08:12] VITALS: BP 145/57
--- NOTE | 2020-03-18 09:10 | NUR ---
ASSUMED PT CARE AT 0730, PT RESTING IN BED, SATTING 97% ON 2L, M/S STATUS, AND HAS NO C/O PAIN OR SHORTNESS OF BREATH. PT HAS BEEN NPO SINCE MIDNIGHT FOR TUNNELING DIALYSIS CATHETER PLACEMENT TODAY, CONSENT SIGNED AND IN CHART. PT ALSO SCHEDULED TO HAVE DIALYSIS TODAY AT 1010. IR ENDED UP CALLING AND STATES THEY DO NOT HAVE THE EQUIPMENT NECESSARY TO COMPLETE PROCEDURE, BREAKFAST TRAY GIVEN TO PT AND IR WILL CONTACT LATER TODAY IF EQUIPMENT LOCATED. OTHERWISE, PROCEDURE WILL BE RESCHEDULED FOR TOMORROW. PT GOAL IS TO COMPLETE DIALYSIS AND INCREASE ACTIVITY. PT IS STILL UP W/ 2 AND A GAIT BELT, AM ASSESSMENT CHARTED, MEDS HELD UNTIL AFTER DIALYSIS, HOURLY ROUNDING OBSERVED, BED IN LOW POSITION, BED ALARM ON, CALL LIGHT W/IN REACH, WILL CONTINUE POC.
--- NOTE | 2020-03-18 12:51 | CON ---
[address] [address] CONSULTATION Name: JOSE MARTIN HOLLINS Jonathan Room: [address] IN .R.#: [id number] Admission: 03/10/20 Attend Phys: Cassi Kasper MD Discharge: Date of : 46 Report #: [id number] THIS REPORT FOR: //name// cc: Dyllan Gardiner Steve T. DO ~ THIS REPORT FOR: //name// CC: Cassi Gardiner DO DATE OF SERVICE: 03/17/2020 CARDIOLOGY CONSULTATION HISTORY OF PRESENT ILLNESS: The patient is a 69-year-old white female who I was asked to see in the hospital today to address her need for Plavix. The patient has a long history of heart disease. She apparently had a stent placed in the right coronary artery at [facility] in 2005. I performed repeat cardiac catheterization in 12/2018, there was no restenosis of the stent. However, there was a 90% narrowing in the mid LAD and I placed a new drug-eluting stent in 12/2018. She has done well since that time. She is not very active because of chronic back pain. She is currently primarily in wheelchair. She has chronic edema and takes Bumex. Recently, she developed renal failure. She has a temporary dialysis catheter in place. She receives dialysis Wednesday, Wednesday and Wednesday. She was admitted to [facility] a week ago because of confusion. She is noted to be anemic. Cardiology consultation was requested because of need for GI workup. The patient denies any recent chest pain, shortness of breath, palpitations, syncope. She does complain of weak and having no appetite. She denied any bleeding. PAST MEDICAL HISTORY: She had cholecystectomy, hysterectomy, knee surgery, hypertension, hyperlipidemia, ITP. She is followed by Hematology. Chronic anemia. She receives iron infusions. ALLERGIES: SHE HAS AN ALLERGY TO CODEINE. FAMILY HISTORY: Positive for heart disease. SOCIAL HISTORY: She is . She and her live in [employer]. No smoking or alcohol abuse. REVIEW OF SYSTEMS: No history of stroke, asthma, liver disease. She has renal failure. Skin cancer removed in the past. No psychiatric illness. No [place] [address] CONSULTATION Name: QUANTOMASJOSE MARTIN J Room: [address] IN [facility]#: [id number] Admission: 03/10/20 Attend Phys: Cassi Kasper MD Discharge: Date of : 46 Report #: [id number] MEDICATIONS: On admission consisted of amlodipine, Bumex, carvedilol, Plavix, Cardura, Neurontin, hydralazine, Imdur, Synthroid, losartan, lovastatin, spironolactone. PHYSICAL EXAMINATION: CURRENT VITAL SIGNS: She has a blood pressure of 130/60, pulse 60. She is afebrile. HEENT: She was anicteric. Conjunctivae are pink. Mucous membranes moist. NECK: Veins are nondistended. CHEST: Clear to auscultation. CARDIOVASCULAR: Regular rate and rhythm. ABDOMEN: Soft. EXTREMITIES: Had no edema. SKIN: Cool and dry. NEUROLOGIC: She is very slow moving. RADIOLOGICAL DATA: Her ECG on admission showed a sinus rhythm, first degree AV block, left axis deviation and a left bundle branch block. Her workup, she had an echocardiogram in October of this year that showed an ejection fraction of 60%, aortic sclerosis, mild mitral regurgitation. There was only a trace pericardial effusion. Her chest x-rays, she had a portable chest x-ray done yesterday that showed mild vascular congestion, mild cardiomegaly. CT scan of the head performed in December showed no acute abnormality, only atrophy. Carotid Doppler study in December showed plaque formation, no high grade stenosis. LABORATORY WORK: Sodium 136, potassium 4.2, BUN 20, creatinine 2.7. Albumin is only 1.6. Troponin 0.06. BNP 13,752. TSH 2.9. Her white blood cell count 3.6, hemoglobin 7.1, platelet count 79,000. IMPRESSION AND RECOMMENDATIONS: 1. Coronary artery disease. Previous coronary artery stenting. Her last stent was placed over a year ago. At this time, I think it is reasonable to hold the Plavix for GI workup. I would then resume Plavix. The patient does not have any angina at this time. 2. Hypertension. 3. Hyperlipidemia. The patient is on a statin drug. 4. Renal failure. The patient receives temporary dialysis. 5. Idiopathic thrombocytopenic purpura. The patient followed by Hematology. 6. Chronic anemia. The patient receives iron infusions. 7. Chronic back pain. The patient is predominantly in a wheelchair. <ELECTRONICALLY SIGNED> By: Alfredito Hidalgo MD, FACC 03/18/20 1251 [id number] Hidalgo MD, FACC /nt
[2020-03-18 14:44] VITALS: BP 159/53
[2020-03-18 16:00] VITALS: BP 163/58
--- NOTE | 2020-03-18 18:19 | NUR ---
NO ACUTE CHANGES THROUGHOUT SHIFT, PT COMPLETED DIALYSIS W/ NO FLUID REMOVED AND BP STILL ELEVATED. MORNING MEDS GIVEN AFTER DIALYSIS, PT TURNED Q2H AND WILL BE NPO AFTER MIDNIGHT FOR TUNNELING DIALYSIS CATHETER PLACEMENT TOMORROW. PT WAS INCONTINENT OF BOWEL AND STILL HAS REDMOND IN PLACE W/ BLOOD TINGED/TEA COLORED URINE DRAINING. MEDS PER DEC, HOURLY ROUNDING OBSERVED, FALL PRECAUTIONS IN PLACE, WILL CONTINUE POC.
[2020-03-18 20:00] VITALS: BP 158/53
[2020-03-19] VITALS: BP 144/53
--- NOTE | 2020-03-19 02:30 | NUR ---
PT ALERT ORIENTED. BED REST TURN Q 2 HRS. MED SURG STATUS. NEED UA WAITING FOR APPROPRIATE AMT OF URINE TO SEND. REDMOND WITH SCANT AMT TEA COLORED.
[2020-03-19 04:00] VITALS: BP 160/60
[2020-03-19 06:12] LABS: HEMATOCRIT 22.7 % (37.0-47.0); HEMOGLOBIN 7.3 gm/dL (12.0-15.0); MCH 24.8 pg (26.0-34.0); MCHC 32.2 g/dL (28.0-37.0); MCV 76.9 fL (80.0-100.0); MPV 7.4 fl. (7.2-11.1); RBC 2.95 mil/uL (4.20-5.00); RDW-CV 16.6 % (10.5-14.5); WBC 3.7 thou/uL (4.0-11.0)
[2020-03-19 06:34] LABS: ALBUMIN 1.7 g/dL (3.4-5.0); TOTAL BILIRUBIN 0.4 mg/dL (<0.1-1.0); TOTAL PROTEIN 5.4 g/dL (6.4-8.2)
[2020-03-19 06:35] LABS: CREATININE 2.7 mg/dL (0.6-1.3)
[2020-03-19 06:38] LABS: URINE BILIRUBIN NEGATIVE (Negative); URINE BLOOD 3+ (Negative); URINE CLARITY CLEAR; URINE COLOR YELLOW; URINE GLUCOSE-RANDOM TRACE (Negative); URINE KETONES NEGATIVE (Negative); URINE LEUKOCYTES-REFLEX TRACE (Negative); URINE NITRITE-REFLEX NEGATIVE (Negative); URINE PROTEIN 3+ (Negative); URINE UROBILINOGEN 0.2 E.U./dl (0.2-1.0)
[2020-03-19 06:46] LABS: BACTERIA-REFLEX 1-9 Few /HPF (None Seen); CASTS None Seen /LPF (None Seen); CRYSTALS None Seen /LPF (None Seen); MUCUS None Seen strn/LPF (None Seen); SQUAMOUS 0-3 Few /LPF (0-3); URINE RBC >20 Many /HPF (0-2); URINE WBC-REFLEX 0-5 Rare /HPF (0-5)
--- NOTE | 2020-03-19 09:00 | NUR ---
CM updated management liaison, is available to assist Pt at home post dc from acute rehab if needed.
[2020-03-19 09:50] VITALS: BP 151/60
--- NOTE | 2020-03-19 12:30 | NUR ---
PT RESTING UPON ARRIVAL THIS AM WENT DOWN FOR HD CATH TO BE PLACED IN RIGHT CHEST SLIGHTLY BRUISED CAN SEE PULSATION SOME SWELLING IRON IV GIVEN HGB AT 7.3 PHYSICIANS AWARE OLIGURIA YELLOW URINE PT DENIES ANY PAIN AT THIS TIME CALL LIGHT IN REACH NOT MUCH OF AN APPETITE AND STATES THAT IS HER USUAL WILL CONTINUE TO MONITOR
[2020-03-19 14:57] VITALS: BP 152/60
[2020-03-19 16:00] VITALS: BP 150/69
--- NOTE | 2020-03-19 18:15 | NUR ---
PT HAS HAD A LOW GRADE TEMP T/O DAY SLOWLY INCREASING GAVE TYLENOL OVER AN HOUR AGO AND STILL NOT DOWN YET PT DOES THIS EVERY NOW AND AGAIN SINCE SHE HAS BEEN ADMITTED DENIES PAIN OR ANY CONCERNS PT IS ALERT AND ORIENTED BUT DROWSY CALL LIGHT IN REACH WILL CONT TO MONITOR
[2020-03-19 20:00] VITALS: BP 143/56
--- NOTE | 2020-03-19 23:39 | NUR ---
PT SLEEPY EASILY AROUSED. ORIENTED X 4. TURN Q 2 HRS. MED SURG STATUS. REDMOND WITH SMALL AMT URINE. R CHEST HD CATH PRICILA C/D/I.
[2020-03-20] VITALS: BP 151/56
--- NOTE | 2020-03-20 04:46 | NUR ---
TURNING Q 2 HRS. RESTING QUIETLY.
[2020-03-20 05:40] LABS: ALBUMIN 1.9 g/dL (3.4-5.0); CALCIUM 7.3 mg/dL (8.5-10.1); POTASSIUM 4.7 mmol/L (3.5-5.1); TOTAL BILIRUBIN 0.4 mg/dL (<0.1-1.0); TOTAL PROTEIN 5.8 g/dL (6.4-8.2)
[2020-03-20 05:41] LABS: CREATININE 4.2 mg/dL (0.6-1.3)
[2020-03-20 07:56] VITALS: BP 144/54
--- NOTE | 2020-03-20 09:36 | NUR ---
CM spoke with Pt's , informed that at this time Pt does not qualify for acute rehab, voiced understanding. gave permission to CM to fax skilled referrals to [facility] and [facility]. CM continue to await outpt dialysis chair time. Pt febrile today. Following.
--- NOTE | 2020-03-20 10:36 | NUR ---
ASSUMED CARE OF PT THIS AM AROUND 0715- M/S STATUS IN PLACE ORDERED- UPON ASSESSMENT PT NOTED TO BE RESTING IN BED, DROWSY AND SLOW TO RESPOND BUT A&O X4- CONT OF BOWEL, REDMOND IN PLACE D/D CLEAR KEELY URINE- LCTA, RESP EVEN AND UN-LABORED- PT NOTED TO HAVE TEMP OF 101.2, PRN TYLENOL GIVEN AT 0800 WITH ICE PACKS TO AXUILLARY JESSICA AND COOL WASH CLOTH TO FOREHEAD- TEMP NOTED TO IMPROVE TO 98.3 AT 1006-O2 SAT 96% ON 2L VIA NC- ABD SOFT/ROUND/NON-TENDER, BS X4 QUADS- LAST BM REPORTED 03/19/20- IV NOTED TO RIGHT FA AND RIGHT WRIST C/D/I AND SL- RIGHT CHEST DIALYSIS PORT NOTED C/D/I- BS MONITORED ORDERED- Q [address] INDICATED- DRESSINGS TO JESSICA BUTTOCKS IN PLACE WITH NO NEED TO CHANGE THIS AM-DIALYSIS PLANNED FOR THIS AFTERNOON- PT DENIES ANY C/O PAIN- CALL LIGHT AND PEROSONAL BELONGINGS WITH IN REACH- HOURLY ROUNDS IN PLACE R/T SAFETY/NEEDS- ALL NEEDS MET AT THIS TIME-WCTM
[2020-03-20 10:54] LABS: HEMOGLOBIN 7.4 gm/dL (12.0-15.0); MCH 24.9 pg (26.0-34.0); MCHC 32.2 g/dL (28.0-37.0); MCV 77.3 fL (80.0-100.0); MPV 10.4 fl. (7.2-11.1); RBC 2.97 mil/uL (4.20-5.00); RDW-CV 16.3 % (10.5-14.5); WBC 4.4 thou/uL (4.0-11.0)
--- NOTE | 2020-03-20 12:10 | NUR ---
Per Dr, pt will be here for a while longer, plan renal biopsy on 03/25.
[2020-03-20 17:19] VITALS: BP 175/64
[2020-03-20 18:09] LABS: URINE BLOOD 3+ (Negative); URINE CLARITY SL CLOUDY; URINE COLOR DARK YELLOW; URINE GLUCOSE-RANDOM TRACE (Negative); URINE KETONES NEGATIVE (Negative); URINE LEUKOCYTES-REFLEX NEGATIVE (Negative); URINE NITRITE-REFLEX NEGATIVE (Negative); URINE PROTEIN 3+ (Negative); URINE SPECIFIC GRAVITY 1.015 (1.005-1.030); URINE UROBILINOGEN 0.2 E.U./dl (0.2-1.0)
[2020-03-20 18:16] LABS: URINE BILIRUBIN 1+ (Negative)
[2020-03-20 18:26] LABS: BACTERIA-REFLEX 1-9 Few /HPF (None Seen); CRYSTALS None Seen /LPF (None Seen); HYALINE CASTS 4-10 Moderate /LPF (None Seen); MUCUS 0-3 Light strn/LPF (None Seen); RENAL EPITHELIAL CELLS 4-10 Moderate /LPF (None Seen); SQUAMOUS 0-3 Few /LPF (0-3); URINE WBC-REFLEX 6-15 Few /HPF (0-5)
[2020-03-20 18:27] LABS: URINE RBC >20 Many /HPF (0-2)
[2020-03-20 19:55] VITALS: BP 143/56
[2020-03-20 20:22] LABS: ICTOTEST (BILI CONFIRMATORY) Negative (Negative)
[2020-03-21] VITALS: BP 115/46
[2020-03-21 04:00] VITALS: BP 144/58
--- NOTE | 2020-03-21 04:08 | NUR ---
[facility] CARE OF PT AT 1900. PT IS ALERT AND ORIENTED BUT LETHARGIC. PT HAS HAD LOW GRADE FEVER OF 99. PT HAS A REDMOND. PT APPEARS DEPRESSED. PT IS IN SINUS RYTHM ON THE TELEMETRY. PT IS RESTING COMFORTABLY IN BED. RESPIRATIONS ARE EVEN AND NONLABORED. WILL CONTINUE TO MONITOR PT.
[2020-03-21 05:34] LABS: ABSOLUTE BASOPHILS 0.1 thou/uL (0.0-0.2); ABSOLUTE EOSINOPHILS 0.1 thou/uL (0.0-0.7); ABSOLUTE LYMPHOCYTES 0.5 thou/uL (0.8-5.3); ABSOLUTE MONOCYTES 0.2 thou/uL (0.0-1.2); ABSOLUTE NEUTROPHILS 2.7 thou/uL (1.6-8.1); BASOPHILS 1.8 %; EOSINOPHILS 2.2 %; HEMATOCRIT 21.6 % (37.0-47.0); LYMPHOCYTES 13.7 %; MCHC 32.2 g/dL (28.0-37.0); MCV 77.6 fL (80.0-100.0); MONOCYTES 5.4 %; MPV 7.1 fl. (7.2-11.1); NUCLEATED RBCS 0 /100WBC; PLATELET COUNT* 121 thou/uL (150-400); POLYS 76.9 %; RBC 2.79 mil/uL (4.20-5.00); RDW-CV 16.3 % (10.5-14.5); WBC 3.5 thou/uL (4.0-11.0)
[2020-03-21 05:43] LABS: POTASSIUM 4.2 mmol/L (3.5-5.1)
[2020-03-21 05:47] LABS: CREATININE 2.8 mg/dL (0.6-1.3)
[2020-03-21 08:30] VITALS: BP 123/45
--- NOTE | 2020-03-21 10:19 | NUR ---
PT RESTING IN BED THIS AM UPON ARRIVAL DENIES ANY PAIN STILL WITH LOW GRADE TEMP AT 99.9 GAVE TYLENOL SINCE PT CONTINUES WITH LOW GRADE TEMP DTR CALLED THIS AM AND UPDATED HER PT IS NOT VERY TALKATIVE WEAK, BUT RESPONDS APPROPRIATELY ALERT AND ORIENTED WITH SOME FORGETFULNESS IRON INFUSION DONE THIS AM RIGHT CHEST HD CATH CONT DIALYSIS TO BE DONE TOMORROW 2L NC O2 NO COUGH NOTED PENDING COVID RESULTS LAYING ON RIGHT SIDE D/T SORES ON BOTTOM PT DOES NOT HAVE ANY COMPLAINTS AT THIS TIME CALL LIGHT IN REACH WILL CONT TO MONITOR
[2020-03-21 12:00] VITALS: BP 138/52
--- NOTE | 2020-03-21 13:07 | NUR ---
Per Dr, Pt to be inpt for a while longer. Covid test pending.
[2020-03-21 16:00] VITALS: BP 134/54
--- NOTE | 2020-03-21 18:24 | NUR ---
PT STAYED WITH A 99 LOW GRADE TEMP TODAY TURN SIDE TO SIDE CHANGED WOUND DRESSING ON BOTTOM AFTER BM, OCCULT STOOL CAME BACK NEGATIVE, PT IS WEAK AND NOT TALKATIVE T/O DAY DENIES ANY PAIN BESIDES WOUND ON BOTTOM HELPS TO REPOSITION CALL LIGHT IN REACH
[2020-03-21 20:00] VITALS: BP 138/58
[2020-03-22] VITALS: BP 143/55
[2020-03-22 04:00] VITALS: BP 132/55
[2020-03-22 04:46] LABS: HEMATOCRIT 22.5 % (37.0-47.0); HEMOGLOBIN 7.2 gm/dL (12.0-15.0); MCH 24.8 pg (26.0-34.0); MCHC 31.9 g/dL (28.0-37.0); MCV 77.8 fL (80.0-100.0); MPV 7.4 fl. (7.2-11.1); RBC 2.89 mil/uL (4.20-5.00); RDW-CV 17.1 % (10.5-14.5); WBC 3.5 thou/uL (4.0-11.0)
[2020-03-22 05:39] LABS: ALBUMIN 1.7 g/dL (3.4-5.0); MAGNESIUM 1.7 mg/dL (1.8-2.4); POTASSIUM 3.8 mmol/L (3.5-5.1)
[2020-03-22 05:41] LABS: CREATININE 4.1 mg/dL (0.6-1.3)
--- NOTE | 2020-03-22 06:45 | NUR ---
ASSESSMENTS COMPLETED AT BEDSIDE, PLEASE REFER TO CHARTING. MEDICATIONS ADMINISTERED PER MAR AND PHYSICIAN ORDERS. HOURLY ROUNDING COMPLETED FOR SAFETY, CALL LIGHT WITHIN REACH, ALL CURRENT NEEDS HAVE BEEN MET AT THIS TIME.
--- NOTE | 2020-03-22 11:25 | NUR ---
CM faxed referral to [facility] to have them review to determine if Pt would qualify for LTAC. Once decision is made, CM will reach out to Pt's to discuss dispo. Plan renal biopsy on Wednesday. Per , Pt would not need to wait for the results to dc. Following.
[2020-03-22 12:00] VITALS: BP 152/59
--- NOTE | 2020-03-22 12:03 | NUR ---
PT HAS BEEN RECEIVING DIALYSIS, WAITING UNTIL FINISHED TO GIVE MEDICATIONS AND ASSESS FULLY NO ISSUES AT THIS TIME
--- NOTE | 2020-03-22 15:03 | NUR ---
PT IS NEGATIVE FOR COVID TAKEN OFF PRECAUTIONS PT IS DROWSY RECEIVED DIALYSIS THIS AM AND 1L TAKEN OFF PT DENIES PAIN EXCEPT FROM BOTTOM SORE POSITION Q2 HOURS STEROIDS STARTED THIS AFTERNOON HEPARIN TO BE HELD STARTING WEDNESDAY NIGHT D/T RENAL BIOPSY TO BE DONE AM CALL LIGHT IN REACH
[2020-03-22 16:42] VITALS: BP 149/56
[2020-03-22 17:20] VITALS: BP 133/70
[2020-03-22 20:00] VITALS: BP 118/64
[2020-03-23] VITALS: BP 141/62
[2020-03-23 04:00] VITALS: BP 160/69
[2020-03-23 04:16] LABS: HEMATOCRIT 23.8 % (37.0-47.0); HEMOGLOBIN 7.5 gm/dL (12.0-15.0); MCH 24.8 pg (26.0-34.0); MCHC 31.8 g/dL (28.0-37.0); MCV 78.2 fL (80.0-100.0); MPV 7.6 fl. (7.2-11.1); RBC 3.04 mil/uL (4.20-5.00); RDW-CV 16.7 % (10.5-14.5); WBC 2.8 thou/uL (4.0-11.0)
[2020-03-23 05:16] LABS: ALBUMIN 1.9 g/dL (3.4-5.0); CALCIUM 7.1 mg/dL (8.5-10.1); MAGNESIUM 1.8 mg/dL (1.8-2.4); PHOSPHORUS* 2.2 mg/dL (2.5-4.9); POTASSIUM 4.7 mmol/L (3.5-5.1)
[2020-03-23 05:18] LABS: CREATININE 2.8 mg/dL (0.6-1.3)
[2020-03-23 08:00] VITALS: BP 172/61
[2020-03-23 12:10] VITALS: BP 143/60
[2020-03-23 16:50] VITALS: BP 155/60
[2020-03-23 20:00] VITALS: BP 157/62
[2020-03-24] VITALS (7 sets, daily range): BP systolic 128–164; BP diastolic 56–69
[2020-03-24 04:34] LABS: CALCIUM 7.8 mg/dL (8.5-10.1); PHOSPHORUS* 2.4 mg/dL (2.5-4.9); POTASSIUM 4.5 mmol/L (3.5-5.1)
--- NOTE | 2020-03-24 04:35 | NUR ---
ASSUMED PT CARE AT APPROX 1930. PT IS AWAKE AND ORIENTED X4. PT IS TRACING SR ON THE SURFACE SUPERVISOR. ASSESSMENT DONE AND CHARTED. PT DENIES PAIN/DISCOMFORT OF THIS TIME. NO ACUTE CHANGES THROUGHOUT THIS SHIFT. CALL LIGHT WITHIN REACH. HOURLY ROUNDING DONE FOR PT SAFETY. HIGH FALL PRECAUTIONS IN [place]. [facility] PT.
[2020-03-24 04:37] LABS: CREATININE 4.1 mg/dL (0.6-1.3)
--- NOTE | 2020-03-24 18:49 | NUR ---
PT HAS RESTED T/O DAY. C/O PAIN TO BACK IN BEGINNING OF SHIFT THAT WAS RELIEVED WITH PO MEDICATION. PT TOLERATED GETTING UP TO BEDSIDE CHAIR FOR MOST OF DAY WITH AX1. SR WITH 1ST DEGREE ON MONITOR. VSS ON 2LNC. PT HAS HAD 100 ML OUT OF FC TODAY. BLOOD SUGARS ELEVATED LIKELY DUE TO SOLUMEDROL WHICH WAS DCD. PT HEPARIN TO BE HEL STARTING TOMORROW. CLWR.WCTM
[2020-03-25 04:00] VITALS: BP 155/63
--- NOTE | 2020-03-25 04:02 | NUR ---
ASSUMED PT CARE AT APPROX 1930. PT IS AWAKE AND ORIENTED X4. PT IS TRACING SR ON THE SYSTEMS TECHNOLOGIST. ASSESSMENT DONE AND CHARTED. PT DENIES PAIN, AND WAS ABLE TO SLEEP MOST OF THE NIGHT. NO ACUTE CHANGES THROUGHOUT THIS SHIFT. POSITION CHANGES DONE. CALL LIGHT WITHIN REACH. HOURLY ROUNDING DONE FOR PT SAFETY. HIGH FALL PRECAUTIONS IN PLACE.
[2020-03-25 05:58] LABS: HEMATOCRIT 23.2 % (37.0-47.0); HEMOGLOBIN 7.3 gm/dL (12.0-15.0); MCH 24.9 pg (26.0-34.0); MCHC 31.6 g/dL (28.0-37.0); MCV 78.9 fL (80.0-100.0); MPV 7.8 fl. (7.2-11.1); RBC 2.95 mil/uL (4.20-5.00); RDW-CV 17.7 % (10.5-14.5); WBC 8.6 thou/uL (4.0-11.0)
[2020-03-25 06:10] LABS: ALBUMIN 2.1 g/dL (3.4-5.0); CALCIUM 7.7 mg/dL (8.5-10.1); PHOSPHORUS* 2.7 mg/dL (2.5-4.9); POTASSIUM 5.2 mmol/L (3.5-5.1)
[2020-03-25 06:11] LABS: CREATININE 5.2 mg/dL (0.6-1.3)
[2020-03-25 08:00] VITALS: BP 157/72
[2020-03-25 09:07] LABS: ANTI-DNA SCREEN 3 IU/mL (0-9); ANTI-RNP <0.2 AI (0.0-0.9)
--- NOTE | 2020-03-25 09:22 | NUR ---
ASSUMED CARE OF PATIENT THIS AM AT 0730. PATIENT IS LYING IN BED WITH EYES CLOSED AND IS CURRENTLY RECIEVING DIALYSIS. PATIENT KEPT NPO FOR ORDERED PROCEDURE. TELE SHOWS NSR. WILL CONTINUE TO MONITOR.
[2020-03-25 12:00] VITALS: BP 177/67
--- NOTE | 2020-03-25 12:18 | NUR ---
PT.IN DIALYSIS IN ROOM THIS AM. AT BEDSIDE. DISCUSSED DISCHARGE PLANNING FOR POSSIBLY 1-2 DAYS PER KINNEY. DISCUSSED LT[facility] AT [facility] WHICH IS ONLY [facility], IN NETWORK, FOR PT.S INSURANCE. BOTH PT.AND SEEM TO UNDERSTAND THIS WOULD BE BEST OPTION FOR HER, DUE TO HER WEAKNESS-NEED FOR THERAPY, DIALYSIS-INABILITY TO TRANSFER AND SIT IN DIALYSIS RECLINER AT A CLINIC,IV ANTIBIOTICS AND DAILY LABS WITH QUICK RESULT TURN AROUND. EXPRESSES CONCERN THAT IT IS SO FAR AWAY, BUT STILL AGREEABLE. PT.TO HAVE RENAL BX TODAY.
[2020-03-25 16:00] VITALS: BP 165/57
[2020-03-25 20:00] VITALS: BP 165/58
[2020-03-26] VITALS (10 sets, daily range): BP systolic 146–173; BP diastolic 55–74
--- NOTE | 2020-03-26 06:08 | NUR ---
ASSUMED PT CARE AT APPROX 1930. PT IS AWAKE AND ORIENTED X4. PT IS TRACING SR ON THE SALES DIRECTOR. ASSESSMENT DONE AND CHARTED. PT DENIES PAIN/DISCOMFORT. NO ACUTE CHANGES THROUGHOUT THIS SHIFT. CALL LIGHT WITHIN REACH. HIGH FALL PRECAUTIONS IN PLACE. HOURLY ROUNDING DONE FOR PT SAFETY.
[2020-03-26 07:31] LABS: ALBUMIN 2.1 g/dL (3.4-5.0); CALCIUM 7.5 mg/dL (8.5-10.1); PHOSPHORUS* 3.1 mg/dL (2.5-4.9); POTASSIUM 4.3 mmol/L (3.5-5.1)
[2020-03-26 07:33] LABS: CREATININE 3.3 mg/dL (0.6-1.3)
--- NOTE | 2020-03-26 08:00 | NUR ---
ASSUMED CARE OF PATIENT THIS MORNING FROM NIGHT NURSE. PT IS DOING WELL. SHE HAS NO CO OF PAIN OR NAUSEA AT THIS TIME. SHE WAS EDUCATED ON POC AND FALL SAFETY AND USING THE CALL LIGHT FOR ASSISTANCE. CALL LIGHT IN REACH BED IN LOWEST POSITION. WILL CONTINUE TO MONITOR.
--- NOTE | 2020-03-26 14:01 | NUR ---
WOUND NURSE: PATIENT SEEN FOR FOLLOW UP ASSESSMENT OF SACRAL PRESSURE INJURIES AND ARE CLOSED WITH THIN FRIABLE PINK TO RED EPITHELIAL TISSUE. CLEANSED WITH WOUND CLEANSER AND GAUZE, THEN APPLIED SKIN PREP TO THE AFFECTED AREA. APPLIED EXUDERM LP (CUT TO FIT) OVER THE CLOSED LESIONS, THEN SECURED IN PLACE WITH SURESITE TRANSPARENT DRESSING. THIS WAS TOLERATED WELL BY THE PATIENT. PATIENT WAS REINSTRUCTED ON IMPORTANCE OF OFFLOADING AFFECTED AREA BY FREQUENT REPOSITIONING EVERY 2 HOURS FROM SIDE TO SIDE TO PREVENT REINJURY TO THE AFFECTED AREA. PATIENT STATES SHE UNDERSTANDS. PATIENT WAS ABLE TO POSITION HERSELF ON HER RIGHT SIDE FOR THIS NURSE AT TIME OF THIS ASSESSMENT.
--- NOTE | 2020-03-26 17:17 | NUR ---
INFORMED [facility] TO START INSURANCE AUTH PROCESS. HE SAID IT WAS SUBMITTED TODAY. HE WILL NOTIFY [facility] RECEIVES AUTH. JOSE MONAHAN INFORMED.
[2020-03-27] VITALS: BP 163/69
[2020-03-27 04:00] VITALS: BP 150/60
--- NOTE | 2020-03-27 04:11 | NUR ---
PT ALERT ORIENTED. TURN Q 2 HRS. PT NAUSIATED HS. ZOFRAN GIVEN. TELEMETRY SHOWS SR. PT RESTING QUIETLY THIS SHIFT. NYLA WITH SMALL AMT OF KEELY. ANIVAL
[2020-03-27 08:00] VITALS: BP 155/65
--- NOTE | 2020-03-27 08:00 | NUR ---
ASSUMED CARE OF PATIENT THIS MORNING FROM NIGHT NURSE. PT IS DOING WELL WITH NO CO OF PAIN OR NAUSEA AT THIS TIME. SHE WAS EDUCATED ON POC TODAY AND PROCEDURES. SHE ALSO WAS EDUCATED ON FALL SAFETY AND USING THE CALL LIGHT FOR ASSISTANCE. WILL CONTINUE TO MONITOR, CALL LIGHT IS IN REACH AND BED ALARM IS ON AND BED IS IN LOWEST POSITION.
[2020-03-27 09:05] LABS: ALBUMIN 1.8 g/dL (3.4-5.0); CALCIUM 7.5 mg/dL (8.5-10.1); POTASSIUM 4.9 mmol/L (3.5-5.1); TOTAL BILIRUBIN 0.4 mg/dL (<0.1-1.0); TOTAL PROTEIN 5.4 g/dL (6.4-8.2)
[2020-03-27 09:07] LABS: CREATININE 4.7 mg/dL (0.6-1.3)
--- NOTE | 2020-03-27 09:52 | NUR ---
Spoke with , Pt will be medically stable to dc once renal signs off. MYLENE Antunez faxed updated clinicals, CM to fax updated therapy notes when available.
[2020-03-27 12:11] VITALS: BP 142/58
[2020-03-27 16:22] VITALS: BP 109/43
[2020-03-27 20:00] VITALS: BP 162/64
[2020-03-28] VITALS: BP 145/60
[2020-03-28 04:43] LABS: HEMATOCRIT 25.3 % (37.0-47.0); HEMOGLOBIN 8.2 gm/dL (12.0-15.0); MCH 25.6 pg (26.0-34.0); MCHC 32.3 g/dL (28.0-37.0); MCV 79.2 fL (80.0-100.0); RBC 3.2 mil/uL (4.20-5.00); RDW-CV 18.7 % (10.5-14.5); WBC 8.2 thou/uL (4.0-11.0)
[2020-03-28 05:00] LABS: ALBUMIN 1.7 g/dL (3.4-5.0); CALCIUM 7.2 mg/dL (8.5-10.1); MAGNESIUM 1.9 mg/dL (1.8-2.4); PHOSPHORUS* 3.5 mg/dL (2.5-4.9); POTASSIUM 4.6 mmol/L (3.5-5.1)
[2020-03-28 08:00] VITALS: BP 157/65
--- NOTE | 2020-03-28 08:00 | NUR ---
ASSUMED CARE OF PT FROM NIGHT NURSE. PT IS DOING WELL AND MUCH MORE ALERT TODAY. SHE WAS EDUCATED ON POC, DISEASE PROCESS AND USING THE CALL LIGHT FOR ASSISTANCE. HER BED IS NI THE LOWEST POSITION AND CALL LIGHT IS IN REACH, WILL CONTINUE TO MONITOR. BED ALRM IS ON.
[2020-03-28 12:00] VITALS: BP 154/65
--- NOTE | 2020-03-28 12:16 | NUR ---
[place] faxed updates as needed to [facility] with [facility]. [place] to continue to follow to assist with finalizing safe dc plan. Pending final acceptance and insurance auth.
--- NOTE | 2020-03-28 13:04 | NUR ---
CALL RECIEVED FROM [facility],REQUEST TO FAX PROGRESS NOTE FOR KIDNEY BIOPSY DIAGNOSIS.
[2020-03-28 15:55] VITALS: BP 150/62
[2020-03-28 19:40] VITALS: BP 155/65
[2020-03-29 00:04] VITALS: BP 145/60
[2020-03-29 04:47] VITALS: BP 167/64
--- NOTE | 2020-03-29 04:52 | NUR ---
PT CARE ASSUMED AT 1930. SAT MAINTAINED IN RA. ALERT AND ORIENTED X3 BUT FORGRTFUL. C/O PAIN, MEDICATION GIVEN PER EAMR. DENIES SOB. CALL LIGHT WITHIN REACH AND BED IN LOW POSITION. HOURLY ROUNDING DONE FOR PT SAFETY.
--- NOTE | 2020-03-29 04:58 | NUR ---
PT CARE ASSUMED AT 1930. SAT MAINTAINED IN RA. ALERT AND ORIENTED X4. C/O PAIN, MEDICATION GIVEN PER EMAR. CALL LIGHT WITHIN REACH AND BED IN LOW POSITION. HOURLY ROUNDING DONE FOR PT SAFETY.
--- NOTE | 2020-03-29 07:25 | NUR ---
CHANGE OF SHIFT, BEDSIDE REPORT GIVEN PATIENT SEEN AT BEDSIDE, IN BED ASLEEP ASSUMED PATIENT CARE
[2020-03-29 08:00] VITALS: BP 162/62
--- NOTE | 2020-03-29 14:36 | NUR ---
WOUND NURSE: PATIENT SEEN FOR FOLLOW UP ASSESSMENT AND WOUND NEARLY HEALED WITH EARY THIN FRIABLE EPITHELIAL TISSUE COVERING THE WOUND AND MEASURING 0.3 X 0.3 X 0.1 CM AND SCANT SEROUS DRAINAGE NOTED. CLEANSED WITH SOAP AND WATER, RINSED WITH WATER, THEN PATTED DRY. APPLIED SKIN PREP TO PERIWOUND TISSUE, THEN COVERED WITH EXUDERM UNDER SURESITE TRANSPARENT DRESSING. PATIENT REINSTRUCTED ON IMPORTANCE OF Q 2 HOUR REPOSITIONING TO PROMOTE HEALING. PATIENT STATES SHE UNDERSTANDS.
--- NOTE | 2020-03-29 15:08 | PATH ---
[address] [address] PATHOLOGY RPT PROCEDURE Name: JOSE MARTIN ORTIZ Room: [address] IN M.R.#: [id number] Admission: 03/10/20 Date of : 46 Discharge: Report #: [id number] Path Case #: [id number] LCA Accession Number: [id number] . 01 Material submitted: . renal pelvis - LEFT RENAL BX. Modifiers: left . 01 Clinical history: . AK 1 on CRD; R/O vasculitis Acute renal failure; altered mental status . 02 Diagnosis: Special studies report received from [employer], [id number] [place] [address], [place] [address], on case [id number], labeled with their number [id number], dated 03/28/2020. . Specimen submitted: By Pascual Castro MD For Kidney, biopsy . DIAGNOSIS: . Acute Tubular Injury with Numerous Red Blood Cell Casts. See Comment. . Nodular Diabetic Glomerulosclerosis, Class III. . Comment: Though red blood cell casts are noted, no proliferative glomerular lesions are present. There is no evidence of a paraprotein-related renal disease. . Chronicity Summary Total Glomeruli- 19 Globe Glomerulosclerosis- 2 Segmental Sclerosis- Present Interstitial Fibrosis- Moderate Tubular Atrophy- Moderate Arterial Intimal Fibrosis- Moderate Arteriolar Hyalinosis- Severe . Reference: Balwinder SCHNEIDER, Varun AL, Alban K, et al. Pathologic classification of diabetic nephropathy. J Am Soc Nephrol. 2010; 21: 556-563. . Clinical History: This is a 69-year-old white female who presents with acute kidney injury superimposed on chronic kidney disease stage 4 in the setting of possible infection and on multiple diuretics. Her baseline creatinine is around 1.9 to 2.2 mg/dL. Current creatinine at presentation was 6.5. Urinalysis showed 3+ protein, greater than 20 RBCs per high power field as well as [address] [place] [address] PATHOLOGY RPT PROCEDURE Name: JOSE MARTIN ORTIZ Room: [address] IN [facility]#: [id number] Admission: 03/10/20 Date of : 46 Discharge: Report #: [id number] Path Case #: [id number] WBCs. C3 42, C4 1- (both low), anti-GBM negative, ANNE positive, serum immune fixation showing IgG/kappa monoclonal paraprotein. Serum free light chain ratio 0.9. Her pANCA is 1:160. She has had a recent urinary tract infection and now has severe sepsis possibly secondary to the UTI. Blood cultures growing gram positive cocci. She also has a history of myelodysplastic syndrome and idiopathic thrombocytopenic purpura as well as type 2 diabetes. A bone marrow biopsy performed in January 2019 was negative for plasma cell neoplasia. She was started on hemodialysis and received pulse steroids. Serum albumin 1.8. . Gross Description: Received from [facility] via [facility] are two specimen bottles; one bottle contains formalin and the other contains Rocael's fixative. The bottles are labeled with the patient's name (Jose Martin Ortiz) and date of (1950). Per the submitted paperwork, the outside number is [id number]. . Received in formalin are two pieces of tissue measuring 0.9 x 0.1 x 0.1 cm and 0.7 x 0.1 x 0.1 cm (fatty end). Two pieces are submitted for electron microscopy and the remainder of the tissue is submitted in its entirety for the light microscopy. . Received in Rocael's fixative is one piece of bradford tissue measuring 0.9 x 0.1 x 0.1 cm. The specimen is submitted in its entirety for immunofluorescence microscopy. . Microscopic Description: . LIGHT MICROSCOPY: . The tissue submitted for light microscopy consists of 50% cortex with up to eight glomeruli, with one globally scleroses. Two glomeruli are shrunken with periglomerular fibrosis and one shows an area of segmental sclerosis and capsular adhesion. There is diffuse global severe nodular mesangial expansion with no endocapillary hypercellularity. Capillary day are thickened with no spikes or lucencies. No fibrinoid necrosis or cellular crescent formation is present, including additional deeper PAS stained sections. There is evidence of acute tubular injury manifested by luminal ectasia, cytoplasmic thinning, and reactive appearing nuclei. There are frequent red blood cell casts within tubular lumens. There are also foci of extravasated Tamm-Horsfall protein within the interstitium, mostly in the medulla, surrounded by inflammatory mononuclear infiltrates with occasional eosinophils are very focal mild tubulitis. Interstitial fibrosis and tubular atrophy involve approximately 30% of the cortex. Arteries show moderate fibrous intimal thickening. There is severe arteriolar hyalinosis. A Congo red stain for amyloid is negative. Toluidine blue-stained sections contain two glomeruli, one of which is [place] [address] PATHOLOGY RPT PROCEDURE Name: JOSE MARTIN ORTIZ Room: [address] IN [facility]#: [id number] Admission: 03/10/20 Date of : 46 Discharge: Report #: [id number] Path Case #: [id number] Standard of care requirements for proper analysis of renal biopsies mandates serial sections, and PAS, Emmanuel silver, trichrome and SMMT stains at multiple levels. PAS stains are used to evaluate various aspects of the glomerular, tubular, and vascular basement membranes. Emmanuel silver stains are used to evaluate thickening, reduplication, "spiking" or "bubbling" of the glomerular basement membrane. Toluidine blue stained sections highlight glomerular basement membranes and demonstrates unusual types of deposits. It also reveals details of tubular epithelial cells and aids in the analysis of vascular lesions. Berta trichrome stains are used to evaluate interstitial fibrosis and basement membrane deposits. The SMMT stain helps evaluate basement membrane changes, immune deposits and tubulointerstitial scarring. Controls are routinely run on all special stains and are verified for acceptability. A review of the technical quality of routine slides is made before results are reported. . . IMMUNOFLUORESCENCE: The sections are stained for IgG, IgM, IgA, C3, C1q, albumin, fibrinogen, and kappa and lambda light chains. The renal parenchyma submitted consists of 40% cortex. Nine glomeruli are present for evaluation with none globally sclerotic. Glomeruli show nodular appearing mesangial expansion by darkfield examination. There is granular mesangial and capillary wall staining for IgM (2+), kappa (2+) and lambda (2+), and trace C3. All other stains are negative in glomeruli. There is no sig extraglomerular staining. Estherwood and lambda stain equally throughout the tubulointerstitium. Immunofluorescence is performed on the paraffin-embedded tissue following protease digestion; the sections are stained IgG, kappa and lambda light chains and show no glomerular staining for IgG, and granular capillary wall staining for kappa (2+) and lambda (2+). Estherwood and lambda stain equally throughout the tubulointerstitium. . Positive and negative controls are run on all immunofluorescent stains and are verified for acceptability before results are reported. Internal antigens serve as positive controls. . ELECTRON MICROSCOPY: Two blocks are prepared. Ultrastructural evaluation of a glomerulus reveals basement membranes that are variably thickened. There is mesangial matrix expansion present. Though the mesangium contains ill-defined densities, no definite immune-type electron-dense deposits are present. There is subendothelial widening with accumulation of ill-defined electron dense material, and a new glomerular basement formation. Rare intramembranous ill-defined electron densities are also seen. No immune-type electron-dense deposits are identified along the capillary day. There is mild to moderate epithelial foot process effacement. The tubular basement membranes are without deposits. . Special procedures including immunofluorescence and electron microscopy correlate with [place] [address] PATHOLOGY RPT PROCEDURE Name: JOSE MARTIN ORTIZ Room: [facility]- ADM IN M.R.#: [id number] Admission: 03/10/20 Date of : 46 Discharge: Report #: [id number] Path Case #: [id number] . Note: Some of the tests reported here may have been developed and performance characteristics determined by [employer]. They have not been cleared or approved by the U.S. Food and Drug Administration (FDA). The FDA does not require this test to go through premarket FDA review. This test is used for clinical purposes. It should not be regarded as investigational or for research. [facility] is certified under the Clinical Laboratory Improvement Amendments of 1988 (CLIA) as qualified to perform high complexity clinical laboratory testing. . Physician/Physician's office called on 03/28/2020 at 4:52 PM Central. . *I have reviewed the clinical history, the pertinent gross findings, all microscopic materials, discussed the case with the clinician when appropriate, and have rendered the final diagnosis. . . Prelim Review performed by Anya Hamilton M.D. Electronically signed 03/28/2020 2:56:21 PM . Final Diagnosis performed by Yeni Moody M.D. Electronically signed 03/28/2020 6:11:53 PM . A complete copy of the report is on file. . Professional and technical services performed by [facility] at [address] [place] [address], [address], [facility]. . (HUMBERTO:[facility] 03/29/2020) . [facility] 03/29/2020 [address] [facility] . 02 Electronically signed: . Eldon Tamez MD, Pathologist NPI- [id number] . 01 Gross description: . The specimen is received in formalin, labeled "Jose Martin Gojerri, left renal biopsy". Received are two needle cores of pale bradford soft tissue ranging in length from 0.7 to 1.0 cm, with each measuring 0.1 cm in diameter. The specimen is forwarded to an outside laboratory for further processing. . Also received is a container of Rocael's fixative, labeled "Jose Martin Gojerri, left renal biopsy". Received is a single needle core of pale bradford soft tissue measuring 0.8 cm in length by 0.1 cm in diameter. The specimen is [facility] [address] [place] [address] PATHOLOGY RPT PROCEDURE Name: JOSE MARTIN ORTIZ Room: [address] ADM IN M.R.#: [id number] Admission: 03/10/20 Date of : 46 Discharge: Report #: [id number] Path Case #: [id number] forwarded to an outside laboratory for further processing. ([facility]; 03/27/2020) QAC/QAC 03/27/2020 1042 Local . 02 Pathologist provided ICD-10: N17.9, R41.82 . 02 CPT . 524345 Specimen Comment: A courtesy copy of this report has been sent to [phone] Specimen Comment: [phone], Specimen Comment: Report sent to ,DR GRIFFITHS,DR SIM / DR ESCAMILLA Performed at: 01 [facility] [place] [address] [facility] [address], [place], [place] [id number] MD Killian Alba MD Phone: [phone] Performed at: 02 [facility] [place] [address] [facility], [place], [place] [id number] MD Eldon Tamez MD Phone: [phone]
--- NOTE | 2020-03-29 16:25 | NUR ---
Dr Foss completed peer to peer and insurance still denied. MT spoke with Homero with [facility] who said that this can go into appeal process. MT to follow up on Wednesday on status of appeal.
[2020-03-29 17:39] VITALS: BP 149/65
[2020-03-29 20:10] VITALS: BP 163/58
[2020-03-30] VITALS: BP 157/61
[2020-03-30 04:00] VITALS: BP 166/53
--- NOTE | 2020-03-30 05:20 | NUR ---
PT CARE ASSUMED AT 1930. SAT MAINTAINED IN 2L NC. DENIES PAIN AND SOB. ALERT AND ORIENTED X4. CALL LIGHT WITHIN REACH AND BED IN LOW POSTION. HOURLY ROUNDING DONE FOR PT SAFETY.
[2020-03-30 08:30] VITALS: BP 142/62
[2020-03-30 13:16] VITALS: BP 136/55
[2020-03-30 16:00] VITALS: BP 144/54
--- NOTE | 2020-03-30 19:55 | NUR ---
ASSUMED PT CARE AT 07, FULL ASSESSMENT DONE CHARTED. PT A/O X4, C/O BACK PAIN. MEDS GIVEN PER DEC. REMAINS ON 2L O2, SAT IN THE LOW 90'S LUNGS CLEAR. PT WAS ENCOURAGED SEVERAL TIMES TODAY TO GET UP WITH ASSIST TO THE RECLINER, SHE REFUSED EACH TIME. SHE STATES SHE GETS DIZZY WHEN SITTING ON THE SIDE OF THE BED. LOW AIRLOSS MATTRESS PLACED UNDERPATIENT TODAY, WOUND TO SACRUM WITH DRESSING INTACT. PT HAD 2 LOOSE BMS TODAY, USES BEDPAN. TURN Q2 HR. AT BEDSIDE THIS AFTERNOON. REPORT GIVEN TO HAYES GARCIA.
[2020-03-30 20:00] VITALS: BP 174/66
[2020-03-31] VITALS: BP 156/59
[2020-03-31 05:00] VITALS: BP 162/67
--- NOTE | 2020-03-31 06:07 | NUR ---
PT CARE ASSUMED AT 1930. SAT MAINTAINED IN O2. ALERT AND ORIENTED X4. DENIES PAIN AND SOB. CALL LIGHT WITHIN REACH AND BED IN LOW POSITION. HOURLY ROUNDING DONE FOR PT SAFTEY.
[2020-03-31 08:00] VITALS: BP 152/53
[2020-03-31 09:42] LABS: CALCIUM 7.3 mg/dL (8.5-10.1); CREATININE 4.2 mg/dL (0.6-1.3); POTASSIUM 3.9 mmol/L (3.5-5.1)
[2020-03-31 13:35] VITALS: BP 148/52
[2020-03-31 17:20] VITALS: BP 144/55
--- NOTE | 2020-03-31 19:59 | NUR ---
ASSUMED PT CARE AT 0730, FULL ASSESSMENT DONE CHARTED. PT A/O X4, DROWSY AT TIMES. SHE WAS ASSISTED UP TO THE RECLINER THIS AFTERNOON, TOLERATED FOR SEVERAL HOURS BEFORE GOING BACK TO BED. SHE WAS UNABLE TO REALLY DO MUCH OF THE WORK. VERY WEAK. APITIE INCREASING. BED BATH DONE. WOUND CARE DONE, WEDNESDAY PHOTO TAKEN. VSS, SR ON THE MONITOR. 2L O2 PRN. SATS 88-LOW 90'S WHEN SLEEPING. FALL PRECAUTIONS IN PLACE, REMAINS IN ISOLATION FOR MRSA. REPORT GIVEN TO KAYY GARCIA.
[2020-03-31 20:00] VITALS: BP 150/58
--- NOTE | 2020-03-31 20:00 | NUR ---
RECEIVED REPORT AND ASSUMED CARE OF PT, ASSESSMENT COMPLETED. PT DOZING BUT AWAKENS EASILY. O2 ON AT 2L/NC, NO SOA NOTED. REDMOND PATENT WITH VERY SM AMT OF KEELY URINE. TELEMETRY ON SHOWING SR. WILL CONT TO MONITOR AND ASSIST NEEDED.
[2020-04-01] VITALS: BP 151/57
[2020-04-01 04:00] VITALS: BP 126/91
[2020-04-01 05:22] LABS: CALCIUM 7.1 mg/dL (8.5-10.1); POTASSIUM 3.9 mmol/L (3.5-5.1)
--- NOTE | 2020-04-01 05:38 | NUR ---
SLEPT WELL. ASSISTED WITH REPOSITIONING Q 2HR. NO CHANGE IN ASSESSMENT. HS GOALS OF REST AND SAFETY ACHIEVED. HOURLY ROUNDING OBSERVED.
[2020-04-01 05:43] LABS: CREATININE 5.3 mg/dL (0.6-1.3)
[2020-04-01 08:00] VITALS: BP 126/49
[2020-04-01 11:05] VITALS: BP 139/56
--- NOTE | 2020-04-01 15:21 | NUR ---
VS CHARTED, Ox4- DROWSY,FLAT AFFECT, NC@1L, MAX ASSIST, REDMOND CATHETER- REMOVAL TRIAL, EXTERNAL DIALYSIS LINE RIGHT JUGULAR, DIALYSIS M-W-F, OLIGURIC, ACCUCHECKS, HOURLY ROUNDING PERFORMED, POSSESSIONS AND CALL LIGHT WITHIN REACH. PT SPOUSE AT BEDSIDE.PRESSURE INJURY SACRUM- DRESSING IN PLACE
[2020-04-01 20:10] VITALS: BP 160/55
[2020-04-02 00:44] VITALS: BP 129/47
--- NOTE | 2020-04-02 03:25 | NUR ---
ASSUMED CARE OF PT AT 1900. PT IS ALERT AND ORIENTED. VSS. PERRLA. NO COMPLAINTS OF PAIN. PT SEEMS DEPRESSED AND FLAT AFFECT. PT IS Q2 TURN. PT IS IN SINUS RYTHM ON THE TELEMETRY. PT IS RESTING COMFORTABLY IN BED. RESPIRATIONS ARE EVEN AND NONLABORED. WILL CONTINUE TO MONITOR PT.
[2020-04-02 05:25] VITALS: BP 142/55
[2020-04-02 08:00] VITALS: BP 146/53
[2020-04-02 12:49] LABS: ABSOLUTE BASOPHILS 0.1 thou/uL (0.0-0.2); ABSOLUTE EOSINOPHILS 0.1 thou/uL (0.0-0.7); ABSOLUTE LYMPHOCYTES 0.3 thou/uL (0.8-5.3); ABSOLUTE MONOCYTES 0.2 thou/uL (0.0-1.2); ABSOLUTE NEUTROPHILS 5.6 thou/uL (1.6-8.1); EOSINOPHILS 0.9 %; HEMOGLOBIN 8.4 gm/dL (12.0-15.0); LYMPHOCYTES 4.8 %; MCH 25.8 pg (26.0-34.0); MCHC 32.2 g/dL (28.0-37.0); MONOCYTES 3.3 %; MPV 7.5 fl. (7.2-11.1); NUCLEATED RBCS 0 /100WBC; RBC 3.25 mil/uL (4.20-5.00); RDW-CV 22.2 % (10.5-14.5); WBC 6.2 thou/uL (4.0-11.0)
[2020-04-02 13:02] LABS: ALBUMIN 1.7 g/dL (3.4-5.0); DIRECT BILIRUBIN 0.1 mg/dL (<0.1-0.3); TOTAL BILIRUBIN 0.4 mg/dL (<0.1-1.0); TOTAL PROTEIN 5.3 g/dL (6.4-8.2)
[2020-04-02 13:13] LABS: PLATELET ESTIMATE DECREASED
[2020-04-02 13:14] LABS: ANISOCYTOSIS 1+; POIKILOCYTOSIS 1+
[2020-04-02 13:15] LABS: PLATELET COUNT* 62 thou/uL (150-400)
--- NOTE | 2020-04-02 15:07 | NUR ---
FAXED REFERRALS FOR LTC PLACEMENT TO THE FOLLOWING FACILITIES; [facility] ([phone]) EFAX # [phone] [facility] ([phone]) FAX # [phone] WILL AWAIT ACCEPTANCE. CM TO CONTINUE TO FOLLOW FOR SAFE DISCHARGE PLANNING.
--- NOTE | 2020-04-02 16:00 | NUR ---
LATE ENTRY FOR 04/01 AT 0900-RECEIVED UPDATE FROM MT ARAUJO THAT INSURANCE DENIED [facility] ON WEDNESDAY. [facility] EMAILED FORM TO HAVE AND PT.SIGN TO ALLOW [facility] TO DO A FINAL APPEAL THROUGH INSURANCE. HAD AND PTS SIGN. RECEIVED BACK AT END OF DAY SAYING NEEDED TO SIGN IN 2 OTHER [address]ACES. PUT IN FRONT OF CHART AND TOLD RN TO ALERT IN AM TO SIGN. 04/02 FOUND FORM NOT SIGNED TODAY. GONE FOR DAY. ASKED LONG CALL TO SIGN AND THEY SAID THEY WOULD RATHER DEFER TO TO SIGN ON 04/03. CM WILL HAVE SIGNED FIRST THING IN AM AND FAX BACK TO [facility].
[2020-04-02 16:31] VITALS: BP 148/57
[2020-04-02 18:35] VITALS: BP 156/51
--- NOTE | 2020-04-02 18:42 | NUR ---
PATIENT TRANSFERRED FORM TELE TO ROOM 312. REPORT RECEIVED FROM JOSE BROCK. PATIENT ALERT AND ORIENTED. VITALS STABLE CHARTED. BLADDER SCAN OBTAINED FOR SHIFT ORDERS AND 3MLS NOTED. BED ALARM ON. CALL LIGHT WITHIN REACH.
--- NOTE | 2020-04-02 19:19 | NUR ---
PT. AOX4, VSS, DENIES PAIN. ENCOURAGED TO TURN Q2, OOB TO CHAIR FOR A FEW HOURS THIS AFTERNOON, TOLERATED WITHOUT DIFFICULTY. PT. INCONT. OF BOWELSX1. HOURLY ROUNDING PERFORMED. CALL LIGHT AND PERSONAL BELONGINGS PLACED WITHIN REACH. SPOUSE VISITED, UPSET ABOUT PATIENT'S HOLD ON TRANSFER TO SNF. TRANSFER ORDERS RECEIVED. REPORT GIVEN TO CLEO. PT. TRANSPORTED VIA BED TO ROOM 312 WITH BELONGINGS. PT. LEFT UNIT IN STABLE CONDITION, NO S/S OF DISTRESS.
[2020-04-02 21:20] VITALS: BP 179/72
[2020-04-03 00:35] VITALS: BP 142/59
--- NOTE | 2020-04-03 05:28 | NUR ---
PATIENT SLEPT MOST OF THE NIGHT. PATIENT HAD NO COMPLAINTS OF PAIN. PATIENT WAS TURNED ABOUT EVERY TWO HOURS. PATIENT IS POSSIBLY BEING TRANSFERRED TO SNF TODAY. WILL CONTINUE TO MONITOR.
[2020-04-03 08:08] VITALS: BP 150/63
[2020-04-03] MEDS ORDERED: NEPHRO-VITE TA0.8 MG PO (08:38)
[2020-04-03] MEDS ORDERED: GABAPENTIN 100100 MG PO (08:38)
[2020-04-03] MEDS ORDERED: REMERON15 M2 PO (08:38)
[2020-04-03 09:54] VITALS: BP 150/63
--- NOTE | 2020-04-03 15:58 | NUR ---
FAXED CORRECTED FORM TO [facility] [phone]. INSURANCE NOW REQUESTING UPDATED INFORMATION. FAXED UPDATES TO [facility]AT ABOVE NUMBER. HAD PHONE NUMBER OF CM AT [facility] THAT HE HAS TALKED TO. HE SAID SHE MAY BE ABLE TO ASSIST CM WITH AUTH OF LTAC. CALLED HER -DALLIN GATICAQSXYRRX-[phone]. HAD TO LEAVE HER A VM TO CALL CM BACK.
--- NOTE | 2020-04-03 17:21 | NUR ---
PT HAD DIALYSIS TODAY. IMODIUM GIVEN FOR LOOSE STOOLS WITH GOOD REULTS.
[2020-04-03 20:30] VITALS: BP 177/72
[2020-04-03 23:00] VITALS: BP 130/56
[2020-04-04 05:44] LABS: ABSOLUTE BASOPHILS 0.1 thou/uL (0.0-0.2); ABSOLUTE LYMPHOCYTES 0.4 thou/uL (0.8-5.3); ABSOLUTE MONOCYTES 0.2 thou/uL (0.0-1.2); ABSOLUTE NEUTROPHILS 4.3 thou/uL (1.6-8.1); BASOPHILS 2.3 %; EOSINOPHILS 0.9 %; HEMATOCRIT 23.6 % (37.0-47.0); HEMOGLOBIN 7.6 gm/dL (12.0-15.0); LYMPHOCYTES 7.6 %; MCHC 32.3 g/dL (28.0-37.0); MCV 80.6 fL (80.0-100.0); MONOCYTES 4.5 %; MPV 7.8 fl. (7.2-11.1); NUCLEATED RBCS 0 /100WBC; POLYS 84.7 %; RBC 2.93 mil/uL (4.20-5.00); WBC 5.1 thou/uL (4.0-11.0)
[2020-04-04 05:48] LABS: PLATELET COUNT* 39 thou/uL (150-400)
[2020-04-04 06:08] LABS: CALCIUM 7.2 mg/dL (8.5-10.1); CREATININE 2.5 mg/dL (0.6-1.3)
--- NOTE | 2020-04-04 08:22 | NUR ---
PASSED PHONE NUMBER OF DLALIN GATICA/SAJAN TO [facility]. SHE CALLED ME BACK LAST EVENING AND SAID SHE COULD POSSIBLY ASSIST [facility] WITH [facility] AUTH.
--- NOTE | 2020-04-04 08:26 | NUR ---
PATIENT SLEPT PART OF THE NIGHT. PATIENT HAD A TEMP OF 102.9 [address]GIN[address]ING OF SHIFT. DR[address] KELLY WAS NOTIFIED INSTRUCTED TO GIVE TYLENOL. TEMP CAME DOWN TO 100.8 AT 2300 AND WAS DOWN TO 99.4 AT 0144. PATIENT WAS POSSIBLY SUPPOSED TO LEAVE TO LTAC TODAY. WILL CONTINUE TO MONITOR.
[2020-04-04 09:44] LABS: ANISOCYTOSIS 2+; HYPOCHROMASIA 2+; MICROCYTES 1+; PLATELET ESTIMATE DECREASED
[2020-04-04 09:58] VITALS: BP 143/63
[2020-04-04 10:00] VITALS: BP 124/58
[2020-04-04 18:33] LABS: URINE BILIRUBIN NEGATIVE (Negative); URINE BLOOD 3+ (Negative); URINE CLARITY CLEAR; URINE COLOR BROWN; URINE GLUCOSE-RANDOM 1+ (Negative); URINE KETONES NEGATIVE (Negative); URINE LEUKOCYTES-REFLEX TRACE (Negative); URINE NITRITE-REFLEX NEGATIVE (Negative); URINE PROTEIN 3+ (Negative); URINE UROBILINOGEN 0.2 E.U./dl (0.2-1.0)
[2020-04-04 18:42] LABS: MUCUS None Seen strn/LPF (None Seen); SQUAMOUS 4-10 Moderate /LPF (0-3); URINE RBC >20 Many /HPF (0-2)
[2020-04-04 18:43] LABS: BACTERIA-REFLEX 1-9 Few /HPF (None Seen); URINE WBC-REFLEX 6-15 Few /HPF (0-5)
[2020-04-04 18:45] LABS: CASTS None Seen /LPF (None Seen); CRYSTALS None Seen /LPF (None Seen)
--- NOTE | 2020-04-04 18:55 | NUR ---
I ASSUMED CARE OF THE PATIENT AT 0700. SHE IS ALERT AND ORIENTED X4 AND IS UP WITH 2 MAX. SHE IS WAITING ON PLACEMENT FOR INSURANCE. BED IS IN THE LOW LOCKED POSITION AND CALL LIGHT IS IN REACH. HOURLY ROUNDING IS COMPLETED AND PATIENT NEEDS ARE MET. PAIN IS DENIED. SHE DOES NOT PRODUCE MUCH URINE BUT A SPECIMEN WAS SENT. SHE GETS DIALYSIS -- AND HER HEPARIN LOCK WAS SWITCHED OUT FOR SODIUM CITRATE TODAY BY THE DIALYSIS NURSE. SHE HAS CRITICAL PLTS OF [address] MONTERO WAS CONTACTED AT DR VELOZ RECOMMENDATION (NEW BLISTERS IN HER MOUTH). SHE WAS SWABBED FOR COVID AND IT WAS NEGATIVE. BLOOD SUGAR WAS MONITORED AND MANAGED. WILL CONTINUE TO MONITOR.
[2020-04-04 21:00] VITALS: BP 159/65
[2020-04-04 22:06] LABS: HEMOGLOBIN 7.4 g/dL (11.1-15.9)
[2020-04-05 04:41] LABS: ABSOLUTE BASOPHILS 0.1 thou/uL (0.0-0.2); ABSOLUTE EOSINOPHILS 0.1 thou/uL (0.0-0.7); ABSOLUTE LYMPHOCYTES 0.5 thou/uL (0.8-5.3); ABSOLUTE MONOCYTES 0.2 thou/uL (0.0-1.2); ABSOLUTE NEUTROPHILS 4.2 thou/uL (1.6-8.1); BASOPHILS 2.5 %; EOSINOPHILS 1.3 %; HEMATOCRIT 23.2 % (37.0-47.0); HEMOGLOBIN 7.5 gm/dL (12.0-15.0); LYMPHOCYTES 9.1 %; MCH 25.9 pg (26.0-34.0); MCHC 32.3 g/dL (28.0-37.0); MCV 80.3 fL (80.0-100.0); MONOCYTES 4.1 %; MPV 8.8 fl. (7.2-11.1); NUCLEATED RBCS 0 /100WBC; RBC 2.89 mil/uL (4.20-5.00); RDW-CV 21.6 % (10.5-14.5); WBC 5.1 thou/uL (4.0-11.0)
[2020-04-05 05:07] LABS: ALBUMIN 1.6 g/dL (3.4-5.0); CALCIUM 7.3 mg/dL (8.5-10.1); PHOSPHORUS* 3.6 mg/dL (2.5-4.9); POTASSIUM 4.4 mmol/L (3.5-5.1)
[2020-04-05 05:23] LABS: PLATELET COUNT* 40 thou/uL (150-400)
[2020-04-05 05:33] LABS: CREATININE 3.9 mg/dL (0.6-1.3)
--- NOTE | 2020-04-05 06:51 | NUR ---
PT HAS SLEPT WELL OVERNIGHT. DENIES PAIN OR PROBLEMS. O2 1L NC. TEMP 99.3 OVERNIGHT. R CHEST TESSIO INTACT. NO PERIPHERAL IV ACCESS. HS ACCUECHECK 159, INSULIN GIVEN WITH SNACK. PT CO BLISTERS ON TONGUE, HEM ONC DR MILES TO SEE PT TODAY. TAKES PILLS WHOLE WITH WATER. INCONTINENT SMALL AMOUNT URINE ONCE OVERNIGHT, SOURAV CARE GIVEN, BARRIER CREAM APPLIED. AM LABS. PLATELETS STILL CRITICAL AT 40, YOU CALL MESSAGE SENT TO . 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 PT TURNED AND REPOSITIONED Q2 HOURS AND PRN FOR SKIN CARE AND COMFORT. ON LOW AIR LOSS SPECAILTY BED. AOX4, WEAK, ABLE TO USE CALL LITE AND MAKE NEEDS KNOWN.
[2020-04-05 07:30] LABS: ANISOCYTOSIS 1+
[2020-04-05 09:00] VITALS: BP 149/54
--- NOTE | 2020-04-05 13:57 | NUR ---
MT called Homero with [facility] who stated that the insurance has the appeal and that he has not received final decision yet on the status of the appeal. Homero stated that it could take up to 72 hours and that he would update MT as soon as he heard anything on decision; he predicts that it could be Wednesday.
[2020-04-05 15:50] VITALS: BP 176/72
--- NOTE | 2020-04-05 16:11 | NUR ---
PATIENT IN DIALYSIS ALL AFTERNOON. NO COMPLAINTS OF PAIN. 02 2L NC REMAINS IN PLACE. TURNED Q2 ORDERED. DR[address] ORTEGA HERE THIS AM AND NOTIFIED OF 99.9 TEMP WITH AM VITALS, ORAL ABX WERE DC'D. PER DILAYSIS 1 LITER REMOVED.
--- NOTE | 2020-04-05 16:24 | NUR ---
WOUND NURSE: PATIENT SEEN FOR F/U ASSESSMENT OF SACRAL PRESSURE INJURY. THIS IS HEALED WITH INTACT THICKENED PINK EPITHELIAL TISSUE IN PLACE. WOUND CARE DC'D A RESULT. PATIENT REINSTRUCTED ON IMPORTANCE OF FREQUENT REPOSITIONING TO PREVENT RECURRENCE. PATIENT STATES SHE UNDERSTANDS.
[2020-04-05 19:07] LABS: % SATURATION 15 % (20-39); IRON 17 ug/dL (50-175)
[2020-04-05 19:20] VITALS: BP 157/56
--- NOTE | 2020-04-06 06:50 | NUR ---
PT UNCOMFORTABLE AND NAUSEAOUS START OF SHIFT, PO ZOFRAN AND PHENERGAN GIVEN WITH IMPROVEMENT IN NAUSEA. PT ABLE TO TAKE HS MEDS WITHOUT DIFFICULTY. AOX4, WEAKNESS AND FATIGUE. R CHEST TESSIO INTACT. O2 2L NC. HS ACCUCHECK 162, INSULIN GIVEN ORDERED. TURNED AND REPOSITIONED Q2 HOURS AND PRN PT WOULD ALLOW AND REQUESTED. REMAINS ON SPECIALTY LOW AIR LOSS BED. REFUSING MAGIC MOUTHWASH THIS SHIFT. SOURAV CARE GIVEN AND BARRIER CREAM APPLIED OVERNIGHT, NO URINE PRODUCTION OR BM THIS SHIFT. REMAINS ON CONTACT ISOLATION FOR MRSA NARES. ABLE TO USE CALL LITE AND MAKE NEEDS KNOWN.
[2020-04-06 07:14] LABS: HEMATOCRIT 22.3 % (37.0-47.0); HEMOGLOBIN 7.1 gm/dL (12.0-15.0); MCH 25.8 pg (26.0-34.0); MCHC 32.1 g/dL (28.0-37.0); MCV 80.5 fL (80.0-100.0); MPV 8.4 fl. (7.2-11.1); RBC 2.76 mil/uL (4.20-5.00); WBC 4.7 thou/uL (4.0-11.0)
[2020-04-06 08:00] VITALS: BP 139/55
[2020-04-06 13:41] VITALS: BP 142/60
--- NOTE | 2020-04-06 17:07 | NUR ---
PATIENT SLEPT WELL THIS AM INTO AFTERNOON AND STATED SHE FELT BETTER TODAY. PATIENT DID WAKE FOR MEDS AND TO EAT. TURNED Q2. PATIENT HAD LARGE BM THIS AM AND DID VOID AT THAT TIME PER BEDPAN. NO COMPLAINTS OF PAIN. HERE AT BEDSIDE MOST OF SHIFT. DR. OLIVIA AWARE OF CRITICAL PLATLETS THIS AM, NO NEW ORDERS.
[2020-04-06 20:30] VITALS: BP 155/60
--- NOTE | 2020-04-07 05:48 | NUR ---
PATIENT HAS RESTED WELL THROUGHOUT MOST OF THE NIGHT. VSS ON 1L 02 VIA NASAL CANNULA. PATIENT HAS REMAINED ON BEDREST DURING THE NIGHT. NO C/O PAIN. PATIENT HAS NOT PRODUCED ANY URINE DURING THE SHIFT. PATIENT ENCOURAGED TO TURN AND REPOSITION EVERY 2HRS BUT PATIENT REFUSES AT TIMES. PATIENT REMAINS IN CONTACT ISOLATIONS FOR MRSA OF THE NARES. RIGHT CHEST TESSIO DIALYSIS CATHETER IS IN PLACE. PATIENT REFUSED HER SWISH N SWALLOW WITH NIGHT TIME MEDS. FALL PRECAUTIONS IN PLACE AND HOURLY ROUNDS MADE. WILL CONTINUE WITH PLAN OF CARE AND NURSING TO MONITOR.
[2020-04-07 06:11] VITALS: BP 157/66
[2020-04-07 07:50] VITALS: BP 152/59
[2020-04-07 16:01] VITALS: BP 124/54
--- NOTE | 2020-04-07 17:26 | NUR ---
PATIENT ASSISTED TO CHAIR WITH PT, PATIENT SAT UP APPROX 3 HOURS. PATIENT HAD TO BE LIFTED BACK TO BED SHE WAS TOO WEAK. TURNED Q2. GOOD APPETITE. INSULIN GIVEN WITH MEALS REQUIRED. BM THIS SHIFT X 2, ONE LARGE ONE SMALL. AT BEDSIDE.
[2020-04-07 19:50] VITALS: BP 137/54
[2020-04-08 04:42] LABS: HEMATOCRIT 21.3 % (37.0-47.0); MCH 25.5 pg (26.0-34.0); MCHC 31.8 g/dL (28.0-37.0); MCV 80.2 fL (80.0-100.0); MPV 9.4 fl. (7.2-11.1); RBC 2.65 mil/uL (4.20-5.00); RDW-CV 21.1 % (10.5-14.5); WBC 3.1 thou/uL (4.0-11.0)
[2020-04-08 04:57] LABS: CALCIUM 7.6 mg/dL (8.5-10.1); MAGNESIUM 1.7 mg/dL (1.8-2.4); POTASSIUM 4.6 mmol/L (3.5-5.1)
[2020-04-08 05:32] LABS: CREATININE 5.1 mg/dL (0.6-1.3)
[2020-04-08 05:43] LABS: HEMOGLOBIN 6.8 gm/dL (12.0-15.0)
--- NOTE | 2020-04-08 06:24 | NUR ---
PT SLEPT WELL THIS SHIFT. MEDS GIVEN PER EMAR. Q2 TURN. CONTACT ISOLATION FOR MRSA IN PLACE. HGB 6.8 THIS AM. pLATELETS 16. DR CLIFFORD NOTIFIED. AWAITING NEW ORDERS. PT ON SPECIALTY BED. FALL PRECATUIN IN PLACE. WILL CONTINUE TO MONITOR.
[2020-04-08 07:26] LABS: HEMATOCRIT 22.6 % (37.0-47.0); HEMOGLOBIN 7.2 gm/dL (12.0-15.0)
[2020-04-08 08:00] VITALS: BP 101/50
--- NOTE | 2020-04-08 12:03 | NUR ---
CALLED [facility] TO CHECK ON APPEAL STATUS. HE SAID HE HAS NOT HEARD BACK FROM INSURANCE YET BUT EXPECTS TO THIS AFTERNOON.
--- NOTE | 2020-04-08 17:36 | NUR ---
REFAXED REFERRAL TO [facility] (FAX # [phone]). LB FROM ADMISSIONS STATED THAT SHE NEVER RECIEVED THE FAX FROM 04/02/20. FAXED UPDATED THERAPY NOTES AND COVID TEST TO [facility] (FAX # [phone]). PER [facility] ([phone]) SHE STATED THAT THE PATIENT MAY QUALIFY FOR SNF AND ONCE SNF DAYS ARE EXHAUSTED THEN THEY CAN LOOK INTO LTC (PRIVATE PAY). FOR PRIVATE PAY, THE FACILITY WILL NEED A FINANCIAL FORM TO BE COMPLETED BY THE . FORM FAXED OVER FROM [facility]. MYLENE HI WILL HAVE SIGN IT TOMORROW AND WILL FAX TO V[facility]. MYLENE HI DID NOT RECIEVE AN UPDATE TODAY FROM [facility] SO WE WILL MOVE FORWARD WITH THE ABOVE REFERRALS. CM TO CONTINUE TO FOLLOW FOR SAFE DISCHARGE PLANNING.
--- NOTE | 2020-04-08 18:21 | NUR ---
PT A&OX4 VSS. PT ON BEDREST R/T WEAKNESS. PT ON SPECIALTY BED, Q2H TURNS FOR SKIN INTEGRITY. PT MAY BE REMOVED FROM ISO, MRSA IS IN NARES. PT TO DIALYSIS AT 1300 TODAY, PT RETURNED TO ROOM AT APPROX 1730. PT HAD BM TODAY. PT CONTINENT OF B/B THIS SHIFT. PT PRODUCES LITTLE TO NO URINE, PT REQUESTED BED TAFOYA NEEDED. PT HAS PERSONAL LENCET AT BEDSIDE TO MONITOR GLUCOSE. PT HAS HEALING SCABBED AREAS TO BOTTOM/COCCYX PRESENT AT TIME THIS NURSE ASSUMED CARE THIS AM. PT HAS NO IV ACCESS AT TIME OF ASSUMING CARE. IV IRON ORDERED, THIS NURSE WILL ATTEMPT TO FIND ACCESS FOR ADMINISTRATION. PT SPOUSE AT BEDSIDE THIS AFTERNOON. PT NOW RESTS IN BED WITH CALL LIGHT IN REACH. WILL CONTINUE TO MONITOR.
[2020-04-08 20:00] VITALS: BP 114/44; BP 176/57
[2020-04-09 04:23] LABS: HEMATOCRIT 23.3 % (37.0-47.0); HEMOGLOBIN 7.5 gm/dL (12.0-15.0); MCH 25.8 pg (26.0-34.0); MCHC 32.3 g/dL (28.0-37.0); RBC 2.91 mil/uL (4.20-5.00); RDW-CV 20.8 % (10.5-14.5)
[2020-04-09 04:35] LABS: CALCIUM 7.8 mg/dL (8.5-10.1); POTASSIUM 4.3 mmol/L (3.5-5.1)
[2020-04-09 04:49] LABS: CREATININE 2.9 mg/dL (0.6-1.3)
--- NOTE | 2020-04-09 05:23 | NUR ---
PT SLEPT WELL OVERNIGHT AFTER HS MEDS. LAC SL IV, IRON TRANSFUSION COMPLETED THIS SHIFT. HS ACCUCHECK 197, INSULIN GIVEN ORDERED. RECEIVED TYLENOL AT HS FOR TEMP 100.4, RECHECK TEMP 98.5. R CHEST TESSIO INTACT. O2 2L NC. AM LABS DRAWN, PLATELETS REMAIN UNCHANGED TODAY AT 18. PT TURNED AND REPOSITIONED Q2 HOURS AND PRN FOR SKIN CARE AND COMFORT SHE WOULD ALLOW AND REQUESTS. TAKES PILLS WHOLE WITH WATER WITHOUT DIFFICULTY. AOX4, ABLE TO USE CALL LITE AND MAKE NEEDS KNOWN. CM FOLLOWING FOR DC PLACEMENT PLAN. REMAINS ON SPECIALTY LOW AIR LOSS MATTRESS.
[2020-04-09 08:00] VITALS: BP 120/48
[2020-04-09 08:30] VITALS: BP 120/48
--- NOTE | 2020-04-09 09:21 | NUR ---
FAxed clinicals requested to James.
[2020-04-09 11:36] LABS: ALBUMIN 1.7 g/dL (3.4-5.0); DIRECT BILIRUBIN 0.1 mg/dL (<0.1-0.3); TOTAL BILIRUBIN 0.3 mg/dL (<0.1-1.0); TOTAL PROTEIN 4.8 g/dL (6.4-8.2)
--- NOTE | 2020-04-09 18:57 | NUR ---
PT A&OX4 VSS. IV TO LAC SALINE LOCKED, PATENT, DRESSING C/D/I. DIALYSIS CATHETER TO R CHEST, DRESSING C/D/I. DIALYSIS SCHEDULED M*W*. PT USES 2L O2 INTERMITTENTLY. PT IS ACCUCHECK, INSULIN ADMINISTERED ORDERED. PT UP TO RECLINER WITH THERAPY TODAY. PT HAD EPISODE OF BOWEL INCONTINENCE. PT AND SPOUSE WERE UPSET R/T WAITING FOR ASSISTANCE WITH MECHANICAL LIFT TO TRANSFER PT BACK INTO BED. THERAPY ASKED THIS PT TO REMAIN IN RECLINER TO WORK WITH HER. PT Q2H TURN, ON SPECIALTY BED FOR SKIN INTEGRITY. CM CONTINUES TO WORK ON PLACEMENT. NO OPEN AREAS NOTED TO BOTTOM. PT RESTS IN BED WITH CALL LIGHT IN REACH. WILL CONTINUE TO MONITOR.
[2020-04-09 20:00] VITALS: BP 158/59
[2020-04-10 05:25] LABS: HEMATOCRIT 21.2 % (37.0-47.0); MCH 25.5 pg (26.0-34.0); MCV 79.7 fL (80.0-100.0); MPV 8.5 fl. (7.2-11.1); RBC 2.66 mil/uL (4.20-5.00); RDW-CV 20.6 % (10.5-14.5); WBC 3.1 thou/uL (4.0-11.0)
[2020-04-10 05:30] LABS: HEMOGLOBIN 6.8 gm/dL (12.0-15.0)
[2020-04-10 05:41] LABS: ALBUMIN 1.6 g/dL (3.4-5.0); CALCIUM 7.4 mg/dL (8.5-10.1); POTASSIUM 4.4 mmol/L (3.5-5.1); TOTAL BILIRUBIN 0.3 mg/dL (<0.1-1.0); TOTAL PROTEIN 4.4 g/dL (6.4-8.2)
[2020-04-10 05:44] LABS: CREATININE 4.3 mg/dL (0.6-1.3)
--- NOTE | 2020-04-10 06:25 | NUR ---
PT SLEPT WELL THIS SHIFT, TURNED AND REPOSITIONED Q2 HOURS AND PRN PT WOULD ALLOW AND REQUESTS. O2 2L. LAC SL IV. AM LABS DRAWN, CRITICAL LAB RESULTS REPORTED TO DR LACEY ALEMAN MD, NO NEW ORDERS AT THIS TIME. PT AOX4, ABLE TO USE CALL LITE AND MAKE NEEDS KNOWN. PT CURRENTLY SHELTERED IN JONES PER BED WITH MASK ON PER TORNADO WARNING PROTOCOLS. FREQUENT OBSERVATION. R CHEST TESSIO, TO HAVE DIALYSIS TODAY. TEMP MAX 100.4 THIS SHIFT, TYLENOL GIVEN WITH GOOD RESULT.
[2020-04-10 07:42] VITALS: BP 139/52
[2020-04-10 09:00] VITALS: BP 132/51; BP 139/52
[2020-04-10 09:08] LABS: HEPATITIS B SURFACE AG Negative (Negative)
[2020-04-10 10:04] VITALS: BP 132/51; BP 139/52
[2020-04-10 11:12] VITALS: BP 132/51; BP 138/56; BP 139/52
[2020-04-10 11:25] LABS: HEMATOCRIT 24.6 % (37.0-47.0); HEMOGLOBIN 7.9 gm/dL (12.0-15.0)
--- NOTE | 2020-04-10 17:28 | NUR ---
Pt had dialysis today. denies pain. progressing towards goals. remains weak.
[2020-04-10 20:00] VITALS: BP 172/63
[2020-04-10 22:25] VITALS: BP 105/38
--- NOTE | 2020-04-11 06:12 | NUR ---
PATIENT HAS SLEPT WELL THROUGHOUT MOST OF THE NIGHT. VSS, ALTHOUGH 02 SATURATION WAS DECREASED WHEN BROUGHT UP TO UNIT. OXYGEN WAS INCREASED TO 3L 02 VIA NASAL CANNULA, AND PATIENT DID HAVE ELEVATED TEMP OF 103.3 ALSO EARLY IN SHIFT. TYLENOL GIVEN AND TEMP IS DOWN TO 98.8. BP WAS ALSO ELEVATED AND SCHEDULED BLOOD PRESSURE MEDICATIONS GIVEN ORDERED AND CHARTED. PATIENT REMAINS ON CONTACT PRECAUTIONS D/T MRSA OF THE NARES. IV IN LEFT AC-SL. RIGHT CHEST DIALYSIS CATHETER-SL. PATIENT HAS REMAINED BEDREST DURING THE NIGHT AND REMAINS ON LOW AIR LOSS MATTRESS. FALL PRECAUTIONS IN PLACE AND HOURLY ROUNDS MADE. WILL CONTINUE WITH PLAN OF CARE AND NURSING TO MONITOR.
[2020-04-11 07:40] VITALS: BP 145/54
--- NOTE | 2020-04-11 08:13 | NUR ---
WORKING TOWARDS PT.GOING TO [facility] SNF WHEN SHE IS READY FOR DISCHARGE. HAS NOT BEEN TOTALLY ACCEPTED. WILL [facility] TO SEE IF SHE NEEDS ANY FURTHER INFORMATION. WAITING ON [facility] TO ACCEPT ALSO FOR PT.TO HAVE DIALYSIS AT [facility]. [facility] FINALLY DID GET VERBAL DENIAL FOR [facility] FROM [facility] (3RD APPEAL) ON 04/09.
--- NOTE | 2020-04-11 12:00 | NUR ---
DAUGHTER,KERON, CALLED CM. GAVE HER UPDATE ON HER MOM. EXPLAINED THE DRVidalWANTED HER TO TRANSFER TO A TERTIARY CARE CENTER LIKE , BUT HER DAD IS NOT AGREEING AT THIS POINT. SHE SAID SHE WILL TRY TO TALK TO HIM. SPOKE WITH PT. AND . HE WAS ANGRY ABOUT WANTING HER TRANSFERRED. HE SAID 'SHE'S BEEN IN FOR A MONTH AND NOW ALL THIS TIME HAS BEEN WASTED AND SHES NO BETTER'. HE WAS TEARFUL AND LEFT ONCE DURING CONVERSATION. HE SAID THEY WERE DISCUSSING IF MAYBE SHE SHOULD GO TO A CARE CENTER-LIKE [facility] TO BE CLOSE TO HOME. EXPLAINED IF SHE DID SHE WOULD NOT BE ABLE TO DO DIALYSIS AT THIS TIME DUE TO HER WEAKNESS. SHE WOULD PASS AWAY WITHOUT DIALYSIS. HE SAID THEY WILL DECIDE, SOMETIME OVER THE WEEKEND. HE WANTS TO TALK WITH HIS KIDS. NURSING INFORMED.
--- NOTE | 2020-04-11 17:23 | NUR ---
PATIENT HAS BEEN ON BEDREST TODAY. SHE HAS BEEN TURNED AND REPOSITIONED EVERY 2 HOURS AND INCONT. CARE NEEDED. SHE IS ALERT AND ORIENTED X 4 AND HER HAS BEEN WITH HER MOST OF THE DAY. HE IS VERY NEGATIVE AND ALWAYS HAS SOMETHING BAD TO SAY ABOUT OUR FACILITY INCLUDING THE MEALS. DR KELLY CAME INTO THE ROOM AND TALKED WITH HIM AND SUGGESTED THAT SHE BE TRANSFERRED TO [facility] FOR FURTHER TESTING AND HE STATED "WE ARE NOT INTERESTED IN THAT PLACE." HE TOLD ME LATER ON TODAY THAT HE WAS GOING TO TALK TO THE "KIDS" AND DECIDE WHAT TO DO AND WHERE TO TAKE HER. SHE HAS NOT COMPLAINED OF ANY PAIN TODAY AND HER IV HAS BEEN FLUSHED AND THE SITE LOOKS HEALTHY. NO DISTRESS NOTED. SHE IS VERY WEAK AND IS CURRENTLY UNABLE TO SIT UP ON HER OWN OR TRANSFER WITHOUT A LIFT. CALL LIGHT IS IN EASY REACH AND FALL PRECAUTIONS ARE IN PLACE. BED EXIT ALARM IN USE.
[2020-04-11 20:00] VITALS: BP 157/58
--- NOTE | 2020-04-12 07:00 | NUR ---
PT A&O X 4. MEDS GIVEN ORDERED. TYLENOL GIVEN FOR HEADACHE. ON 3L BY NC. ISOLATION MAINTAINED. PT SLEEPING/RESTING QUIETLY THROUGH THE NIGHT. WILL CONTINUE TO MONITOR.
[2020-04-12 07:55] VITALS: BP 134/55
--- NOTE | 2020-04-12 10:16 | NUR ---
WOUND NURSE: PATIENT SEEN FOR FOLLOW UP ASSESSMENT AND BUTTOCK WOUNDS REMAIN HEALED. D/C'D WOUND CARE CONSULT A RESULT.
[2020-04-12 11:36] LABS: ABSOLUTE BASOPHILS 0.1 thou/uL (0.0-0.2); ABSOLUTE EOSINOPHILS 0.1 thou/uL (0.0-0.7); ABSOLUTE LYMPHOCYTES 0.6 thou/uL (0.8-5.3); ABSOLUTE MONOCYTES 0.1 thou/uL (0.0-1.2); ABSOLUTE NEUTROPHILS 2.4 thou/uL (1.6-8.1); BASOPHILS 1.8 %; EOSINOPHILS 2.2 %; HEMATOCRIT 29.3 % (37.0-47.0); HEMOGLOBIN 9.3 gm/dL (12.0-15.0); LYMPHOCYTES 19.2 %; MCH 26.4 pg (26.0-34.0); MCHC 31.8 g/dL (28.0-37.0); MONOCYTES 4.4 %; MPV 8.4 fl. (7.2-11.1); NUCLEATED RBCS 0 /100WBC; POLYS 72.4 %; RBC 3.53 mil/uL (4.20-5.00); RDW-CV 20.4 % (10.5-14.5); WBC 3.3 thou/uL (4.0-11.0)
[2020-04-12 11:37] LABS: PLATELET COUNT* 26 thou/uL (150-400)
[2020-04-12 11:56] LABS: CALCIUM 7.8 mg/dL (8.5-10.1); CREATININE 4.4 mg/dL (0.6-1.3); TOTAL BILIRUBIN 0.4 mg/dL (<0.1-1.0); TOTAL PROTEIN 5.4 g/dL (6.4-8.2)
[2020-04-12 14:43] VITALS: BP 186/67
--- NOTE | 2020-04-12 17:09 | NUR ---
PT REMAINED ALERT AND ORIENTED. PT RESTING IN BED. MEDS GIVEN ORDERED. FALL RISK PRECAUTIONS IN PLACE. HOURLY ROUNDING COMPLETED. WILL CONTINUE TO MONITOR.
[2020-04-12 17:30] VITALS: BP 147/55
[2020-04-12 20:20] VITALS: BP 153/96
[2020-04-12 22:06] LABS: COMPLEMENT-C4 10 mg/dL (14-44)
[2020-04-12 22:28] VITALS: BP 122/51
[2020-04-13 04:31] LABS: ABSOLUTE BASOPHILS 0.1 thou/uL (0.0-0.2); ABSOLUTE EOSINOPHILS 0.1 thou/uL (0.0-0.7); ABSOLUTE LYMPHOCYTES 0.9 thou/uL (0.8-5.3); ABSOLUTE MONOCYTES 0.2 thou/uL (0.0-1.2); ABSOLUTE NEUTROPHILS 1.6 thou/uL (1.6-8.1); BASOPHILS 1.9 %; EOSINOPHILS 3.8 %; HEMATOCRIT 25.4 % (37.0-47.0); HEMOGLOBIN 8.2 gm/dL (12.0-15.0); LYMPHOCYTES 31.8 %; MCH 26.6 pg (26.0-34.0); MCHC 32.1 g/dL (28.0-37.0); MCV 82.8 fL (80.0-100.0); MONOCYTES 6.6 %; MPV 8.2 fl. (7.2-11.1); NUCLEATED RBCS 0 /100WBC; POLYS 55.9 %; RBC 3.07 mil/uL (4.20-5.00); RDW-CV 20.4 % (10.5-14.5); WBC 2.9 thou/uL (4.0-11.0)
--- NOTE | 2020-04-13 04:35 | NUR ---
PT A&OX4, ON 2L NC, VSS, ISOLATION PRECAUTIONS MAINTAINED. NO COMPLAINTS OF PAIN THIS SHIFT. HOURLY ROUNDINGS COMPLETE. WILL CONTINUE WITH PLAN OF CARE.
[2020-04-13 04:47] LABS: CALCIUM 7.5 mg/dL (8.5-10.1); POTASSIUM 3.9 mmol/L (3.5-5.1)
[2020-04-13 04:54] LABS: CREATININE 2.7 mg/dL (0.6-1.3)
[2020-04-13 06:01] VITALS: BP 129/52
[2020-04-13 06:27] LABS: ANISOCYTOSIS 1+; PLATELET ESTIMATE ADEQUATE
[2020-04-13 07:30] VITALS: BP 137/55
[2020-04-13 13:46] VITALS: BP 151/56
[2020-04-13 15:24] VITALS: BP 163/61
--- NOTE | 2020-04-13 17:30 | NUR ---
PT REMAINED ALERT AND ORIENTED AND FORGETFUL. PT RESTING IN BED. PT WORKED WITH PT TODAY. PT DENIED ANY NEEDS THIS SHIFT. FALL RISK PRECAUTIONS IN PLACE. PT REPOSITIONED PERIODICALLY PER PT REQUEST. FALL RISK PRECAUTIONS IN PLACE. HOURLY ROUNDING COMPLETED. WILL CONTINUE TO MONITOR.
[2020-04-13 20:32] VITALS: BP 152/59
[2020-04-13 22:18] VITALS: BP 138/53
--- NOTE | 2020-04-14 04:22 | NUR ---
PT A&OX4, ON 2L NC, VSS, PT TURNED Q2H, CONTACT ISOLATION MAINTAINED, NO COMPLAINTS OF DISCOMFORT THIS SHIFT. PT SLEEPING WELL. HOURLY ROUNDINGS COMPLETE, WILL CONTINUE WITH PLAN OF CARE.
[2020-04-14 05:42] VITALS: BP 134/55
[2020-04-14 06:55] VITALS: BP 144/55
[2020-04-14 09:43] LABS: PLATELET COUNT* 25 thou/uL (150-400)
[2020-04-14 14:09] VITALS: BP 145/51
[2020-04-14 16:12] VITALS: BP 142/53
--- NOTE | 2020-04-14 17:20 | NUR ---
PT REMAINED ALERT AND ORIENTED. PT RESTING IN BED. PT DENIED ANY NEEDS THIS SHIFT. FALL RISK PRECAUTIONS IN PLACE. HOURLY ROUNDING COMPLETED. WILL CONTINUE TO MONITOR.
[2020-04-14 20:50] VITALS: BP 145/61
[2020-04-14 22:24] VITALS: BP 144/63
[2020-04-15 05:03] LABS: ALBUMIN 1.7 g/dL (3.4-5.0); CALCIUM 7.7 mg/dL (8.5-10.1); POTASSIUM 4.5 mmol/L (3.5-5.1); TOTAL BILIRUBIN 0.4 mg/dL (<0.1-1.0); TOTAL PROTEIN 4.7 g/dL (6.4-8.2)
[2020-04-15 05:04] LABS: CREATININE 4.7 mg/dL (0.6-1.3)
--- NOTE | 2020-04-15 05:06 | NUR ---
PT A&OX4, ON 2L NC, VSS, CONTACT ISOLATION MAINTAINED. PT C/O INDIGESTION, PHYSICIAN CONTACTED AND ORDER GIVEN FOR PEPCID BID AND TUMS, MEDS GIVEN ORDERED. PT SLEEPING WELL. ASSESSMENTS AND HOURLY ROUNDINGS COMPLETE, WILL CONTINUE WITH PLAN OF CARE.
[2020-04-15 05:11] LABS: HEMATOCRIT 26.4 % (37.0-47.0); HEMOGLOBIN 8.4 gm/dL (12.0-15.0); MCH 26.5 pg (26.0-34.0); MCV 82.9 fL (80.0-100.0); MPV 8.4 fl. (7.2-11.1); RBC 3.18 mil/uL (4.20-5.00); RDW-CV 21.7 % (10.5-14.5); WBC 3.7 thou/uL (4.0-11.0)
[2020-04-15 06:01] VITALS: BP 133/59
[2020-04-15 07:56] VITALS: BP 148/59
--- NOTE | 2020-04-15 12:36 | NUR ---
PER NURSING, TRIED TO TRANSFER PT. TO [facility] OVER THE WEEKEND. THEY DECLINED IT WOULD NOT BE A HIGHER LEVEL OF CARE. SPOKE WITH PT.AND . INFORMED OF THIS. ASKED IF THEY WOULD BE INTERESTED IN OR [facility] [place] [address]. SAID NO. DISCUSSED AGAIN ABOUT [facility] HAS INPT.DIALYSIS. HE STILL HAS FINANCIAL FORM THAT WAS GIVEN TO HIM TO FILL OUT FROM [facility]. HE SAID 'IM JUST NOT GOING TO TELL SOMEONE ALL MY FINANCIAL INFORMATION'. ENCOURAGED HIM TO DO SO BECAUSE WHEN HER SNF TIME IS OVER,[facility] NEEDS A PAYOR SOURCE. MYLENE SPOKE WITH [facility]. SHE REQUESTED UPDATES SINCE 04/11. FAXED PROGRESS NOTES,LABS,VS,TO HER. [phone]. SHE SAID PT.HAS BEEN ACCEPTED FOR DIALYSIS THROUGH THEIR FACILITY. SHE WILL ALSO CALL PTS TO EXPLAIN TO HIM THAT THEY CANNOT ACCEPT PT.WITHOUT THE FINANCIAL INFORMATION.
--- NOTE | 2020-04-15 16:00 | NUR ---
HEARD BACK FROM [facility] AT THIS TIME. SHE SAID AFTER REVEIWING UPDATED INFORMATION, THEY DO NOT FEEL THEY CAN MEET PTS NEEDS. CM CALLED [facility] TO CHECK ON REVIEW OF RECORDS FAXED LAST WEEK. [facility] SAID THEY DO NOT HAVE BED AVAILABILITY AT THIS TIME AND DO NOT EXPECT ANY OPENINGS FOR 1-2 WEEKS. CM WILL SPEAK WITH PT.AND IN AM.
--- NOTE | 2020-04-15 18:09 | NUR ---
Pt AOx4, at bedside. pt left unit for dialysis at 1440. No c/o pain prior to leaving unit. No acute events this shift. Hourly rounding done when on floor. Continue poc
[2020-04-15 20:00] VITALS: BP 172/61
[2020-04-16 04:00] VITALS: BP 123/54
--- NOTE | 2020-04-16 04:43 | NUR ---
ASSUMED CARE OF PT AFTER REPORT AT 2300. PT A&OX4. VSS. PHYSICAL ASSESSMENT COMPLETED AND CHARTED. PT ON O2 AT 2L NC. PT COMPLAINED OF GENERALIZED BODY PAIN & HAD A FEBRILE EPISODE OF 100.6-MED GIVEN PER MAR. PT TURNED TO SIDES. PT ABLE TO SLEEP WELL ON BED. MAINTAINED ON CONTACT PRECAUTIONS FOR MRSA. CALL LIGHT WITHIN REACH.
[2020-04-16 07:00] VITALS: BP 131/53
--- NOTE | 2020-04-16 15:30 | NUR ---
INFORMED PT.AND ,[facility] DID NOT FEEL THEY COULD MEET HER NEEDS AND [facility] DID NOT BED AVAILABILITY FOR 1-2 WEEKS. TOLD THEM THE NEXT PLAN WOULD BE FOR HER TO GO TO SNF AND SET UP OUTPT.DIALYSIS. DISCUSSED FACILITIES THAT TAKE HER INSURANCE. THEY WOULD LIKE REFERRAL SENT TO [facility] AND [facility]. FAXED TO BOTH AND LEFT VM FOR ADMISSIONS.
[2020-04-16 16:00] VITALS: BP 134/51
--- NOTE | 2020-04-16 16:47 | NUR ---
FAXED OUTPATIENT DIALYSIS REFERRAL TO [facility] (P: [phone]; F: [phone]. WILL AWAIT FOLLOW UP DECISION. CM TO CONTINUE TO FOLLOW FOR SAFE DISCHARGE PLANNING.
[2020-04-16 20:00] VITALS: BP 145/59
--- NOTE | 2020-04-17 04:28 | NUR ---
PATIENT DID NOT WANT ANYTHING FOR PAIN OR NAUSEA, DENIED BOTH. SHE DID TAKE ALL MEDS SCHEDULED. SHE DID NOT PRODUCE ANY URINE THIS SHIFT. Q2 TURN, HOURLY ROUNDS. LOW FLOW MATTRESS, 2L-NC, ALERT AND ORIENTED. PLAN TO D/C TO FACILITY WHEN AVAILABLE. WILL CONTINUE TO FOLLOW PLAN OF CARE.
[2020-04-17 05:02] LABS: HEMATOCRIT 26.4 % (37.0-47.0); HEMOGLOBIN 8.7 gm/dL (12.0-15.0); MCHC 32.7 g/dL (28.0-37.0); MCV 82.4 fL (80.0-100.0); MPV 7.5 fl. (7.2-11.1); RBC 3.21 mil/uL (4.20-5.00); RDW-CV 21.5 % (10.5-14.5); WBC 3.9 thou/uL (4.0-11.0)
[2020-04-17 05:11] LABS: CALCIUM 7.9 mg/dL (8.5-10.1); CREATININE 4.1 mg/dL (0.6-1.3); MAGNESIUM 1.8 mg/dL (1.8-2.4); POTASSIUM 4.3 mmol/L (3.5-5.1)
[2020-04-17 05:40] LABS: CALCIUM 7.7 mg/dL (8.5-10.1); CREATININE 4.1 mg/dL (0.6-1.3); POTASSIUM 4.4 mmol/L (3.5-5.1)
[2020-04-17 05:57] VITALS: BP 133/52
[2020-04-17 07:00] VITALS: BP 145/54
--- NOTE | 2020-04-17 08:52 | NUR ---
SPOKE WITH [facility] AT [facility]. THEY RECEIVED REFERRAL BUT ARE NOT ADMITTING AT THIS TIME DUE TO A COVID CASE. SHE FEELS IT WILL BE SEVERAL WEEKS,BUT WILL CALL WHEN THEY OPEN BACK UP. HAD TO LEAVE A MESSAGE FOR [facility]/JOSE TO RETURN MY CALL ABOUT PT.
[2020-04-17 09:34] LABS: URINE BILIRUBIN NEGATIVE (Negative); URINE BLOOD 3+ (Negative); URINE CLARITY CLEAR; URINE COLOR YELLOW; URINE GLUCOSE-RANDOM TRACE (Negative); URINE KETONES NEGATIVE (Negative); URINE LEUKOCYTES-REFLEX 1+ (Negative); URINE NITRITE-REFLEX NEGATIVE (Negative); URINE PROTEIN 3+ (Negative); URINE UROBILINOGEN 0.2 E.U./dl (0.2-1.0)
[2020-04-17 09:43] LABS: BACTERIA-REFLEX 1-9 Few /HPF (None Seen); CASTS None Seen /LPF (None Seen); CRYSTALS None Seen /LPF (None Seen); MUCUS None Seen strn/LPF (None Seen); RENAL EPITHELIAL CELLS 4-10 Moderate /LPF (None Seen); SQUAMOUS 0-3 Few /LPF (0-3); URINE RBC >20 Many /HPF (0-2)
--- NOTE | 2020-04-17 11:53 | NUR ---
JOSE STATED THEY ARE REVIEWING REFERRAL. ALSO FAXED REFERRALS TO [facility] AND [facility]. SHE DID NOT HAVE A BED AT [facility] BUT WILL CHECK HER OTHER FACILITIES AND GET BACK TO .
--- NOTE | 2020-04-17 16:23 | NUR ---
FAXED REFERRALS TO [facility], [facility] AND [facility]. HEARD BACK FROM [facility]. THEY ARE NOT ACCEPTING ANY DIALYSIS PTS AT THIS TIME DUE TO COVID 19. [facility] CALLED AND THEY CAN ACCEPT PT.PENDING INS.AUTHORIZATION. SHE HAS SUBMITTED FOR AUTH. THEY NEED A NEG.COVID TEST WITHIN 24-48 HRS. AND PRESUMTIVE NEG.FORM. NURSING INFORMED TO ORDER COVID TEST-ANTIGEN. RECEIVED CHAIR TIME NOTICE FROM IZABELA Jamison AT 0645 AT [facility]. COPY PLACED ON FRONT OF CHART.
--- NOTE | 2020-04-17 18:06 | NUR ---
PT REMAINED ALERT AND ORIENTED. PT HAD DIALYSIS TODAY. PT RESTING IN BED. RAPID COVID ORDERED FOR PLACEMENT POSSIBLY TOMORROW PENDING INSURANCE AUTH. FALL RISK PRECAUTIONS IN PLACE. HOURLY ROUNDING COMPLETED. WILL CONTINUE TO MONITOR.
[2020-04-17 20:00] VITALS: BP 156/64
--- NOTE | 2020-04-18 04:43 | NUR ---
ASSUMED PT CARE AT 1930. PT ALERT AND ORIENTED X4, POLITE AND COOPERATIVE WITH CARES. PT TAKES PILLS WHOLE WITH WATER WITHOUT DIFFICULTY. Q2 TURNS. LOW FLOW MATTRESS. 2L 02 PER NC. RAPID COVID TEST RETURNED NOT DETECTED. POSSIBLE D/C TO FACILITY IF INSURANCE APPROVAL OBTAINED. HOURLY ROUNDING IN PROGRESS, WILL CONTINUE TO MONITOR.
[2020-04-18 05:46] LABS: HEMATOCRIT 26.5 % (37.0-47.0); HEMOGLOBIN 8.6 gm/dL (12.0-15.0); MCH 26.6 pg (26.0-34.0); MCHC 32.3 g/dL (28.0-37.0); MCV 82.4 fL (80.0-100.0); MPV 8.6 fl. (7.2-11.1); RBC 3.22 mil/uL (4.20-5.00); RDW-CV 21.9 % (10.5-14.5); WBC 3.8 thou/uL (4.0-11.0)
[2020-04-18 06:05] LABS: CALCIUM 7.7 mg/dL (8.5-10.1); MAGNESIUM 1.6 mg/dL (1.8-2.4); POTASSIUM 4.1 mmol/L (3.5-5.1)
[2020-04-18 06:07] LABS: CREATININE 2.7 mg/dL (0.6-1.3)
[2020-04-18 08:05] VITALS: BP 123/51
[2020-04-18] MEDS ORDERED: HUMALOG100 UNIT/1 SUBQ (08:16)
[2020-04-18] MEDS ORDERED: ULTRAM 50MG TAB50 MG PO (08:16)
[2020-04-18] MEDS ORDERED: REMERON15 M2 PO (08:16)
[2020-04-18] MEDS ORDERED: GLIPIZIDE XL2.5 MG PO (08:19)
[2020-04-18 11:03] VITALS: BP 150/63
--- NOTE | 2020-04-18 12:34 | NUR ---
MYLENE HEARD BACK FROM [facility] AFTER LEAVING A FOR HER. SHE SAID THEY HAVE INSURANCE AUTH FOR PT.TO COME TODAY. FAXED HER NEG.COVID TEST DONE 04/17,PRESUMPTIVE NEG. FORM THEY REQUIRE,[facility] CHAIR TIME,DISCHARGE SUMMARY AND ORDER FOR LOW AIR LOSS MATTRESS. SHE WILL SET UP STRETCHER VAN FOR PT. FOR 15-0. SHE SAID [facility] WILL PAY FOR STRETCHER VAN. DISCUSSED WITH PT.AND . EXPLAINED NO OTHER FACILITIES HAD BED AVAILABILITY OR WERE ACCEPTING PTS AT THIS TIME. WE DO HAVE AN ACCEPTING FACILITY [facility]. UPSET HE CAN NOT VISIT PT.THERE. EXPLAINED HE WOULD NOT BE ABLE TO VISIT AT ANY FACILITY. MYLENE SPOKE WITH [facility]. TOLD HER PT.WOULD START OUTPT CHAIR TIME TOMORROW AM. FAXED HER UPDATED RECORDS AND DIALYSIS FLOW SHEETS. SHE SAID THEY DO NOT ALLOW ANY VISITORS IN THEIR CLINIC. WILL INFORM OF THIS WHEN HE RETURNS. CHART COPIED TO GO WITH PT. JOSE RIVERA TO CALL REPORT.
[2020-04-18 14:05] VITALS: BP 131/56
--- NOTE | 2020-04-18 15:15 | NUR ---
PATIENT DISCHARGED TO [facility]. REPORT CALLED. COPY OF CHART AND DISCHARGE PAPERS GIVEN TO TRANSPORTERS. PATIENT ASSISTED WITH GETTING DRESSED. IV REMOVED. PACKED BELONGINGS. PATIENT DENIES ANY FURTHER NEEDS. PATIENT LEFT BY BRADY HERNANDEZ AT THIS TIME.
== END 2020-04-18 15:15 | DRG 871 ==
LOC: M.ERS 18:05 → M.2W 19:23 → M.TBA-ER 19:23 → M.ICU 19:23 → M.2W 03-12 17:16 → M.3W 04-02 18:31 → M.ORTHSURG 04-10 19:14
PROVIDERS: Family Medicine; Internal Medicine; Internal Medicine Hematology & Oncology; Internal Medicine Nephrology; Nurse Practitioner; Physician Assistant; Specialist; ADMIT Internal Medicine; ATTEND Internal Medicine
PROC: 02HV33Z Insertion of Infusion Device into Superior Vena Cava, Percutaneous Approach (ICD-10-PCS; principal; 2020-03-10)
PROC: B548ZZA Ultrasonography of Superior Vena Cava, Guidance (ICD-10-PCS; principal; 2020-03-10)
PROC: 5A1D70Z Performance of Urinary Filtration, Intermittent, Less than 6 Hours Per Day (ICD-10-PCS; 2020-03-14)
PROC: 5A1D70Z Performance of Urinary Filtration, Intermittent, Less than 6 Hours Per Day (ICD-10-PCS; 2020-03-15)
PROC: 5A1D70Z Performance of Urinary Filtration, Intermittent, Less than 6 Hours Per Day (ICD-10-PCS; 2020-03-18)
PROC: 0JH63XZ Insertion of Tunneled Vascular Access Device into Chest Subcutaneous Tissue and Fascia, Percutaneous Approach (ICD-10-PCS; 2020-03-19)
PROC: B548ZZA Ultrasonography of Superior Vena Cava, Guidance (ICD-10-PCS; 2020-03-19)
PROC: 02HV33Z Insertion of Infusion Device into Superior Vena Cava, Percutaneous Approach (ICD-10-PCS; 2020-03-19)
PROC: B5181ZA Fluoroscopy of Superior Vena Cava using Low Osmolar Contrast, Guidance (ICD-10-PCS; 2020-03-19)
PROC: 5A1D70Z Performance of Urinary Filtration, Intermittent, Less than 6 Hours Per Day (ICD-10-PCS; 2020-03-20)
PROC: 5A1D70Z Performance of Urinary Filtration, Intermittent, Less than 6 Hours Per Day (ICD-10-PCS; 2020-03-22)
PROC: 5A1D70Z Performance of Urinary Filtration, Intermittent, Less than 6 Hours Per Day (ICD-10-PCS; 2020-03-25)
PROC: 0TB13ZX Excision of Left Kidney, Percutaneous Approach, Diagnostic (ICD-10-PCS; 2020-03-26)
PROC: 5A1D70Z Performance of Urinary Filtration, Intermittent, Less than 6 Hours Per Day (ICD-10-PCS; 2020-03-29)
PROC: 5A1D70Z Performance of Urinary Filtration, Intermittent, Less than 6 Hours Per Day (ICD-10-PCS; 2020-04-01)
PROC: 5A1D70Z Performance of Urinary Filtration, Intermittent, Less than 6 Hours Per Day (ICD-10-PCS; 2020-04-03)
PROC: 5A1D70Z Performance of Urinary Filtration, Intermittent, Less than 6 Hours Per Day (ICD-10-PCS; 2020-04-08)
PROC: 5A1D70Z Performance of Urinary Filtration, Intermittent, Less than 6 Hours Per Day (ICD-10-PCS; 2020-04-10)
PROC: 30233N1 Transfusion of Nonautologous Red Blood Cells into Peripheral Vein, Percutaneous Approach (ICD-10-PCS; 2020-04-10)
PROC: 5A1D70Z Performance of Urinary Filtration, Intermittent, Less than 6 Hours Per Day (ICD-10-PCS; 2020-04-12)
PROC: 5A1D70Z Performance of Urinary Filtration, Intermittent, Less than 6 Hours Per Day (ICD-10-PCS; 2020-04-15)
PROC: 5A1D70Z Performance of Urinary Filtration, Intermittent, Less than 6 Hours Per Day (ICD-10-PCS; 2020-04-17)
DX: A41.89 Other specified sepsis (principal); G92 Toxic encephalopathy; N17.0 Acute kidney failure with tubular necrosis; N18.6 End stage renal disease; N39.0 Urinary tract infection, site not specified; N18.4 Chronic kidney disease, stage 4 (severe); D69.3 Immune thrombocytopenic purpura; D61.818 Other pancytopenia; B49 Unspecified mycosis; I13.2 Hypertensive heart and chronic kidney disease with heart failure and with stage 5 chronic kidney disease, or end stage renal disease; R65.20 Severe sepsis without septic shock; E78.00 Pure hypercholesterolemia, unspecified; M10.9 Gout, unspecified; I25.10 Atherosclerotic heart disease of native coronary artery without angina pectoris; G89.29 Other chronic pain; M54.9 Dorsalgia, unspecified; E03.9 Hypothyroidism, unspecified; E78.5 Hyperlipidemia, unspecified; E11.40 Type 2 diabetes mellitus with diabetic neuropathy, unspecified; D46.9 Myelodysplastic syndrome, unspecified; K29.70 Gastritis, unspecified, without bleeding; I87.8 Other specified disorders of veins; I34.0 Nonrheumatic mitral (valve) insufficiency; I37.1 Nonrheumatic pulmonary valve insufficiency; D47.2 Monoclonal gammopathy; R31.0 Gross hematuria; L89.92 Pressure ulcer of unspecified site, stage 2; E87.5 Hyperkalemia; D50.9 Iron deficiency anemia, unspecified; E11.22 Type 2 diabetes mellitus with diabetic chronic kidney disease; Z20.828 Contact with and (suspected) exposure to other viral communicable diseases; Z88.6 Allergy status to analgesic agent; I25.2 Old myocardial infarction; Z87.442 Personal history of urinary calculi; Z90.49 Acquired absence of other specified parts of digestive tract; Z90.710 Acquired absence of both cervix and uterus; Z82.49 Family history of ischemic heart disease and other diseases of the circulatory system; Z83.3 Family history of diabetes mellitus

== ENCOUNTER → 2020-09-29 | Outpatient (CLI) | payer OTHER ==
[~2020-09-29] MED LIST changes: +GABAPENTIN 100100 MG PO; +GLIPIZIDE XL2.5 MG PO; +HUMALOG100 UNIT/1 SUBQ; +NEPHRO-VITE TA0.8 MG PO; +REMERON15 M2 PO; +ULTRAM 50MG TAB50 MG PO
[2020-09-29 11:06] LABS: CALCIUM 8.9 mg/dL (8.5-10.1); CREATININE 4.3 mg/dL (0.6-1.3); POTASSIUM 3.3 mmol/L (3.5-5.1)
== END ==
LOC: M.LAB 10:21
PROVIDERS: ATTEND Internal Medicine Nephrology
DX: Z99.2 Dependence on renal dialysis (principal); Z91.15 Patient's noncompliance with renal dialysis

== ENCOUNTER 2021-05-30 22:42 | Emergency (ER) | payer OTHER ==
[~2021-05-30] VITALS: Ht 167.6 cm; Wt 61.2 kg
[2021-05-30 23:15] LABS: ABSOLUTE EOSINOPHILS 0.1 thou/uL (0.0-0.7); ABSOLUTE LYMPHOCYTES 0.7 thou/uL (0.8-5.3); ABSOLUTE MONOCYTES 0.2 thou/uL (0.0-1.2); ABSOLUTE NEUTROPHILS 3.1 thou/uL (1.6-8.1); BASOPHILS 1.2 %; EOSINOPHILS 2.6 %; HEMATOCRIT 35.2 % (37.0-47.0); LYMPHOCYTES 17.4 %; MCHC 31.4 g/dL (28.0-37.0); MCV 86.2 fL (80.0-100.0); MPV 6.9 fl. (7.2-11.1); NUCLEATED RBCS 0 /100WBC; PLATELET COUNT* 128 thou/uL (150-400); POLYS 73.8 %; RBC 4.09 mil/uL (4.20-5.00); RDW-CV 17.5 % (10.5-14.5); WBC 4.2 thou/uL (4.0-11.0)
[2021-05-30 23:21] LABS: CREATININE 2.2 mg/dL (0.6-1.3); POTASSIUM 3.3 mmol/L (3.5-5.1)
[2021-05-30 23:24] LABS: APTT 28.3 Seconds (25.0-31.3); PROTIME 10.3 Seconds (9.20-11.50)
[2021-05-30 23:32] LABS: ALBUMIN 2.4 g/dL (3.4-5.0); TOTAL BILIRUBIN 0.4 mg/dL (<0.1-1.0); TOTAL PROTEIN 6.6 g/dL (6.4-8.2)
[2021-05-31 02:10] VITALS: BP 143/58
--- NOTE | 2021-05-31 09:41 | EKG ---
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 [employer] : 1950 Requested By: Kayleigh Cadet Order Number: [id number] MD: Morro Oconnell Measurements Intervals [place] Rate: 64 P: 42 MA: 173 QRS: -17 QRSD: 108 T: 57 QT: 439 QTc: 453 Interpretive Statements Sinus rhythm Borderline left axis deviation Inferior infarct, old, possible Compared to ECG 03/10/2020 18:16:06 Left bundle-branch block no longer present Electronically Signed On 05-31-2021 9:41:08 CDT by Morro Oconnell [email or web address] <ELECTRONICALLY SIGNED> By: Morro Oconnell MD, FACC 05/31/21 0941 2248 2248 Morro Oconnell MD, [facility] /EPI
--- NOTE | 2021-05-31 09:41 | EKG ---
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: : 1950 Requested By: Kayleigh Cadet Order Number: [id number] MD: Morro Oconnell Measurements Intervals [place] Rate: 66 P: 41 MO: 186 QRS: -14 QRSD: 107 T: 45 QT: 444 QTc: 466 Interpretive Statements Sinus rhythm Minimal ST elevation, anterior leads Inferior infarct, old, possible Compared to ECG 05/30/2021 22:48:37 No significant changes Electronically Signed On 05-31-2021 9:41:34 CDT by Morro Oconnell [email or web address] <ELECTRONICALLY SIGNED> By: Morro Oconnell MD, FACC 05/31/21 0941 0039 0039 Morro Oconnell MD, [facility] /EPI
== END 2021-05-31 02:12 | disposition home or self-care (01) ==
LOC: M.ERS 22:42
PROVIDERS: Personal Emergency Response Attendant
DX: R07.89 Other chest pain (principal); R11.0 Nausea; E11.22 Type 2 diabetes mellitus with diabetic chronic kidney disease; I13.0 Hypertensive heart and chronic kidney disease with heart failure and stage 1 through stage 4 chronic kidney disease, or unspecified chronic kidney disease; N18.4 Chronic kidney disease, stage 4 (severe); I50.30 Unspecified diastolic (congestive) heart failure; I25.10 Atherosclerotic heart disease of native coronary artery without angina pectoris; I25.2 Old myocardial infarction; E03.9 Hypothyroidism, unspecified; E78.00 Pure hypercholesterolemia, unspecified; E11.40 Type 2 diabetes mellitus with diabetic neuropathy, unspecified; Z90.49 Acquired absence of other specified parts of digestive tract; Z90.89 Acquired absence of other organs; Z90.711 Acquired absence of uterus with remaining cervical stump; Z87.442 Personal history of urinary calculi; Z79.899 Other long term (current) drug therapy; Z79.4 Long term (current) use of insulin; Z88.5 Allergy status to narcotic agent; Z88.6 Allergy status to analgesic agent

== ENCOUNTER 2021-06-02 13:53 | Inpatient (IN) | payer OTHER ==
[~2021-06-02] VITALS: Ht 167.6 cm; Wt 59.0 kg
--- NOTE | ~2021-06-02 | CON ---
[address] [address] CONSULTATION Name: JOSE MARTIN HOLLINS Room: [place] [address] ADM IN M.R.#: [id number] Admission: 06/02/21 Attend Phys: Bismark Montgomery MD Discharge: Date of : 46 Report #: [id number] THIS REPORT FOR: cc: Dyllan Gardiner Steve T. DO Khosla, Parveen K. MD ~ DATE OF CONSULTATION: 06/03/2021 HISTORY OF PRESENT ILLNESS: A 70-year-old female patient who was seen by me for tremor. She said it is going on for 2-3 days. It started spontaneously. She is on gabapentin. She has only a small dose of gabapentin 100 mg b.i.d., but she got 400 mg of gabapentin in the Emergency Room. She does not think her memory is much affected, although on examination, her memory was not very good. REVIEW OF SYSTEMS: Positive for hypertension, congestive heart failure, coronary artery disease, diabetes, mitral regurgitation, pulmonary regurgitation, thrombocytopenia, cholecystectomy, appendectomy, tonsillectomy, hysterectomy, knee surgery, kidney stone, vein surgery, cataract surgery, gout, hypothyroidism, high cholesterol, gastritis, iron deficiency, shingles, gout, chronic pain, hypothyroidism and neuropathy. She also has end-stage renal disease. She has iron-deficiency anemia. One time, she had hypoxia. She feels weak in all 4 extremities. She said she had this weakness for several months, if not for a few years. PAST MEDICAL HISTORY: Positive for end-stage renal disease. She does not know whether she has been diagnosed with neuropathy or not, but she does know she is on gabapentin and that was confirmed by the records in the computer. FAMILY HISTORY: Unremarkable. SOCIAL HISTORY: She does not smoke or drink any alcohol. PHYSICAL EXAMINATION: NEUROLOGIC: Indicates she is alert. Her memory is poor, but she can tell me what month it is. She does not tell me what year it is. She could tell me what hospital she was in, but could not tell me who the President was. The patient's cranial nerve is unremarkable. She moves all 4 extremities symmetrically, but she is weak in all 4 extremities. Her position sense is intact in the lower extremities. The reflexes are absent. Both plantars are mute. There does not appear to be any ataxia in the upper extremity. I could not look at the patient's fundus. CARDIAC: Cardiac examinations appear mostly noncontributory. No respiratory difficulty. Pulses are difficult to feel. VITAL SIGNS: Blood pressure is 135/91, respirations 20, and pulse is 72. HEENT: Her hearing and vision looks adequate. She does not have any edema, [place] [address] CONSULTATION Name: JOSE MARTIN HOLLINS Room: [address] IN [facility]#: [id number] Admission: 06/02/21 Attend Phys: Bismark Montgomery MD Discharge: Date of : 46 Report #: [id number] cyanosis or jaundice. Does not have any thyroid mass or carotid bruits. She did not have any imaging study of the brain. IMPRESSION: These kind of symptoms can occur in a renal patient who takes gabapentin, but usually is taken higher dose than she is taking, but I am going to stop her gabapentin and see if she improves. I will get a CT scan done. If she does not improve, then I think she will need further workup. I discussed all of it with the patient and she understands that and I spent more than 50 minutes of time taking care of this patient today and majority was spent counseling and coordinating. By: [id number] Banegas MD /nt
--- NOTE | ~2021-06-02 | EEG ---
[address] [address] EEG STUDY REPORT Name: JOSE MARTIN HOLLINS Room: [address] IN M.R.#: [id number] Admission: 06/02/21 Attend Phys: Bismark Montgomery MD Discharge: 06/04/21 Date of : 46 Report #: [id number] THIS REPORT FOR: cc: Dyllan Gardiner Steve T. DO Khosla,Kamran Ambrosio MD ~ DATE OF SERVICE: 06/04/2021 This patient was evaluated for tremor. EEG was done by placing the electrode by standard 10-20 system of electrode placement. Both referential and sequential montages were used for recording. Background activity in this patient's EEG is about 7 Hz and 30 microvolts. The patient went to sleep and that is associated with bilateral slowing and vertex sharp waves. Photic stimulation is unremarkable. IMPRESSION: This is an abnormal EEG because it is a disorganized and poorly formed. That is a nonspecific finding which can occur with encephalopathy, effect of psychotropic medication, dementia, etc. Clinical correlation is recommended. By: [id number] Banegas MD /nt
[2021-06-02 14:03] VITALS: BP 140/83
[2021-06-02 14:25] LABS: ABSOLUTE BASOPHILS 0.1 thou/uL (0.0-0.2); ABSOLUTE EOSINOPHILS 0.1 thou/uL (0.0-0.7); ABSOLUTE LYMPHOCYTES 0.7 thou/uL (0.8-5.3); ABSOLUTE MONOCYTES 0.2 thou/uL (0.0-1.2); ABSOLUTE NEUTROPHILS 3.8 thou/uL (1.6-8.1); BASOPHILS 2.7 %; EOSINOPHILS 2.7 %; HEMATOCRIT 35.6 % (37.0-47.0); LYMPHOCYTES 14.6 %; MCHC 30.9 g/dL (28.0-37.0); MCV 87.2 fL (80.0-100.0); MONOCYTES 4.3 %; MPV 6.5 fl. (7.2-11.1); NUCLEATED RBCS 0 /100WBC; PLATELET COUNT* 159 thou/uL (150-400); POLYS 75.7 %; RBC 4.08 mil/uL (4.20-5.00); RDW-CV 17.3 % (10.5-14.5)
[2021-06-02 14:36] LABS: CALCIUM 8.1 mg/dL (8.5-10.1)
[2021-06-02 14:41] LABS: CREATININE 4.1 mg/dL (0.6-1.3)
[2021-06-02 14:42] LABS: POTASSIUM 6.2 mmol/L (3.5-5.1)
[2021-06-02 14:50] LABS: ALBUMIN 2.3 g/dL (3.4-5.0); CK-MB MASS 1.8 ng/mL (<0.5-3.6); MAGNESIUM 1.9 mg/dL (1.8-2.4); TOTAL BILIRUBIN 0.4 mg/dL (<0.1-1.0); TOTAL PROTEIN 6.3 g/dL (6.4-8.2)
--- NOTE | 2021-06-02 17:11 | EKG ---
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[employer] : 1950 Requested By: Alex Gutiérrez Order Number: [id number] MD: Hadley Patiño Measurements Intervals [place] Rate: 66 P: 46 MT: 177 QRS: -15 QRSD: 102 T: 41 QT: 417 QTc: 437 Interpretive Statements Sinus rhythm Borderline left axis deviation Baseline wander in lead(s) II,III,aVR,aVL,aVF,V4 Compared to ECG 05/31/2021 00:39:48 ST (T wave) deviation no longer present Myocardial infarct finding no longer present Electronically Signed On 06-02-2021 17:11:37 CDT by Hadley Patiño [email or web address] <ELECTRONICALLY SIGNED> By: Hadley Patiño MD, [facility] 06/02/21 1711 1358 1358 Hadley Patiño MD, [facility] /EPI
--- NOTE | 2021-06-02 17:32 | 2DMMODE ---
[place] [address] 2 D/M-MODE ECHOCARDIOGRAM Name: JOSE MARTIN HOLLINS Room: [place] [address] ADM IN .R.#: [id number] Admission: 06/02/21 Attend Phys: Bismark Montgomery, Discharge: Date of : 46 Date of Service: 06/02/21 1732 Report #: [id number] THIS REPORT FOR: cc: Dyllan Gardiner,Hadley Case MD [facility] ~ APPROVED REPORT Study performed: 06/02/2021 15:36:53 EXAM: Comprehensive 2D, Doppler, and color-flow Echocardiogram Patient Location: In-Patient Room #: er Status: routine BSA: 1.67 HR: 83 bpm Rhythm: NSR Other Information Study Quality: Good Indications Murmur Left Ventricle The left ventricle is normal size. There is normal LV segmental wall motion. Mild concentric left ventricular hypertrophy. Left ventricular systolic function is normal. The left ventricular ejection fraction is within the normal range. LVEF is 60-65%. The left ventricular diastolic function is normal. Right Ventricle The right ventricle is normal size. The right ventricular systolic function is normal. Atria Left atrium is moderately dilated. The right atrium size is normal. Aortic Valve Moderate aortic valve sclerosis. Mild aortic regurgitation. [place] [address] 2 D/M-MODE ECHOCARDIOGRAM Name: JOSE MARTIN HOLLINS Room: [place] [address] ADM IN M.R.#: [id number] Admission: 06/02/21 Attend Phys: Bismark Montgomery, Discharge: Date of : 46 Date of Service: 06/02/21 1732 Report #: [id number] Mitral Valve There is mitral annular calcification. Mild to moderate mitral regurgitation. No evidence of mitral valve stenosis. Tricuspid Valve The tricuspid valve is normal in structure. Mild tricuspid regurgitation. Moderate pulmonary hypertension. Pulmonic Valve The pulmonary valve is normal in structure. Mild pulmonic regurgitation. Great Vessels The aortic root is normal in size. IVC is normal in size and collapses >50% with inspiration. Pericardium There is no pericardial effusion. <Conclusion> The left ventricle is normal size. Mild concentric left ventricular hypertrophy. Left ventricular systolic function is normal. The left ventricular ejection fraction is within the normal range. LVEF is 60-65%. The right ventricle is normal size. Left atrium is moderately dilated. The right atrium size is normal. Moderate aortic valve sclerosis. Mild aortic regurgitation. Mild aortic stenosis. There is mitral annular calcification. Mild to moderate mitral regurgitation. The tricuspid valve is normal in structure. Mild tricuspid regurgitation. Moderate pulmonary hypertension. IVC is normal in size and collapses >50% with inspiration. There is no pericardial effusion. There is normal LV segmental wall motion. <ELECTRONICALLY SIGNED> By: Hadley Patiño MD, [facility] 06/02/211731 31 31 Hadley Patiño MD, FACC /INF
--- NOTE | 2021-06-02 19:01 | NUR ---
LATE ENTRY FOR 1700: PT TAKEN TO DIALYSIS. WILL BE RETURNED UPON COMPLETION.
[2021-06-02 21:43] VITALS: BP 139/44
--- NOTE | 2021-06-02 21:45 | NUR ---
LATE ENTRY FOR 2129: PT RETURNED FROM DIALYSIS TO ER ROOM 10. PT GIVEN DINNER TRAY AND IS RESTING COMFORTABLY IN BED.
[2021-06-03 02:00] VITALS: BP 119/47
[2021-06-03 03:52] LABS: ABSOLUTE BASOPHILS 0.1 thou/uL (0.0-0.2); ABSOLUTE EOSINOPHILS 0.1 thou/uL (0.0-0.7); ABSOLUTE LYMPHOCYTES 0.8 thou/uL (0.8-5.3); ABSOLUTE MONOCYTES 0.2 thou/uL (0.0-1.2); ABSOLUTE NEUTROPHILS 3.3 thou/uL (1.6-8.1); BASOPHILS 1.4 %; EOSINOPHILS 2.6 %; HEMATOCRIT 33.4 % (37.0-47.0); HEMOGLOBIN 10.5 gm/dL (12.0-15.0); LYMPHOCYTES 18.1 %; MCH 27.2 pg (26.0-34.0); MCHC 31.5 g/dL (28.0-37.0); MCV 86.4 fL (80.0-100.0); MONOCYTES 5.3 %; MPV 6.9 fl. (7.2-11.1); NUCLEATED RBCS 0 /100WBC; PLATELET COUNT* 129 thou/uL (150-400); POLYS 72.6 %; RBC 3.87 mil/uL (4.20-5.00); RDW-CV 17.7 % (10.5-14.5); WBC 4.5 thou/uL (4.0-11.0)
[2021-06-03 04:04] LABS: CREATININE 2.6 mg/dL (0.6-1.3); POTASSIUM 4.8 mmol/L (3.5-5.1)
[2021-06-03 06:06] VITALS: BP 132/52
--- NOTE | 2021-06-03 10:05 | NUR ---
DR. KENNEDY MADE AWARE OF SKIN BREAKDOWN ON PATIENT'S BOTTOM AT THIS TIME; SHE STATES THE PATIENT MAY HAVE BARRIER CREAM APPLIED. NO NEW MED ORDERS FOR SKIN CREAM/BARRIER OINTMENT YET.
[2021-06-03 10:37] VITALS: BP 116/47
--- NOTE | 2021-06-03 11:55 | NUR ---
PT CAN HAVE RENAL DIET, PER [facility] DUE TO NOT HAVING STRESS TEST FINISHED TODAY. THE PATIENT NEEDS TO BE NPO AFTER MIDNIGHT TONIGHT.
[2021-06-03 14:54] VITALS: BP 132/47
[2021-06-03] MEDS ORDERED: ASA81BEC PO (14:54)
--- NOTE | 2021-06-03 17:12 | NUR ---
PT'S SPOUSE IS CHRISTINA HOLLINS [phone]. HE IS LEAVING AND WOULD LIKE A CALL FOR UPDATE. HE HAS PATIENT'S PERMISSION TO RECEIVE PATIENT INFORMATION.
[2021-06-03 18:24] VITALS: BP 135/91
--- NOTE | 2021-06-03 18:36 | NUR ---
PT GIVEN RENAL DIET DINNER TRAY AT THIS TIME.
[2021-06-03 22:27] VITALS: BP 150/51
[2021-06-04 01:19] LABS: HEMATOCRIT 34.5 % (37.0-47.0); HEMOGLOBIN 10.7 gm/dL (12.0-15.0); MCH 27.3 pg (26.0-34.0); MPV 6.7 fl. (7.2-11.1); RBC 3.92 mil/uL (4.20-5.00); RDW-CV 17.3 % (10.5-14.5); WBC 5.2 thou/uL (4.0-11.0)
[2021-06-04 01:25] LABS: CALCIUM 8.6 mg/dL (8.5-10.1); POTASSIUM 5.6 mmol/L (3.5-5.1)
[2021-06-04 01:28] LABS: CREATININE 3.7 mg/dL (0.6-1.3)
[2021-06-04 02:09] VITALS: BP 150/51
[2021-06-04 06:00] VITALS: BP 155/50
[2021-06-04 07:30] VITALS: BP 152/53
--- NOTE | 2021-06-04 07:31 | NUR ---
THIS NURSE ASSISTED TECH WITH CLEANING THE PATIENT AFTER SHE URINATED. THIS NURSE NOTICED PATIENT HAD 3 PRESSURE ULCERS (LT BUTTOCK, RT BUTTOCK AND COCCYX). THIS NURSE ASKED THE PATIENT IF THEY WERE NEW AND THE PATIENT STATED "NO".
--- NOTE | 2021-06-04 07:45 | NUR ---
THIS NURSE RECEIVED A CALL FROM [facility] IN [facility]YSIS. PT TRANSPORTED BY [facility] TO DIALYSIS AT THIS TIME.
[2021-06-04] MEDS ORDERED: LOMOTIL TABLET1 EACH PO (13:50)
--- NOTE | 2021-06-04 13:57 | NUR ---
PT TRANSPORT TO STRESS TEST AFTER DIALYSIS.
[2021-06-04 15:30] VITALS: BP 129/53
--- NOTE | 2021-06-04 15:30 | NUR ---
PT CAME BACK FROM STRESS TEST.
--- NOTE | 2021-06-04 17:27 | CARDNUC ---
[place] [address] CARDIAC NUCLEAR IMAGING REPORT Name: JOSE MARTIN HOLLINS Room: [address] IN [facility]#: [id number] Admission: 06/02/21 Attend Phys: Bismark Montgomery, Discharge: Date of : 46 Date of Service: 06/04/21 1727 Report #: [id number] THIS REPORT FOR: cc: Dyllan Gardiner Steve T. DO [place],Morro Story MD [facility] ~ APPROVED REPORT Imaging Protocol: Rest Tc-99m/Stress Tc-99m 2 days Study performed: 06/02/2021 15:20:00 Indication: Chest pain Patient Location: In-Patient Room #: er Stress Tech: nico brown Stress Nurse: Duyen Jones RN NM Tech:IVANA Devi Ht: 5 ft 6 in Wt: 130 lbs BSA: 1.67 m2 BMI: 20.98 Medical History Medical History: CAD non obstructive, CKD, Diabetes, HTN, Hyperlipidemia, Weakness Medications: isosorbide, amlodipine, carvedilol, clopidogrel, lovastatin Allergies: codeine, hydrocodone, Cardiac Risk Factors: Age, DM, HTN, Hyperlipidemia Exercise History: Sedentary Meds Held (24 hrs): isosorbide, carvedilol Resting Data Rest SPECT myocardial perfusion imaging was performed in supine position 30 minutes following the intravenous injection of 10.1 mCi of Tc-99m Sestamibi. Time of rest injection: 829 Date: 06/03/2021 The images were gated to evaluate regional wall motion and calculate left ventricular ejection fraction. Administration Route: IV Pharmacologic Stress Pharmacologic stress test was performed by injecting Regadenoson 0.4 mg IV push over 10-15 seconds immediately followed by the intravenous injection of 35.5 mCi of Tc-99m [place] [address] CARDIAC NUCLEAR IMAGING REPORT Name: JOSE MARTIN HOLLINS Room: [address] IN [facility]#: [id number] Admission: 06/02/21 Attend Phys: Bismark Montgomery, Discharge: Date of : 46 Date of Service: 06/04/21 1727 Report #: [id number] Time of stress injection: 1419 Date: 06/04/2021 Administration Route: IV Gated Stress SPECT was performed 40 minutes after stress injection. The images were gated to evaluate regional wall motion and calculate left ventricular ejection fraction. Stress only was performed in the Supine position. Stress Test Details Stress Test: Pharmacologic stress testing performed using 0.4 mg of regadenoson per 5 mL given IV over 10 seconds. Reason for pharmacologic stress test: physical limitation. HR Max Heart Rate (APMHR): 148 bpm Resting HR: 75 bpm Target HR (85% APMHR): 125 bpm Max HR Achieved: 90 bpm % of APMHR: 60 Recovery HR: 88 bpm BP Resting BP: 175/62 mmHg Max BP: 128/61 mmHg Recovery BP: 127/54 mmHg ECG Resting ECG: Sinus Rhythm Stress ECG: Sinus Rhythm ST Change: None Arrhythmia: None Recovery ECG: Sinus Rhythm Recovery ST Change: None Recovery Arrhythmia: None Clinical Reason for Termination: Completed protocol Patient tolerated Lexiscan infusion without significant cardiac symptoms. Nurse Comments pt is bed bound and cannot walk on treadmill Stress ECG Conclusion Baseline twelve-lead EKG shows sinus rhythm without significant ST segment or T wave abnormality. EKGs obtained during and post exercise show sinus rhythm with no significant ST segment changes noted. There were no stress[place] [address] CARDIAC NUCLEAR IMAGING REPORT Name: JOSE MARTIN HOLLINS Room: [address]#: [id number] Admission: 06/02/21 Attend Phys: Bismark Montgomery, Discharge: Date of : 46 Date of Service: 06/04/21 1727 Report #: [id number] Study Quality Study: Good Artifact: No artifact Study Data At rest, the left ventricular ejection fraction was 70%.. Post stress, the left ventricular ejection was 73%.. TID = 0.98. Perfusion Perfusion images obtained at rest and post Lexiscan stress show uniform uptake of the radioisotope throughout the myocardium. There were no defects to suggest infarct or ischemia. Wall Motion Normal left ventricular wall motion. Nuclear Conclusion ECG Findings: negative for ischemia Clinical Findings: negative for ischemia Nuclear Findings: negative for ischemia Exercise Capacity: not assessed Left Ventricular Function: normal Risk Study: low Perfusion images show no defect to suggest infarct or ischemia. Left ventricular systolic function appears normal on gated studies. This is a low risk study. <Conclusion> Baseline twelve-lead EKG shows sinus rhythm without significant ST segment or T wave abnormality. EKGs obtained during and post exercise show sinus rhythm with no significant ST segment changes noted. There were no stress-induced arrhythmias. <ELECTRONICALLY SIGNED> By: Morro Oconnell MD, FACC 06/04/211726 26 26 Morro Oconnell MD, FACC /INF
[2021-06-04 19:55] VITALS: BP 156/54
[2021-06-04 20:57] VITALS: BP 156/54
== END 2021-06-04 20:10 | disposition home or self-care (01) | DRG 91 ==
LOC: M.ERS 13:53 → M.TBA-ER 15:22
PROVIDERS: Family Medicine; ADMIT Internal Medicine; ATTEND Internal Medicine
DX: G25.1 Drug-induced tremor (principal); N18.6 End stage renal disease; I50.33 Acute on chronic diastolic (congestive) heart failure; I13.2 Hypertensive heart and chronic kidney disease with heart failure and with stage 5 chronic kidney disease, or end stage renal disease; D69.3 Immune thrombocytopenic purpura; N17.9 Acute kidney failure, unspecified; I25.119 Atherosclerotic heart disease of native coronary artery with unspecified angina pectoris; M10.9 Gout, unspecified; E03.9 Hypothyroidism, unspecified; E11.40 Type 2 diabetes mellitus with diabetic neuropathy, unspecified; E11.22 Type 2 diabetes mellitus with diabetic chronic kidney disease; D69.6 Thrombocytopenia, unspecified; E87.5 Hyperkalemia; K21.9 Gastro-esophageal reflux disease without esophagitis; E78.5 Hyperlipidemia, unspecified; T42.6X5A Adverse effect of other antiepileptic and sedative-hypnotic drugs, initial encounter; E78.00 Pure hypercholesterolemia, unspecified; G89.29 Other chronic pain; Z20.822 Contact with and (suspected) exposure to COVID-19; I25.2 Old myocardial infarction; Z90.49 Acquired absence of other specified parts of digestive tract; Z90.710 Acquired absence of both cervix and uterus; Z98.42 Cataract extraction status, left eye; Z98.41 Cataract extraction status, right eye; Z79.84 Long term (current) use of oral hypoglycemic drugs; Z79.899 Other long term (current) drug therapy; Z88.8 Allergy status to other drugs, medicaments and biological substances; Z88.5 Allergy status to narcotic agent; Z95.5 Presence of coronary angioplasty implant and graft; Z99.2 Dependence on renal dialysis